=== PATIENT | female | born 1975 | race Hispanic/Latino ===

== ENCOUNTER → 2019-05-01 | Outpatient (CLI) | payer OTHER ==
[~2019-05-01] MED LIST: Farxiga PO; HUMALOG100 UNIT/3 SQ; LEVEMIR100 UNIT/1 SQ; LOSARTAN POTASS25 MG PO; LYRICA75 MG PO; METFORMIN HCL850 MG PO; NOVOLOG MI100 UNIT/1 SQ; TRAMADOL/APAP PO
--- NOTE | 2019-05-10 11:56 | Diagnostic Imaging Report ---
#[id number] - MGSCRBIL #BILATERAL DIGITAL SCREENING MAMMOGRAM WITH CAD: 05/01/2019 CLINICAL: Routine screening. Comparison is made to exam dated: 12/23/2013 mammogram - [facility]. There are scattered fibroglandular elements in both breasts. Current study was also evaluated with a Computer Aided Detection (CAD) system. No significant masses, calcifications, or other findings are seen in either breast. There has been no significant interval change. IMPRESSION: NEGATIVE There is no mammographic evidence of malignancy. A 1 year screening mammogram is recommended. The patient will be notified by letter of the results. MICHELLE brasher/na:05/08/2019 09:29:27 Sales Administration Manager: Stephanie LÓPEZ)(M), [facility] letter sent: Normal Exam Mammogram BI-RADS: 1 Negative
== END ==
LOC: MAMMO 16:43
PROVIDERS: ATTEND Internal Medicine
DX: Z12.31 Encounter for screening mammogram for malignant neoplasm of breast (principal)
CPT/HCPCS: 77067

== ENCOUNTER 2019-05-11 19:49 | Inpatient (IN) | payer OTHER ==
[~2019-05-11] VITALS: Ht 157.5 cm; Wt 109.8 kg
[~2019-05-11 19:49] MED LIST changes: -Farxiga PO; -HUMALOG100 UNIT/3 SQ; -LEVEMIR100 UNIT/1 SQ; -LOSARTAN POTASS25 MG PO; -LYRICA75 MG PO; -METFORMIN HCL850 MG PO; -TRAMADOL/APAP PO
--- OUTSIDE RECORDS SUMMARY | 2019-05-11 19:53 | XMS REPORT | Continuity of Care Document ---
Author Author [employer] Address Unknown Phone Unavailable Care Team Providers Care Work Checker Name Role Phone [employer] Unavailable Unavailable Problems Problem Status Onset Date Classification Date Reported Comments Source Pseudophakia, right eye Active 11/22/2018 03/13/2019 [facility] Age-related nuclear cataract of right eye Active 09/08/2018 03/13/2019 [facility] Pseudophakia of left eye Active 06/14/2018 03/13/2019 [facility] Combined forms of age-related cataract of both eyes Active 04/29/2018 03/13/2019 [facility] 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 associated with type 2 diabetes mellitus Active 07/07/2017 03/13/2019 [facility] Microalbuminuria Active 12/21/2014 03/13/2019 [facility] Obesity (BMI 30.0-34.9) Active 11/26/2011 03/13/2019 [facility] Urinary frequency Active 11/26/2011 03/13/2019 [facility] Screening for cervical cancer Active 08/20/2011 03/13/2019 [facility] Screening for osteoporosis on depo x 13yr Active 08/20/2011 03/13/2019 [facility] Vaginal itching Active 08/20/2011 03/13/2019 [facility] Plantar fasciitis Active 05/03/2007 03/13/2019 [facility] Uncontrolled type 2 diabetes mellitus with hyperosmolarity without coma, with long- term current use of insulin Active 12/21/2006 03/13/2019 [facility] Carpal tunnel syndrome Active 12/21/2006 03/13/2019 [facility] Abdominal wall abscess Active 03/13/2019 [facility] Spasm of muscle Active 03/13/2019 [facility] Acute bronchitis, unspecified organism Active 03/13/2019 [facility] Encounter for diabetic foot exam Active 03/13/2019 [facility] Neuropathy Active 03/13/2019 [facility] Pseudophakia, left eye Active 03/13/2019 [facility] Proliferative diabetic retinopathy of both eyes with macular edema associated with type 2 diabetes mellitus Active 03/13/2019 [facility] Nail thickening Active 03/13/2019 [facility] Pain in both lower extremities Active 03/13/2019 [facility] Open wound Active 03/13/2019 [facility] Follow up Active 03/13/2019 [facility] Abdominal wall cellulitis Active 03/13/2019 [facility] Boil Active 03/13/2019 [facility] Flu-like symptoms Active 03/13/2019 [facility] Acute upper respiratory infection Active 03/13/2019 [facility] Sore throat Active 03/13/2019 [facility] Obstructive sleep apnea syndrome Active 03/13/2019 [facility] Needs flu shot Active 03/13/2019 [facility] Bilateral carpal tunnel syndrome Active 03/13/2019 [facility] Right flank pain Active 03/13/2019 [facility] Viral URI with cough Active 03/13/2019 [facility] Non morbid obesity due to excess calories Active 03/13/2019 [facility] Diabetes mellitus type 2 in obese Active 03/13/2019 [facility] Medications Medication Details Route Status Patient Instructions Ordering Provider Order Date Source metFORMIN (GLUCOPHAGE) 500 mg tablet Take 2 tablets by mouth 2 times daily (with meals). Oral Active 02/04/2019 [facility] cyclobenzaprine (FLEXERIL) 10 mg tablet Take 1 tablet by mouth nightly at bedtime as needed for Muscle Spasms. Oral Active 02/04/2019 [facility] naproxen (NAPROSYN) 500 mg tablet Take 1 tablet by mouth 2 times daily (with meals). Oral Active 02/04/2019 [facility] blood glucose (PRECISION XTRA TEST STRIPS) test strips Check blood glucose 3 times daily Active 01/27/2019 [facility] insulin detemir U-100 (LEVEMIR FLEXTOUCH) 100 unit/mL (3 mL) Pen Inject 45 Units under the skin 2 times daily. Subcutaneous Active 01/11/2019 [facility] prednisoLONE acetate (PRED FORTE) 1 % ophthalmic suspension Instill 1 Drop in right eye 4 times daily for 10 days. No Longer Active 01/02/2019 [facility] ketorolac (ACULAR) 0.5 % ophthalmic drops Instill 1 Drop in right eye 4 times daily for 10 days. No Longer Active 01/02/2019 [facility] amoxicillin-clavulanate (AUGMENTIN) 875-125 mg per tablet Take 1 tablet by mouth 2 times daily for 10 days. Oral Inactive 12/26/2018 [facility] benzonatate (TESSALON PERLES) 100 mg capsule Take 1 to 2 capsules by mouth every 8 hours as needed for cough. Active 12/26/2018 [facility] loratadine (CLARITIN) 10 mg tablet Take 1 tablet by mouth daily. Oral Active 12/26/2018 [facility] pregabalin (LYRICA) 150 mg capsule Take 1 capsule by mouth 2 times daily. Oral Active 12/02/2018 [facility] ofloxacin (OCUFLOX) 0.3 % ophthalmic solution Instill 1 Drop in right eye 4 times daily for 10 days. No Longer Active 11/17/2018 [facility] ketorolac (ACULAR) 0.5 % ophthalmic drops Instill 1 Drop in right eye As directed for 30 days Ketorolac: 4x daily for 1 week,then 3x daily for 1 week,then 2x daily for 1 week,. No Longer Active 11/17/2018 [facility] loteprednol etabonate (LOTEMAX) 0.5 % ophthalmic suspension Instill 1 Drop in right eye 4 times daily. Active 11/17/2018 [facility] ketorolac (ACULAR) 0.5 % ophthalmic drops Instill 1 Drop in left eye 4 times daily. Active 11/03/2018 [facility] prednisoLONE acetate (PRED FORTE) 1 % ophthalmic suspension Instill 1 Drop in left eye 4 times daily for 10 days. No Longer Active 11/03/2018 [facility] insulin lispro (HUMALOG) 100 unit/mL injection Inject 5 Units under the skin 2 times daily Before lunch and dinner. Subcutaneous Active 09/30/2018 [facility] INSULIN SYRINGE 0.5mL 30GX5/16" (ULTRA COMFORT) syringe-needle Use to inject medication 2 times daily. Use a new syringe each time. Subcutaneous Active 09/30/2018 [facility] azithromycin (ZITHROMAX) 250 mg tablet Take 2 tablets by mouth on the first day, then take one tablet every day for the next 4 days. No Longer Active 08/26/2018 [facility] ibuprofen (MOTRIN) 800 mg tablet Take 1 tablet by mouth every 8 hours as needed for Pain Take with food. Oral Active 08/26/2018 [facility] oseltamivir (TAMIFLU) 75 mg capsule Take 1 capsule by mouth 2 times daily for 5 days. Oral No Longer Active 08/26/2018 [facility] doxycycline monohydrate (MONODOX) 100 mg capsule Take 1 capsule by mouth 2 times daily for 10 days. Oral No Longer Active 08/26/2018 [facility] pregabalin (LYRICA) 150 mg capsule Take 1 capsule by mouth 2 times daily. Oral No Longer Active 08/01/2018 [facility] pregabalin (LYRICA) 150 mg capsule Take 1 capsule by mouth 2 times daily. Oral No Longer Active 07/26/2018 [facility] ketorolac (ACULAR) 0.5 % ophthalmic drops Instill 1 Drop in left eye 4 times daily for 30 days. No Longer Active 06/13/2018 [facility] ofloxacin (OCUFLOX) 0.3 % ophthalmic solution Instill 1 Drop in each eye 4 times daily for 10 days. No Longer Active 06/13/2018 [facility] prednisoLONE acetate (PRED FORTE) 1 % ophthalmic suspension Instill 1 Drop in left eye 4 times daily for 30 days. No Longer Active 06/13/2018 [facility] acetaminophen-codeine (TYLENOL/CODEINE #3) 300-30 mg per tablet Take 1 tablet by mouth 2 times daily as needed for Pain. Oral No Longer Active 05/19/2018 [facility] insulin detemir U-100 (LEVEMIR FLEXTOUCH) 100 unit/mL (3 mL) Pen Inject 45 Units under the skin 2 times daily. Subcutaneous No Longer Active 05/17/2018 [facility] loratadine (CLARITIN) 10 mg tablet Take 1 tablet by mouth daily for cough and nasal congestion. Oral No Longer Active 03/15/2018 [facility] ciclesonide (ZETONNA) 37 mcg/actuation nasal HFA inhaler Use 1 Kevil in each nostril daily. No Longer Active 03/15/2018 [facility] acetaminophen-codeine (TYLENOL/CODEINE #3) 300-30 mg per tablet Take 1 tablet by mouth 2 times daily as needed for Pain. Oral No Longer Active 02/08/2018 [facility] cyclobenzaprine (FLEXERIL) 10 mg tablet Take 1 tablet by mouth 3 times daily as needed for Muscle Spasms. Oral No Longer Active 02/08/2018 [facility] ibuprofen (MOTRIN) 800 mg tablet Take 1 tablet by mouth every 8 hours as needed for Pain. Oral No Longer Active 01/19/2018 [facility] losartan (COZAAR) 25 mg tablet Take 0.5 tablets by mouth daily. Oral Active 01/06/2018 [facility] insulin detemir U-100 (LEVEMIR FLEXTOUCH) 100 unit/mL (3 mL) Pen Inject 45 Units under the skin 2 times daily for 184 days. Subcutaneous No Longer Active 12/17/2017 [facility] blood glucose (PRECISION XTRA TEST STRIPS) test strips Check blood glucose 3 times daily No Longer Active 09/29/2017 [facility] lancets 28 gauge Check blood glucose 3 times daily. No Longer Active 09/29/2017 [facility] blood glucose meter (PRECISION XTRA GLUCOMETER) Use as directed.. Active 09/28/2017 [facility] metFORMIN (GLUCOPHAGE) 500 mg tablet Take 1 tablet by mouth 2 times daily (with meals). Oral No Longer Active 09/28/2017 [facility] pen needle, diabetic (NOVOFINE) 30 gauge x 1/3" needles Inject under the skin 2 times daily Use as directed. Subcutaneous Active 09/28/2017 [facility] naproxen (NAPROSYN) 500 mg tablet Take 1 tablet by mouth 2 times daily (with meals) For pain as needed. Oral No Longer Active 09/28/2017 [facility] gabapentin (NEURONTIN) 800 mg tablet Take 1 tablet by mouth 3 times daily. Oral Active 09/28/2017 [facility] ibuprofen (MOTRIN) 800 mg tablet Take 1 tablet by mouth 2 times daily as needed for Pain. Oral No Longer Active 02/12/2017 [facility] pen needle, diabetic (NOVOFINE) 30 gauge x 1/3" needles Inject under the skin daily Use as directed. Subcutaneous No Longer Active 05/25/2016 [facility] blood glucose test strips 3 times daily. No Longer Active 05/25/2016 [facility] lancets 28 gauge 3 times daily. No Longer Active 05/25/2016 [facility] insulin REGULAR (NOVOLIN R, HUMULIN R) 100 unit/mL injection Inject 10 Units under the skin 2 times daily (before meals). Subcutaneous No Longer Active 05/17/2015 [facility] dexlansoprazole (DEXILANT) 60 mg delayed release capsule Take 1 capsule by mouth daily. Oral Active 05/06/2015 [facility] blood glucose test strips Use as directed 2 times daily No Longer Active 04/23/2015 [facility] blood glucose meter Use as directed.. Active 11/19/2014 [facility] lancets 28 gauge Check blood glucose 2 times daily No Longer Active 11/19/2014 [facility] INSULIN SYRINGE 1mL 30GX5/16" syringe-needle Use to inject insulin 2 times daily. Use a new syringe each time. Subcutaneous No Longer Active 11/19/2014 [facility] edroxyprogesterone,Contracep, (DEPO-PROVERA) 150 mg/mL Syrg syringe Inject 1 mL by intramuscular injection every 3 months for Other. Intramuscular No Longer Active 08/20/2011 [facility] Allergies, Adverse Reactions, Alerts No Known Medication Allergies Immunizations Immunization Date Given Site Status Last Updated Comments Source Tdap (Tetanus Toxoid, Reduced Diphtheria Toxoid And Acellular Pertussis, Absorbed) 08/26/2018 Not Given Rashid Deferred: - Pt states she recently received chart shows 2018 administration [facility] Influenza, Vaccine<FLUCELVAX>(Multi-Dose) 07/26/2018 completed [facility] PPV 23 (Pneumococcal Polysaccharide 23 Valent) 10/05/[address] [facility] Tdap (Tetanus Toxoid, Reduced Diphtheria Toxoid And Acellular Pertussis, Absorbed) 10/05/[address] [facility] Influenza Vaccine, Seasonal, Injectable 10/05/[address] [facility] Tropicamide 0.5% Eye[facility]Jacy [facility] <Unspecified[facility] 04/25/2016 completed [facility] Nitrostat 0.4mg Tab 05/06/2015 completed [facility] Asa (aspirin) 81mg Tab 05/06/2015 completed [facility] Depo-provera 150mg Inj 08/26/2012 completed [facility] Depo-provera 150mg Inj 05/19/2012 completed [facility] Depo-provera 150mg Inj 02/22/2012 completed [facility] Depo-provera 150mg Inj 11/26/2011 completed [facility] Depo-provera 150mg Inj 08/20/2011 completed [facility] Influenza Vaccine 05/21/2011 [facility]o-[facility]ver[facility]mg Inj [facility]/19/[facility] 60mg/2ml Syringe 12/24/2007 completed Iram [facility] Triamcinolone 40mg/ml Inj 12/12/2007 completed Mack [facility] Triamcinolone 40mg/ml Inj 04/05/2007 completed Noel [facility] Results Order Name Results Value Reference Range Date Interpretation Comments Source DIABETIC FOOT EXAM <p>Louann Steiner, PRESSING MACHINE OPERATOR 12/26/20186:09 PM</p><p>Diabetic Foot Exam was performed at 12/26/2018 6:06 PM.Right foot </p><p>sensation is reduced (mildly reduced), right foot pulses are normal, right </p><p>foot appearance is normal.Left foot sensation is reduced (mildly </p><p>reduced),left foot pulses are normal,left foot appearance is normal. </p><p> </p><p> </p> Louann Steiner G, PRESSING MACHINE OPERATOR 12/26/20186:09 PMDiabetic Foot Exam was performed at 12/26/2018 6:06 PM.Right foot sensation is reduced (mildly reduced), right foot pulses are normal, right foot appearance is normal.Left foot sensation is reduced (mildly reduced),left foot pulses are normal,left foot appearance is normal. 12/26/2018 [facility] GLUCOSE POC <td ID="[id number]">Glucose POC</td><td><span style="flagData">134</span><span style="flagData"> (H)</span></td><td>74 - 106 mg/dL</td><td>BT MAIN-STATION 1</td><td ID="[id number]"/> 134 74 - 106 11/21/2018 [facility] GLUCOSE POC Lab Interpretation Abnormal 11/21/2018 [facility] POCT URINE DIPSTICK - 11/21/2018 [facility] POCT URINE DIPSTICK - Control Control 11/21/2018 [facility] POCT URINE DIPSTICK - <p>UPT negative</p><p>Control test pass</p> UPT negativeControl test pass 11/21/2018 [facility] POCT URINE DIPSTICK - Lab Interpretation Normal 11/21/2018 [facility] BASIC METABOLIC PANEL <td ID="[id number]">CO2</td><td>23</td><td>21 - 31 mmol/L</td><td>BT MAIN-STATION 1</td><td ID="[id number]"/> 23 21 - 31 11/03/2018 [facility] BASIC METABOLIC PANEL <td ID="[id number]">Chloride</td><td>106</td><td>98 - 107 mmol/L</td><td>BT MAIN-STATION 1</td><td ID="[id number]"/> 106 98 - 107 11/03/2018 [facility] BASIC METABOLIC PANEL <td ID="[id number]">Potassium</td><td>4.9</td><td>3.5 - 5.1 mmol/L</td><td>BT MAIN-STATION 1</td><td ID="[id number]"/> 4.9 3.5 - 5.1 11/03/2018 [facility] BASIC METABOLIC PANEL <td ID="[id number]">Sodium</td><td>140</td><td>136 - 145 mmol/L</td><td>BT MAIN-STATION 1</td><td ID="[id number]"/> 140 136 - 145 11/03/2018 [facility] BASIC METABOLIC PANEL <td ID="[id number]">Glucose</td><td><span style="flagData">396</span><span style="flagData"> (H)</span></td><td>70 - 110 mg/dL</td><td>BT MAIN-STATION 1</td><td ID="[id number]"/> 396 70 - 110 11/03/2018 [facility] BASIC METABOLIC PANEL <td ID="[id number]">BUN</td><td><span style="flagData">26</span><span style="flagData"> (H)</span></td><td>7 - 25 mg/dL</td><td>BT MAIN-STATION 1</td><td ID=&amp ;quot;[id number]"/> 26 7 - 25 11/03/2018 [facility] BASIC METABOLIC PANEL <td ID="[id number]">Creatinine</td><td>0.80</td><td>0.6 - 1.2 mg/dL</td><td>BT MAIN-STATION 1</td><td ID="[id number]"/> 0.80 0.6 - 1.2 11/03/2018 [facility] BASIC METABOLIC PANEL Anion Gap 11 11/03/2018 [facility] BASIC METABOLIC PANEL <td ID="[id number]">Calcium</td><td>9.4</td><td>8.6 - 10.3 mg/dL</td><td>BT MAIN-STATION 1</td><td ID="[id number]"/> 9.4 8.6 - 10.3 11/03/2018 [facility] BASIC METABOLIC PANEL GFR, Estimated >60 mL/min/1.73 m2 11/03/2018 [facility] BASIC METABOLIC PANEL eGFR If Africn Am >60 mL/min/1.73 m2 11/03/2018 [facility] BASIC METABOLIC PANEL Lab Interpretation Abnormal 11/03/2018 [facility] CBC <td ID="[id number]">WBC</td><td>8.7</td><td>4.5 - 11.0 K/uL</td><td>BT MAIN-STATION 2</td><td ID="[id number]"/> 8.7 4.5 - 11 11/03/2018 [facility] CBC <td ID="[id number]">RBC</td><td><span style="flagData">4.10</span><span style="flagData"> (L)</span></td><td>4.20 - 5.40 M/uL</td><td>BT MAIN-STATION 2</td><td ID="[id number]"/> 4.10 4.20 - 5.40 11/03/2018 [facility] CBC <td ID="[id number]">Hemoglobin</td><td>12.2</td><td>12.0 - 16.0 g/dL</td><td> MAIN-STATION 2</td><td ID="[id number]"/> 12.2 12 - 16 11/03/2018 [facility] CBC <td ID="[id number]">Hematocrit</td><td>38.7</td><td>37.0 - 47.0 %</td><td> MAIN-STATION 2</td><td ID="[id number]"/> 38.7 37 - 47 11/03/2018 [facility] CBC <td ID="[id number]">MCV</td><td><span style="flagData">94</span><span style="flagData"> (H)</span></td><td>82 - 92 fL</td><td> MAIN-STATION 2</td><td ID="[id number]"/> 94 82 - 92 11/03/2018 [facility] CBC <td ID="[id number]">MCH</td><td>29.8</td><td>27.0 - 32.0 pg</td><td> MAIN-STATION 2</td><td ID="[id number]"/> 29.8 27 - 32 11/03/2018 [facility] CBC <td ID="[id number]">MCHC</td><td><span style="flagData">31.5</span><span style="flagData"> (L)</span></td><td>32.0 - 36.0 g/dL</td><td> MAIN-STATION 2</td><td ID="[id number]"/> 31.5 32 - 36 11/03/2018 [facility] CBC <td ID="[id number]">RDW</td><td>44.5</td><td>36.4 - 46.3 fL</td><td>BT MAIN-STATION 2</td><td ID="[id number]"/> 44.5 36.4 - 46.3 11/03/2018 [facility] CBC <td ID="[id number]">Platelets</td><td>273</td><td>150 - 400 K/uL</td><td>BT MAIN-STATION 2</td><td ID="[id number]"/> 273 150 - 400 11/03/2018 [facility] CBC <td ID="[id number]">Mean Platelet Volume</td><td>11.9</td><td>9.4 - 12.4 fL</td><td> MAIN-STATION 2</td><td ID="[id number]"/> 11.9 9.4 - 12.4 11/03/2018 [facility] CBC Percent NRBC 0.0 11/03/2018 [facility] CBC Absolute NRBC 0.00 11/03/2018 [facility] CBC Lab Interpretation Abnormal 11/03/2018 [facility] 12 LEAD EKG 12 LEAD EKG FOR [facility] Test Date:2018-11-03 Pat Name: DAMIAN ISABEL Department: [id number] : Gender:Financial Planning Advisor: [id number] :1975 Requested By: LIZZIE Santos Order Number: [id number] MD: Ayden Rowland Measurements IntervalsAxis Rate: 84 P:63 MN: 147QRS:85 QRSD: 88 T:35 QT: 383 QTc:455 Interpretive Statements SINUS RHYTHM Electronically Signed On 11-03-2018 11:15:21 CDT by Ayden Rowland 11/03/2018 [facility] DUPLEX DOPPLER LOWER EXTREMITY VENOUS, BILATERAL DUPLEX DOPPLER LOWER EXTREMITY VENOUS, BILATERAL Lower Extremity Vein Mapping Report DAMIAN ISABEL Age:43 Gender: F :1975 Exam Date: 2018-10-20 14:37 Exam Location:[facility] Ordering Phys: ETELVINA PAULSON Referring Phys: Reading Phys:Alexis Finney Fellow Phys: Fellow Phys: Technologist:Samson Diaz [facility], [facility] Reason For Exam: Indications:b/l LE superficial varicose veins, chronic tingling and pain in the legs, Varicose Vein With Inflammation ICD-9 Codes: I83.10 Exam Type: LE Vein Mapping Procedure CPT: 18491G Additional CPT: Risk Factors:Diabetes History: C/O bilateral LE varicose veins with tingling/pain. Previous Vascular Surgery:NO RIGHT LEG Great Saphenous Vein Small Saphenous Vein DepthCharDiameter Depth CharDiameter (mm) (mm)(mm) (mm) 7.4 SFJ 6.7 UT 2.2 MT 1.5 LT 2.5 Knee PF 1.82 2.0 2.4 UC SPJ 2.7 MC 2.5 LC MC 1.2 Ankle 2.1 Ankle Characteristics SFJ: Saphenofemoral Junction PF: Popliteal Fossa Partial ThrombusUT: Upper Thigh SPJ: Saphenopopliteal Junction Acute ThrombusMT: Mid Thigh MC: Mid Calf Chronic ThrombusLT: Low Thigh Ankle: Ankle Wall Thickening Knee: Knee UC: Upper Calf LC: Low Calf Ankle: Ankle RemovedCompetent Hyperplastic Reflux SclerosedNon Reflux IncompetentNormal PAGEBREAK_ LEFT LEG Small Saphenous Vein Great Saphenous Vein Diameter Depth DiameterDepth (mm) (mm) (mm) (mm) Paola Paola SFJ 7.0 UT 6.8 MT 3.6 LT 2.5 Knee 2.4 1.3 PF UC 2.7 SPJ MC 1.9 1.6 MC LC 2.3 1.4 Ankle Ankle CharacteristicsSFJ: Saphenofemoral Junction PF: Popliteal Fossa Partial Thrombus UT: Upper Thigh SPJ: Saphenopopliteal Junction Acute Thrombus MT: Mid Thigh MC: Mid Calf Chronic Thrombus LT: Low Thigh Ankle: Ankle Wall ThickeningKnee: Knee UC: Upper Calf LC: Low Calf Ankle: Ankle RemovedCompetent Hyperplastic Reflux SclerosedNon Reflux IncompetentNormal EXAM DATA ThrombusCompressible Spontaneous Phasic Augmented Competent R L R LR L R L R L R L C. FemoralN N Y Y Y YY Femoral N N Y Y YY ProfundaN N Y Y YY Popliteal N N Y YY Post. TibialN N Y Y YY PeronealN N Y Y Great SaphN N Y Y Y YY Small SaphN N Y YY N=No; Y=Yes; O=Absent; +=Present; -=Variable or Decreased DVT RightLeft No No The results of this study are: Findings A Venous Doppler exam was performed on the Bilateral lower extremities. The exam is negative for deep and superficial venous thrombosis of the Bilateral lower extremities. The Bilateral deep is competent. The right proximal short saphenous vein is incompetent. See measurement report above. Conclusions 1. No evidence of DVT or superficial thrombophlebitis in either lower extremity. 2. Deep veins in both lower extremities are competent. 3. The right proximal short saphenous vein is incompetent. 4. Measurements as listed above. Alexis Finney Edited by:Alexis Finney (Electronically Signed) Final Date:21 October 2018 16:52 10/21/2018 [facility] HIV-1/HIV-2 ROUTINE SCREENING <td ID="[id number]">HIV-1/HIV-2</td><td>Negative</td><td>NEG</td><td>BT MAIN-STATION 4</td><td ID="[id number]"/> Negative NEG 08/26/2018 [facility] TEST Negative 08/26/2018 [facility] UA CHEMISTRIES <td ID="[id number]">Color</td><td>Yellow</td><td/><td>BT [facility]IN-STATION 3</td><td ID="[id number]"/> Yellow 08/26/2018 [facility] CHEMISTRIES Clarity Clear 08/26/2018 [facility]ES <td ID="[id number]">Specific [place]</td><td>1.032</td><td>1.001 - 1.035</td><td>BT MAIN-STATION 3</td><td ID="[id number]"/> 1.032 1.001 - 1.035 08/26/2018 [facility]MISTRIES <td ID="[id number]">pH</td><td>6.0</td><td>5 - 8</td><td>BT MA[facility]-STATION 3</td><td ID="[id number]"/> 6.0 5 - 8 08/26/2018 [facility] <td ID="[id number]">Protein</td><td><span style="flagData">2+</span><span style="flagData"> (A)</span></td><td>NEG</td><td>BT MAIN-STATION 3</td><td ID=&quot ;[id number]"/> 2+ NEG 08/26/2018 [facility] <td ID="[id number]">Glucose</td><td><span style="flagData">3+</span><span style="flagData"> (A)</span></td><td>NEG</td><td>BT [facility]IN-STATION 3</td><td ID=&quot ;[id number]"/> 3+ NEG 08/26/2018 [facility] <td ID="[id number]">Ketones</td><td>Negative</td><td>NEG</td><td>BT MAIN-STATION 3</td><td ID="Wcfvnf617015069Fthl6Twxakoccv"/> Negative NEG 08/26/2018 [facility] CHEMISTRIES <td ID="Vcqufy148778236Vfrg0Izdi">Bilirubin</td><td>Negative</td><td>NEG</td><td>BT MAIN-STATION 3</td><td ID="[id number]"/> Negative NEG 08/26/2018 [facility] CHEMISTRIES <td ID="[id number]">Nitrate</td><td>Negative</td><td>NEG</td><td>BT MAIN-STATION 3</td><td ID="[id number]"/> Negative NEG 08/26/2018 [facility] CHEMISTRIES <td ID="[id number]">Urobilinogen,Semi- Qn</td><td><1.0</td><td>0.2 - 1.0 EU/dL</td><td>BT [facility]IN-STATION 3</td><td ID="[id number]"/> <1.0 0.2 - 1 08/26/2018 [facility] CHEMISTRIES <td ID="[id number]">Leukocyte</td><td><span style="flagData">Trace</span><span style="flagData"> (A)</span></td><td>NEG</td><td>BT MAIN-STATION 3</td><td ID=&am p;quot;[id number]"/> Trace NEG 08/26/2018 [facility] CHEMISTRIES Occult Blood 1+ NEG 08/26/2018 [facility] CHEMISTRIES RBC 4 0 - 4 08/26/2018 [facility] CHEMISTRIES WBC 4 0 - 5 08/26/2018 [facility] CHEMISTRIES Epithelial Cell 2 /HPF 08/26/2018 [facility] CHEMISTRIES Lab Interpretation Abnormal 08/26/2018 [facility] CBC/DIFF <td ID="[id number]">WBC</td><td><span style="flagData">15.5</span><span style="flagData"> (H)</span></td><td>4.5 - 11.0 K/uL</td><td>BT MAIN-STATION 2</td><td ID="[id number]"/> 15.5 4.5 - 11 08/26/2018 [facility] CBC/DIFF <td ID="[id number]">RBC</td><td><span style="flagData">3.83</span><span style="flagData"> (L)</span></td><td>4.20 - 5.40 M/uL</td><td>BT MAIN-STATION 2</td><td ID="[id number]"/> 3.83 4.20 - 5.40 08/26/2018 [facility] CBC/DIFF <td ID="[id number]">Hemoglobin</td><td><span style="flagData">11.8</span><span style="flagData"> (L)</span></td><td>12.0 - 16.0 g/dL</td><td>BT MAIN-STATION 2</td><td ID="[id number]"/> 11.8 12 - 16 08/26/2018 [facility] CBC/DIFF <td ID="[id number]">Hematocrit</td><td><span style="flagData">35.8</span><span style="flagData"> (L)</span></td><td>37.0 - 47.0 %</td><td>BT MAIN-STATION 2</td><td ID="[id number]"/> 35.8 37 - 47 08/26/2018 [facility] CBC/DIFF <td ID="[id number]">MCV</td><td><span style="flagData">94</span><span style="flagData"> (H)</span></td><td>82 - 92 fL</td><td>BT MAIN-STATION 2</td><td ID="[id number]"/> 94 82 - 92 08/26/2018 [facility] CBC/DIFF <td ID="[id number]">MCH</td><td>30.8</td><td>27.0 - 32.0 pg</td><td>BT MAIN-STATION 2</td><td ID="[id number]"/> 30.8 27 - 32 08/26/2018 [facility] CBC/DIFF <td ID="[id number]">MCHC</td><td>33.0</td><td>32.0 - 36.0 g/dL</td><td>BT MAIN-STATION 2</td><td ID="[id number]"/> 33.0 32 - 36 08/26/2018 [facility] CBC/DIFF <td ID="[id number]">RDW</td><td>42.0</td><td>36.4 - 46.3 fL</td><td>BT MAIN-STATION 2</td><td ID="[id number]"/> 42.0 36.4 - 46.3 08/26/2018 [facility] CBC/DIFF <td ID="[id number]">Platelets</td><td>258</td><td>150 - 400 K/uL</td><td>BT MAIN-STATION 2</td><td ID="[id number]"/> 258 150 - 400 08/26/2018 [facility] CBC/DIFF <td ID="[id number]">Mean Platelet Volume</td><td>12.0</td><td>9.4 - 12.4 fL</td><td>BT MAIN-STATION 2</td><td ID="[id number]"/> 12.0 9.4 - 12.4 08/26/2018 [facility] CBC/DIFF Percent NRBC 0.00 08/26/2018 [facility] CBC/DIFF Absolute NRBC 0.0 08/26/2018 [facility] CBC/DIFF <td ID="[id number]">Neutrophils</td><td><span style="flagData">73.3</span><span style="flagData"> (H)</span></td><td>34.0 - 70.0 %</td><td>BT MAIN-STATION 2</td><td ID="[id number]"/> 73.3 34 - 70 08/26/2018 [facility] CBC/DIFF <td ID="[id number]">Lymphs</td><td><span style="flagData">18.7</span><span style="flagData"> (L)</span></td><td>20.0 - 50.0 %</td><td>BT MAIN-STATION 2</td><td ID="[id number]"/> 18.7 20 - 50 08/26/2018 [facility] CBC/DIFF <td ID="[id number]">Monocytes</td><td>6.6</td><td>5.0 - 12.0 %</td><td>BT MAIN-STATION 2</td><td ID="[id number]"/> 6.6 5 - 12 08/26/2018 [facility] CBC/DIFF <td ID="[id number]">Eos</td><td>0.8</td><td>0.7 - 5.0 %</td><td>BT MAIN-STATION 2</td><td ID="[id number]"/> 0.8 0.7 - 5 08/26/2018 [facility] CBC/DIFF <td ID="[id number]">Basos</td><td>0.2</td><td>0.1 - 1.2 %</td><td>BT MAIN-STATION 2</td><td ID="[id number]"/> 0.2 0.1 - 1.2 08/26/2018 [facility] CBC/DIFF Lab Interpretation Abnormal 08/26/2018 [facility] POC CO2 POC 25 21 - 32 08/26/2018 [facility] POC Chloride POC 101 98 - 107 08/26/2018 [facility] POC Potassium POC 4.4 3.5 - 5.1 08/26/2018 [facility] POC Sodium POC 138 136 - 145 08/26/2018 [facility] POC <td ID="[id number]">Glucose POC</td><td><span style="flagData">412</span><span style="flagData"> (HH)</span></td><td>74 - 106 mg/dL</td><td>BT MAIN-STATION 1</td><td ID="[id number]"/> 412 74 - 106 08/26/2018 [facility] POC Urea Nitrogen POC 24 7 - 18 08/26/2018 [facility] POC Creatinine POC 0.8 0.6 - 1.3 08/26/2018 [facility] POC Calcium Ionized POC 1.17 1.15 - 1.29 08/26/2018 [facility] POC Hemoglobin POC 13.3 12 - 16 08/26/2018 [facility] POC Hematocrit POC 39.0 37 - 47 08/26/2018 [facility] POC GFR, Estimated >60 mL/min/1.73 m2 08/26/2018 [facility] POC GFR, Estim, Afr-Am >60 mL/min/1.73 m2 08/26/2018 [facility] BMP POC Lab Interpretation Abnormal 08/26/2018 [facility] VBG POC pH, Brandon POC 7.36 7.33 - 7.43 08/26/2018 [facility] pCO2, [place] POC 43.4 38.0 - 50.0 08/26/2018 [facility] pO2, [place] POC 23 50 - 75 08/26/2018 [facility] Base Deficit, [place] POC 1 08/26/2018 [facility] HCO3, [place] POC 24.3 22 - 26 08/26/2018 [facility] % Sat, [place] POC 37 60 - 85 08/26/2018 [facility] Lactic Acid, [place] POC 0.73 0.4 - 2 08/26/2018 [facility] Sample Type [place] 08/26/2018 [facility] TCO2, [place] POC 26 21 - 32 08/26/2018 [facility] Lab Interpretation Abnormal 08/26/2018 [facility] HEMOGLOBIN A1C <td ID="[id number]">Hemoglobin A1c</td><td><span style="flagData">12.9</span><span style="flagData"> (H)</span></td><td>4.3 - 6.1 %</td><td>BT DIAGNOSTIC IMMUNOLOGY</td><td ID="[id number]"/> 12.9 4.3 - 6.1 07/27/2018 [facility] HEMOGLOBIN A1C Est Average Gluc 323.5 07/27/2018 [facility] HEMOGLOBIN A1C Lab Interpretation Abnormal 07/27/2018 [facility] COMPREHENSIVE METABOLIC PANEL(DBIL NOT INCLUDED) <td ID="[id number]">Albumin</td><td>3.8</td><td>3.7 - 5.3 g/dL</td><td>BT MAIN-STATION 1</td><td ID="[id number]"/> 3.8 3.7 - 5.3 07/27/2018 [facility] COMPREHENSIVE METABOLIC PANEL(DBIL NOT INCLUDED) <td ID="[id number]">Calcium</td><td>9.7</td><td>8.6 - 10.3 mg/dL</td><td>BT MAIN-STATION 1</td><td ID="[id number]"/> 9.7 8.6 - 10.3 07/27/2018 [facility] COMPREHENSIVE METABOLIC PANEL(DBIL NOT INCLUDED) <td ID="[id number]">CO2</td><td>26</td><td>21 - 31 mmol/L</td><td>BT MAIN-STATION 1</td><td ID="[id number]"/> 26 21 - 31 07/27/2018 [facility] COMPREHENSIVE METABOLIC PANEL(DBIL NOT INCLUDED) <td ID="[id number]">Chloride</td><td>102</td><td>98 - 107 mmol/L</td><td>BT MAIN-STATION 1</td><td ID="[id number]"/> 102 98 - 107 07/27/2018 [facility] COMPREHENSIVE METABOLIC PANEL(DBIL NOT INCLUDED) <td ID="[id number]">Creatinine</td><td>0.70</td><td>0.6 - 1.2 mg/dL</td><td>BT MAIN-STATION 1</td><td ID="[id number]"/> 0.70 0.6 - 1.2 07/27/2018 [facility] COMPREHENSIVE METABOLIC PANEL(DBIL NOT INCLUDED) <td ID="[id number]">Glucose</td><td><span style="flagData">339</span><span style="flagData"> (H)</span></td><td>70 - 110 mg/dL</td><td>BT MAIN-STATION 1</td><td ID="[id number]"/> 339 70 - 110 07/27/2018 [facility] COMPREHENSIVE METABOLIC PANEL(DBIL NOT INCLUDED) <td ID="[id number]">Alkaline Phosphatase, S</td><td>93</td><td>34 - 104 U/L</td><td>BT MAIN-STATION 1</td><td ID="[id number]"/> 93 34 - 104 07/27/2018 [facility] COMPREHENSIVE METABOLIC PANEL(DBIL NOT INCLUDED) <td ID="[id number]">Potassium</td><td>4.7</td><td>3.5 - 5.1 mmol/L</td><td>BT MAIN-STATION 1</td><td ID="[id number]"/> 4.7 3.5 - 5.1 07/27/2018 [facility] COMPREHENSIVE METABOLIC PANEL(DBIL NOT INCLUDED) <td ID="[id number]">Sodium</td><td><span style="flagData">135</span><span style="flagData"> (L)</span></td><td>136 - 145 mmol/L</td><td>BT MAIN-STATION 1</td><td ID="[id number]"/> 135 136 - 145 07/27/2018 [facility] COMPREHENSIVE METABOLIC PANEL(DBIL NOT INCLUDED) <td ID="[id number]">ALT</td><td>24</td><td>7 - 52 U/L</td><td>BT MAIN-STATION 1</td><td ID="[id number]"/> 24 7 - 52 07/27/2018 [facility] COMPREHENSIVE METABOLIC PANEL(DBIL NOT INCLUDED) <td ID="[id number]">AST (SGOT)</td><td>19</td><td>13 - 39 U/L</td><td>BT MAIN-STATION 1</td><td ID="[id number]"/> 19 13 - 39 07/27/2018 [facility] COMPREHENSIVE METABOLIC PANEL(DBIL NOT INCLUDED) <td ID="[id number]">BUN</td><td>22</td><td>7 - 25 mg/dL</td><td>BT MAIN-STATION 1</td><td ID="Djnmwv535846450Cmpl66Uclhaeihi"/> 22 7 - 25 07/27/2018 [facility] COMPREHENSIVE METABOLIC PANEL(DBIL NOT INCLUDED) <td ID="[id number]">Bilirubin, Total</td><td>0.3</td><td>0.2 - 1.2 mg/dL</td><td>BT MAIN-STATION 1</td><td ID="[id number]"/> 0.3 0.2 - 1.2 07/27/2018 [facility] COMPREHENSIVE METABOLIC PANEL(DBIL NOT INCLUDED) <td ID="[id number]">Protein, Total, Serum</td><td>7.2</td><td>6.0 - 8.3 g/dL</td><td>BT MAIN-STATION 1</td><td ID="[id number]"/> 7.2 6 - 8.3 07/27/2018 [facility] COMPREHENSIVE METABOLIC PANEL(DBIL NOT INCLUDED) GFR, Estimated >60 mL/min/1.73 m2 07/27/2018 [facility] COMPREHENSIVE METABOLIC PANEL(DBIL NOT INCLUDED) eGFR If Africn Am >60 mL/min/1.73 m2 07/27/2018 [facility] COMPREHENSIVE METABOLIC PANEL(DBIL NOT INCLUDED) Anion Gap 7 07/27/2018 [facility] COMPREHENSIVE METABOLIC PANEL(DBIL NOT INCLUDED) Lab Interpretation Abnormal 07/27/2018 [facility] Pathology Reports No Data Provided for This Section Diagnostic Reports No Data Provided for This Section Consultation Notes No Data Provided for This Section Discharge Summaries No Data Provided for This Section History and Physicals No Data Provided for This Section Vital Signs Vital Sign Value Date Comments Source Systolic (mm Hg) 102 02/04/2019 [facility] Diastolic (mm Hg) 63 02/04/2019 [facility] Heart Rate 94 02/04/2019 [facility] Temperature Oral (F) 36.72 Jacqueline 02/04/2019 [facility] Respitory Rate 20 02/04/2019 [facility] Height 157.5 cm 02/04/2019 [facility] Weight 106.958 02/04/2019 [facility] Encounters Location Location Details Encounter Type Encounter Number Reason For Visit Attending Provider ADM Date DC Date Status Source Family Practice [facility] [place] [id number] Otoniel Zamarripa MD 03/15/2018 03/15/2018 [facility] Ophthalmology Office Visit [id number] Adina Masterson MD 03/17/2018 03/17/2018 [facility] Ophthalmology Nurse Only [id number] Adina Masterson MD 03/17/2018 03/17/2018 [facility] Ophthalmology Nurse Only [id number] Alyce Wilder MD 04/29/2018 04/29/2018 [facility] Ophthalmology Office Visit [id number] Alyce Wilder MD 04/29/2018 04/29/2018 [facility] [place] Ref[place] [id number] Clover Lucero MD 05/16/2018 [facility] Pre-Anesthesia Consulting & Testing [facility] Encounter [id number] Dn Ophthalmology:General Resident 05/30/2018 05/31/2018 [facility] Ophthalmology Nurse Only [id number] Janet Hodges 06/03/2018 06/03/2018 [facility] Ophthalmology Office Visit [id number] Niurka Joseph MD 06/03/2018 06/03/2018 [facility] 4F Post Anesthesia 1 (PAC1) [facility] Hospital Encounter [id number] Alyce Wilder MD 06/13/2018 06/13/2018 [facility] 4F Post Anesthesia 1 (PAC1) BT Anesthesia Event [id number] Kathryn Villalta 06/13/2018 06/13/2018 [facility] 4F Post Anesthesia 1 (PAC1) BT Surgery [id number] Niurka Joseph MD 06/13/2018 06/13/2018 [facility] Ophthalmology Office Visit [id number] Niurka Joseph MD 06/14/2018 06/14/2018 [facility] Ophthalmology Office Visit [id number] Adina Masterson MD 06/23/2018 06/23/2018 [facility] Ophthalmology Office Visit [id number] Adina Masterson MD 06/23/2018 06/23/2018 [facility] [place] Ref[place] [id number] Ross Massey MD 07/26/2018 [facility] Travel [id number] 07/26/2018 [facility] [place] Office Visit [id number] Ross Massey MD 07/26/2018 07/26/2018 [facility] [place] Clinical Case Mgt [id number] Loly Cehn RN 07/27/2018 [facility] Pharmacy [place] Telephone [id number] Niurka Skinner 07/28/2018 [facility] [place] Ref[place] [id number] Clover Lucero MD 07/29/2018 [facility] [place] Telephone [id number] Loly Chen RN 08/01/2018 [facility] Ophthalmology Office Visit [id number] Niurka Joseph MD 08/11/2018 08/11/2018 [facility] [place] Telephone [id number] Clarisa Blanton 08/12/2018 [facility] Travel [id number] 08/26/2018 [facility] Same Day Same Day [id number] Ivelisse Plascencia MD 08/26/2018 08/26/2018 [facility] Emergency Center [facility] Emergency [id number] Flo Tolentino MD 08/27/2018 08/27/2018 [facility] Ophthalmology Office Visit [id number] Adina Masterson MD 09/08/2018 09/08/2018 [facility] Ophthalmology Nurse Only [id number] Blanca Llanes 09/08/2018 09/08/2018 [facility] Travel [id number] 09/16/2018 [facility] ASK YOUR NURSE PROGRAM Nurse Triage [id number] Ludy Portillo RN 09/16/2018 [facility] ASK YOUR NURSE PROGRAM Nurse Triage [id number] Fatuma Locke RN 09/16/2018 [facility] [place] Orders Only [id number] Etelvina Paulson MD 09/30/2018 [facility] Travel [id number] 09/30/2018 [facility] [place] Office Visit [id number] Etelvina Paulson MD 09/30/2018 10/14/2018 [facility] Ophthalmology Office Visit [id number] Le Young MD 10/04/2018 10/04/2018 [facility] Travel [id number] 10/20/2018 [facility] Vascular Lab (5207) [facility] Hospital Encounter [id number] Clover Lucero MD 10/20/2018 10/21/2018 [facility] Pre-Anesthesia Consulting & Testing [facility] Encounter [id number] Dn Ophthalmology:General Resident 11/03/2018 11/03/2018 [facility] Ophthalmology Office Visit [id number] Le Young MD 11/03/2018 11/03/2018 [facility] LABORATORY [facility] Hospital Encounter [id number] Lizzie Crandall MD 11/03/2018 11/04/2018 [facility] Ophthalmology Nurse Only [id number] Janet Hodges 11/03/2018 11/03/2018 [facility] Travel [id number] 11/17/2018 [facility] Ophthalmology Office Visit [id number] Adina Masterson MD 11/17/2018 11/17/2018 [facility] Travel [id number] 11/21/2018 [facility] 4F Post Anesthesia 1 (PAC1) [facility] Hospital Encounter [id number] Suhas Bedoya MD 11/21/2018 11/21/2018 [facility] 4F Post Anesthesia 1 (PAC1) BT Anesthesia Event [id number] Ash Manley ResidentMD 11/21/2018 11/21/2018 [facility] 4F Post Anesthesia 1 (PAC1) BT Surgery [id number] Nate Batista ResidentMD 11/21/2018 11/21/2018 [facility] Ophthalmology Office Visit [id number] Niurka Joseph MD 11/22/2018 11/22/2018 [facility] [place] Refill [id number] Clover Lucero MD 11/30/2018 [facility] Travel [id number] 12/26/2018 [facility] Same Day Same Day 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 12/26/2018 [facility] Ophthalmology Office Visit [id number] Shahla Veliz MD 01/02/2019 01/02/2019 [facility] [place] Ref[place] [id number] Clover Lucero MD 01/04/2019 [facility] [place] Ref[place] [id number] Clover Lucero MD 01/25/2019 [facility] Travel [id number] 02/04/2019 [facility] Same Day Same Day [id number] Gisselle Ruvalcaba MD 02/04/2019 02/04/2019 [facility] Procedures Procedure Code Date Perfomer Comments Source DIABETIC FOOT EXAM 12/27/2018 [facility] OPHTH - PHACOEMULSIFICATION OF CATARACT -- WITH OR WITHOUT IOL IMPLANT 11/21/2018 [facility] BASIC METABOLIC PANEL 63162 11/03/2018 [facility] CBC (WITHOUT DIFFERENTIAL) 37964 11/03/2018 [facility] 12 LEAD EKG 79452 11/03/2018 [facility] DUPLEX DOPPLER LOWER EXTREMITY VENOUS, BILATERAL 25716 10/21/2018 [facility] I& D OF ABSCESS WITH PACKING (COMPLICATED) [id number] 08/27/2018 [facility] VBG POC 24505 08/27/2018 Unknown [facility] BMP POC 99392 08/27/2018 Unknown [facility] CBC/DIFF 68192 08/27/2018 [facility] HIV-1/HIV-2 ROUTINE SCREENING 86701 08/27/2018 [facility] URINALYSIS 13334 08/27/2018 [facility] TEST 26416 08/27/2018 [facility] HEMOGLOBIN A1C 15569 07/27/2018 [facility] COMPREHENSIVE METABOLIC PANEL 40221 07/27/2018 [facility] POC GLUCOSE - IN LAB (STAT) 64069 06/13/2018 [facility] POCT URINE DIPSTICK - [id number] 06/13/2018 [facility] Assessment and Plan No Data Provided for This Section Plan of Care Plan of Care Date Source Cervical Cancer Scrn (3 Yrs) 10/12/2020 [facility] DM Foot Exam (Yearly) 12/27/2019 [facility] DM Retinal Exam (Yearly) 11/18/2019 [facility] DM HGBA1C (Yearly) 07/26/2019 [facility] Upcoming EncountersDateTypeSpecialtyCare TeamDescription 04/11/2019 Office Visit Family Practice Clover Lucero MD[id number] [facility] ANASTASIA Mariscal [phone] (Fax) WAITLIST PATIENT Health MaintenanceDue DateLast DoneComments Breast Cancer Scrn (Yearly) 10/12/2018 10/12/2017, 07/23/2016 DM HGBA1C (Yearly) 07/26/2019 07/26/2018, 12/21/2017, 07/23/2016, Additional history exists DM Retinal Exam (Yearly) 11/18/2019 11/17/2018, 11/03/2018, 06/03/2018, Additional history exists DM Foot Exam (Yearly) 12/27/2019 12/26/2018, 09/28/2017, 01/21/2012 Cervical Cancer Scrn (3 Yrs) 10/12/2020 10/12/2017, 05/16/2014, 08/20/2011 03/13/2019 [facility] Upcoming EncountersDateTypeSpecialtyCare TeamDescription 04/11/2019 Office Visit Family Practice Clover Lucero MD[id number] [place], [place] [phone] (Fax) WAITLIST PATIENT Health MaintenanceDue DateLast DoneComments Breast Cancer Scrn (Yearly) 10/12/2018 10/12/2017, 07/23/2016 DM HGBA1C (Yearly) 07/26/2019 07/26/2018, 12/21/2017, 07/23/2016, Additional history exists DM Retinal Exam (Yearly) 11/18/2019 11/17/2018, 11/03/2018, 06/03/2018, Additional history exists DM Foot Exam (Yearly) 12/27/2019 12/26/2018, 09/28/2017, 01/21/2012 Cervical Cancer Scrn (3 Yrs) 10/12/2020 10/12/2017, 05/16/2014, 08/20/2011 02/20/2019 [facility] Breast Cancer Scrn (Yearly) 10/12/2018 [facility] Social History Social History Date Source Tobacco UseTypesPacks/DayYears UsedDate Never Smoker Smokeless Tobacco: Never Used Tobacco Cessation: Counseling Given: No Alcohol UseDrinks/Weekoz/WeekComments No Food InsecurityAnswerDate Recorded Within the past 12 months, you worried that your food would run out before you got money to buy more. Never true 02/08/2018 Within the past 12 months, the food you bought just didn't last and you didn't have money to get more. Never true 02/08/2018 Sex Assigned at BirthDate Recorded Not on file Job Start DateOccupationIndustry Not on file Not on file Not on file Travel HistoryTravel StartTravel End No recent travel history available. 02/04/2019 [facility] Family History Value Date Source Medical HistoryRelationNameComments Cancer Maternal Aunt cervical Cancer Maternal Aunt breast Cancer Maternal Grandfather stomach Diabetes Maternal Grandmother Glaucoma Maternal Grandmother RelationNameStatusComments Brother Alive Daughter Alive X2 Father Alive Maternal Aunt Maternal Aunt Maternal Grandfather Maternal Grandmother Mother Paternal Grandfather Paternal Grandmother Son Alive 03/13/2019 [facility] Medical HistoryRelationNameComments Cancer Maternal Aunt cervical Cancer Maternal Aunt breast Cancer Maternal Grandfather stomach Diabetes Maternal Grandmother Glaucoma Maternal Grandmother RelationNameStatusComments Brother Alive Daughter Alive X2 Father Alive Maternal Aunt Maternal Aunt Maternal Grandfather Maternal Grandmother Mother Paternal Grandfather Paternal Grandmother Son Alive 02/20/2019 [facility] Advance Directives No Data Provided for This Section Functional Status No Data Provided for This Section
--- OUTSIDE RECORDS SUMMARY | 2019-05-11 19:54 | XMS REPORT | Clinical Summary ---
Author Author [facility] Organization [facility] Address Unknown Phone Unavailable Care Team Providers Care Culinary Manager Name Role Phone Clover Lucero MD PCP Allergies No Known Allergies Medications End Date Status Medication Sig Dispensed Refills Start Date Active blood glucose Use as 1 Kit 0 meterIndications: Type II directed.. 5 or unspecified type diabetes mellitus without mention of complication, uncontrolled Active dexlansoprazole Take 1 30 capsule 2 (DEXILANT) 60 mg delayed capsule by 5 release mouth daily. capsuleIndications: Gastroesophageal reflux disease without esophagitis Active blood glucose meter Use as 1 Kit 0 (PRECISION XTRA directed.. 8 GLUCOMETER)Indications: Uncontrolled type 2 diabetes mellitus with hyperosmolarity without coma, with long-term current use of insulin Active pen needle, diabetic Inject under 1 Box 1 (NOVOFINE) 30 gauge x the skin 2 8 1/3" needlesIndications: times daily Uncontrolled type 2 Use as diabetes mellitus with directed. hyperosmolarity without coma, with long-term current use of insulin Active gabapentin (NEURONTIN) Take 1 tablet 90 tablet 2 800 mg tabletIndications: by mouth 3 8 Neuropathy times daily. Active losartan (COZAAR) 25 mg Take 0.5 45 tablet 1 tabletIndications: tablets by 8 Microalbuminuria mouth daily. Active ibuprofen (MOTRIN) 800 mg Take 1 tablet 30 tablet 0 tabletIndications: Sore by mouth 9 throat every 8 hours as needed for Pain Take with food. Active insulin lispro (HUMALOG) Inject 5 30 mL 0 100 unit/mL Units under 9 injectionIndications: the skin 2 Uncontrolled type 2 times daily diabetes mellitus with Before lunch hyperosmolarity without and dinner. coma, with long-term current use of insulin Active INSULIN SYRINGE 0.5mL Use to inject 100 Each 0 30GX5/16" (ULTRA COMFORT) medication 2 9 syringe-needleIndications times daily. : Uncontrolled type 2 Use a new diabetes mellitus with syringe each hyperosmolarity without time. coma, with long-term current use of insulin Active ketorolac (ACULAR) 0.5 % Instill 1 10 mL 2 ophthalmic drops Drop in left 9 eye 4 times daily. Active loteprednol etabonate Instill 1 5 mL 2 (LOTEMAX) 0.5 % Drop in right 9 ophthalmic eye 4 times suspensionIndications: daily. Age-related nuclear cataract of right eye Active pregabalin (LYRICA) 150 Take 1 60 capsule 1 mg capsuleIndications: capsule by 9 Neuropathy mouth 2 times daily. Active benzonatate (TESSALON Take 1 to 2 60 capsule 0 PERLES) 100 mg capsules by 9 capsuleIndications: Acute mouth every 8 bronchitis, unspecified hours as organism needed for cough. Active loratadine (CLARITIN) 10 Take 1 tablet 30 tablet 0 mg tabletIndications: by mouth 9 Acute bronchitis, daily. unspecified organism 02/24/2019 Active amoxicillin-clavulanate Take 1 tablet 20 tablet 0 (AUGMENTIN) 875-125 mg by mouth 2 9 per tabletIndications: times daily Acute bronchitis, for 10 days. unspecified organism Active insulin detemir U-100 Inject 45 8 Pen 2 (LEVEMIR FLEXTOUCH) 100 Units under 9 unit/mL (3 mL) the skin 2 PenIndications: times daily. Uncontrolled type 2 diabetes mellitus with hyperosmolarity without coma, with long-term current use of insulin Active blood glucose (PRECISION Check blood 200 Each 5 XTRA TEST STRIPS) test glucose 3 9 stripsIndications: times daily Uncontrolled type 2 diabetes mellitus with hyperosmolarity without coma, with long-term current use of insulin Active metFORMIN (GLUCOPHAGE) Take 2 360 tablet 1 500 mg tabletIndications: tablets by 9 Uncontrolled type 2 mouth 2 times diabetes mellitus with daily (with hyperosmolarity without meals). coma, with long-term current use of insulin Active cyclobenzaprine Take 1 tablet 30 tablet 1 (FLEXERIL) 10 mg by mouth 9 tabletIndications: Spasm nightly at of muscle bedtime as needed for Muscle Spasms. Active naproxen (NAPROSYN) 500 Take 1 tablet 60 tablet 0 mg tabletIndications: by mouth 2 9 Spasm of muscle times daily (with meals). 03/15/2018 Discontinued edroxyprogesterone,Contra Inject 1 mL 1 Syringe 4 cep, (DEPO-PROVERA) 150 by 2 mg/mL Syrg intramuscular syringeIndications: injection Family planning, every 3 Depo-Provera months for contraception Other. monitoring/administration 06/03/2018 Discontinued lancets 28 Check blood 1 Box 11 gaugeIndications: Type II glucose 2 5 or unspecified type times daily diabetes mellitus without mention of complication, uncontrolled 06/03/2018 Discontinued INSULIN SYRINGE 1mL Use to inject 200 Each 5 30GX5/16" insulin 2 5 syringe-needleIndications times daily. : DM (diabetes mellitus), Use a new type 2, uncontrolled syringe each time. 06/03/2018 Discontinued blood glucose test Use as 2 Box 6 stripsIndications: Type directed 2 5 II or unspecified type times daily diabetes mellitus without mention of complication, uncontrolled 09/30/2018 Discontinued insulin REGULAR (NOVOLIN Inject 10 30 mL 4 R, HUMULIN R) 100 unit/mL Units under 5 injectionIndications: DM the skin 2 (diabetes mellitus), type times daily 2, uncontrolled (before meals). 06/03/2018 Discontinued pen needle, diabetic Inject under 1 Box 4 (NOVOFINE) 30 gauge x the skin 6 1/3" needlesIndications: daily Use as Uncontrolled type 2 directed. diabetes mellitus with hyperosmolarity without coma, with long-term current use of insulin 06/03/2018 Discontinued blood glucose test 3 times 100 Each 11 stripsIndications: daily. 6 Uncontrolled type 2 diabetes mellitus with hyperosmolarity without coma, with long-term current use of insulin 06/03/2018 Discontinued lancets 28 3 times 100 Each 11 gaugeIndications: daily. 6 Uncontrolled type 2 diabetes mellitus with hyperosmolarity without coma, with long-term current use of insulin 06/03/2018 Discontinued ibuprofen (MOTRIN) 800 mg Take 1 tablet 20 tablet 1 tabletIndications: by mouth 2 7 Abdominal pain, right times daily upper quadrant as needed for Pain. 02/04/2019 Discontinued metFORMIN (GLUCOPHAGE) Take 1 tablet 180 tablet 1 500 mg tabletIndications: by mouth 2 8 Uncontrolled type 2 times daily diabetes mellitus with (with meals). hyperosmolarity without coma, with long-term current use of insulin 06/03/2018 Discontinued naproxen (NAPROSYN) 500 Take 1 tablet 60 tablet 0 mg tabletIndications: by mouth 2 8 Chest wall pain times daily (with meals) For pain as needed. 01/25/2019 Discontinued blood glucose (PRECISION Check blood 100 Each XTRA TEST STRIPS) test glucose 3 8 stripsIndications: times daily Uncontrolled type 2 diabetes mellitus with hyperosmolarity without coma, with long-term current use of insulin 06/03/2018 Discontinued lancets 28 Check blood 100 Each 11 gaugeIndications: glucose 3 8 Uncontrolled type 2 times daily. diabetes mellitus with hyperosmolarity without coma, with long-term current use of insulin 05/16/2018 Discontinued insulin detemir U-100 Inject 45 5 Pen 3 (LEVEMIR FLEXTOUCH) 100 Units under 8 unit/mL (3 mL) the skin 2 PenIndications: times daily Uncontrolled type 2 for 184 days. diabetes mellitus with hyperosmolarity without coma, with long-term current use of insulin 06/03/2018 Discontinued ibuprofen (MOTRIN) 800 mg Take 1 tablet 10 tablet 0 tabletIndications: by mouth 8 Periodontitis every 8 hours as needed for Pain. 05/16/2018 Discontinued acetaminophen-codeine Take 1 tablet 60 tablet 0 (TYLENOL/CODEINE #3) by mouth 2 8 300-30 mg per times daily tabletIndications: Right as needed for flank pain Pain. 12/26/2018 Discontinued cyclobenzaprine Take 1 tablet 90 tablet 0 (FLEXERIL) 10 mg by mouth 3 8 tabletIndications: Neck times daily pain as needed for Muscle Spasms. 12/26/2018 Discontinued loratadine (CLARITIN) 10 Take 1 tablet 30 tablet 1 mg tabletIndications: by mouth 8 Viral URI with cough daily for cough and nasal congestion. 12/26/2018 Discontinued ciclesonide (ZETONNA) 37 Use 1 Leadore 6.1 g 0 mcg/actuation nasal HFA in each 8 inhalerIndications: Viral nostril URI with cough daily. 01/04/2019 Discontinued insulin detemir U-100 Inject 45 8 Pen 2 (LEVEMIR FLEXTOUCH) 100 Units under 8 unit/mL (3 mL) the skin 2 PenIndications: times daily. Uncontrolled type 2 diabetes mellitus with hyperosmolarity without coma, with long-term current use of insulin 06/03/2018 Discontinued acetaminophen-codeine Take 1 tablet 60 tablet 0 (TYLENOL/CODEINE #3) by mouth 2 8 300-30 mg per times daily tabletIndications: Right as needed for flank pain Pain. 07/13/2018 ketorolac (ACULAR) 0.5 % Instill 1 5 mL 0 ophthalmic Drop in left 8 dropsIndications: eye 4 times Combined forms of daily for 30 age-related cataract of days. both eyes 07/05/2018 ofloxacin (OCUFLOX) 0.3 % Instill 1 5 mL 0 ophthalmic Drop in each 8 solutionIndications: eye 4 times Combined forms of daily for 10 age-related cataract of days. both eyes 07/13/2018 prednisoLONE acetate Instill 1 5 mL 0 (PRED FORTE) 1 % Drop in left 8 ophthalmic eye 4 times suspensionIndications: daily for 30 Combined forms of days. age-related cataract of both eyes 07/29/2018 Discontinued pregabalin (LYRICA) 150 Take 1 60 capsule 1 mg capsuleIndications: capsule by 8 Neuropathy mouth 2 times daily. 11/30/2018 Discontinued pregabalin (LYRICA) 150 Take 1 60 capsule 1 mg capsuleIndications: capsule by 8 Neuropathy mouth 2 times daily. 08/31/2018 azithromycin (ZITHROMAX) Take 2 6 Each 0 250 mg tabletIndications: tablets by 9 Acute upper respiratory mouth on the infection first day, then take one tablet every day for the next 4 days. 08/31/2018 oseltamivir (TAMIFLU) 75 Take 1 10 capsule 0 mg capsuleIndications: capsule by 9 Flu-like symptoms mouth 2 times daily for 5 days. 09/05/2018 doxycycline monohydrate Take 1 20 capsule 0 (MONODOX) 100 mg capsule by 9 capsuleIndications: mouth 2 times Abdominal wall cellulitis daily for 10 days. 11/13/2018 prednisoLONE acetate Instill 1 5 mL 0 (PRED FORTE) 1 % Drop in left 9 ophthalmic suspension eye 4 times daily for 10 days. 11/27/2018 ofloxacin (OCUFLOX) 0.3 % Instill 1 5 mL 0 ophthalmic Drop in right 9 solutionIndications: eye 4 times Age-related nuclear daily for 10 cataract of right eye days. 12/17/2018 ketorolac (ACULAR) 0.5 % Instill 1 5 mL 2 ophthalmic Drop in right 9 dropsIndications: eye As Age-related nuclear directed for cataract of right eye 30 days Ketorolac: 4x daily for 1 week, then 3x daily for 1 week, then 2x daily for 1 week,. 12/26/2018 Discontinued amoxicillin-clavulanate Take 1 tablet 20 tablet 0 (AUGMENTIN) 875-125 mg by mouth 2 9 per tabletIndications: times daily Acute bronchitis, for 10 days. unspecified organism 01/12/2019 prednisoLONE acetate Instill 1 10 mL 0 (PRED FORTE) 1 % Drop in right 9 ophthalmic eye 4 times suspensionIndications: daily for 10 Pseudophakia, right eye days. 01/29/2019 ketorolac (ACULAR) 0.5 % Instill 1 5 mL 0 ophthalmic Drop in right 9 dropsIndications: eye 4 times Pseudophakia, right eye daily for 10 days. 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 07/07/2017 associated with type 2 diabetes mellitus Microalbuminuria 12/21/2014 Obesity (BMI 30.0-34.9) 11/26/2011 Urinary frequency 11/26/2011 Screening for cervical cancer 08/20/2011 Screening for osteoporosis on depo x 13yr 08/20/2011 Vaginal itching 08/20/2011 Plantar fasciitis 05/03/2007 Uncontrolled type 2 diabetes mellitus with hyperosmolarity without coma, 12/21/2006 with long-term current use of insulin Carpal tunnel syndrome 12/21/2006 Abdominal wall abscess Encounters Care Team Description Date Type Specialty Gisselle Ruvalcaba MD Spasm of muscle (Primary Dx); Uncontrolled type 2 diabetes mellitus with hyperosmolarity without coma, with long-term current use of insulin 02/04/2019 Same Day Family Practice 02/04/2019 Travel Clover Lucero MD Uncontrolled type 2 diabetes mellitus with hyperosmolarity without coma, with long-term current use of insulin 01/25/2019 Refill [facility] Clover Lucero MD Uncontrolled type 2 diabetes mellitus with hyperosmolarity without coma, with long-term current use of insulin 01/04/2019 Refill [facility] Shahla Veliz MD 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 associated with type 2 diabetes mellitus (Primary Dx); Pseudophakia, right eye 01/02/2019 Office Visit Ophthalmology Louann Steiner G, FACILITY EXAMINER Acute bronchitis, unspecified organism (Primary Dx); Encounter for diabetic foot exam 12/26/2018 Same Day Family Practice 12/26/2018 Travel Clover Lucero MD Neuropathy 11/30/2018 Refill [facility] Niurka Joseph MD Pseudophakia, right eye (Primary Dx) 11/22/2018 Office Visit Ophthalmology Nate Batista, ResidentMD UTILIZING MICROSCOPE, RIGHT EYE PHACOEMULSIFICATION OF CATARACT WITH INTRAOCULAR LENS IMPLANT 11/21/2018 Surgery Ash Manley, Ambar 11/21/2018 Anesthesia Event Suhas Bedoya MD Age-related nuclear cataract of right eye (Primary Dx) 11/21/2018 Hospital Encounter 11/21/2018 Travel Adina Masterson MD Age-related nuclear cataract of right eye (Primary Dx) 11/17/2018 Office Visit Ophthalmology 11/17/2018 Travel Janet Hodges 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 associated with type 2 diabetes mellitus 11/03/2018 Nurse Only Ophthalmology Lizzie Crandall MD 11/03/2018 Hospital Lab Encounter Le Young MD Pseudophakia, left eye (Primary Dx); Age-related nuclear cataract of right eye; Proliferative diabetic retinopathy of both eyes with macular edema associated with type 2 diabetes mellitus 11/03/2018 Office Visit Ophthalmology Ophthalmology:General, Dn, Resident Lizzie Crandall MD 11/03/2018 Hospital Encounter Clover Lucero MD 10/20/2018 Hospital Vascular Surgery Encounter 10/20/2018 Travel Le Young MD Chu, Yvonne I, MD 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 associated with type 2 diabetes mellitus (Primary Dx) 10/04/2018 Office Visit Ophthalmology Rosa Maria Paulson MD Uncontrolled type 2 diabetes mellitus with hyperosmolarity without coma, with long-term current use of insulin (Primary Dx); Nail thickening; Pain in both lower extremities; Open wound; Follow up 09/30/2018 Office Visit Family Practice Rosa Maria Paulson MD Pain in both lower extremities 09/30/2018 Orders Only Family Practice 09/30/2018 Travel 09/16/2018 Ludy Rubio RN 09/16/2018 Nurse Triage Fatuma Locke RN 09/16/2018 Nurse Triage Blanca Llanes 09/08/2018 Nurse Only Ophthalmology Adina Masterson MD Age-related nuclear cataract of right eye (Primary Dx); Proliferative diabetic retinopathy of both eyes with macular edema associated with type 2 diabetes mellitus; Pseudophakia, left eye 09/08/2018 Office Visit Ophthalmology Flo Tolentino MD Abdominal wall cellulitis (Primary Dx); Abdominal wall abscess 08/26/2018 Emergency Emergency Medicine - 08/27/2018 Ivelisse Plascencia MD Flu-like symptoms (Primary Dx); Boil; Acute upper respiratory infection; Sore throat 08/26/2018 Same Day Family Practice 08/26/2018 Travel Clarisa Blanton Public Transportation Inspector; Pre-clinic Chart Review 08/12/2018 Telephone Social Work Niurka Joseph MD Proliferative diabetic retinopathy of both eyes with macular edema associated with type 2 diabetes mellitus (Primary Dx) 08/11/2018 Office Visit Ophthalmology Loly Chen RN Pre-clinic Chart Review; Durable Medical Equipment (CPAP Machine and Supplies ) 08/01/2018 Telephone Social Work Clover Lucero MD Neuropathy 07/29/2018 Refill [facility] Niurka Skinner Refill Request 07/28/2018 Telephone Loly Chen RN 07/27/2018 Clinical Case Social Work Mgt Ross Massey MD Obstructive sleep apnea syndrome (Primary Dx); Uncontrolled type 2 diabetes mellitus with hyperosmolarity without coma, with long-term current use of insulin; Needs flu shot; Neuropathy 07/26/2018 Office Visit [facility] Ross Massey MD Neuropathy 07/26/2018 Refill [facility] 07/26/2018 Travel Adina Masterson MD 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 associated with type 2 diabetes mellitus (Primary Dx) 06/23/2018 Office Visit Ophthalmology Adina Masterson MD Proliferative diabetic retinopathy of both eyes with macular edema associated with type 2 diabetes mellitus (Primary Dx); Pseudophakia, left eye 06/23/2018 Office Visit Ophthalmology Niurka Joseph MD Pseudophakia of left eye (Primary Dx); 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 associated with type 2 diabetes mellitus 06/14/2018 Office Visit Ophthalmology Niurka Joseph MD Utilizing Microscope Left Eye Phacoemulsification of Cataract with Intraocular Lens Implant 06/13/2018 Surgery Kathryn Joiner ResidentHI 06/13/2018 Anesthesia Event Alyce Wilder MD Combined forms of age-related cataract of both eyes (Primary Dx); Uncontrolled type 2 diabetes mellitus with hyperosmolarity without coma, with long-term current use of insulin; Bilateral carpal tunnel syndrome; Plantar fasciitis; Obesity (BMI 30.0-34.9); 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 associated with type 2 diabetes mellitus 06/13/2018 Hospital Encounter Niurka Joseph MD Combined forms of age-related cataract of both eyes (Primary Dx); 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 associated with type 2 diabetes mellitus; Obesity (BMI 30.0-34.9) 06/03/2018 Office Visit Ophthalmology Janet Hodges 06/03/2018 Nurse Only Ophthalmology Ophthalmology:General, Dn, Resident Karina Hinojosa MD 05/30/2018 Hospital Encounter Clover Lucero MD Uncontrolled type 2 diabetes mellitus with hyperosmolarity without coma, with long-term current use of insulin; Right flank pain 05/16/2018 Refill Family Practice Alyce Wilder MD 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 associated with type 2 diabetes mellitus (Primary Dx); Combined forms of age-related cataract of both eyes 04/29/2018 Office Visit Ophthalmology Alyce Wilder MD Osorio, Daniel Chino No Show 04/29/2018 Nurse Only Ophthalmology Adina Masterson MD Osorio, Daniel Chino 03/17/2018 Nurse Only Ophthalmology Adina Masterson MD Proliferative diabetic retinopathy of both eyes with macular edema associated with type 2 diabetes mellitus (Primary Dx) 03/17/2018 Office Visit Ophthalmology Otoniel Zamarripa MD Viral URI with cough: 2 days: meds given /symptomatic Rx/patient educated /f/u with PCP in 2 wk 03/02 (Primary Dx); Microalbuminuria: on meds///patient educated /f/u with PCP in 2 wk 03/02 ; Non morbid obesity due to excess calories /patient educated /f/u with PCP in 2 wk 03/02 ; Diabetes mellitus type 2 in obese: on meds///patient educated /f/u with PCP in 2 wk 03/0203/15/2018 Same Day Family Practice after 02/19/2018 Immunizations Name Administration Dates Next Due Asa (aspirin) 81mg Tab 05/06/2015 Depo-provera 150mg Inj 08/26/2012, 05/19/2012, 02/22/2012, 11/26/2011, 02/25/2012 08/20/2011, 12/19/2008 Influenza <Unspecified> 04/25/2016 Influenza Vaccine 05/21/2011 Influenza Vaccine, 10/05/2017 Seasonal, Injectable Influenza, 07/26/2018 Vaccine<FLUCELVAX>(Multi- Dose) Nitrostat 0.4mg Tab 05/06/2015 PPV 23 (Pneumococcal 10/05/2017 Polysaccharide 23 Valent) Tdap (Tetanus Toxoid, 08/26/2018 (Deferred: - Pt states she recently Reduced Diphtheria Toxoid received chart shows 2018 administration), And Acellular Pertussis, 10/05/2017 Absorbed) Toradol 60mg/2ml Syringe 12/24/2007 Triamcinolone 40mg/ml Inj 12/12/2007, 04/05/2007 Tropicamide 0.5% Eye-Jacy 07/23/2016 15ml Family History Medical History Relation Name Comments Cancer Maternal Aunt cervical Cancer Maternal Aunt breast Cancer Maternal stomach Grandfather Diabetes Maternal Grandmother Glaucoma Maternal Grandmother Relation Name Status Comments Brother Alive Daughter Alive X2 Father Alive Maternal Aunt Maternal Aunt Maternal Grandfather Maternal Grandmother Mother Paternal Grandfather Paternal Grandmother Son Alive Social History Date Tobacco Use Types Packs/Day Years Used Never Smoker Smokeless Tobacco: Never Used Tobacco Cessation: Counseling Given: No Drinks/Week oz/Week Comments Alcohol Use No Food Insecurity Answer Date Recorded Within the past 12 months, you worried that your Never true 02/08/2018 food would run out before you got money to buy more. Within the past 12 months, the food you bought Never true 02/08/2018 just didn't last and you didn't have money to get more. Sex Assigned at Date Recorded Not on file Industry Job Start Date Occupation Not on file Not on file Not on file Travel End Travel History Travel Start No recent travel history available. Last Filed Vital Signs Reading Time Taken Comments Vital Sign 102/63 02/04/2019 2:08 PM CDT Blood Pressure 94 02/04/2019 2:08 PM CDT Pulse 36.7 C (98.1 F) 02/04/2019 2:08 PM CDT Temperature 20 02/04/2019 2:08 PM CDT Respiratory Rate 97% 02/04/2019 2:08 PM CDT Oxygen Saturation - - Inhaled Oxygen Concentration 107 kg (235 lb 12.8 oz) 02/04/2019 2:08 PM CDT Weight 157.5 cm (5' 2") 02/04/2019 2:08 PM CDT Height 43.13 02/04/2019 2:08 PM CDT Body Mass Index Plan of Treatment Care Team Description Date Type Specialty Clover Lucero MD [address] [place] [address] [phone] WAITLIST PATIENT 04/11/2019 Office Visit [facility] Health Maintenance Due Date Last Done Comments Breast Cancer Scrn 10/12/2018 10/12/2017, 07/23/2016 (Yearly) DM HGBA1C (Yearly) 07/26/2019 07/26/2018, 12/21/2017, 07/23/2016, Additional history exists DM Retinal Exam (Yearly) 11/18/2019 11/17/2018, 11/03/2018, 06/03/2018, Additional history exists DM Foot Exam (Yearly) 12/27/2019 12/26/2018, 09/28/2017, 01/21/2012 Cervical Cancer Scrn (3 10/12/2020 10/12/2017, 05/16/2014, 08/20/2011 Yrs) Goals Goal Patient Associated Recent Progress Patient-Stat Author Goal Type Problems ed? LOWER BLOOD GLUCOSE Lifestyle No Keyla Chao LOWER BLOOD GLUCOSE Lifestyle No Ross Massey MD Exercise Regularly Self No Keyla Chao G Implants Device Identifier Shelf Expiration Date Model / Serial / Lot Implanted Type Area Manufactur er 10/13/2021 [id number] / [id number] / N/A Implant Eye Iol Intraoccular Lens Implant Left: Eye(s) ADVANCED ([id number]-[id number]) - [id number] eye MEDICAL Implanted: Qty: 1 on 06/13/2018 by [employer] Niurka Joseph MD at [facility] 04/21/2022 [id number] / / Implant Eye Iol Technics 1 Piece Implant Right: Eye(s) ADVANCED [id number] 23.5d - [id number] eye MEDICAL Implanted: Qty: 1 on 11/21/2018 by [employer] Nate Batista ResidentMD at [facility] Procedures Comments Procedure Name Priority Date/Time Associated Diagnosis DIABETIC FOOT EXAM Routine 12/26/2018 Encounter for diabetic 5:29 PM CDT foot exam POC GLUCOSE - IN LAB Routine 11/21/2018 (STAT) 12:12 PM CDT OPHTH - 11/21/2018 Age-related nuclear PHACOEMULSIFICATION OF 10:48 AM CDT cataract of right eye CATARACT -- WITH OR WITHOUT IOL IMPLANT Special Needs Dr. Dione danielle time; 9 am-confirm ed with/patie nt @ [phone]. POC GLUCOSE - IN LAB Routine 11/21/2018 (STAT) 10:11 AM CDT POCT URINE DIPSTICK - Routine 11/21/2018 10:00 AM CDT CBC (WITHOUT Routine 11/03/2018 DIFFERENTIAL) 1:33 PM CDT BASIC METABOLIC PANEL Routine 11/03/2018 1:33 PM CDT 12 LEAD EKG Routine 11/03/2018 9:39 AM CDT DUPLEX DOPPLER LOWER Routine 10/20/2018 Pain in both lower EXTREMITY VENOUS, 2:37 PM [employer] extremities BILATERAL I& D OF ABSCESS WITH Routine 08/26/2018 PACKING (COMPLICATED) 9:15 PM [employer] BMP POC Routine 08/26/2018 1:32 PM [employer] VBG POC Routine 08/26/2018 1:32 PM [employer] HIV-1/HIV-2 ROUTINE STAT 08/26/2018 SCREENING 1:31 PM [employer] CBC/DIFF STAT 08/26/2018 1:31 PM [employer] TEST STAT 08/26/2018 1:25 PM [employer] URINALYSIS STAT 08/26/2018 1:25 PM [employer] COMPREHENSIVE METABOLIC Routine 07/26/2018 Uncontrolled type 2 PANEL 12:30 PM [employer] diabetes mellitus with hyperosmolarity without coma, with long-term current use of insulin HEMOGLOBIN A1C Routine 07/26/2018 Uncontrolled type 2 12:30 PM [employer] diabetes mellitus with hyperosmolarity without coma, with long-term current use of insulin POC GLUCOSE - IN LAB Routine 06/13/2018 (STAT) 9:34 AM CDT OPHTH - 06/13/2018 Combined forms of PHACOEMULSIFICATION OF 8:29 AM CDT age-related cataract of CATARACT -- WITH OR both eyes WITHOUT IOL IMPLANT Special Needs 8:30 START!Dr. Contreras time; 6:30 am-confir med with/patie nt @ [phone]. POC GLUCOSE - IN LAB Routine 06/13/2018 (STAT) 8:27 AM CDT POC GLUCOSE - IN LAB Routine 06/13/2018 (STAT) 8:00 AM CDT POC GLUCOSE - IN LAB Routine 06/13/2018 (STAT) 7:17 AM CDT POCT URINE DIPSTICK - Routine 06/13/2018 after 02/19/2018 Results * DIABETIC FOOT EXAM (12/26/2018 5:29 PM CDT) Narrative Performed At Louann Steiner NP 12/26/20186:09 PM Diabetic Foot Exam was performed at 12/26/2018 6:06 PM.Right foot sensation is reduced (mildly reduced), right foot pulses are normal, right foot appearance is normal.Left foot sensation is reduced (mildly reduced),left foot pulses are normal,left foot appearance is normal. * GLUCOSE POC (11/21/2018 12:12 PM CDT) Only the most recent of 6 results within the time period is included. Glucose POC 134 (H) 74 - 106 mg/dL BT MAIN-STATION 1 Specimen Performing Organization Address City/State/Zipcode Phone Number MISYS BT MAIN-STATION 1 * POCT URINE DIPSTICK - (11/21/2018 10:00 AM CDT) Only the most recent of 2 results within the time period is included. Control Specimen Urine Narrative Performed At UPT negative Control test pass * CBC (11/03/2018 1:33 PM CDT) WBC 8.7 4.5 - 11.0 K/uL BT MAIN-STATION 2 RBC 4.10 (L) 4.20 - 5.40 M/uL BT MAIN-STATION 2 Hemoglobin 12.2 12.0 - 16.0 g/dL BT MAIN-STATION 2 Hematocrit 38.7 37.0 - 47.0 % BT MAIN-STATION 2 MCV 94 (H) 82 - 92 fL BT MAIN-STATION 2 MCH 29.8 27.0 - 32.0 pg BT MAIN-STATION 2 MCHC 31.5 (L) 32.0 - 36.0 g/dL BT MAIN-STATION 2 RDW 44.5 36.4 - 46.3 fL BT MAIN-STATION 2 Platelets 273 150 - 400 K/uL BT MAIN-STATION 2 Mean Platelet 11.9 9.4 - 12.4 fL BT MAIN-STATION Volume 2 Percent NRBC 0.0 BT MAIN-STATION 2 Absolute NRBC 0.00 BT MAIN-STATION 2 Specimen Blood Performing Organization Address [facility] Phone Number MISYS BT [facility] 2 * BASIC METABOLIC PANEL (11/03/2018 1:33 PM CDT) CO2 23 21 - 31 mmol/L BT MAIN-STATION 1 Chloride 106 98 - 107 mmol/L BT MAIN-STATION 1 Potassium 4.9 3.5 - 5.1 mmol/L BT MAIN-STATION 1 Sodium 140 136 - 145 mmol/L BT MAIN-STATION 1 Glucose 396 (H) 70 - 110 mg/dL BT MAIN-STATION 1 BUN 26 (H) 7 - 25 mg/dL BT MAIN-STATION 1 Creatinine 0.80 0.6 - 1.2 mg/dL BT MAIN-STATION 1 Anion Gap 11 BT MAIN-STATION 1 Calcium 9.4 8.6 - 10.3 mg/dL BT MAIN-STATION 1 GFR, Estimated >60 mL/min/1.73 m2 BT MAIN-STATION 1 eGFR If Africn >60 mL/min/1.73 m2 BT MAIN-STATION Am 1 Specimen Blood Performing Organization Address City/[facility] Phone Number [facility]YS BT [facility] 1 * 12 LEAD EKG (11/03/2018 9:39 AM CDT) 12 LEAD EKG FOR [facility] Test Date:2018-11-03 Pat Name: ALYSSA ISABEL Department: [id number] Room: Gender: Director Media: [id number] Requested By: LIZZIE Santos Order Number: [id number] Reading MD: Ayden Rowland Measurements Intervals [place] Rate: 84 P:63 [place]: 147 QRS: 85 QRSD: 88 T:35 QT: 383 QTc:455 Interpretive Statements SINUS RHYTHM Electronically Signed On 11-03-2018 11:15:21 CDT by Ayden Rowland Specimen Performing Organization Address City/State/Zipcode Phone Number SMS * DUPLEX DOPPLER LOWER EXTREMITY VENOUS, BILATERAL (10/20/2018 2:37 PM [employer]) DUPLEX DOPPLER Lower Extremity Vein SMS LOWER EXTREMITY Mapping Report VENOUS, ALYSSA ISABEL BILATERAL Age:43 Gender: F :1975 Exam Date: 2018-10-20 14:37 Exam Location:[facility] Ordering Phys: ROSA MARIA PAULSON Referring Phys: Reading Phys:Alexis Finney Fellow Phys: Fellow Phys: Technologist: Samson Diaz RDCS, RVT Reason For Exam: Indications:b /l LE superficial varicose veins, chronic tingling and pain in the legs, Varicose Vein With Inflammation ICD-9 Codes: I83.10 Exam Type: LE Vein Mapping Procedure CPT: 85493V Additional CPT: Risk Factors:Diabetes History: C/O bilateral LE varicose veins with tingling/pain. Previous Vascular Surgery:NO RIGHT LEG Great Saphenous Vein Small Saphenous Vein DepthCharDiame ter Depth CharDiameter (mm) (mm) (mm) (m m) 7.4 SFJ 6.7 UT 2.2 MT 1.5 LT 2.5 Knee PF 1.82 2.0 2.4 UC SPJ 2.7 MC 2.5 LC MC 1.2 Ankle 2.1 Ankle Characteristics SFJ: Saphenofemoral Junction PF: Popliteal Fossa Partial Thrombus UT: Upper Thigh SPJ: Saphenopopliteal Junction Acute Thrombus MT : Mid Thigh MC: Mid Calf Chronic Thrombus LT: Low Thigh Ankle: Ankle Wall Thickening Knee: Knee UC: Upper Calf LC: Low Calf Ankle: Ankle Removed Competent Hyperplastic Reflux Sclerosed Non Reflux Incompetent Normal PAGEBREAK_ LEFT LEG Small Saphenous Vein Great Saphenous Vein Diameter Depth DiameterDe pth (mm) (mm) (mm) (m m) Ch ar [place] SFJ 7.0 UT 6.8 MT 3.6 LT 2.5 Knee 2.4 1.3 PF UC 2.7 SPJ MC 1.9 1.6 MC LC 2.3 1.4 Ankle Ankle Characteristics SFJ : Saphenofemoral Junction PF: Popliteal Fossa Partial Thrombus UT: Upper Thigh SPJ: Saphenopopliteal Junction Acute Thrombus MT: Mid Thigh MC: Mid Calf Chronic Thrombus LT: Low Thigh Ankle: Ankle Wall Thickening Knee: Knee UC: Upper Calf LC: Low Calf Ankle: Ankle Removed Competent Hyperplastic Reflux Sclerosed Non Reflux Incompetent Normal EXAM DATA ThrombusCompre ssible Spontaneous Phasic Augmented Competent R L R LR L R L R L R L C. FemoralN N YY Y Y Y Y Y Y YY Femoral N N Y Y Y Y Y Y Y YY ProfundaN N Y Y Y Y Y Y YY Popliteal N N Y Y Y Y Y Y YY Post. TibialN N Y Y Y Y Y Y Y YY PeronealN N Y Y Y Y Y Y YY Great SaphN N YY Y Y Y Y Y Y YY Small SaphN N Y Y Y Y Y Y Y YY N=No; Y=Yes; O=Absent; +=Present; -=Variable or Decreased DVT Right Left No No The results of this study [...] (Electronically Signed) Final Date:21 October 2018 16:52 Specimen Performing Organization Address City/State/Zipcode Phone Number SMS * VBG POC (08/26/2018 1:32 PM [employer]) pH, Brandon POC 7.36Comment: Physician 7.33 - 7.43 BT MAIN-STATION Notified 1 pCO2, [place] POC 43.4 38.0 - 50.0 mm Hg BT MAIN-STATION 1 pO2, [place] POC 23 (L) 50 - 75 mm Hg BT MAIN-STATION 1 Base Deficit, 1 BT MAIN-STATION [place] POC 1 HCO3, [place] POC 24.3 22.0 - 26.0 mmol/L BT MAIN-STATION 1 % Sat, [place] POC 37 (L) 60 - 85 % BT MAIN-STATION 1 Lactic Acid, 0.73 0.4 - 2.0 mmol/L BT MAIN-STATION [place] POC 1 Sample Type [place] BT MAIN-STATION 1 TCO2, BRANDON POC 26 21 - 32 mmol/L BT MAIN-STATION 1 Specimen Performing Organization Address City/[facility] Phone Number MISYS BT MAIN-STATION 1 * BMP POC (08/26/2018 1:32 PM [employer]) CO2 POC 25 21 - 32 mmol/L BT MAIN-STATION 1 Chloride POC 101 98 - 107 mmol/L BT MAIN-STATION 1 Potassium POC 4.4 3.50 - 5.10 mmol/L BT MAIN-STATION 1 Sodium POC 138 136 - 145 mmol/L BT MAIN-STATION 1 Glucose POC 412 (HH) 74 - 106 mg/dL BT MAIN-STATION 1 Urea Nitrogen 24 (H) 7 - 18 mg/dL BT MAIN-STATION POC 1 Creatinine POC 0.8 0.6 - 1.3 mg/dL BT MAIN-STATION 1 Calcium Ionized 1.17 1.15 - 1.29 mmol/L BT MAIN-STATION POC 1 Hemoglobin POC 13.3 12.0 - 16.0 g/dL BT MAIN-STATION 1 Hematocrit POC 39.0 37.0 - 47.0 % BT MAIN-STATION 1 GFR, Estimated >60 mL/min/1.73 m2 BT MAIN-STATION 1 GFR, Estim, >60 mL/min/1.73 m2 BT MAIN-STATION Afr-Am 1 Specimen Performing Organization Address [facility] Phone Number MISYS BT MAIN-STATION 1 * HIV-1/HIV-2 ROUTINE SCREENING (08/26/2018 1:31 PM [employer]) HIV-1/HIV-2 Negative NEG BT MAIN-STATION 4 Specimen Performing Organization Address [facility] Phone Number MISYS BT MAIN-STATION 4 * CBC/DIFF (08/26/2018 1:31 PM [employer]) WBC 15.5 (H) 4.5 - 11.0 K/uL BT MAIN-STATION 2 RBC 3.83 (L) 4.20 - 5.40 M/uL BT MAIN-STATION 2 Hemoglobin 11.8 (L) 12.0 - 16.0 g/dL BT MAIN-STATION 2 Hematocrit 35.8 (L) 37.0 - 47.0 % BT MAIN-STATION 2 MCV 94 (H) 82 - 92 fL BT MAIN-STATION 2 MCH 30.8 27.0 - 32.0 pg BT MAIN-STATION 2 MCHC 33.0 32.0 - 36.0 g/dL BT MAIN-STATION 2 RDW 42.0 36.4 - 46.3 fL BT MAIN-STATION 2 Platelets 258 150 - 400 K/uL BT MAIN-STATION 2 Mean Platelet 12.0 9.4 - 12.4 fL BT MAIN-STATION Volume 2 Percent NRBC 0.00 BT MAIN-STATION 2 Absolute NRBC 0.0 BT MAIN-STATION 2 Neutrophils 73.3 (H) 34.0 - 70.0 % BT MAIN-STATION 2 Lymphs 18.7 (L) 20.0 - 50.0 % BT MAIN-STATION 2 Monocytes 6.6 5.0 - 12.0 % BT MAIN-STATION 2 Eos 0.8 0.7 - 5.0 % BT MAIN-STATION 2 Basos 0.2 0.1 - 1.2 % BT MAIN-STATION 2 Specimen Blood Performing Organization Address [facility] [place] Number MISYS BT [facility]IN-ST[facility] 2 * UA CHEMISTRIES (08/26/2018 1:25 PM [employer]) Color Yellow BT MAIN-STATION 3 Clarity Clear BT MAIN-STATION 3 Specific 1.032 1.001 - 1.035 BT MAIN-STATION [place] 3 pH 6.0 5 - 8 BT MAIN-STATION 3 Protein 2+ (A) NEG BT MAIN-STATION 3 Glucose 3+ (A) NEG BT MAIN-STATION 3 Ketones Negative NEG BT MAIN-STATION 3 Bilirubin Negative NEG BT MAIN-STATION 3 Nitrate Negative NEG BT MAIN-STATION 3 Urobilinogen,Se <1.0 0.2 - 1.0 EU/dL BT MAIN-STATION mi-Qn 3 Leukocyte Trace (A) NEG BT MAIN-STATION 3 Occult Blood 1+ (A) NEG BT MAIN-STATION 3 RBC 4 0 - 4 /HPF BT MAIN-STATION 3 WBC 4 0 - 5 /HPF BT MAIN-STATION 3 Epithelial Cell 2 /HPF BT MAIN-STATION 3 Specimen Urine Performing Organization Address [facility] [place] MISYS BT MAIN-STATION 3 * TEST (08/26/2018 1:25 PM [employer]) Negative BT MAIN-STATION 3 Specimen Urine Performing Organization Address [facility] [place] MISYS BT MAIN-STATION 3 * HEMOGLOBIN A1C (07/26/2018 12:30 PM [employer]) Hemoglobin A1c 12.9 (H) 4.3 - 6.1 % BT DIAGNOSTIC IMMUNOLOGY Est Average 323.5 mg/dL BT DIAGNOSTIC Gluc IMMUNOLOGY Specimen Blood Performing Organization Address [facility] Phone Number MISYS BT DIAGNOSTIC IMMUNOLOGY * COMPREHENSIVE METABOLIC PANEL(DBIL NOT INCLUDED) (07/26/2018 12:30 PM [employer]) Albumin 3.8 3.7 - 5.3 g/dL BT MAIN-STATION 1 Calcium 9.7 8.6 - 10.3 mg/dL BT MAIN-STATION 1 CO2 26 21 - 31 mmol/L BT MAIN-STATION 1 Chloride 102 98 - 107 mmol/L BT MAIN-STATION 1 Creatinine 0.70 0.6 - 1.2 mg/dL BT MAIN-STATION 1 Glucose 339 (H) 70 - 110 mg/dL BT MAIN-STATION 1 Alkaline 93 34 - 104 U/L BT MAIN-STATION Phosphatase, S 1 Potassium 4.7 3.5 - 5.1 mmol/L BT MAIN-STATION 1 Sodium 135 (L) 136 - 145 mmol/L BT MAIN-STATION 1 ALT 24 7 - 52 U/L BT MAIN-STATION 1 AST (SGOT) 19 13 - 39 U/L BT MAIN-STATION 1 BUN 22 7 - 25 mg/dL BT MAIN-STATION 1 Bilirubin, 0.3 0.2 - 1.2 mg/dL BT MAIN-STATION Total 1 Protein, Total, 7.2 6.0 - 8.3 g/dL BT MAIN-STATION Serum 1 GFR, Estimated >60 mL/min/1.73 m2 BT MAIN-STATION 1 eGFR If Africn >60 mL/min/1.73 m2 BT MAIN-STATION Am 1 Anion Gap 7 BT MAIN-STATION 1 Specimen Blood Performing Organization Address [facility] Phone [facility] MISYS BT MAIN-STATION 1 after 02/19/2018 Insurance Type Payer Benefit Subscriber ID Effective Phone Address Plan / Dates Group MARILYN SANDERS xxxxxxxxxxx 2018- [phone] [id number] [place] [id number]
--- OUTSIDE RECORDS SUMMARY | 2019-05-11 19:55 | XMS REPORT ---
Author [facility] Address Unknown Phone Unavailable Care Team [facility] Sales Name Role Phone Maria Victoria DAVIDSON Unavailable Unavailable Payers Payer Name Policy Type Policy Number Effective Date Expiration Date Problems This patient has no known problems. Allergies, Adverse Reactions, Alerts Allergy Name Allergy Type Status Severity Reaction(s) Onset Date Inactive Date Treating Clinician Comments No Known Allergies DA Active U 2019-05-09 00:00:00 No Known Allergies DA Active U 2018-09-24 00:00:00 No Known Allergies DA Active U 2016-05-09 00:00:00 Medications This patient has no known medications. Encounters Start Date/Time End Date/Time Encounter Type Admission Type Attending Clinicians Care Facility Care Department Encounter ID 2019-03-13 13:19:09 Outpatient [facility] [id number] 2019-04-11 07:07:00 2019-04-11 07:07:00 Outpatient [id number] 2019-04-11 00:00:00 2019-04-11 00:00:00 Outpatient [facility] [id number] 2019-02-13 00:00:00 2019-02-13 00:00:00 Outpatient [facility] [id number] 2019-02-13 00:00:00 2019-02-13 00:00:00 Outpatient [facility] [id number] 2019-02-04 14:07:52 2019-02-04 14:07:52 Outpatient [facility] [id number] 2019-01-23 00:00:00 2019-01-23 00:00:00 Outpatient [facility] [id number] 2019-01-02 10:40:21 2019-01-02 10:40:21 Outpatient [facility] [id number] 2019-01-02 00:00:00 2019-01-02 00:00:00 Outpatient [facility] [id number] 2018-12-26 17:18:05 2018-12-26 17:18:05 Outpatient [facility] [id number] 2018-12-13 00:00:00 2018-12-13 00:00:00 Outpatient [facility] [id number] 2018-12-05 00:00:00 2018-12-05 00:00:00 Outpatient [facility] [id number] 2018-11-25 00:00:00 2018-11-25 00:00:00 Outpatient [facility] [id number] 2018-11-22 14:47:07 2018-11-22 14:47:07 Outpatient [facility] [id number] 2018-11-21 10:00:00 2018-11-21 10:00:00 Outpatient [facility] [id number] 2018-11-21 00:00:00 2018-11-21 00:00:00 Outpatient [facility] [id number] 2018-11-17 09:03:07 2018-11-17 09:03:07 Outpatient [facility] [id number] 2018-11-03 16:17:08 2018-11-03 16:17:08 Outpatient [facility] [id number] 2018-11-03 15:34:58 2018-11-03 15:34:58 Outpatient [facility] [id number] 2018-11-03 11:13:10 2018-11-03 11:13:10 Outpatient [facility] [id number] 2018-11-03 09:28:04 2018-11-03 09:28:04 Outpatient [facility] [id number] 2018-11-03 00:00:00 2018-11-03 00:00:00 Outpatient [facility] [id number] 2018-10-20 14:33:00 2018-10-20 14:33:00 Outpatient [facility] [id number] 2018-10-04 15:14:30 2018-10-04 15:14:30 Outpatient [facility] [id number] 2018-09-30 14:27:40 2018-09-30 14:27:40 Outpatient [facility] [id number] 2018-09-08 15:24:21 2018-09-08 15:24:21 Outpatient [facility] [id number] 2018-09-08 14:09:46 2018-09-08 14:09:46 Outpatient [facility] [id number] 2018-08-26 20:30:42 2018-08-26 20:30:42 Emergency [facility] [id number] Results Test Description Test Time Test Comments Text Results Atomic Results Result Comments - XR FOOT 3 + V RT 2019-05-09 23:56:00 FAX: Clover Lucero MD [phone] [place]: St: REG FAX: Juan Luis Jeronimo DO Name: DAMIAN ISABEL [facility] : 1975 Age/S: 44/F [address] [facility] Unit #: [id number] Loc: [place] [address] Phys: Juan Luis Jeronimo DO Acct: [id number] Dis Date: Status: REG ER PHONE #: [phone] Exam Date: 05/09/2019 2343 FAX #: [phone] Reason: big toe pain EXAMS: CPT CODE: [id number] XR FOOT 3 + [place] [address]65 AFTER HOURS SERVICE ON: 05/09/2019 11:52 PM Right Foot, 3 Views Location Code M12 History: big toe pain Findings: There is a mild soft tissue emphysema in the plantar surface of the great toe. There is a large plantar calcaneal spur. There is normal anatomic alignment. No fracture, dislocation or avulsion fragments are seen. Articular surfaces are within normal limits for patient's age. Impression: Mild soft tissue emphysema in the plantar surface of the great toe. Findings may be posttraumatic or infectious. No osseous erosive changes. Electro nically Signed by Supriya Smith M.D. on 05/09/2019 at 1209 Reported and signed by: Supriya Smith M.D. CC: Clover Lucero MD; Juan Luis Jeronimo DO Technologist: RT WILLIAN Trnscrd Date/Time/By: 05/09/2019 (1845) : By: [email or web address] Orig Print D/T: S: 05/09/2019 (1933) PAGE 1 Signed Report HCG SERUM QUAL 2019-05-09 22:09:00 HCG SERUM QUAL (test code=HCGQL) NEGATIVE NEGATIVE This HCGQL test is NOT applicable for MALE patients.Check with nurse about probable order error.If Tumor Marker Test needed, nurse should order test "HCGTU"(Test #550.08661) BASIC METABOLIC [id number] 22:09:00* Test Item Value Reference Range Comments SODIUM (test code=NA) 137 mmol/L 136-145 POTASSIUM (test code=K) 4.1 mmol/L 3.5-5.1 CHLORIDE (test code=CL) 108.0 mmol/L 98-107 CARBON DIOXIDE (test code=CO2) 22.0 mmol/L 21-32 ANION GAP (test code=GAP) 11.1 10-20 GLUCOSE (test code=GLU) 303 mg/dL 74-106 BLOOD UREA NITROGEN (test code=BUN) 30 mg/dL 7-18 GLOMERULAR FILTRATION RATE (test code=GFR) 60 mL/min >=60 Estimated GFR by using Modified MDRD formula.Chronic kidney disease is defined as either kidney damageor GFR <60 mL/min/1.73 m2 for >3 months. CREATININE (test code=CREAT) 1.00 mg/dL 0.55-1.02 Note change in reference range due to change in reagent. BUN/CREATININE RATIO (test code=BUN/CREA) 30.0 10-20 CALCIUM (test code=CA) 8.5 mg/dL 8.5-10.1 BASIC METABOLIC [id number] 22:03:00* Test Item Value Reference Range Comments SODIUM (test code=NA) 137 mmol/L 136-145 POTASSIUM (test code=K) 4.1 mmol/L 3.5-5.1 CHLORIDE (test code=CL) 108.0 mmol/L 98-107 CARBON DIOXIDE (test code=CO2) mmol/L 21-32 ANION GAP (test code=GAP) 10-20 GLUCOSE (test code=GLU) mg/dL 74-106 BLOOD UREA NITROGEN (test code=BUN) mg/dL 7-18 GLOMERULAR FILTRATION RATE (test code=GFR) mL/min >=60 CREATININE (test code=CREAT) mg/dL 0.55-1.02 BUN/CREATININE RATIO (test code=BUN/CREA) 10-20 CALCIUM (test code=CA) mg/dL 8.5-10.1 CBC W/O [id number] 21:53:00* Test Item Value Reference Range Comments WHITE BLOOD CELL (test code=WBC) 22.4 K/mm3 4.5-12.5 RED BLOOD CELL (test code=RBC) 3.93 mill/mm3 3.7-5.2 HEMOGLOBIN (test code=HGB) 12.2 gram/dL 11.5-15.5 HEMATOCRIT (test code=HCT) 37.5 % 36.0-46.0 MEAN CELL VOLUME (test code=MCV) 95.4 fL 80-98 MEAN CELL HGB (test code=MCH) 31.0 picogram 27.0-33.0 MEAN CELL HGB CONCETRATION (test code=MCHC) 32.5 gram/dL 33.0-36.0 RED CELL DISTRIBUTION WIDTH (test code=RDW) 12.4 % 11.6-16.2 PLATELET COUNT (test code=PLT) 258 K/mm3 150-450 MEAN PLATELET VOLUME (test code=MPV) 11.3 fL 6.7-11.0 CBC W/O [id number] 21:48:00* Test Item Value Reference Range Comments WHITE BLOOD CELL (test code=WBC) K/mm3 4.5-12.5 RED BLOOD CELL (test code=RBC) mill/mm3 3.7-5.2 HEMOGLOBIN (test code=HGB) 12.2 gram/dL 11.5-15.5 HEMATOCRIT (test code=HCT) 37.5 % 36.0-46.0 MEAN CELL VOLUME (test code=MCV) fL 80-98 MEAN CELL HGB (test code=MCH) picogram 27.0-33.0 MEAN CELL HGB CONCETRATION (test code=MCHC) gram/dL 33.0-36.0 RED CELL DISTRIBUTION WIDTH (test code=RDW) % 11.6-16.2 PLATELET COUNT (test code=PLT) K/mm3 150-450 MEAN PLATELET VOLUME (test code=MPV) fL 6.7-11.0 MAMMOGRAPHY DIGITAL SCR [id number] 17:05:00 [place] [address] Patient Name: DAMIAN ISABEL MR #: [id number] : 1975 Age/Sex: 44/F Req #: [id number] Adm Physician: Ordered by: KAMLESH DAVIDSON MD Report #: [id number] Location: MAMMO Room/Bed: Procedure: [id number] M G/MAMMOGRAPHY DIGITAL SCR BILAT Exam Date: 05/01/19 Exam Time: 1700 REPORT STATUS: Sign ed #[id number] - [id number] #BILATERAL DIGITAL SCREENING MAMMOGRAM WITH CAD: 05/01/2019 CLINICAL: Routine screening. Comparison is made to exam dated: 12/23/2013 mammogram - [facility]. There are scattered fibroglandular elements in both breasts. Current study was also e valuated with a Computer Aided Detection (CAD) system. No significant masses , calcifications, or other findings are seen in either breast. There has bee n no significant interval change. IMPRESSION: NEGATIVE There is no mammog raphic evidence of malignancy. A 1 year screening mammogram is recommended. The patient will be notified by letter of the results. MICHELLE brasher/anushkarad:05/08/2019 09:29:27 Sustainability Officer: Stephanie morales RT(R)(M), [facility] letter sent: Normal Exam Mammogram BI-RADS: 1 Negative Dictated By: MICHELLE ALONZO MD Electronically S igned By: MICHELLE ALONZO MD on 05/08/19928 Transcribed By: NEEL on 05/08/19 09 9 COPY TO: KAMLESH DAVIDSON MD [id number] 07:28:00* Test Item Value Reference Range Comments GLUBED (test code=GLUBED) 221 mg/dL 74-106 Performed by certified stretch machine operator at [facility] [id number] 07:28:00* Test Item Value Reference Range Comments GLUBED (test code=GLUBED) 292 mg/dL 74-106 Performed by certified stretch machine operator at [facility] [id number] 07:28:00* Test Item Value Reference Range Comments GLUBED (test code=GLUBED) 268 mg/dL 74-106 Performed by certified stretch machine operator at [facility] [id number] 07:27:00* Test Item Value Reference Range Comments GLUBED (test code=GLUBED) 254 mg/dL 74-106 Performed by certified stretch machine operator at [facility] [id number] 07:27:00* Test Item Value Reference Range Comments GLUBED (test code=GLUBED) 215 mg/dL 74-106 Performed by certified stretch machine operator at [facility] BASIC METABOLIC [id number] 06:32:00* Test Item Value Reference Range Comments SODIUM (test code=NA) 141 mmol/L 136-145 POTASSIUM (test code=K) 4.6 mmol/L 3.5-5.1 CHLORIDE (test code=CL) 112.0 mmol/L 98-107 CARBON DIOXIDE (test code=CO2) 24.0 mmol/L 21-32 ANION GAP (test code=GAP) 9.6 10-20 GLUCOSE (test code=GLU) 227 mg/dL 74-106 BLOOD UREA NITROGEN (test code=BUN) 17 mg/dL 7-18 GLOMERULAR FILTRATION RATE (test code=GFR) > 60 mL/min >=60 Estimated GFR by using Modified MDRD formula.Chronic kidney disease is defined as either kidney damageor GFR <60 mL/min/1.73 m2 for >3 months. CREATININE (test code=CREAT) 0.60 mg/dL 0.55-1.02 Note change in reference range due to change in reagent. BUN/CREATININE RATIO (test code=BUN/CREA) 27.7 10-20 CALCIUM (test code=CA) 8.1 mg/dL 8.5-10.1 BASIC METABOLIC [id number] 06:26:00* Test Item Value Reference Range Comments SODIUM (test code=NA) 141 mmol/L 136-145 POTASSIUM (test code=K) 4.6 mmol/L 3.5-5.1 CHLORIDE (test code=CL) 112.0 mmol/L 98-107 CARBON DIOXIDE (test code=CO2) mmol/L 21-32 ANION GAP (test code=GAP) 10-20 GLUCOSE (test code=GLU) mg/dL 74-106 BLOOD UREA NITROGEN (test code=BUN) mg/dL 7-18 GLOMERULAR FILTRATION RATE (test code=GFR) mL/min >=60 CREATININE (test code=CREAT) mg/dL 0.55-1.02 BUN/CREATININE RATIO (test code=BUN/CREA) 10-20 CALCIUM (test code=CA) mg/dL 8.5-10.1 CBC W/AUTO [id number] 06:20:00* Test Item Value Reference Range Comments WHITE BLOOD CELL (test code=WBC) 9.3 K/mm3 4.5-12.5 RED BLOOD CELL (test code=RBC) 3.06 mill/mm3 3.7-5.2 HEMOGLOBIN (test code=HGB) 9.1 gram/dL 11.5-15.5 HEMATOCRIT (test code=HCT) 29.1 % 36.0-46.0 MEAN CELL VOLUME (test code=MCV) 95.1 fL 80-98 MEAN CELL HGB (test code=MCH) 29.7 picogram 27.0-33.0 MEAN CELL HGB CONCETRATION (test code=MCHC) 31.3 gram/dL 33.0-36.0 RED CELL DISTRIBUTION WIDTH (test code=RDW) 12.5 % 11.6-16.2 RED CELL DISTRIBUTION WIDTH SD (test code=RDW-SD) 43.9 fL 37.0-51.0 PLATELET COUNT (test code=PLT) 236 K/mm3 150-450 MEAN PLATELET VOLUME (test code=MPV) 10.8 fL 6.7-11.0 NEUTROPHIL % (test code=NT%) 54.5 % 39.0-69.0 IMMATURE GRANULOCYTE % (test code=IG%) 0.4 % 0.0-5.0 LYMPHOCYTE % (test code=LY%) 33.4 % 25.0-55.0 MONOCYTE % (test code=MO%) 8.5 % 0.0-10.0 EOSINOPHIL % (test code=EO%) 3.1 % 0.0-5.0 BASOPHIL % (test code=BA%) 0.1 % 0.0-1.0 NUCLEATED RBC % (test code=NRBC%) 0.0 % 0-0 NEUTROPHIL # (test code=NT#) 5.06 K/mm3 1.8-7.7 IMMATURE GRANULOCYTE # (test code=IG#) 0.04 x10 3/uL 0-0.03 LYMPHOCYTE # (test code=LY#) 3.10 K/mm3 1.0-5.0 MONOCYTE # (test code=MO#) 0.79 K/mm3 0-0.8 EOSINOPHIL # (test code=EO#) 0.29 K/mm3 0.0-0.5 BASOPHIL # (test code=BA#) 0.01 K/mm3 0.0-0.2 NUCLEATED RBC # (test code=NRBC#) 0.00 K/mm3 0.0-0.1 [id number] 21:35:00* Test Item Value Reference Range Comments GLUBED (test code=GLUBED) 250 mg/dL 74-106 [facility] BASIC METABOLIC [id number] 07:11:00* Test Item Value Reference Range Comments SODIUM (test code=NA) 143 mmol/L 136-145 POTASSIUM (test code=K) 4.1 mmol/L 3.5-5.1 CHLORIDE (test code=CL) 114.0 mmol/L 98-107 CARBON DIOXIDE (test code=CO2) 20.0 mmol/L 21-32 ANION GAP (test code=GAP) 13.1 10-20 GLUCOSE (test code=GLU) 270 mg/dL 74-106 BLOOD UREA NITROGEN (test code=BUN) 24 mg/dL 7-18 GLOMERULAR FILTRATION RATE (test code=GFR) > 60 mL/min >=60 Estimated GFR by using Modified MDRD formula.Chronic kidney disease is defined as either kidney damageor GFR <60 mL/min/1.73 m2 for >3 months. CREATININE (test code=CREAT) 0.80 mg/dL 0.55-1.02 Note change in reference range due to change in reagent. BUN/CREATININE RATIO (test code=BUN/CREA) 31.3 10-20 CALCIUM (test code=CA) 6.9 mg/dL 8.5-10.1 LIPID PROFILE (CORONARY RISK)2018-09-25 07:11:00* Test Item Value Reference Range Comments TRIGLYCERIDES (test code=TRIG) 110 mg/dL 20-150 CHOLESTEROL (test code=CHOL) 126 mg/dL 0-200 CHOLESTEROL/HDL RATIO (test code=CHOLHDL) 3.0 RATIO 0-4.9 RISK ASSOCIATED WITH CHOL/HDL RATIOS: Risk Male Female1/2 AVERAGE 3.43 3.27AVERAGE 4.97 4.442X AVERAGE 9.55 7.053X AVERAGE 23.39 11.04 REFERENCE VALUE IS RELATED TO RISK LEVELS ASRECOMMENDED BY THE LATA. HEART, LUNG, AND BLOOD INST. HDL CHOLESTEROL (test code=HDL) 39 mg/dL 40-60 LIPOPROTEIN LDL (test code=LDL) 80 mg/dL 100-129 Reference Interval: mg/dL mmol/L Optimal <100 <2.6Near/above optimal 100-129 2.6- 3.3Borderline High 130-159 3.4-4.1High 160-189 4.1-4.9Very High >=190 >=4.9=========This LDL result is a direct measurement.========= BASIC METABOLIC [id number] 07:05:00* Test Item Value Reference Range Comments SODIUM (test code=NA) 143 mmol/L 136-145 POTASSIUM (test code=K) 4.1 mmol/L 3.5-5.1 CHLORIDE (test code=CL) 114.0 mmol/L 98-107 CARBON DIOXIDE (test code=CO2) mmol/L 21-32 ANION GAP (test code=GAP) 10-20 GLUCOSE (test code=GLU) mg/dL 74-106 BLOOD UREA NITROGEN (test code=BUN) mg/dL 7-18 GLOMERULAR FILTRATION RATE (test code=GFR) mL/min >=60 CREATININE (test code=CREAT) mg/dL 0.55-1.02 BUN/CREATININE RATIO (test code=BUN/CREA) 10-20 CALCIUM (test code=CA) mg/dL 8.5-10.1 LIPID PROFILE (CORONARY RISK)2018-09-25 07:05:00* Test Item Value Reference Range Comments TRIGLYCERIDES (test code=TRIG) mg/dL 20-150 CHOLESTEROL (test code=CHOL) mg/dL 0-200 CHOLESTEROL/HDL RATIO (test code=CHOLHDL) RATIO 0-4.9 HDL CHOLESTEROL (test code=HDL) mg/dL 40-60 LIPOPROTEIN LDL (test code=LDL) mg/dL 100-129 CBC W/AUTO [id number] 06:55:00* Test Item Value Reference Range Comments WHITE BLOOD CELL (test code=WBC) 10.9 K/mm3 4.5-12.5 RED BLOOD CELL (test code=RBC) 3.02 mill/mm3 3.7-5.2 HEMOGLOBIN (test code=HGB) 9.0 gram/dL 11.5-15.5 RESULT VERIFIED BY REPEAT ANALYSIS HEMATOCRIT (test code=HCT) 29.4 % 36.0-46.0 MEAN CELL VOLUME (test code=MCV) 97.4 fL 80-98 MEAN CELL HGB (test code=MCH) 29.8 picogram 27.0-33.0 MEAN CELL HGB CONCETRATION (test code=MCHC) 30.6 gram/dL 33.0-36.0 RED CELL DISTRIBUTION WIDTH (test code=RDW) 12.8 % 11.6-16.2 RED CELL DISTRIBUTION WIDTH SD (test code=RDW-SD) 45.9 fL 37.0-51.0 PLATELET COUNT (test code=PLT) 239 K/mm3 150-450 RESULT VERIFIED BY REPEAT ANALYSIS MEAN PLATELET VOLUME (test code=MPV) 10.8 fL 6.7-11.0 NEUTROPHIL % (test code=NT%) 62.0 % 39.0-69.0 IMMATURE GRANULOCYTE % (test code=IG%) 0.5 % 0.0-5.0 LYMPHOCYTE % (test code=LY%) 27.5 % 25.0-55.0 MONOCYTE % (test code=MO%) 8.0 % 0.0-10.0 EOSINOPHIL % (test code=EO%) 1.8 % 0.0-5.0 BASOPHIL % (test code=BA%) 0.2 % 0.0-1.0 NUCLEATED RBC % (test code=NRBC%) 0.0 % 0-0 NEUTROPHIL # (test code=NT#) 6.77 K/mm3 1.8-7.7 IMMATURE GRANULOCYTE # (test code=IG#) 0.05 x10 3/uL 0-0.03 LYMPHOCYTE # (test code=LY#) 3.00 K/mm3 1.0-5.0 MONOCYTE # (test code=MO#) 0.87 K/mm3 0-0.8 EOSINOPHIL # (test code=EO#) 0.20 K/mm3 0.0-0.5 BASOPHIL # (test code=BA#) 0.02 K/mm3 0.0-0.2 NUCLEATED RBC # (test code=NRBC#) 0.00 K/mm3 0.0-0.1 MANUAL DIFF REQUIRED (test code=MDIFF) NO [id number] 17:34:00* Test Item Value Reference Range Comments GLUBED (test code=GLUBED) 114 mg/dL 74-106 [facility] [id number] 09:29:00* Test Item Value Reference Range Comments GLUBED (test code=GLUBED) 189 mg/dL 74-106 Performed by certified stretch machine operator at [facility] [id number] 07:53:00* Test Item Value Reference Range Comments GLYCOSYLATED HEMOGLOBIN (HA1C) (test code=GLYHGB) 13.2 % HbA1 4.8-6.0 ESTIMATED AVERAGE GLUCOSE (test code=EAG) 332 MG/DL [id number] 04:50:00* Test Item Value Reference Range Comments GLUBED (test code=GLUBED) 289 mg/dL 74-106 Performed by certified stretch machine operator at [facility] URINALYSIS [id number] 03:31:00* Test Item Value Reference Range Comments UA COLOR (test code=COLU) STRAW YELLOW UA APPEARANCE (test code=APPU) CLEAR CLEAR UA GLUCOSE DIPSTICK (test code=DGLUU) >=500 mg/dL NEGATIVE UA BILIRUBIN DIPSTICK (test code=BILU) NEGATIVE mg/dL NEGATIVE UA KETONE DIPSTICK (test code=KETU) Negative mg/dL NEGATIVE UA SPECIFIC GRAVITY (test code=SGU) 1.036 1.001-1.035 UA BLOOD DIPSTICK (test code=LAURA) 1+ (Small) NEGATIVE UA PH DIPSTICK (test code=JACKIE) 7.0 5.0-8.0 UA PROTEIN DIPSTICK (test code=PROU) Negative mg/dL NEGATIVE UA UROBILINIOGEN DIPSTICK (test code=URO) NEGATIVE mg/dL NEGATIVE UA NITRITE DIPSTICK (test code=ESPERANZA) NEGATIVE NEGATIVE UA LEUKOCYTE ESTERASE W REFLEX (test code=LEUUR) NEGATIVE NEGATIVE UA WBC (test code=WBCU) 0-5 #/HPF 0-5 UA RBC (test code=RBCU) 0-2 #/HPF 0-5 UA EPITHELIAL CELLS (test code=EPIU) FEW per HPF FEW Urine Source? Clean Catch- CT ABD PELVIS W/[id number] 03:03:00 Name: DAMIAN ISABEL [facility] : 1975 Age[facility]S: 43 / F [address] [facility]: [id number] Loc: [place] [address] Phys: Yehuda oDan MD Acct: [id number] Di s Date: Status: REG ER PHONE #: Exam Date: 09/24/2018 0234 FAX #: Reason: RLQ/R pelvic abscess EXAMS: CPT CODE: [id number] CT ABD PELVIS W/CONT 23535 CT abdomen and pelvis with IV contrast. Indication: Right lower quadrant abscess Location: R16 Comparison: CT performed January 19, 2017 Technique: CT images of the abdomen and pelvis were obtained from the diaphragm to the pubic symphysis after the administration of intravenous c ontrast contrast. Coronal reformats are provided. One or more of t he following dose reduction techniques were used: Automated exposure contr ol, adjustment of the mA and/or kV according to patient size, and/or utili zation of iterative reconstruction technique. Findings: Lungs bases: Unremarkable. Liver: Unremarkable. Ga llbladder: Unremarkable. Pancreas: Unremarkable. Spleen: Unremarkabl e. Adrenal glands: Unremarkable. Kidneys: Unremarkable. Bowel: No bowel obstruction. The appendix is unremarkable.. Peritoneum: No ascit es. Pelvis: An IUD is seen within the uterus Skeletal: No a cute fracture.. Within the soft tissues of the right anterior groin there is approximately 8 cm x 4.6 cm 4.7 cm multiloculated wall enhancing densit y with trace internal free fluid compatible with an phlegmon/abscess IMPRESSION:: Within the soft tissues of the right a nterior groin there is approximately 8 cm x 4.6 cm 4.7 cm multiloculated wall enhancing density with trace internal free fluid compatible with an phlegmon/abscess Additional findings as detailed above P AGE 1 Signed Report (CONTINUED) Name : DAMIAN ISABEL [facility] : 11/1974 Age/S: 43 / F [address] [facility] Unit #: [id number] [place]: [place] [address] Phys: Dioni Doan MD Acct: [id number] Dis Date: Status: REG ER PHONE #: [phone] Exam Date: 09/24/2018 0234 FAX #: [phone] Reason: RLQ/R pelvic abscess EXAMS: CPT CODE: [id number] CT ABD PELVIS W/CONT 78609 <Continued> at 0303 Reported and signed by: Fabienne Lake M.D. CC: Dioni Doan MD Technologist:Jose J Light, RT(R)(CT); MOL CTDI: DLP: Trnscb Date/Time: 09/24/2018 (0303) [id number] PAGE 2 Signed Report HCG SERUM [id number] 23:59:00* Test Item Value Reference Range Comments HCG SERUM QUAL (test code=HCGQL) NEGATIVE NEGATIVE This HCGQL test is NOT applicable for MALE patients.Check with nurse about probable order error.If Tumor Marker Test needed, nurse should order test "HCGTU"(Test #550.61993) LACTIC [id number] 23:55:00* Test Item Value Reference Range Comments LACTIC ACID (test code=LACT) 1.1 mmol/L 0.4-1.9 BASIC METABOLIC [id number] 23:32:00* Test Item Value Reference Range Comments SODIUM (test code=NA) 138 mmol/L 136-145 POTASSIUM (test code=K) 4.4 mmol/L 3.5-5.1 CHLORIDE (test code=CL) 102.0 mmol/L 98-107 CARBON DIOXIDE (test code=CO2) 31.0 mmol/L 21-32 ANION GAP (test code=GAP) 9.4 10-20 GLUCOSE (test code=GLU) 490 mg/dL 74-106 BLOOD UREA NITROGEN (test code=BUN) 23 mg/dL 7-18 GLOMERULAR FILTRATION RATE (test code=GFR) > 60 mL/min >=60 Estimated GFR by using Modified MDRD formula.Chronic kidney disease is defined as either kidney damageor GFR <60 mL/min/1.73 m2 for >3 months. CREATININE (test code=CREAT) 0.90 mg/dL 0.55-1.02 Note change in reference range due to change in reagent. BUN/CREATININE RATIO (test code=BUN/CREA) 26.4 10-20 CALCIUM (test code=CA) 8.8 mg/dL 8.5-10.1 BASIC METABOLIC [id number] 23:25:00* Test Item Value Reference Range Comments SODIUM (test code=NA) 138 mmol/L 136-145 POTASSIUM (test code=K) 4.4 mmol/L 3.5-5.1 CHLORIDE (test code=CL) 102.0 mmol/L 98-107 CARBON DIOXIDE (test code=CO2) mmol/L 21-32 ANION GAP (test code=GAP) 10-20 GLUCOSE (test code=GLU) mg/dL 74-106 BLOOD UREA NITROGEN (test code=BUN) mg/dL 7-18 GLOMERULAR FILTRATION RATE (test code=GFR) mL/min >=60 CREATININE (test code=CREAT) mg/dL 0.55-1.02 BUN/CREATININE RATIO (test code=BUN/CREA) 10-20 CALCIUM (test code=CA) mg/dL 8.5-10.1 CBC W/AUTO [id number] 23:12:00* Test Item Value Reference Range Comments WHITE BLOOD CELL (test code=WBC) 12.1 K/mm3 4.5-12.5 RED BLOOD CELL (test code=RBC) 3.83 mill/mm3 3.7-5.2 HEMOGLOBIN (test code=HGB) 11.3 gram/dL 11.5-15.5 HEMATOCRIT (test code=HCT) 36.3 % 36.0-46.0 MEAN CELL VOLUME (test code=MCV) 94.8 fL 80-98 MEAN CELL HGB (test code=MCH) 29.5 picogram 27.0-33.0 MEAN CELL HGB CONCETRATION (test code=MCHC) 31.1 gram/dL 33.0-36.0 RED CELL DISTRIBUTION WIDTH (test code=RDW) 12.4 % 11.6-16.2 RED CELL DISTRIBUTION WIDTH SD (test code=RDW-SD) 42.7 fL 37.0-51.0 PLATELET COUNT (test code=PLT) 306 K/mm3 150-450 MEAN PLATELET VOLUME (test code=MPV) 10.5 fL 6.7-11.0 NEUTROPHIL % (test code=NT%) 63.4 % 39.0-69.0 IMMATURE GRANULOCYTE % (test code=IG%) 0.4 % 0.0-5.0 LYMPHOCYTE % (test code=LY%) 27.7 % 25.0-55.0 MONOCYTE % (test code=MO%) 6.7 % 0.0-10.0 EOSINOPHIL % (test code=EO%) 1.6 % 0.0-5.0 BASOPHIL % (test code=BA%) 0.2 % 0.0-1.0 NUCLEATED RBC % (test code=NRBC%) 0.0 % 0-0 NEUTROPHIL # (test code=NT#) 7.70 K/mm3 1.8-7.7 IMMATURE GRANULOCYTE # (test code=IG#) 0.05 x10 3/uL 0-0.03 LYMPHOCYTE # (test code=LY#) 3.36 K/mm3 1.0-5.0 MONOCYTE # (test code=MO#) 0.81 K/mm3 0-0.8 EOSINOPHIL # (test code=EO#) 0.19 K/mm3 0.0-0.5 BASOPHIL # (test code=BA#) 0.02 K/mm3 0.0-0.2 NUCLEATED RBC # (test code=NRBC#) 0.00 K/mm3 0.0-0.1 CBC W/AUTO [id number] 23:05:00* Test Item Value Reference Range Comments WHITE BLOOD CELL (test code=WBC) K/mm3 4.5-12.5 RED BLOOD CELL (test code=RBC) mill/mm3 3.7-5.2 HEMOGLOBIN (test code=HGB) gram/dL 11.5-15.5 HEMATOCRIT (test code=HCT) 36.3 % 36.0-46.0 MEAN CELL VOLUME (test code=MCV) fL 80-98 MEAN CELL HGB (test code=MCH) picogram 27.0-33.0 MEAN CELL HGB CONCETRATION (test code=MCHC) gram/dL 33.0-36.0 RED CELL DISTRIBUTION WIDTH (test code=RDW) % 11.6-16.2 RED CELL DISTRIBUTION WIDTH SD (test code=RDW-SD) fL 37.0-51.0 PLATELET COUNT (test code=PLT) K/mm3 150-450 MEAN PLATELET VOLUME (test code=MPV) fL 6.7-11.0 NEUTROPHIL % (test code=NT%) % 39.0-69.0 IMMATURE GRANULOCYTE % (test code=IG%) % 0.0-5.0 LYMPHOCYTE % (test code=LY%) % 25.0-55.0 MONOCYTE % (test code=MO%) % 0.0-10.0 EOSINOPHIL % (test code=EO%) % 0.0-5.0 BASOPHIL % (test code=BA%) % 0.0-1.0 NEUTROPHIL # (test code=NT#) K/mm3 1.8-7.7 LYMPHOCYTE # (test code=LY#) K/mm3 1.0-5.0 MONOCYTE # (test code=MO#) K/mm3 0-0.8 EOSINOPHIL # (test code=EO#) K/mm3 0.0-0.5 BASOPHIL # (test code=BA#) K/mm3 0.0-0.2
--- OUTSIDE RECORDS SUMMARY | 2019-05-11 19:55 | XMS REPORT | Clinical Summary ---
Author Author [facility] Organization [facility] Address Unknown Phone Unavailable Care Team Providers Care Media Production Operator Name Role Phone Clover Lucero MD PCP [...] mouth 9 Acute bronchitis, daily. unspecified organism Active insulin detemir U-100 Inject [...] blood glucose (PRECISION Check blood 100 Each 11 XTRA TEST STRIPS) test glucose 3 8 [...] 12/26/2018 Discontinued ciclesonide (ZETONNA) 37 Use 1 [place] 6.1 g 0 mcg/actuation nasal HFA in [...] Acute bronchitis, for 10 days. unspecified organism 02/24/2019 amoxicillin-clavulanate Take 1 tablet 20 tablet 0 [...] Overview: Added automatically from request for surgery [id number] Pseudophakia of left eye 06/14/2018 Combined forms of age-related cataract of both eyes 04/29/2018 Overview: Added automatically from request for surgery [id number] Proliferative diabetic retinopathy of left eye with [...] long-term current use of insulin 01/25/2019 Refill [facility] Clover Lucero MD Uncontrolled type 2 diabetes mellitus with hyperosmolarity without coma, with long-term current use of insulin 01/04/2019 Refill [facility] Shahla Veliz MD 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 associated with type 2 diabetes mellitus (Primary Dx); Pseudophakia, right eye 01/02/2019 Office Visit Ophthalmology Louann Steiner G, LOCOMOTIVE INSPECTOR Acute bronchitis, unspecified organism (Primary Dx); Encounter for diabetic foot exam 12/26/2018 Same Day Family Practice 12/26/2018 Travel Clover Lucero MD Neuropathy 11/30/2018 Refill [facility] Niurka Joseph MD Pseudophakia, right [...] Orders Only Family Practice 09/30/2018 Travel 09/16/2018 Travel Ludy Portillo RN 09/16/2018 Nurse Triage Fatuma Locke RN [...] Day Family Practice 08/26/2018 Travel Clarisa Blanton Gas Load Dispatcher; Pre-clinic Chart Review 08/12/2018 Telephone Social Work Niurka Joseph MD Proliferative diabetic retinopathy of both eyes with macular edema associated with type 2 diabetes mellitus (Primary Dx) 08/11/2018 Office Visit Ophthalmology Loly Chen RN Pre-clinic Chart Review; Durable Medical Equipment (CPAP Machine and Supplies ) 08/01/2018 Telephone Social Work Clover Lucero MD Neuropathy 07/29/2018 Refill [facility] Niurka Skinner Refill Request 07/28/2018 Telephone Loly Chen RN 07/27/2018 Clinical Case Social Work Mgt Ross Massey MD Obstructive sleep apnea syndrome (Primary Dx); Uncontrolled type 2 diabetes mellitus with hyperosmolarity without coma, with long-term current use of insulin; Needs flu shot; Neuropathy 07/26/2018 Office Visit [facility] Ross Massey MD Neuropathy 07/26/2018 Refill [facility] 07/26/2018 Travel Adina Masterson MD Proliferative diabetic [...] with Intraocular Lens Implant 06/13/2018 Surgery Kathryn Joiner, ResidentFL 06/13/2018 Anesthesia Event Alyce Wilder MD Combined [...] wk 03/0203/15/2018 Same Day Family Practice after 03/12/2018 Immunizations Name Administration Dates Next Due Asa [...] Specialty Clover Lucero MD [address] [place] [address] [phone] WAITLIST PATIENT 04/11/2019 Office Visit [facility] Health Maintenance Due Date Last Done Comments [...] MD Exercise Regularly Self No Keyla Chao management G Implants Device Identifier Shelf Expiration Date Model / Serial / Lot Implanted Type Area Manufactur er 10/13/2021 ZCBOO / [id number] / N/A Implant Eye Iol Intraoccular Lens Implant Left: Eye(s) ADVANCED (Ppk-3000-01) - [id number] eye MEDICAL Implanted: Qty: 1 on 06/13/2018 by [employer] Niurka Joseph MD at [facility] 04/21/2022 [id number] / / Implant Eye Iol Technics 1 Piece Implant Right: Eye(s) ADVANCED [id number] 23.5d - [id number] eye MEDICAL Implanted: Qty: 1 on 11/21/2018 by [employer] Nate Batista, MD at [facility] Procedures Comments Procedure Name Priority Date/Time Associated [...] time; 9 am-confirm ed with/patie nt @ [phone]. POC GLUCOSE - IN LAB Routine 11/21/2018 (STAT) 10:11 AM CDT POCT URINE DIPSTICK - Routine 11/21/2018 10:00 AM CDT CBC (WITHOUT Routine 11/03/2018 DIFFERENTIAL) 1:33 PM CDT BASIC METABOLIC PANEL Routine 11/03/2018 1:33 PM CDT 12 LEAD EKG Routine 11/03/2018 9:39 AM CDT DUPLEX DOPPLER LOWER Routine 10/20/2018 Pain in both lower EXTREMITY VENOUS, 2:37 PM BARKEEPER extremities BILATERAL I& D OF ABSCESS WITH Routine 08/26/2018 PACKING (COMPLICATED) 9:15 PM BARKEEPER BMP POC Routine 08/26/2018 1:32 PM BARKEEPER VBG POC Routine 08/26/2018 1:32 PM BARKEEPER HIV-1/HIV-2 ROUTINE STAT 08/26/2018 SCREENING 1:31 PM BARKEEPER CBC/DIFF STAT 08/26/2018 1:31 PM BARKEEPER TEST STAT 08/26/2018 1:25 PM BARKEEPER URINALYSIS STAT 08/26/2018 1:25 PM BARKEEPER COMPREHENSIVE METABOLIC Routine 07/26/2018 Uncontrolled type 2 PANEL 12:30 PM BARKEEPER diabetes mellitus with hyperosmolarity without coma, with long-term current use of insulin HEMOGLOBIN A1C Routine 07/26/2018 Uncontrolled type 2 12:30 PM BARKEEPER diabetes mellitus with hyperosmolarity without coma, with long-term current use of insulin POC GLUCOSE - IN LAB Routine 06/13/2018 (STAT) 9:34 AM CDT OPHTH - 06/13/2018 Combined forms of PHACOEMULSIFICATION OF 8:29 AM CDT age-related cataract of CATARACT -- WITH OR both eyes WITHOUT IOL IMPLANT Special Needs 8:30 START!Dr. Contreras time; 6:30 am-confir med with/patie nt @ [phone]. POC GLUCOSE - IN LAB Routine 06/13/2018 (STAT) 8:27 AM CDT POC GLUCOSE - IN LAB Routine 06/13/2018 (STAT) 8:00 AM CDT POC GLUCOSE - IN LAB Routine 06/13/2018 (STAT) 7:17 AM CDT POCT URINE DIPSTICK - Routine 06/13/2018 after 03/12/2018 Results * DIABETIC FOOT EXAM (12/26/2018 5:29 [...] MAIN-STATION 2 Specimen Blood Performing Organization Address [facility] Phone Number MISYS BT MAIN-STATION 2 * [...] Am 1 Specimen Blood Performing Organization Address [facility] Phone Number MISYS BT MAIN-STATION 1 * 12 LEAD EKG (11/03/2018 9:39 AM CDT) 12 LEAD EKG FOR [facility] Test Date:2018-11-03 Pat Name: ALYSSA ISABEL Department: [id number] Room: Gender: Waterworks Chief Engineer: [id number] Requested By: LIZZIE Santos Order Number: [id number] Reading MD: Ayden Rowland Measurements Intervals [place] Rate: 84 P:63 DC: 147 QRS: 85 QRSD: 88 T:35 QT: 383 QTc:455 Interpretive Statements SINUS RHYTHM Electronically Signed On 11-03-2018 11:15:21 CDT by Ayden Rowland Specimen Performing Organization Address City/State/Zipcode Phone Number SMS * DUPLEX DOPPLER LOWER EXTREMITY VENOUS, BILATERAL (10/20/2018 2:37 PM BARKEEPER) DUPLEX DOPPLER Lower Extremity Vein SMS LOWER EXTREMITY Mapping Report VENOUS, ALYSSA ISABEL BILATERAL Age:43 Gender: F :1975 Exam Date: 2018-10-20 14:37 Exam Location:[facility] Ordering Phys: ROSA MARIA PAULSON Referring Phys: Reading Phys:Alexis Finney Fellow Phys: Fellow Phys: Technologist: Samson Diaz RDCS, RVT Reason For Exam: Indications:b /l LE superficial varicose veins, chronic tingling and pain in the legs, Varicose Vein With Inflammation ICD-9 Codes: I83.10 Exam Type: LE Vein Mapping Procedure CPT: 08957G Additional CPT: Risk Factors:Diabetes History: C/O bilateral [...] SMS * VBG POC (08/26/2018 1:32 PM BARKEEPER) pH, Brandon POC 7.36Comment: Physician 7.33 - [...] BT MAIN-STATION 1 Specimen Performing Organization Address City/[facility] Phone Number MISYS BT MAIN-STATION 1 * BMP POC (08/26/2018 1:32 PM BARKEEPER) CO2 POC 25 21 - 32 mmol/L [...] MAIN-STATION Afr-Am 1 Specimen Performing Organization Address [facility] Phone Number MISYS BT MAIN-STATION 1 * HIV-1/HIV-2 ROUTINE SCREENING (08/26/2018 1:31 PM BARKEEPER) HIV-1/HIV-2 Negative NEG BT MAIN-STATION 4 Specimen Performing Organization Address [facility] Phone Number MISYS BT MAIN-STATION 4 * CBC/DIFF (08/26/2018 1:31 PM BARKEEPER) WBC 15.5 (H) 4.5 - 11.0 K/uL [...] MAIN-STATION 2 Specimen Blood Performing Organization Address [facility] Phone Number MISYS BT MAIN-STATION 2 * UA CHEMISTRIES (08/26/2018 1:25 PM BARKEEPER) Color Yellow BT MAIN-STATION 3 Clarity Clear BT MAIN-STATION 3 Specific 1.032 1.001 - 1.035 BT MAIN-STATION [place] 3 pH 6.0 5 - 8 BT [...] MAIN-STATION 3 Specimen Urine Performing Organization Address [facility] Phone Number MISYS BT MAIN-STATION 3 * TEST (08/26/2018 1:25 PM BARKEEPER) Negative BT MAIN-STATION 3 Specimen Urine Performing Organization Address [facility] Phone Number MISYS BT MAIN-STATION 3 * HEMOGLOBIN A1C (07/26/2018 12:30 PM BARKEEPER) Hemoglobin A1c 12.9 (H) 4.3 - 6.1 % BT DIAGNOSTIC IMMUNOLOGY Est Average 323.5 mg/dL BT DIAGNOSTIC Gluc IMMUNOLOGY Specimen Blood Performing Organization Address [facility] Phone Number MISYS BT DIAGNOSTIC IMMUNOLOGY * COMPREHENSIVE METABOLIC PANEL(DBIL NOT INCLUDED) (07/26/2018 12:30 PM BARKEEPER) Albumin 3.8 3.7 - 5.3 g/dL BT [...] MAIN-STATION 1 Specimen Blood Performing Organization Address [facility] Phone Number MISYS BT MAIN-STATION 1 after 03/12/2018 Insurance Type Payer Benefit Subscriber ID Effective Phone Address Plan / Dates Group MARILYN SANDERS xxxxxxxxxxx 2018- [phone] [id number] ANJUM LOWE [id number]
[2019-05-11 21:04] LABS: ALBUMIN 2.5 g/dL (3.5-5.0); ALBUMIN/GLOBULIN RATIO 0.6 (0.8-2.0); ANION GAP 11.5 mmol/L (8-16); CALCIUM 8.5 mg/dL (8.4-10.2); CREATININE, SERUM 1.04 mg/dL (0.57-1.11); POTASSIUM 4.5 mmol/L (3.5-5.1)
--- NOTE | 2019-05-11 21:19 | Diagnostic Imaging Report ---
FOOT RIGHT COMPLETE - 3 views HISTORY: Pain COMPARISON: None available. FINDINGS: Bones: No acute displaced fracture. Osseous alignment is within normal limits. Plantar calcaneal enthesophyte. Joints: The joint spaces are well-maintained. Soft tissues: Soft tissue swelling and minimal emphysema of the great toe. IMPRESSION: No acute radiographic abnormality. Signed by: Dr. Sedrick Delgado MD on 05/11/2019 9:16 PM
[2019-05-11] MEDS ORDERED: VANCOMYCIN 1GM/NS 250 ML 250 ML IV STA (21:27)
[2019-05-11 21:30] LABS: BASOPHILS % 0.1 % (0.0-1.0); EOSINOPHILS # (AUTO) 0.1 (0.0-0.4); EOSINOPHILS % 0.9 % (0.0-6.0); HEMOGLOBIN 11.3 g/dL (12.0-16.0); LYMPHOCYTES # (AUTO) 2.4 (1.0-3.2); MEAN CORPUSCULAR HEMOGLOBIN 31.7 pg (28-32); MEAN CORPUSCULAR HGB CONC 33.2 g/dL (31-35); MEAN CORPUSCULAR VOLUME 95.2 fL (81-99); MONOCYTES # (AUTO) 0.7 (0.2-0.8); NEUTROPHILS # (AUTO) 11.5 (2.1-6.9); NEUTROPHILS % 77.4 % (38.7-80.0); PLATELET COUNT 298 x10e3/uL (140-360); RED BLOOD COUNT 3.57 x10e6/uL (3.6-5.1); RED CELL DISTRIBUTION WIDTH 12.9 % (11.7-14.4)
[2019-05-11] MEDS ORDERED: SODIUM CHLORIDE 0.9% 1000ML 1,000 ML IV SCH (21:30)
[2019-05-11] MEDS ORDERED: INSULIN REGULAR, HUMAN 100 UNIT/1 ML 3ML VIAL IV ONE ×2 (21:30→22:00)
--- OUTSIDE RECORDS SUMMARY | 2019-05-11 22:40 | XMS REPORT | Clinical Summary ---
Author Author [facility] Organization [facility] Address Unknown Phone Unavailable Care Team Providers Care Owner Oral Surgeon Name Role Phone Clover Lucero MD PCP [...] Spasm of muscle times daily (with meals). 06/03/2018 Discontinued lancets 28 Check blood 1 [...] (NOVOFINE) 30 gauge x the skin 6 /3" needlesIndications: daily Use as Uncontrolled type 2 [...] Discontinued lancets 28 Check blood 100 Each gaugeIndications: glucose 3 8 Uncontrolled type 2 [...] 12/26/2018 Discontinued ciclesonide (ZETONNA) 37 Use 1 [place] 6.1 g 0 mcg/actuation nasal HFA in each 8 inhalerIndications: Viral nostril URI with cough daily. 01/04/2019 Discontinued insulin detemir U-100 Inject 45 8 Pen 2 10/02/201 (LEVEMIR FLEXTOUCH) 100 Units under 8 unit/mL [...] Overview: Added automatically from request for surgery [id number] Pseudophakia of left eye 06/14/2018 Combined forms of age-related cataract of both eyes 04/29/2018 Overview: Added automatically from request for surgery [id number] Proliferative diabetic retinopathy of left eye with [...] current use of insulin 02/04/2019 Same Day [facility] Clover Lucero MD Uncontrolled type 2 diabetes mellitus with hyperosmolarity without coma, with long-term current use of insulin 01/25/2019 Refill [facility] Clover Lucero MD Uncontrolled type 2 diabetes mellitus with hyperosmolarity without coma, with long-term current use of insulin 01/04/2019 Refill [facility] Shahla Veliz MD 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 associated with type 2 diabetes mellitus (Primary Dx); Pseudophakia, right eye 01/02/2019 Office Visit Ophthalmology Louann Steiner, DIANA Acute bronchitis, unspecified organism (Primary Dx); Encounter for diabetic foot exam 12/26/2018 Same Day [facility] Clover Lucero MD Neuropathy 11/30/2018 Refill [facility] Niurka Joseph MD Pseudophakia, right eye (Primary Dx) 11/22/2018 Office Visit Ophthalmology Nate Batista, ResidentMD UTILIZING MICROSCOPE, RIGHT EYE PHACOEMULSIFICATION OF CATARACT WITH INTRAOCULAR LENS IMPLANT 11/21/2018 Surgery Ash Manley, ResidentMD 11/21/2018 Anesthesia Event Suhas Bedoya MD Age-related nuclear cataract of right eye (Primary Dx) 11/21/2018 Hospital Encounter Adina Masterson MD Age-related nuclear cataract of right eye (Primary Dx) 11/17/2018 Office Visit Ophthalmology Janet Hodges Proliferative diabetic retinopathy of left [...] Lucero MD 10/20/2018 Hospital Vascular Surgery Encounter Le Young MD Chu, Yvonne I, MD 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 associated with type 2 diabetes mellitus (Primary Dx) 10/04/2018 Office Visit Ophthalmology Rosa Maria Paulson MD Uncontrolled type 2 diabetes mellitus with hyperosmolarity without coma, with long-term current use of insulin (Primary Dx); Nail thickening; Pain in both lower extremities; Open wound; Follow up 09/30/2018 Office Visit [facility] Rosa Maria Paulson MD Pain in both lower extremities 09/30/2018 Orders Only [facility] Ludy Portillo RN 09/16/2018 Nurse Triage Fatuma [...] respiratory infection; Sore throat 08/26/2018 Same Day [facility] Niurka Joseph MD Proliferative diabetic retinopathy of both eyes with macular edema associated with type 2 diabetes mellitus (Primary Dx) 08/11/2018 Office Visit Ophthalmology Clover Lucero MD Neuropathy 07/29/2018 Refill [facility] Loly Chen RN 07/27/2018 Clinical Case Social Work Mgt Ross Massey MD Obstructive sleep apnea syndrome (Primary Dx); Uncontrolled type 2 diabetes mellitus with hyperosmolarity without coma, with long-term current use of insulin; Needs flu shot; Neuropathy 07/26/2018 Office Visit Family Practice Ross Massey MD Neuropathy 07/26/2018 Refill [facility] Adina Masterson MD Proliferative diabetic retinopathy of [...] Intraocular Lens Implant 06/13/2018 Surgery Kathryn Joiner ResidentMD 06/13/2018 Anesthesia Event Alyce Wilder MD Combined [...] Right flank pain 05/16/2018 Refill Family Practice after 05/10/2018 Immunizations Name Administration Dates Next Due Asa [...] CDT Body Mass Index Plan of Treatment Health Maintenance Due Date Last Done Comments [...] Type Area Manufactur er 10/13/2021 ZCBOO / [id number] / N/A Implant Eye Iol Intraoccular Lens Implant Left: Eye(s) ADVANCED (Ppk-3000-01) - [id number] eye MEDICAL Implanted: Qty: 1 on 06/13/2018 by [employer] Niurka Joseph MD at [facility] 04/21/2022 ZCB00 / / Implant Eye Iol Technics 1 Piece Implant Right: Eye(s) ADVANCED [id number] - [id number] eye MEDICAL Implanted: Qty: 1 on 11/21/2018 by [employer] Nate Batista ResidentMD at [facility] Procedures Comments Procedure Name Priority [...] time; 9 am-confirm ed with/patie nt @ [phone]. POC GLUCOSE - IN LAB Routine 11/21/2018 (STAT) 10:11 AM CDT POCT URINE DIPSTICK - Routine 11/21/2018 10:00 AM CDT CBC (WITHOUT Routine 11/03/2018 DIFFERENTIAL) 1:33 PM CDT BASIC METABOLIC PANEL Routine 11/03/2018 1:33 PM CDT 12 LEAD EKG Routine 11/03/2018 9:39 AM CDT DUPLEX DOPPLER LOWER Routine 10/20/2018 Pain in both lower EXTREMITY VENOUS, 2:37 PM TIE TAMPER extremities BILATERAL I& D OF ABSCESS WITH Routine 08/26/2018 PACKING (COMPLICATED) 9:15 PM TIE TAMPER BMP POC Routine 08/26/2018 1:32 PM TIE TAMPER VBG POC Routine 08/26/2018 1:32 PM TIE TAMPER HIV-1/HIV-2 ROUTINE STAT 08/26/2018 SCREENING 1:31 PM TIE TAMPER CBC/DIFF STAT 08/26/2018 1:31 PM TIE TAMPER TEST STAT 08/26/2018 1:25 PM TIE TAMPER URINALYSIS STAT 08/26/2018 1:25 PM TIE TAMPER COMPREHENSIVE METABOLIC Routine 07/26/2018 Uncontrolled type 2 PANEL 12:30 PM TIE TAMPER diabetes mellitus with hyperosmolarity without coma, with long-term current use of insulin HEMOGLOBIN A1C Routine 07/26/2018 Uncontrolled type 2 12:30 PM TIE TAMPER diabetes mellitus with hyperosmolarity without coma, with long-term current use of insulin POC GLUCOSE - IN LAB Routine 06/13/2018 (STAT) 9:34 AM CDT OPHTH - 06/13/2018 Combined forms of PHACOEMULSIFICATION OF 8:29 AM CDT age-related cataract of CATARACT -- WITH OR both eyes WITHOUT IOL IMPLANT Special Needs 8:30 START!Dr. Contreras time; 6:30 am-confir med with/patie nt @ [phone]. POC GLUCOSE - IN LAB Routine 06/13/2018 (STAT) 8:27 AM CDT POC GLUCOSE - IN LAB Routine 06/13/2018 (STAT) 8:00 AM CDT POC GLUCOSE - IN LAB Routine 06/13/2018 (STAT) 7:17 AM CDT POCT URINE DIPSTICK - Routine 06/13/2018 after 05/10/2018 Results * DIABETIC FOOT EXAM (12/26/2018 5:29 [...] included. Control Specimen Urine Narrative Performed At T negative Control test pass * CBC (11/03/2018 [...] MAIN-STATION 2 Specimen Blood Performing Organization Address [facility] Phone Number MISYS BT MAIN-STATION 2 * [...] Am 1 Specimen Blood Performing Organization Address City/[facility] Phone Number MISYS BT MAIN-STATION 1 * 12 LEAD EKG (11/03/2018 9:39 AM CDT) [address] [facility] Test Date:2018-11-03 Pat Name: ALYSSA ISABEL Department: [id number] Room: Gender: Motor Teacher: [id number] [id number] [phone]- Requested By: LIZZIE Santos Order Number: [id number] Reading MD: Ayden Rowland Measurements Intervals [place] Rate: 84 P:63 ND: 147 QRS: 85 QRSD: 88 T:35 QT: 383 QTc:455 Interpretive Statements SINUS RHYTHM Electronically Signed On 11-03-2018 11:15:21 CDT by Ayden Rowland Specimen Performing Organization Address City/State/Zipcode Phone Number SMS * DUPLEX DOPPLER LOWER EXTREMITY VENOUS, BILATERAL (10/20/2018 2:37 PM TIE TAMPER) DUPLEX DOPPLER Lower Extremity Vein SMS LOWER EXTREMITY Mapping Report VENOUS, ALYSSA ISABEL BILATERAL Age:43 Gender: F :1975 Exam Date: 2018-10-20 14:37 Exam Location:[facility] Ordering Phys: ROSA MARIA PAULSON Referring Phys: Reading Phys:Alexis Finney Fellow Phys: Fellow Phys: Technologist: Samson Diaz RDCS, RVT Reason For Exam: Indications:b /l LE superficial varicose veins, chronic tingling and pain in the legs, Varicose Vein With Inflammation ICD-9 Codes: I83.10 Exam Type: LE Vein Mapping Procedure CPT: 93693W Additional CPT: Risk Factors:Diabetes History: C/O bilateral [...] L C. FemoralN N Y Y Y Y Y Y YY Femoral N N Y Y Y ProfundaN N Y Y YY Popliteal N N Y YY Post. TibialN N Y YY PeronealN N Y YY Great SaphN N Y Y YY Small SaphN N Y [...] SMS * VBG POC (08/26/2018 1:32 PM TIE TAMPER) pH, Brandon POC 7.36Comment: Physician 7.33 - [...] BT MAIN-STATION 1 Specimen Performing Organization Address City/[facility] Phone Number MISYS BT MAIN-STATION 1 * BMP POC (08/26/2018 1:32 PM TIE TAMPER) CO2 POC 25 21 - 32 mmol/L [...] MAIN-STATION Afr-Am 1 Specimen Performing Organization Address [facility] Phone Number MISYS BT MAIN-STATION 1 * HIV-1/HIV-2 ROUTINE SCREENING (08/26/2018 1:31 PM TIE TAMPER) HIV-1/HIV-2 Negative NEG BT MAIN-STATION 4 Specimen Performing Organization Address [facility] Phone Number MISYS BT MAIN-STATION 4 * CBC/DIFF (08/26/2018 1:31 PM TIE TAMPER) WBC 15.5 (H) 4.5 - 11.0 K/uL [...] MAIN-STATION 2 Specimen Blood Performing Organization Address [facility]/[employer] Phone Number MISYS BT MAIN-STATION 2 * UA CHEMISTRIES (08/26/2018 1:25 PM TIE TAMPER) Color Yellow BT MAIN-STATION 3 Clarity Clear BT MAIN-STATION 3 Specific 1.032 1.001 - 1.035 BT MAIN-STATION [place] 3 pH 6.0 5 - 8 BT [...] MAIN-STATION 3 Specimen Urine Performing Organization Address [facility] Phone Number MISYS BT MAIN-STATION 3 * TEST (08/26/2018 1:25 PM TIE TAMPER) Negative BT MAIN-STATION 3 Specimen Urine Performing Organization Address City/[facility] Phone Number MISYS BT MAIN-STATION 3 * HEMOGLOBIN A1C (07/26/2018 12:30 PM TIE TAMPER) Hemoglobin A1c 12.9 (H) 4.3 - 6.1 % BT DIAGNOSTIC IMMUNOLOGY Est Average 323.5 mg/dL BT DIAGNOSTIC Gluc IMMUNOLOGY Specimen Blood Performing Organization Address [facility] Phone Number MISYS BT DIAGNOSTIC IMMUNOLOGY * COMPREHENSIVE METABOLIC PANEL(DBIL NOT INCLUDED) (07/26/2018 12:30 PM TIE TAMPER) Albumin 3.8 3.7 - 5.3 g/dL BT [...] MAIN-STATION 1 Specimen Blood Performing Organization Address [facility] Phone Number MISYS BT MAIN-STATION 1 after 05/10/2018 Insurance Type Payer Benefit Subscriber ID Effective Phone Address Plan / Dates Group MARILYN SANDERS xxxxxxxxxxx 2018- [phone] [id number] ANJUM LOWE [id number]
--- OUTSIDE RECORDS SUMMARY | 2019-05-11 22:41 | XMS REPORT | Continuity of Care Document ---
Author Author Janeeva Address Unknown Phone Unavailable Care Team Providers Care Accounting Professional Name Role Phone [employer] Unavailable Unavailable Problems Problem Status Onset Date Classification Date Reported Comments Source Pseudophakia, right eye Active 11/22/2018 03/13/2019 [facility] Age-related nuclear cataract of right eye Active 09/08/2018 03/13/2019 [facility] Pseudophakia of left eye Active 06/14/2018 03/13/2019 [facility] Combined forms of age-related cataract of both eyes Active 04/29/2018 03/13/2019 [facility] 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 associated with type 2 diabetes mellitus Active 07/07/2017 03/13/2019 [facility] Microalbuminuria Active 12/21/2014 03/13/2019 [facility] Obesity (BMI 30.0-34.9) Active 11/26/2011 03/13/2019 [facility] Urinary frequency Active 11/26/2011 03/13/2019 [facility] Screening for cervical cancer Active 08/20/2011 03/13/2019 [facility] Screening for osteoporosis on depo x 13yr Active 08/20/2011 03/13/2019 [facility] Vaginal itching Active 08/20/2011 03/13/2019 [facility] Plantar fasciitis Active 05/03/2007 03/13/2019 [facility] Uncontrolled type 2 diabetes mellitus with hyperosmolarity without coma, with long- term current use of insulin Active 12/21/2006 03/13/2019 [facility] Carpal tunnel syndrome Active 12/21/2006 03/13/2019 [facility] Abdominal wall abscess Active 03/13/2019 [facility] Spasm of muscle Active 03/13/2019 [facility] Acute bronchitis, unspecified organism Active 03/13/2019 [facility] Encounter for diabetic foot exam Active 03/13/2019 [facility] Neuropathy Active 03/13/2019 [facility] Pseudophakia, left eye Active 03/13/2019 [facility] Proliferative diabetic retinopathy of both eyes with macular edema associated with type 2 diabetes mellitus Active 03/13/2019 [facility] Nail thickening Active 03/13/2019 [facility] Pain in both lower extremities Active 03/13/2019 [facility] Open wound Active 03/13/2019 [facility] Follow up Active 03/13/2019 [facility] Abdominal wall cellulitis Active 03/13/2019 [facility] Boil Active 03/13/2019 [facility] Flu-like symptoms Active 03/13/2019 [facility] Acute upper respiratory infection Active 03/13/2019 [facility] Sore throat Active 03/13/2019 [facility] Obstructive sleep apnea syndrome Active 03/13/2019 [facility] Needs flu shot Active 03/13/2019 [facility] Bilateral carpal tunnel syndrome Active 03/13/2019 [facility] Right flank pain Active 03/13/2019 [facility] Viral URI with cough Active 03/13/2019 [facility] Non morbid obesity due to excess calories Active 03/13/2019 [facility] Diabetes mellitus type 2 in obese Active 03/13/2019 [facility] Medications Medication Details Route Status Patient Instructions Ordering Provider Order Date Source metFORMIN (GLUCOPHAGE) 500 mg tablet Take 2 tablets by mouth 2 times daily (with meals). Oral Active 02/04/2019 [facility] cyclobenzaprine (FLEXERIL) 10 mg tablet Take 1 tablet by mouth nightly at bedtime as needed for Muscle Spasms. Oral Active 02/04/2019 [facility] naproxen (NAPROSYN) 500 mg tablet Take 1 tablet by mouth 2 times daily (with meals). Oral Active 02/04/2019 [facility] blood glucose (PRECISION XTRA TEST STRIPS) test strips Check blood glucose 3 times daily Active 01/27/2019 [facility] insulin detemir U-100 (LEVEMIR FLEXTOUCH) 100 unit/mL (3 mL) Pen Inject 45 Units under the skin 2 times daily. Subcutaneous Active 01/11/2019 [facility] prednisoLONE acetate (PRED FORTE) 1 % ophthalmic suspension Instill 1 Drop in right eye 4 times daily for 10 days. No Longer Active 01/02/2019 [facility] ketorolac (ACULAR) 0.5 % ophthalmic drops Instill 1 Drop in right eye 4 times daily for 10 days. No Longer Active 01/02/2019 [facility] amoxicillin-clavulanate (AUGMENTIN) 875-125 mg per tablet Take 1 tablet by mouth 2 times daily for 10 days. Oral Inactive 12/26/2018 [facility] benzonatate (TESSALON PERLES) 100 mg capsule Take 1 to 2 capsules by mouth every 8 hours as needed for cough. Active 12/26/2018 [facility] loratadine (CLARITIN) 10 mg tablet Take 1 tablet by mouth daily. Oral Active 12/26/2018 [facility] pregabalin (LYRICA) 150 mg capsule Take 1 capsule by mouth 2 times daily. Oral Active 12/02/2018 [facility] ofloxacin (OCUFLOX) 0.3 % ophthalmic solution Instill 1 Drop in right eye 4 times daily for 10 days. No Longer Active 11/17/2018 [facility] ketorolac (ACULAR) 0.5 % ophthalmic drops Instill 1 Drop in right eye As directed for 30 days Ketorolac: 4x daily for 1 week,then 3x daily for 1 week,then 2x daily for 1 week,. No Longer Active 11/17/2018 [facility] loteprednol etabonate (LOTEMAX) 0.5 % ophthalmic suspension Instill 1 Drop in right eye 4 times daily. Active 11/17/2018 [facility] ketorolac (ACULAR) 0.5 % ophthalmic drops Instill 1 Drop in left eye 4 times daily. Active 11/03/2018 [facility] prednisoLONE acetate (PRED FORTE) 1 % ophthalmic suspension Instill 1 Drop in left eye 4 times daily for 10 days. No Longer Active 11/03/2018 [facility] insulin lispro (HUMALOG) 100 unit/mL injection Inject 5 Units under the skin 2 times daily Before lunch and dinner. Subcutaneous Active 09/30/2018 [facility] INSULIN SYRINGE 0.5mL 30GX5/16" (ULTRA COMFORT) syringe-needle Use to inject medication 2 times daily. Use a new syringe each time. Subcutaneous Active 09/30/2018 [facility] azithromycin (ZITHROMAX) 250 mg tablet Take 2 tablets by mouth on the first day, then take one tablet every day for the next 4 days. No Longer Active 08/26/2018 [facility] ibuprofen (MOTRIN) 800 mg tablet Take 1 tablet by mouth every 8 hours as needed for Pain Take with food. Oral Active 08/26/2018 [facility] oseltamivir (TAMIFLU) 75 mg capsule Take 1 capsule by mouth 2 times daily for 5 days. Oral No Longer Active 08/26/2018 [facility] doxycycline monohydrate (MONODOX) 100 mg capsule Take 1 capsule by mouth 2 times daily for 10 days. Oral No Longer Active 08/26/2018 [facility] pregabalin (LYRICA) 150 mg capsule Take 1 capsule by mouth 2 times daily. Oral No Longer Active 08/01/2018 [facility] pregabalin (LYRICA) 150 mg capsule Take 1 capsule by mouth 2 times daily. Oral No Longer Active 07/26/2018 [facility] ketorolac (ACULAR) 0.5 % ophthalmic drops Instill 1 Drop in left eye 4 times daily for 30 days. No Longer Active 06/13/2018 [facility] ofloxacin (OCUFLOX) 0.3 % ophthalmic solution Instill 1 Drop in each eye 4 times daily for 10 days. No Longer Active 06/13/2018 [facility] prednisoLONE acetate (PRED FORTE) 1 % ophthalmic suspension Instill 1 Drop in left eye 4 times daily for 30 days. No Longer Active 06/13/2018 [facility] acetaminophen-codeine (TYLENOL/CODEINE #3) 300-30 mg per tablet Take 1 tablet by mouth 2 times daily as needed for Pain. Oral No Longer Active 05/19/2018 [facility] insulin detemir U-100 (LEVEMIR FLEXTOUCH) 100 unit/mL (3 mL) Pen Inject 45 Units under the skin 2 times daily. Subcutaneous No Longer Active 05/17/2018 [facility] loratadine (CLARITIN) 10 mg tablet Take 1 tablet by mouth daily for cough and nasal congestion. Oral No Longer Active 03/15/2018 [facility] ciclesonide (ZETONNA) 37 mcg/actuation nasal HFA inhaler Use 1 [place] in each nostril daily. No Longer Active 03/15/2018 [facility] acetaminophen-codeine (TYLENOL/CODEINE #3) 300-30 mg per tablet Take 1 tablet by mouth 2 times daily as needed for Pain. Oral No Longer Active 02/08/2018 [facility] cyclobenzaprine (FLEXERIL) 10 mg tablet Take 1 tablet by mouth 3 times daily as needed for Muscle Spasms. Oral No Longer Active 02/08/2018 [facility] ibuprofen (MOTRIN) 800 mg tablet Take 1 tablet by mouth every 8 hours as needed for Pain. Oral No Longer Active 01/19/2018 [facility] losartan (COZAAR) 25 mg tablet Take 0.5 tablets by mouth daily. Oral Active 01/06/2018 [facility] insulin detemir U-100 (LEVEMIR FLEXTOUCH) 100 unit/mL (3 mL) Pen Inject 45 Units under the skin 2 times daily for 184 days. Subcutaneous No Longer Active 12/17/2017 [facility] blood glucose (PRECISION XTRA TEST STRIPS) test strips Check blood glucose 3 times daily No Longer Active 09/29/2017 [facility] lancets 28 gauge Check blood glucose 3 times daily. No Longer Active 09/29/2017 [facility] blood glucose meter (PRECISION XTRA GLUCOMETER) Use as directed.. Active 09/28/2017 [facility] metFORMIN (GLUCOPHAGE) 500 mg tablet Take 1 tablet by mouth 2 times daily (with meals). Oral No Longer Active 09/28/2017 [facility] pen needle, diabetic (NOVOFINE) 30 gauge x 1/3" needles Inject under the skin 2 times daily Use as directed. Subcutaneous Active 09/28/2017 [facility] naproxen (NAPROSYN) 500 mg tablet Take 1 tablet by mouth 2 times daily (with meals) For pain as needed. Oral No Longer Active 09/28/2017 [facility] gabapentin (NEURONTIN) 800 mg tablet Take 1 tablet by mouth 3 times daily. Oral Active 09/28/2017 [facility] ibuprofen (MOTRIN) 800 mg tablet Take 1 tablet by mouth 2 times daily as needed for Pain. Oral No Longer Active 02/12/2017 [facility] pen needle, diabetic (NOVOFINE) 30 gauge x 1/3" needles Inject under the skin daily Use as directed. Subcutaneous No Longer Active 05/25/2016 [facility] blood glucose test strips 3 times daily. No Longer Active 05/25/2016 [facility] lancets 28 gauge 3 times daily. No Longer Active 05/25/2016 [facility] insulin REGULAR (NOVOLIN R, HUMULIN R) 100 unit/mL injection Inject 10 Units under the skin 2 times daily (before meals). Subcutaneous No Longer Active 05/17/2015 [facility] dexlansoprazole (DEXILANT) 60 mg delayed release capsule Take 1 capsule by mouth daily. Oral Active 05/06/2015 [facility] blood glucose test strips Use as directed 2 times daily No Longer Active 04/23/2015 [facility] blood glucose meter Use as directed.. Active 11/19/2014 [facility] lancets 28 gauge Check blood glucose 2 times daily No Longer Active 11/19/2014 [facility] INSULIN SYRINGE 1mL 30GX5/16" syringe-needle Use to inject insulin 2 times daily. Use a new syringe each time. Subcutaneous No Longer Active 11/19/2014 [facility] edroxyprogesterone,Contracep, (DEPO-PROVERA) 150 mg/mL Syrg syringe Inject 1 mL by intramuscular injection every 3 months for Other. Intramuscular No Longer Active 08/20/2011 [facility] Allergies, Adverse Reactions, Alerts No Known Medication Allergies Immunizations Immunization Date Given Site Status Last Updated Comments Source Tdap (Tetanus Toxoid, Reduced Diphtheria Toxoid And Acellular Pertussis, Absorbed) 08/26/2018 Not Given Rashid Deferred: - Pt states she recently received chart shows 2018 administration [facility] Influenza, Vaccine<FLUCELVAX>(Multi-Dose) 07/26/2018 completed [facility] PPV 23 (Pneumococcal Polysaccharide 23 Valent) 10/05/2017 completed [facility] Tdap (Tetanus Toxoid, Reduced Diphtheria Toxoid And Acellular Pertussis, Absorbed) 10/05/2017 completed [facility] Influenza Vaccine, Seasonal, Injectable 10/05/2017 completed [facility] Tropicamide 0.5% Eye-Jacy 15ml 07/23/2016 [facility] <Unspecified[facility] 04/25/2016 completed [facility] Nitrostat 0.4mg Tab 05/06/2015 completed [facility] Asa (aspirin) 81mg Tab 05/06/2015 completed [facility] Depo-provera 150mg Inj 08/26/2012 completed [facility] Depo-provera 150mg Inj 05/19/2012 completed [facility] Depo-provera 150mg Inj 02/22/2012 completed [facility] Depo-provera 150mg Inj 11/26/2011 completed [facility] Depo-provera 150mg Inj 08/20/2011 completed [facility] Influenza Vaccine 05/21/2011 [facility]/2ml Syringe 12/24/2007 completed Iram [facility] Triamcinolone 40mg/ml Inj 12/12/2007 completed Mack [facility] Triamcinolone 40mg/ml Inj 04/05/2007 completed Noel [facility] Results Order Name Results Value Reference Range Date Interpretation Comments Source DIABETIC FOOT EXAM <p>Louann Steiner, ESTHETICS INSTRUCTOR 12/26/20186:09 PM</p><p>Diabetic Foot Exam was performed at 12/26/2018 6:06 PM.Right foot </p><p>sensation is reduced (mildly reduced), right foot pulses are normal, right </p><p>foot appearance is normal.Left foot sensation is reduced (mildly </p><p>reduced),left foot pulses are normal,left foot appearance is normal. </p><p> </p><p> </p> Louann Steiner G, ESTHETICS INSTRUCTOR 12/26/20186:09 PMDiabetic Foot Exam was performed at 12/26/2018 6:06 PM.Right foot sensation is reduced (mildly reduced), right foot pulses are normal, right foot appearance is normal.Left foot sensation is reduced (mildly reduced),left foot pulses are normal,left foot appearance is normal. 12/26/2018 [facility] GLUCOSE POC <td ID="[id number]">Glucose POC</td><td><span style="flagData">134</span><span style="flagData"> (H)</span></td><td>74 - 106 mg/dL</td><td>BT MAIN-STATION 1</td><td ID="[id number]"/> 134 74 - 106 11/21/2018 [facility] GLUCOSE POC Lab Interpretation Abnormal 11/21/2018 [facility] POCT URINE DIPSTICK - 11/21/2018 [facility] POCT URINE DIPSTICK - Control Control 11/21/2018 [facility] POCT URINE DIPSTICK - <p>UPT negative</p><p>Control test pass</p> UPT negativeControl test pass 11/21/2018 [facility] POCT URINE DIPSTICK - Lab Interpretation Normal 11/21/2018 [facility] BASIC METABOLIC PANEL <td ID="[id number]">CO2</td><td>23</td><td>21 - 31 mmol/L</td><td>BT MAIN-STATION 1</td><td ID="[id number]"/> 23 21 - 31 11/03/2018 [facility] BASIC METABOLIC PANEL <td ID="[id number]">Chloride</td><td>106</td><td>98 - 107 mmol/L</td><td>BT MAIN-STATION 1</td><td ID="[id number]"/> 106 98 - 107 11/03/2018 [facility] BASIC METABOLIC PANEL <td ID="[id number]">Potassium</td><td>4.9</td><td>3.5 - 5.1 mmol/L</td><td>BT MAIN-STATION 1</td><td ID="[id number]"/> 4.9 3.5 - 5.1 11/03/2018 [facility] BASIC METABOLIC PANEL <td ID="[id number]">Sodium</td><td>140</td><td>136 - 145 mmol/L</td><td>BT MAIN-STATION 1</td><td ID="[id number]"/> 140 136 - 145 11/03/2018 [facility] BASIC METABOLIC PANEL <td ID="[id number]">Glucose</td><td><span style="flagData">396</span><span style="flagData"> (H)</span></td><td>70 - 110 mg/dL</td><td>BT MAIN-STATION 1</td><td ID="[id number]"/> 396 70 - 110 11/03/2018 [facility] BASIC METABOLIC PANEL <td ID="[id number]">BUN</td><td><span style="flagData">26</span><span style="flagData"> (H)</span></td><td>7 - 25 mg/dL</td><td>BT MAIN-STATION 1</td><td ID=&amp ;quot;[id number]"/> 26 7 - 25 11/03/2018 [facility] BASIC METABOLIC PANEL <td ID="[id number]">Creatinine</td><td>0.80</td><td>0.6 - 1.2 mg/dL</td><td>BT MAIN-STATION 1</td><td ID="[id number]"/> 0.80 0.6 - 1.2 11/03/2018 [facility] BASIC METABOLIC PANEL Anion Gap 11 11/03/2018 [facility] BASIC METABOLIC PANEL <td ID="[id number]">Calcium</td><td>9.4</td><td>8.6 - 10.3 mg/dL</td><td>BT MAIN-STATION 1</td><td ID="[id number]"/> 9.4 8.6 - 10.3 11/03/2018 [facility] BASIC METABOLIC PANEL GFR, Estimated >60 mL/min/1.73 m2 11/03/2018 [facility] BASIC METABOLIC PANEL eGFR If Africn Am >60 mL/min/1.73 m2 11/03/2018 [facility] BASIC METABOLIC PANEL Lab Interpretation Abnormal 11/03/2018 [facility] CBC <td ID="[id number]">WBC</td><td>8.7</td><td>4.5 - 11.0 K/uL</td><td>BT MAIN-STATION 2</td><td ID="[id number]"/> 8.7 4.5 - 11 11/03/2018 [facility] CBC <td ID="[id number]">RBC</td><td><span style="flagData">4.10</span><span style="flagData"> (L)</span></td><td>4.20 - 5.40 M/uL</td><td>BT MAIN-STATION 2</td><td ID="[id number]"/> 4.10 4.20 - 5.40 11/03/2018 [facility] CBC <td ID="[id number]">Hemoglobin</td><td>12.2</td><td>12.0 - 16.0 g/dL</td><td> MAIN-STATION 2</td><td ID="[id number]"/> 12.2 12 - 16 11/03/2018 [facility] CBC <td ID="[id number]">Hematocrit</td><td>38.7</td><td>37.0 - 47.0 %</td><td> MAIN-STATION 2</td><td ID="[id number]"/> 38.7 37 - 47 11/03/2018 [facility] CBC <td ID="[id number]">MCV</td><td><span style="flagData">94</span><span style="flagData"> (H)</span></td><td>82 - 92 fL</td><td> MAIN-STATION 2</td><td ID="[id number]"/> 94 82 - 92 11/03/2018 [facility] CBC <td ID="[id number]">MCH</td><td>29.8</td><td>27.0 - 32.0 pg</td><td> MAIN-STATION 2</td><td ID="[id number]"/> 29.8 27 - 32 11/03/2018 [facility] CBC <td ID="[id number]">MCHC</td><td><span style="flagData">31.5</span><span style="flagData"> (L)</span></td><td>32.0 - 36.0 g/dL</td><td> MAIN-STATION 2</td><td ID="[id number]"/> 31.5 32 - 36 11/03/2018 [facility] CBC <td ID="[id number]">RDW</td><td>44.5</td><td>36.4 - 46.3 fL</td><td>BT MAIN-STATION 2</td><td ID="[id number]"/> 44.5 36.4 - 46.3 11/03/2018 [facility] CBC <td ID="[id number]">Platelets</td><td>273</td><td>150 - 400 K/uL</td><td>BT MAIN-STATION 2</td><td ID="[id number]"/> 273 150 - 400 11/03/2018 [facility] CBC <td ID="[id number]">Mean Platelet Volume</td><td>11.9</td><td>9.4 - 12.4 fL</td><td> MAIN-STATION 2</td><td ID="[id number]"/> 11.9 9.4 - 12.4 11/03/2018 [facility] CBC Percent NRBC 0.0 11/03/2018 [facility] CBC Absolute NRBC 0.00 11/03/2018 [facility] CBC Lab Interpretation Abnormal 11/03/2018 [facility] 12 LEAD EKG 12 LEAD EKG FOR CHP [facility] Test Date:2018-11-03 Pat Name: DAMIAN ISABEL Department: [id number] : Gender:Census Clerk: [id number] :1975 Requested By: LIZZIE Santos Order Number: [id number] MD: Ayden Rowland Measurements IntervalsAxis Rate: 84 P:63 AK: 147QRS:85 QRSD: 88 T:35 QT: 383 QTc:455 Interpretive Statements SINUS RHYTHM Electronically Signed On 11-03-2018 11:15:21 CDT by Ayden Rowland 11/03/2018 [facility] DUPLEX DOPPLER LOWER EXTREMITY VENOUS, BILATERAL DUPLEX DOPPLER LOWER EXTREMITY VENOUS, BILATERAL Lower Extremity Vein Mapping Report DAMIAN ISABEL Age:43 Gender: F :1975 Exam Date: 2018-10-20 14:37 Exam Location:[facility] Ordering Phys: ETELVINA PAULSON Referring Phys: Reading Phys:Alexis Finney Fellow Phys: Fellow Phys: Technologist:Samson Diaz [facility], T Reason For Exam: Indications:b/l LE superficial varicose veins, chronic tingling and pain in the legs, Varicose Vein With Inflammation ICD-9 Codes: I83.10 Exam Type: LE Vein Mapping Procedure CPT: 00900X Additional CPT: Risk Factors:Diabetes History: C/O bilateral [...] Signed) Final Date:21 October 2018 16:52 10/21/2018 [facility] HIV-1/HIV-2 ROUTINE SCREENING <td ID="[id number]">HIV-1/HIV-2</td><td>Negative</td><td>NEG</td><td>BT MAIN-STATION 4</td><td ID="[id number]"/> Negative NEG 08/26/2018 [facility] TEST Negative 08/26/2018 [facility] UA CHEMISTRIES <td ID="[id number]">Color</td><td>Yellow</td><td/><td>BT MAIN-STATION 3</td><td ID="[id number]"/> Yellow 08/26/2018 [facility] CHEMISTRIES Clarity Clear 08/26/2018 [facility] CHEMISTRIES <td ID="[id number]">Specific [place]</td><td>1.032</td><td>1.001 - 1.035</td><td>BT MAIN-STATION 3</td><td ID="[id number]"/> 1.032 1.001 - 1.035 08/26/2018 [facility] CHEMISTRIES <td ID="[id number]">pH</td><td>6.0</td><td>5 - 8</td><td>BT MAIN-STATION 3</td><td ID="[id number]"/> 6.0 5 - 8 08/26/2018 [facility] CHEMISTRIES <td ID="[id number]">Protein</td><td><span style="flagData">2+</span><span style="flagData"> (A)</span></td><td>NEG</td><td>BT MAIN-STATION 3</td><td ID=&quot ;[id number]"/> 2+ NEG 08/26/2018 [facility] CHEMISTRIES <td ID="[id number]">Glucose</td><td><span style="flagData">3+</span><span style="flagData"> (A)</span></td><td>NEG</td><td>BT MAIN-STATION 3</td><td ID=&quot ;[id number]"/> 3+ NEG 08/26/2018 [facility] CHEMISTRIES <td ID="[id number]">Ketones</td><td>Negative</td><td>NEG</td><td>BT MAIN-STATION 3</td><td ID="[id number]"/> Negative NEG 08/26/2018 [facility] UA CHEMISTRIES <td ID="Kkrwtq159598397Dmsg6Aeig">Bilirubin</td><td>Negative</td><td>NEG</td><td>BT MAIN-STATION 3</td><td ID="[id number]"/> Negative NEG 08/26/2018 [facility] UA CHEMISTRIES <td ID="[id number]">Nitrate</td><td>Negative</td><td>NEG</td><td>BT MAIN-STATION 3</td><td ID="[id number]"/> Negative NEG 08/26/2018 [facility] UA CHEMISTRIES <td ID="[id number]">Urobilinogen,Semi- Qn</td><td><1.0</td><td>0.2 - 1.0 EU/dL</td><td>BT MAIN-STATION 3</td><td ID="[id number]"/> <1.0 0.2 - 1 08/26/2018 [facility] UA CHEMISTRIES <td ID="[id number]">Leukocyte</td><td><span style="flagData">Trace</span><span style="flagData"> (A)</span></td><td>NEG</td><td>BT MAIN-STATION 3</td><td ID=&am p;quot;[id number]"/> Trace NEG 08/26/2018 [facility] UA CHEMISTRIES Occult Blood 1+ NEG 08/26/2018 [facility] UA CHEMISTRIES RBC 4 0 - 4 08/26/2018 [facility] UA CHEMISTRIES WBC 4 0 - 5 08/26/2018 [facility] UA CHEMISTRIES Epithelial Cell 2 /HPF 08/26/2018 [facility] UA CHEMISTRIES Lab Interpretation Abnormal 08/26/2018 [facility] CBC/DIFF <td ID="[id number]">WBC</td><td><span style="flagData">15.5</span><span style="flagData"> (H)</span></td><td>4.5 - 11.0 K/uL</td><td>BT MAIN-STATION 2</td><td ID="[id number]"/> 15.5 4.5 - 11 08/26/2018 [facility] CBC/DIFF <td ID="[id number]">RBC</td><td><span style="flagData">3.83</span><span style="flagData"> (L)</span></td><td>4.20 - 5.40 M/uL</td><td>BT MAIN-STATION 2</td><td ID="[id number]"/> 3.83 4.20 - 5.40 08/26/2018 [facility] CBC/DIFF <td ID="[id number]">Hemoglobin</td><td><span style="flagData">11.8</span><span style="flagData"> (L)</span></td><td>12.0 - 16.0 g/dL</td><td>BT MAIN-STATION 2</td><td ID="[id number]"/> 11.8 12 - 16 08/26/2018 [facility] CBC/DIFF <td ID="[id number]">Hematocrit</td><td><span style="flagData">35.8</span><span style="flagData"> (L)</span></td><td>37.0 - 47.0 %</td><td>BT MAIN-STATION 2</td><td ID="[id number]"/> 35.8 37 - 47 08/26/2018 [facility] CBC/DIFF <td ID="[id number]">MCV</td><td><span style="flagData">94</span><span style="flagData"> (H)</span></td><td>82 - 92 fL</td><td>BT MAIN-STATION 2</td><td ID="[id number]"/> 94 82 - 92 08/26/2018 [facility] CBC/DIFF <td ID="[id number]">MCH</td><td>30.8</td><td>27.0 - 32.0 pg</td><td>BT MAIN-STATION 2</td><td ID="[id number]"/> 30.8 27 - 32 08/26/2018 [facility] CBC/DIFF <td ID="[id number]">MCHC</td><td>33.0</td><td>32.0 - 36.0 g/dL</td><td>BT MAIN-STATION 2</td><td ID="[id number]"/> 33.0 32 - 36 08/26/2018 [facility] CBC/DIFF <td ID="[id number]">RDW</td><td>42.0</td><td>36.4 - 46.3 fL</td><td>BT MAIN-STATION 2</td><td ID="[id number]"/> 42.0 36.4 - 46.3 08/26/2018 [facility] CBC/DIFF <td ID="[id number]">Platelets</td><td>258</td><td>150 - 400 K/uL</td><td>BT MAIN-STATION 2</td><td ID="[id number]"/> 258 150 - 400 08/26/2018 [facility] CBC/DIFF <td ID="[id number]">Mean Platelet Volume</td><td>12.0</td><td>9.4 - 12.4 fL</td><td>BT MAIN-STATION 2</td><td ID="[id number]"/> 12.0 9.4 - 12.4 08/26/2018 [facility] CBC/DIFF Percent NRBC 0.00 08/26/2018 [facility] CBC/DIFF Absolute NRBC 0.0 08/26/2018 [facility] CBC/DIFF <td ID="[id number]">Neutrophils</td><td><span style="flagData">73.3</span><span style="flagData"> (H)</span></td><td>34.0 - 70.0 %</td><td>BT MAIN-STATION 2</td><td ID="[id number]"/> 73.3 34 - 70 08/26/2018 [facility] CBC/DIFF <td ID="[id number]">Lymphs</td><td><span style="flagData">18.7</span><span style="flagData"> (L)</span></td><td>20.0 - 50.0 %</td><td>BT MAIN-STATION 2</td><td ID="[id number]"/> 18.7 20 - 50 08/26/2018 [facility] CBC/DIFF <td ID="[id number]">Monocytes</td><td>6.6</td><td>5.0 - 12.0 %</td><td>BT MAIN-STATION 2</td><td ID="[id number]"/> 6.6 5 - 12 08/26/2018 [facility] CBC/DIFF <td ID="[id number]">Eos</td><td>0.8</td><td>0.7 - 5.0 %</td><td>BT MAIN-STATION 2</td><td ID="[id number]"/> 0.8 0.7 - 5 08/26/2018 [facility] CBC/DIFF <td ID="[id number]">Basos</td><td>0.2</td><td>0.1 - 1.2 %</td><td>BT MAIN-STATION 2</td><td ID="[id number]"/> 0.2 0.1 - 1.2 08/26/2018 [facility] CBC/DIFF Lab Interpretation Abnormal 08/26/2018 [facility] POC CO2 POC 25 21 - 32 08/26/2018 [facility] POC Chloride POC 101 98 - 107 08/26/2018 [facility] POC Potassium POC 4.4 3.5 - 5.1 08/26/2018 [facility] POC Sodium POC 138 136 - 145 08/26/2018 [facility] POC <td ID="[id number]">Glucose POC</td><td><span style="flagData">412</span><span style="flagData"> (HH)</span></td><td>74 - 106 mg/dL</td><td>BT MAIN-STATION 1</td><td ID="[id number]"/> 412 74 - 106 08/26/2018 [facility] POC Urea Nitrogen POC 24 7 - 18 08/26/2018 [facility] POC Creatinine POC 0.8 0.6 - 1.3 08/26/2018 [facility] POC Calcium Ionized POC 1.17 1.15 - 1.29 08/26/2018 [facility] POC Hemoglobin POC 13.3 12 - 16 08/26/2018 [facility] POC Hematocrit POC 39.0 37 - 47 08/26/2018 [facility] POC GFR, Estimated >60 mL/min/1.73 m2 08/26/2018 [facility] POC GFR, Estim, Afr-Am >60 mL/min/1.73 m2 08/26/2018 [facility] BMP POC Lab Interpretation Abnormal 08/26/2018 [facility] VBG POC pH, Brandon POC 7.36 7.33 - 7.43 08/26/[address] [facility] pCO2, [place] POC 43.4 38.0 - 50.0 08/[facility] pO2, [place] POC 23 50 - 75 08/26/[facility] Base Deficit, [place] POC 1 08/[facility] HCO3, [place] POC 24.3 22 - 26 08/26/[facility] % Sat, [place] POC 37 60 - 85 08/26/[facility] Lactic Acid, [place] POC 0.73 0.4 - 2 08/26/[facility] Sample Type [facility] TCO2, BRANDON POC 26 21 - 32 08/26/[facility] Lab Interpretation Abnormal 08/26/2018 [facility] HEMOGLOBIN A1C <td ID="[id number]">Hemoglobin A1c</td><td><span style="flagData">12.9</span><span style="flagData"> (H)</span></td><td>4.3 - 6.1 %</td><td>BT DIAGNOSTIC IMMUNOLOGY</td><td ID="[id number]"/> 12.9 4.3 - 6.1 07/27/2018 [facility] HEMOGLOBIN A1C Est Average Gluc 323.5 07/27/2018 [facility] HEMOGLOBIN A1C Lab Interpretation Abnormal 07/27/2018 [facility] COMPREHENSIVE METABOLIC PANEL(DBIL NOT INCLUDED) <td ID="[id number]">Albumin</td><td>3.8</td><td>3.7 - 5.3 g/dL</td><td>BT MAIN-STATION 1</td><td ID="[id number]"/> 3.8 3.7 - 5.3 07/27/2018 [facility] COMPREHENSIVE METABOLIC PANEL(DBIL NOT INCLUDED) <td ID="[id number]">Calcium</td><td>9.7</td><td>8.6 - 10.3 mg/dL</td><td>BT MAIN-STATION 1</td><td ID="[id number]"/> 9.7 8.6 - 10.3 07/27/2018 [facility] COMPREHENSIVE METABOLIC PANEL(DBIL NOT INCLUDED) <td ID="[id number]">CO2</td><td>26</td><td>21 - 31 mmol/L</td><td>BT MAIN-STATION 1</td><td ID="[id number]"/> 26 21 - 31 07/27/2018 [facility] COMPREHENSIVE METABOLIC PANEL(DBIL NOT INCLUDED) <td ID="[id number]">Chloride</td><td>102</td><td>98 - 107 mmol/L</td><td>BT MAIN-STATION 1</td><td ID="[id number]"/> 102 98 - 107 07/27/2018 [facility] COMPREHENSIVE METABOLIC PANEL(DBIL NOT INCLUDED) <td ID="[id number]">Creatinine</td><td>0.70</td><td>0.6 - 1.2 mg/dL</td><td>BT MAIN-STATION 1</td><td ID="[id number]"/> 0.70 0.6 - 1.2 07/27/2018 [facility] COMPREHENSIVE METABOLIC PANEL(DBIL NOT INCLUDED) <td ID="[id number]">Glucose</td><td><span style="flagData">339</span><span style="flagData"> (H)</span></td><td>70 - 110 mg/dL</td><td>BT MAIN-STATION 1</td><td ID="[id number]"/> 339 70 - 110 07/27/2018 [facility] COMPREHENSIVE METABOLIC PANEL(DBIL NOT INCLUDED) <td ID="[id number]">Alkaline Phosphatase, S</td><td>93</td><td>34 - 104 U/L</td><td>BT MAIN-STATION 1</td><td ID="[id number]"/> 93 34 - 104 07/27/2018 [facility] COMPREHENSIVE METABOLIC PANEL(DBIL NOT INCLUDED) <td ID="[id number]">Potassium</td><td>4.7</td><td>3.5 - 5.1 mmol/L</td><td>BT MAIN-STATION 1</td><td ID="[id number]"/> 4.7 3.5 - 5.1 07/27/2018 [facility] COMPREHENSIVE METABOLIC PANEL(DBIL NOT INCLUDED) <td ID="[id number]">Sodium</td><td><span style="flagData">135</span><span style="flagData"> (L)</span></td><td>136 - 145 mmol/L</td><td>BT MAIN-STATION 1</td><td ID="[id number]"/> 135 136 - 145 07/27/2018 [facility] COMPREHENSIVE METABOLIC PANEL(DBIL NOT INCLUDED) <td ID="[id number]">ALT</td><td>24</td><td>7 - 52 U/L</td><td>BT MAIN-STATION 1</td><td ID="[id number]"/> 24 7 - 52 07/27/2018 [facility] COMPREHENSIVE METABOLIC PANEL(DBIL NOT INCLUDED) <td ID="[id number]">AST (SGOT)</td><td>19</td><td>13 - 39 U/L</td><td>BT MAIN-STATION 1</td><td ID="[id number]"/> 19 13 - 39 07/27/2018 [facility] COMPREHENSIVE METABOLIC PANEL(DBIL NOT INCLUDED) <td ID="[id number]">BUN</td><td>22</td><td>7 - 25 mg/dL</td><td>BT MAIN-STATION 1</td><td ID="[id number]"/> 22 7 - 25 07/27/2018 [facility] COMPREHENSIVE METABOLIC PANEL(DBIL NOT INCLUDED) <td ID="[id number]">Bilirubin, Total</td><td>0.3</td><td>0.2 - 1.2 mg/dL</td><td>BT MAIN-STATION 1</td><td ID="[id number]"/> 0.3 0.2 - 1.2 07/27/2018 [facility] COMPREHENSIVE METABOLIC PANEL(DBIL NOT INCLUDED) <td ID="[id number]">Protein, Total, Serum</td><td>7.2</td><td>6.0 - 8.3 g/dL</td><td>BT MAIN-STATION 1</td><td ID="[id number]"/> 7.2 6 - 8.3 07/27/2018 [facility] COMPREHENSIVE METABOLIC PANEL(DBIL NOT INCLUDED) GFR, Estimated >60 mL/min/1.73 m2 07/27/2018 [facility] COMPREHENSIVE METABOLIC PANEL(DBIL NOT INCLUDED) eGFR If Africn Am >60 mL/min/1.73 m2 07/27/2018 [facility] COMPREHENSIVE METABOLIC PANEL(DBIL NOT INCLUDED) Anion Gap 7 07/27/2018 [facility] COMPREHENSIVE METABOLIC PANEL(DBIL NOT INCLUDED) Lab Interpretation Abnormal 07/27/2018 [facility] Pathology Reports No Data Provided for This Section Diagnostic Reports No Data Provided for This Section Consultation Notes No Data Provided for This Section Discharge Summaries No Data Provided for This Section History and Physicals No Data Provided for This Section Vital Signs Vital Sign Value Date Comments Source Systolic (mm Hg) 102 02/04/2019 [facility] Diastolic (mm Hg) 63 02/04/2019 [facility] Heart Rate 94 02/04/2019 [facility] Temperature Oral (F) 36.72 Jacqueline 02/04/2019 [facility] Respitory Rate 20 02/04/2019 [facility] Height 157.5 cm 02/04/2019 [facility] Weight 106.958 02/04/2019 [facility] Encounters Location Location Details Encounter Type Encounter Number Reason For Visit Attending Provider ADM Date DC Date Status Source [place] [facility] [id number] Otoniel Zamarripa MD 03/15/2018 03/15/2018 [facility] Ophthalmology Office Visit [id number] Adina Masterson MD 03/17/2018 03/17/2018 [facility] Ophthalmology Nurse Only [id number] Adina Masterson MD 03/17/2018 03/17/2018 [facility] Ophthalmology Nurse Only [id number] Alyce Wilder MD 04/29/2018 04/29/2018 [facility] Ophthalmology Office Visit [id number] Alyce Wilder MD 04/29/2018 04/29/2018 [facility] [place] Refill [id number] Clover Lucero MD 05/16/2018 [facility] Pre-Anesthesia Consulting & Testing [facility] Hospital Encounter [id number] Dn Ophthalmology:General Resident 05/30/2018 05/31/2018 [facility] Ophthalmology Nurse Only [id number] Janet Hodges 06/03/2018 06/03/2018 [facility] Ophthalmology Office Visit [id number] Niurka Joseph MD 06/03/2018 06/03/2018 [facility] 4F Post Anesthesia 1 (PAC1) [facility] Hospital Encounter [id number] Alyce Wilder MD 06/13/2018 06/13/2018 [facility] 4F Post Anesthesia 1 (PAC1) BT Anesthesia Event [id number] Kathryn Villalta 06/13/2018 06/13/2018 [facility] 4F Post Anesthesia 1 (PAC1) BT Surgery [id number] Niurka Joseph MD 06/13/2018 06/13/2018 [facility] Ophthalmology Office Visit [id number] Niurka Joseph MD 06/14/2018 06/14/2018 [facility] Ophthalmology Office Visit [id number] Adina Masterson MD 06/23/2018 06/23/2018 [facility] Ophthalmology Office Visit [id number] Adina Masterson MD 06/23/2018 06/23/2018 [facility] [place] Refill [id number] Ross Massey MD 07/26/2018 [facility] Travel [id number] 07/26/2018 [facility] [place] Office Visit [id number] Ross Massey MD 07/26/2018 07/26/2018 [facility] [place] Clinical Case Mgt [id number] Loly Chen RN 07/27/2018 [facility] [place] Telephone [id number] Niurka Skinner 07/28/2018 [facility] [place] Refill [id number] Clover Lucero MD 07/29/2018 [facility] [place] Telephone [id number] Loly Chen RN 08/01/2018 [facility] Ophthalmology Office Visit [id number] Niurka Joseph MD 08/11/2018 08/11/2018 [facility] [place] Telephone [id number] Clarisa Blanton 08/12/2018 [facility] Travel [id number] 08/26/2018 [facility] Same Day Same Day [id number] Ivelisse Plascencia MD 08/26/2018 08/26/2018 [facility] Emergency [facility] Emergency [id number] Flo Tolentino MD 08/27/2018 08/27/2018 [facility] Ophthalmology Office Visit [id number] Adina Masterson MD 09/08/2018 09/08/2018 [facility] Ophthalmology Nurse Only [id number] Blanca Llanes 09/08/2018 09/08/2018 [facility] Travel [id number] 09/16/2018 [facility] ASK YOUR NURSE PROGRAM Nurse Triage [id number] Ludy Portillo RN 09/16/2018 [facility] ASK YOUR NURSE PROGRAM Nurse Triage [id number] Fatuma Locke RN 09/16/2018 [facility] [place] Orders Only [id number] Etelvina Paulson MD 09/30/2018 [facility] Travel [id number] 09/30/2018 [facility] [place] Office Visit [id number] Etelvina Paulson MD 09/30/2018 10/14/2018 [facility] Ophthalmology Office Visit [id number] Le Young MD 10/04/2018 10/04/2018 [facility] Travel [id number] 10/20/2018 [facility] Vascular Lab (5207) [facility] Hospital Encounter [id number] Clover Lucero MD 10/20/2018 10/21/2018 [facility] Pre-Anesthesia Consulting & Testing [facility] Encounter [id number] Dn Ophthalmology:General Resident 11/03/2018 11/03/2018 [facility] Ophthalmology Office Visit [id number] Le Young MD 11/03/2018 11/03/2018 [facility] Hospital Encounter [id number] Lizzie Crandall MD 11/03/2018 11/04/2018 [facility] Ophthalmology Nurse Only [id number] Janet Hodges 11/03/2018 11/03/2018 [facility] Travel [id number] 11/17/2018 [facility] Ophthalmology Office Visit [id number] Adina Masterson MD 11/17/2018 11/17/2018 [facility] Travel [id number] 11/21/2018 [facility] 4F Post Anesthesia 1 (PAC1) [facility] Hospital Encounter [id number] Suhas Bedoya MD 11/21/2018 11/21/2018 [facility] 4F Post Anesthesia 1 (PAC1) BT Anesthesia Event [id number] Ash Manley ResidentMD 11/21/2018 11/21/2018 [facility] 4F Post Anesthesia 1 (PAC1) BT Surgery [id number] Nate Batista ResidentMD 11/21/2018 11/21/2018 [facility] Ophthalmology Office Visit [id number] Niurka Joseph MD 11/22/2018 11/22/2018 [facility] [place] Refill [id number] Clover Lucero MD 11/30/2018 [facility] Travel [id number] 12/26/2018 [facility] Same Day Same Day [id number] [employer] 12/26/2018 12/26/2018 [facility] Ophthalmology Office Visit [id number] Shahla Veliz MD 01/02/2019 01/02/2019 [facility] [place] Refill [id number] Clover Lucero MD 01/04/2019 [facility] [place] Refill [id number] Clover Lucero MD 01/25/2019 [facility] Travel [id number] 02/04/2019 [facility] Same Day Same Day [id number] Gisselle Ruvalcaba MD 02/04/2019 02/04/2019 [facility] Procedures Procedure Code Date Perfomer Comments Source DIABETIC FOOT EXAM 12/27/2018 [facility] OPHTH - PHACOEMULSIFICATION OF CATARACT -- WITH OR WITHOUT IOL IMPLANT 11/21/2018 [facility] BASIC METABOLIC PANEL 99027 11/03/2018 [facility] CBC (WITHOUT DIFFERENTIAL) 14254 11/03/2018 [facility] 12 LEAD EKG 92265 11/03/2018 [facility] DUPLEX DOPPLER LOWER EXTREMITY VENOUS, BILATERAL 61331 10/21/2018 [facility] I& D OF ABSCESS WITH PACKING (COMPLICATED) 622322 08/27/2018 [facility] VBG POC 08423 08/27/2018 Unknown [facility] BMP POC 68344 08/27/2018 Unknown [facility] CBC/DIFF 17801 08/27/2018 [facility] HIV-1/HIV-2 ROUTINE SCREENING 31965 08/27/2018 [facility] URINALYSIS 60429 08/27/2018 [facility] TEST 86340 08/27/2018 [facility] HEMOGLOBIN A1C 35571 07/27/2018 [facility] COMPREHENSIVE METABOLIC PANEL 07521 07/27/2018 [facility] POC GLUCOSE - IN LAB (STAT) 17158 06/13/2018 [facility] POCT URINE DIPSTICK - 532840 06/13/2018 [facility] Assessment and Plan No Data Provided for This Section Plan of Care Plan of Care Date Source Cervical Cancer Scrn (3 Yrs) 10/12/2020 [facility] DM Foot Exam (Yearly) 12/27/2019 [facility] DM Retinal Exam (Yearly) 11/18/2019 [facility] DM HGBA1C (Yearly) 07/26/2019 [facility] Upcoming EncountersDateTypeSpecialtyCare TeamDescription 04/11/2019 Office Visit Family Practice Clover Lucero MD[id number] [facility] ANASTASIA Mariscal [phone] (Fax) WAITLIST PATIENT Health MaintenanceDue DateLast DoneComments Breast Cancer Scrn (Yearly) 10/12/2018 10/12/2017, 07/23/2016 DM HGBA1C (Yearly) 07/26/2019 07/26/2018, 12/21/2017, 07/23/2016, Additional history exists DM Retinal Exam (Yearly) 11/18/2019 11/17/2018, 11/03/2018, 06/03/2018, Additional history exists DM Foot Exam (Yearly) 12/27/2019 12/26/2018, 09/28/2017, 01/21/2012 Cervical Cancer Scrn (3 Yrs) 10/12/2020 10/12/2017, 05/16/2014, 08/20/2011 03/13/2019 [facility] Upcoming EncountersDateTypeSpecialtyCare TeamDescription 04/11/2019 Office Visit Family Practice Clover Lucero MD[id number] [place], [place] [phone] (Fax) WAITLIST PATIENT Health MaintenanceDue DateLast DoneComments Breast Cancer Scrn (Yearly) 10/12/2018 10/12/2017, 07/23/2016 DM HGBA1C (Yearly) 07/26/2019 07/26/2018, 12/21/2017, 07/23/2016, Additional history exists DM Retinal Exam (Yearly) 11/18/2019 11/17/2018, 11/03/2018, 06/03/2018, Additional history exists DM Foot Exam (Yearly) 12/27/2019 12/26/2018, 09/28/2017, 01/21/2012 Cervical Cancer Scrn (3 Yrs) 10/12/2020 10/12/2017, 05/16/2014, 08/20/2011 02/20/2019 [facility] Breast Cancer Scrn (Yearly) 10/12/2018 [facility] Social History Social History Date Source Tobacco [...] End No recent travel history available. 02/04/2019 [facility] Family History Value Date Source Medical HistoryRelationNameComments Cancer Maternal Aunt cervical Cancer Maternal Aunt breast Cancer Maternal Grandfather stomach Diabetes Maternal Grandmother Glaucoma Maternal Grandmother RelationNameStatusComments Brother Alive Daughter Alive X2 Father Alive Maternal Aunt Maternal Aunt Maternal Grandfather Maternal Grandmother Mother Paternal Grandfather Paternal Grandmother Son Alive 03/13/2019 [facility] Medical HistoryRelationNameComments Cancer Maternal Aunt cervical Cancer Maternal Aunt breast Cancer Maternal Grandfather stomach Diabetes Maternal Grandmother Glaucoma Maternal Grandmother RelationNameStatusComments Brother Alive Daughter Alive X2 Father Alive Maternal Aunt Maternal Aunt Maternal Grandfather Maternal Grandmother Mother Paternal Grandfather Paternal Grandmother Son Alive 02/20/2019 [facility] Advance Directives No Data Provided for This Section Functional Status No Data Provided for This Section
[2019-05-11] MEDS ORDERED: KETOROLAC TROMETHAMINE 30 MG/ML VIAL IM PRN (23:45)
[2019-05-12] MEDS ORDERED: KETOROLAC TROMETHAMINE 30 MG/ML VIAL ONE (00:08)
[2019-05-12] MEDS ORDERED: KETOROLAC TROMETHAMINE 30 MG/ML VIAL IV PRN (00:15)
[2019-05-12] MEDS ORDERED: HUMALOG100 UNIT/3 SQ (00:36)
[2019-05-12] MEDS ORDERED: LEVEMIR100 UNIT/1 SQ (00:44)
[2019-05-12] MEDS ORDERED: Farxiga PO (00:44)
[2019-05-12] MEDS ORDERED: TRAMADOL/APAP PO (00:44)
[2019-05-12] MEDS ORDERED: LOSARTAN POTASS25 MG PO (00:44)
[2019-05-12] MEDS ORDERED: LYRICA75 MG PO (00:44)
[2019-05-12] MEDS ORDERED: METFORMIN HCL850 MG PO (00:44)
[2019-05-12] MEDS ORDERED: DEXTROSE 50% SYRINGE 50 ML IV PRN ×2 (04:00→10:00)
[2019-05-12 05:30] LABS: BASOPHILS % 0.2 % (0.0-1.0); EOSINOPHILS # (AUTO) 0.1 (0.0-0.4); EOSINOPHILS % 1.1 % (0.0-6.0); HEMATOCRIT 30.8 % (34.2-44.1); HEMOGLOBIN 10.1 g/dL (12.0-16.0); LYMPHOCYTES # (AUTO) 2.5 (1.0-3.2); LYMPHOCYTES % 20.1 % (18.0-39.1); MEAN CORPUSCULAR HEMOGLOBIN 31.1 pg (28-32); MEAN CORPUSCULAR HGB CONC 32.8 g/dL (31-35); MEAN CORPUSCULAR VOLUME 94.8 fL (81-99); MONOCYTES # (AUTO) 0.7 (0.2-0.8); MONOCYTES % 5.7 % (4.4-11.3); NEUTROPHILS # (AUTO) 9.1 (2.1-6.9); NEUTROPHILS % 72.2 % (38.7-80.0); PLATELET COUNT 265 x10e3/uL (140-360); RED BLOOD COUNT 3.25 x10e6/uL (3.6-5.1); RED CELL DISTRIBUTION WIDTH 12.8 % (11.7-14.4)
[2019-05-12 05:49] LABS: ALANINE AMINOTRANSFERASE 14 IU/L (0-55); ALBUMIN 2.3 g/dL (3.5-5.0); ALBUMIN/GLOBULIN RATIO 0.6 (0.8-2.0); ALKALINE PHOSPHATASE 73 IU/L (40-150); ANION GAP 9.5 mmol/L (8-16); BLOOD UREA NITROGEN 23 mg/dL (7-26); BUN/CREATININE RATIO 30 (6-25); CALCIUM 8.3 mg/dL (8.4-10.2); CARBON DIOXIDE 20 mmol/L (22-29); CHLORIDE 109 mmol/L (98-107); CREATININE, SERUM 0.76 mg/dL (0.57-1.11); EST GLOMERULAR FILTRATION RATE > 60 ML/MIN (60-); GLUCOSE 219 mg/dL (74-118); MAGNESIUM 2.4 MG/DL (1.3-2.1); POTASSIUM 4.5 mmol/L (3.5-5.1); SODIUM 134 mmol/L (136-145)
[2019-05-12 07:15] VITALS: BP 155/81
[2019-05-12] MEDS ORDERED: INSULIN REGULAR, HUMAN 100 UNIT/1 ML 3ML VIAL SQ SCH (07:30)
[2019-05-12] MEDS ORDERED: ACETAMINOPHEN 325 MG TAB PO PRN (09:00)
[2019-05-12] MEDS ORDERED: HYDROCODONE/APAP 5MG-325MG TAB PO PRN (09:00)
[2019-05-12] MEDS ORDERED: HYDRALAZINE HCL 20 MG/ML VIAL IV PRN (09:00)
[2019-05-12 09:35] VITALS: BP 155/81
--- NOTE | 2019-05-12 09:56 | NUR ---
PT STABLE. WOUND TO RT TOE. CONSULTS NOTIFIED.
[2019-05-12] MEDS ORDERED: TETANUS/DIPHTHERIA TOX ADULT 0.5 ML SYR IM ONE (10:00)
[2019-05-12] MEDS: ALBUTEROL/IPRATROPIUM 3 ML NEB NEB SCH ×3 (10:10→19:20)
--- NOTE | 2019-05-12 10:56 | Diagnostic Imaging Report ---
Chest, 1 view, 05/12/2019. History: Cough and congestion. Comparison: None available. Findings: Evaluation is limited due to patient body habitus and motion artifact. The cardiomediastinal silhouette and pulmonary vasculature are within normal limits for a portable exam. There is no gross consolidation or pleural effusion. There are no acute osseous or soft tissue abnormalities. Impression: No acute cardiopulmonary abnormality. Signed by: Alec Salcido on 05/12/2019 10:53 AM
[2019-05-12] MEDS: LORATADINE/PSEUDOEPHEDRINE 24 HR SR TAB PO SCH (12:00)
[2019-05-12] MEDS: INSULIN LISPRO 100 UNIT/1 ML 3ML VIAL SQ SCH ×3 (12:01→20:12)
[2019-05-12] MEDS: HYDROCODONE/APAP 5MG-325MG TAB PO PRN ×2 (12:02→20:30)
[2019-05-12 12:42] VITALS: BP 119/64
--- NOTE | 2019-05-12 12:55 | NUR ---
pt arrived to unit with ER nurse via stretcher, pt awake, alert, oriented, no distress noted, no complaints at this time. will continue to assess.
[2019-05-12] MEDS ORDERED: GADOBENATE DIMEGLUMINE 1 ML IV ONE (13:10)
[2019-05-12] MEDS ORDERED: PIPER-TAZ 3.375 GM 50 ML IV SCH (14:00)
--- NOTE | 2019-05-12 15:05 | Diagnostic Imaging Report ---
MRI of the right ankle with and without contrast. MRI of the right foot with and without contrast. History: Ankle pain. Foot pain. Infection. Diabetic toe ulcer. Great toe infection. Technique: Multiplanar multisequence MRI of the foot with and without intravenous contrast. 20 cc IV gadolinium contrast material was administered. Multiplanar multisequence MRI of the ankle with and without intravenous contrast. 20 cc IV gadolinium contrast material was administered. Comparison: Radiographs 05/11/2019 Findings: Ankle MRI: Achilles tendon and plantar fascia: The Achilles tendon and plantar fascia are normal. Mild nonspecific retrocalcaneal bursal fluid. Small inferior calcaneal bone spur Cartilage and bone: Negative for osteochondral lesion of the tibiotalar and subtalar joints. Negative for fracture, osteonecrosis, or stress related edema. Medial ankle: The deltoid ligament complex is intact. The medial flexor tendons are normal. There is a physiologic amount of fluid within the tendon sheath of FHL. Lateral ankle: The anterior talofibular, calcaneofibular, and posterior talofibular ligaments are intact. The syndesmotic ligaments are intact. The peroneal tendons are normal. Anterior ankle: The anterior extensor tendons are normal. Other findings: Small tibiotalar joint effusion and mild synovitis. No abnormal enhancing masses are seen. Foot MRI: Abnormal skin thickening with skin ulceration at the plantar aspect of the great toe distally with subcutaneous emphysema and abnormal adjacent soft tissue edema. No well-formed drainable fluid collection/abscess is seen. No underlying cortical destruction or focal bone marrow edema is seen to suggest osteomyelitis at this time. The findings are best seen on sagittal image 4 through 6 and axial image 25 through 28. No acute fracture, dislocation or evidence of avascular necrosis about the foot. No ligamentous or tendon tear is seen. The visualized muscles are normal in size, signal intensity and morphology. Dorsal soft tissue edema about the foot could be due to cellulitis. No abnormal enhancing masses are seen. Impression: Abnormal skin thickening with skin ulceration at the plantar aspect of the great toe distally with subcutaneous emphysema and abnormal adjacent soft tissue edema. No well-formed drainable fluid collection/abscess is seen. No underlying cortical destruction or focal bone marrow edema is seen to suggest osteomyelitis at this time. Mild nonspecific retrocalcaneal bursal fluid. Small inferior calcaneal bone spur. Dorsal soft tissue edema about the foot could be due to cellulitis. Signed by: Dr. Carlos Samuels M.D. on 05/12/2019 3:02 PM
[2019-05-12] MEDS: CEFEPIME 1GM/NS 0.9% 50 ML 50 ML IV SCH ×2 (15:17→21:10)
[2019-05-12] MEDS: FAMOTIDINE 20 MG TAB PO SCH (15:20)
[2019-05-12 16:26] VITALS: BP 127/60
[2019-05-12] MEDS ORDERED: VANCOMYCIN 1GM/NS 250 ML 250 ML IV SCH (17:00)
[2019-05-12] MEDS ORDERED: PNEUMOCOCCAL VACCINE POLYVALENT 23 MCG/0.5 ML VIAL IM ONE (19:00)
--- NOTE | 2019-05-12 19:03 | Consultation ---
DATE OF CONSULTATION: 05/12/2019 REASON FOR CONSULTATION: Infection of the foot. HISTORY OF PRESENT ILLNESS: This patient, who is very pleasant 44-year-old female, history of diabetes mellitus, history of obesity, and history of neuropathy. The patient comes in with redness and swelling of her right foot. She denies any history of trauma. This happened over the last few days, getting progressively worse. There is some blackish discoloration noted above the big toe, the 1st toe. The patient is being admitted. I am asked to see her. She is just not feeling well, complaining of pain. She is telling me she has been having tingling sensation of her feet. She has been followed by [facility] most recently since she has been so urgently followed by Dr. Fontanez. The patient came to emergency room here, where she is being admitted because of severe redness and swelling as well as the discoloration of her foot. The patient is being admitted. LABORATORY DATA: White count on admission 14.9 and hemoglobin 11.3. Sodium 133, potassium 4.5, creatinine 1.04, and glucose of 449 on admission. Cultures still pending. Her x-ray was done of her foot, showed no acute abnormality. FAMILY HISTORY: Diabetes. PAST SURGICAL HISTORY: Denies. REVIEW OF SYSTEMS: HEENT: Negative. PULMONARY: Negative. CARDIAC: Negative. PHYSICAL EXAMINATION: GENERAL: She is currently alert and oriented. Does not seem to be in acute distress. VITAL SIGNS: Stable, currently afebrile. HEENT: She is not icteric. NECK: Supple. CHEST: Clear. HEART: S1 and S2. No S3, S4, or murmur. ABDOMEN: Soft. Bowel sounds present. No tenderness. EXTREMITIES: The right foot, there is edema. There is erythema of the whole foot. The pulse is really weak and I could not feel it. The big toe, there is blackish discoloration noted. Her laboratory data reviewed. Chart reviewed. Medication also reviewed. IMPRESSION: Cellulitis of the foot. I am concerned about early gangrene. We need to rule out peripheral vascular disease. Also, rule out osteomyelitis. We will put the patient on vancomycin and cefepime. Discontinue Zosyn since there is a high risk of acute kidney injury with Zosyn and vancomycin. We will get an MRI of the foot as mentioned above to rule out osteo. Would need vascular workup. Consult Cardiology of choice. We will follow with you. Obtain a sedimentation rate and C-reactive protein. Discussed with the patient, discussed with the nurse taking care of the patient. Answered all the question. Thank you for asking me to see this patient. MD MAGGIE Mayorga/KELLEY /[id number]
--- NOTE | 2019-05-12 19:45 | NUR ---
Recieved change of shift report from AM nurse. Walking rounds completed.
[2019-05-12] MEDS: PREGABALIN 75 MG CAP PO SCH (20:08)
[2019-05-12] MEDS: INSULIN GLARGINE 100 UNITS/ML VIAL SQ SCH (20:13)
[2019-05-12 21:02] VITALS: BP 158/75
[2019-05-12] MEDS: MORPHINE SULFATE 2 MG/ML SYR 1ML IV PRN (21:33)
[2019-05-12] MEDS: ONDANSETRON HCL INJ 2MG/ML 2ML 2 MG/ML VIAL IV PRN (21:34)
[2019-05-12] MEDS: VANCOMYCIN 1GM/NS 250 ML 250 ML IV SCH (22:00)
[2019-05-13] VITALS (7 sets, daily range): BP systolic 86–146; BP diastolic 50–80
--- NOTE | 2019-05-13 | NUR ---
Patient c/o pain to foot. Medicated twice before pain subsided. Foot elevated on a pillow. Continue nilesh.
[2019-05-13] MEDS: ALBUTEROL/IPRATROPIUM 3 ML NEB NEB SCH ×4 (00:17→23:41)
[2019-05-13] MEDS: HYDROCODONE/APAP 5MG-325MG TAB PO PRN ×2 (02:21→17:45)
[2019-05-13] MEDS: CEFEPIME 1GM/NS 0.9% 50 ML 50 ML IV SCH ×3 (05:23→22:00)
--- NOTE | 2019-05-13 05:43 | NUR ---
Patient resting quitly at this time.
[2019-05-13] MEDS: INSULIN LISPRO 100 UNIT/1 ML 3ML VIAL SQ SCH ×4 (07:30→20:07)
[2019-05-13 07:51] LABS: BASOPHILS % 0.4 % (0.0-1.0); EOSINOPHILS # (AUTO) 0.1 (0.0-0.4); EOSINOPHILS % 0.7 % (0.0-6.0); HEMATOCRIT 32.6 % (34.2-44.1); HEMOGLOBIN 10.5 g/dL (12.0-16.0); LYMPHOCYTES # (AUTO) 2.4 (1.0-3.2); LYMPHOCYTES % 21.3 % (18.0-39.1); MEAN CORPUSCULAR HEMOGLOBIN 30.9 pg (28-32); MEAN CORPUSCULAR HGB CONC 32.2 g/dL (31-35); MEAN CORPUSCULAR VOLUME 95.9 fL (81-99); MONOCYTES # (AUTO) 0.7 (0.2-0.8); NEUTROPHILS % 71.2 % (38.7-80.0); PLATELET COUNT 289 x10e3/uL (140-360); RED CELL DISTRIBUTION WIDTH 13.1 % (11.7-14.4)
[2019-05-13 08:06] LABS: ANION GAP 12.2 mmol/L (8-16); BLOOD UREA NITROGEN 17 mg/dL (7-26); BUN/CREATININE RATIO 23 (6-25); CALCIUM 8.8 mg/dL (8.4-10.2); CARBON DIOXIDE 24 mmol/L (22-29); CHLORIDE 108 mmol/L (98-107); CREATININE, SERUM 0.73 mg/dL (0.57-1.11); EST GLOMERULAR FILTRATION RATE > 60 ML/MIN (60-); GLUCOSE 171 mg/dL (74-118); POTASSIUM 5.2 mmol/L (3.5-5.1); SODIUM 139 mmol/L (136-145)
[2019-05-13] MEDS ORDERED: PNEUMOCOCCAL VACCINE POLYVALENT 23 MCG/0.5 ML VIAL IM NR (08:15)
[2019-05-13] MEDS: FAMOTIDINE 20 MG TAB PO SCH ×2 (08:52→17:00)
[2019-05-13] MEDS: LORATADINE/PSEUDOEPHEDRINE 24 HR SR TAB PO SCH (08:52)
[2019-05-13] MEDS ORDERED: SOD POLYSTYRENE SULFONATE SUSP 15 GM/60 ML BTL PO NR (09:00)
[2019-05-13] MEDS: INSULIN GLARGINE 100 UNITS/ML VIAL SQ SCH ×2 (09:00→20:08)
[2019-05-13] MEDS: MORPHINE SULFATE 2 MG/ML SYR 1ML IV PRN ×2 (13:09→20:25)
[2019-05-13] MEDS: ONDANSETRON HCL INJ 2MG/ML 2ML 2 MG/ML VIAL IV PRN ×2 (13:10→20:25)
[2019-05-13] MEDS ORDERED: SODIUM CHLORIDE 0.9% 250ML 250 ML ONE (15:36)
--- NOTE | 2019-05-13 15:55 | NUR ---
PATIENT COUGHING UP PURULENT PHLEGM, INCENTIVE SPIROMETRY ORDERED PER PROTOCOL.
--- NOTE | 2019-05-13 19:00 | NUR ---
Received change of shift report from AM nurse. Walking rounds completed.
[2019-05-13] MEDS: PREGABALIN 75 MG CAP PO SCH (20:06)
[2019-05-13] MEDS: VANCOMYCIN 1GM/NS 250 ML 250 ML IV SCH (22:00)
[2019-05-14] VITALS (7 sets, daily range): BP systolic 89–136; BP diastolic 60–76
[2019-05-14] MEDS: CEFEPIME 1GM/NS 0.9% 50 ML 50 ML IV SCH ×3 (06:00→22:00)
[2019-05-14] MEDS: ALBUTEROL/IPRATROPIUM 3 ML NEB NEB SCH ×3 (06:50→19:38)
--- NOTE | 2019-05-14 07:01 | NUR ---
received bedside report from overnight cashier RN, pt awake, alert, receiving breathing treatment at this time, no distress noted, call light within reach, will continue to assess
[2019-05-14] MEDS: INSULIN LISPRO 100 UNIT/1 ML 3ML VIAL SQ SCH ×4 (07:30→20:42)
[2019-05-14 08:35] LABS: BASOPHILS % 0.3 % (0.0-1.0); EOSINOPHILS # (AUTO) 0.2 (0.0-0.4); EOSINOPHILS % 1.3 % (0.0-6.0); HEMATOCRIT 32.9 % (34.2-44.1); HEMOGLOBIN 10.9 g/dL (12.0-16.0); LYMPHOCYTES % 25.2 % (18.0-39.1); MEAN CORPUSCULAR HEMOGLOBIN 31.3 pg (28-32); MEAN CORPUSCULAR HGB CONC 33.1 g/dL (31-35); MEAN CORPUSCULAR VOLUME 94.5 fL (81-99); MONOCYTES # (AUTO) 0.8 (0.2-0.8); NEUTROPHILS # (AUTO) 7.8 (2.1-6.9); NEUTROPHILS % 65.7 % (38.7-80.0); PLATELET COUNT 308 x10e3/uL (140-360); RED BLOOD COUNT 3.48 x10e6/uL (3.6-5.1); RED CELL DISTRIBUTION WIDTH 12.9 % (11.7-14.4)
[2019-05-14] MEDS: FAMOTIDINE 20 MG TAB PO SCH ×2 (09:05→16:36)
[2019-05-14] MEDS: LORATADINE/PSEUDOEPHEDRINE 24 HR SR TAB PO SCH (09:05)
[2019-05-14 09:06] LABS: ANION GAP 12.4 mmol/L (8-16); BLOOD UREA NITROGEN 12 mg/dL (7-26); BUN/CREATININE RATIO 17 (6-25); CALCIUM 8.8 mg/dL (8.4-10.2); CARBON DIOXIDE 27 mmol/L (22-29); CHLORIDE 107 mmol/L (98-107); CREATININE, SERUM 0.69 mg/dL (0.57-1.11); EST GLOMERULAR FILTRATION RATE > 60 ML/MIN (60-); GLUCOSE 105 mg/dL (74-118); POTASSIUM 4.4 mmol/L (3.5-5.1); SODIUM 142 mmol/L (136-145)
[2019-05-14] MEDS: INSULIN GLARGINE 100 UNITS/ML VIAL SQ SCH ×2 (09:52→20:42)
[2019-05-14] MEDS: ONDANSETRON HCL INJ 2MG/ML 2ML 2 MG/ML VIAL IV PRN ×3 (10:02→23:00)
[2019-05-14] MEDS: MORPHINE SULFATE 2 MG/ML SYR 1ML IV PRN ×4 (10:02→23:00)
--- NOTE | 2019-05-14 16:37 | Progress Note ---
DATE: 05/14/2019 SUBJECTIVE: Ms. Garcia continued to deteriorate. Apparently, her leg seemed to be a little bit worse. There is more redness at the present time. A little more pain. She had an MRI of her foot, which showed abnormal skin thickening growth, skin ulceration on plantar aspect of the great toe. There was no fluid. The patient was currently on cefepime and vancomycin. LABORATORY DATA: White count 11.8, hemoglobin 10.9. Her sodium 142, potassium 4.4, creatinine 0.69. PHYSICAL EXAMINATION: GENERAL: She is currently alert, oriented, and does not seem to be in acute distress. VITAL SIGNS: Stable, currently afebrile. HEENT: She is not icteric. NECK: Supple. CHEST: Clear. HEART: S1, S2. No murmur. ABDOMEN: Soft. EXTREMITIES: On the leg, there is erythema. There is edema. IMPRESSIONS: Cellulitis. Necrosis of the skin. Cardiology workup was done. The patient is going for debridement. We will continue with cefepime. We will increase dose of vancomycin. We will follow with you closely. Further recommendations to follow. MD MAGGIE Mayorga/KELLEY /[id number]
[2019-05-14] MEDS: VANCOMYCIN 1GM/NS 250 ML 250 ML IV SCH (18:07)
--- NOTE | 2019-05-14 18:10 | NUR ---
pt was given 1mg more of Morphine at 1810 after speaking with Elisabeth Maharaj NP (for Dr. Cruz) concerning pt was continuing to c/o severe pain after receiving initial 1mg of Morphine at 1645. The order for 1mg Morphine q6H was d/c'd at 1752 and we started new order for 2mg Morphine q6h PRN for pain.
--- NOTE | 2019-05-14 18:59 | NUR ---
bedside walking rounds completed with nurse RN. pt in stable condition.
--- NOTE | 2019-05-14 19:33 | NUR ---
Received changes of shift report from AM nurse. Walking rounds completed.
[2019-05-14] MEDS: PREGABALIN 75 MG CAP PO SCH (20:07)
--- NOTE | 2019-05-14 21:17 | NUR ---
Cardiology Consult Dictation# [id number]
[2019-05-15] VITALS (8 sets, daily range): BP systolic 106–140; BP diastolic 59–77
[2019-05-15] MEDS: ALBUTEROL/IPRATROPIUM 3 ML NEB NEB SCH ×4 (00:50→19:45)
--- NOTE | 2019-05-15 00:59 | NUR ---
Patient c/o pain to right large toe. Pain meds given as ordered by .
[2019-05-15] MEDS: HYDROCODONE/APAP 5MG-325MG TAB PO PRN ×3 (01:33→23:30)
--- NOTE | 2019-05-15 03:50 | Consultation ---
DATE OF CONSULTATION: 05/14/2019 Cardiology Consultation REASON FOR CONSULTATION: Peripheral arterial disease. HISTORY OF PRESENT ILLNESS: The patient is a 44-year-old woman with history of diabetes mellitus, who presents with right foot swelling. She was found to have severe redness and swelling of the foot and was admitted for further evaluation. Cardiology is consulted to evaluate for peripheral artery disease. The patient denies any history of heart disease. She denies any chest pain, palpitations, edema, orthopnea, or PND. She does report shortness of breath and chest congestion for the last 3 weeks. REVIEW OF SYSTEMS: Negative except as per HPI. PAST MEDICAL HISTORY: Diabetes mellitus. PAST SURGICAL HISTORY: sections. ALLERGIES: NO KNOWN DRUG ALLERGIES. MEDICATIONS: Please see medication list. SOCIAL HISTORY: Denies tobacco or illicit drugs. She drinks alcohol socially. FAMILY HISTORY: She denies any family history of heart disease. PHYSICAL EXAMINATION: VITAL SIGNS: Temperature 98.4 degrees, pulse 71, respiratory rate 20, blood pressure 136/76, oxygen saturations 100%. GENERAL: An obese woman, in no acute distress. Awake and alert. HEENT: Normocephalic, atraumatic. Pupils equal. No scleral icterus. NECK: Supple. No thyromegaly or cervical lymphadenopathy. No carotid bruits. LUNGS: Clear to auscultation bilaterally. No wheezes or crackles. CARDIOVASCULAR: Normal rate. Regular rhythm. No murmur. Normal S1, S2. ABDOMEN: Soft, nontender. EXTREMITIES: Dressing on the right. CARDIAC MEDICATIONS: None. LABORATORY DATA: WBC 11. 89, hemoglobin 10.9, hematocrit 32.9, platelets 308. Sodium 130, potassium 4.4, chloride 107, CO2 of 27, BUN 12, creatinine 0.69. IMPRESSION: 1. Right foot ulcer and cellulitis 2. Diabetes mellitus RECOMMENDATIONS: IV antibiotics per Infectious Disease. Continue wound care. Arterial Doppler has been done. We will review the images. Further recommendations pending. The patient is to go for debridement by Podiatry in the morning. Thank you for this consult. We will continue to follow. Pattie Giles MD ABS/MODL /[id number] MANUELA
[2019-05-15] MEDS: VANCOMYCIN 1GM/NS 250 ML 250 ML IV SCH ×2 (04:00→16:01)
[2019-05-15] MEDS: MORPHINE SULFATE 2 MG/ML SYR 1ML IV PRN ×3 (05:07→21:21)
[2019-05-15] MEDS: ONDANSETRON HCL INJ 2MG/ML 2ML 2 MG/ML VIAL IV PRN ×2 (05:08→12:50)
[2019-05-15 06:00] LABS: BASOPHILS % 0.3 % (0.0-1.0); EOSINOPHILS # (AUTO) 0.2 (0.0-0.4); EOSINOPHILS % 1.7 % (0.0-6.0); HEMATOCRIT 30.9 % (34.2-44.1); HEMOGLOBIN 9.9 g/dL (12.0-16.0); LYMPHOCYTES # (AUTO) 3.2 (1.0-3.2); LYMPHOCYTES % 26.5 % (18.0-39.1); MEAN CORPUSCULAR HEMOGLOBIN 30.7 pg (28-32); MEAN CORPUSCULAR VOLUME 95.7 fL (81-99); MONOCYTES # (AUTO) 0.8 (0.2-0.8); NEUTROPHILS # (AUTO) 7.6 (2.1-6.9); PLATELET COUNT 303 x10e3/uL (140-360); RED BLOOD COUNT 3.23 x10e6/uL (3.6-5.1); RED CELL DISTRIBUTION WIDTH 12.8 % (11.7-14.4)
[2019-05-15] MEDS: CEFEPIME 1GM/NS 0.9% 50 ML 50 ML IV SCH ×3 (06:00→21:09)
--- NOTE | 2019-05-15 06:06 | NUR ---
Patient off the floor for procedure.
[2019-05-15] MEDS ORDERED: DEXAMETHASONE SOD PHOS INJ 4 MG/ML VIAL ONE (06:14)
[2019-05-15] MEDS ORDERED: BUPIVACAINE HCL 0.5% INJ 30 ML VIAL INJ ONE (06:15)
[2019-05-15] MEDS ORDERED: BACITRACIN 50,000 UNIT VIAL ONE (06:15)
[2019-05-15 06:18] LABS: ANION GAP 11.1 mmol/L (8-16); BLOOD UREA NITROGEN 15 mg/dL (7-26); BUN/CREATININE RATIO 21 (6-25); CALCIUM 8.9 mg/dL (8.4-10.2); CARBON DIOXIDE 26 mmol/L (22-29); CHLORIDE 106 mmol/L (98-107); CREATININE, SERUM 0.73 mg/dL (0.57-1.11); EST GLOMERULAR FILTRATION RATE > 60 ML/MIN (60-); GLUCOSE 99 mg/dL (74-118); POTASSIUM 4.1 mmol/L (3.5-5.1); SODIUM 139 mmol/L (136-145)
[2019-05-15] MEDS: INSULIN LISPRO 100 UNIT/1 ML 3ML VIAL SQ SCH ×4 (07:30→21:24)
[2019-05-15] MEDS: FAMOTIDINE 20 MG TAB PO SCH ×2 (07:54→16:59)
--- NOTE | 2019-05-15 08:00 | NUR ---
PATIENT BACK TO FLOOR FROM OR. REPORT RECEIVED FROM BOOM GRANADOS. PATIENT HAD I/D OF RIGHT GREAT TOE; PACKING WITH IODOFORM, 4X4, KERLIX, AND JORGE WRAP. ALERT AND VERBALLY RESPONSIVE. DRESSING DRY AND INTACT TO RIGHT FOOT, PATIENT ABLE TO WIGGLE TOES. DENIED PAIN AT THIS TIME. AM MEDICATION GIVEN ORDERED. BED IN LOWER POSITION, CALL LIGHT AT REACH. V/S 96.8-84-18-118/69 AND 98% ON RA.
[2019-05-15] MEDS: INSULIN GLARGINE 100 UNITS/ML VIAL SQ SCH ×2 (09:00→21:25)
[2019-05-15] MEDS: LORATADINE/PSEUDOEPHEDRINE 24 HR SR TAB PO SCH (09:13)
--- NOTE | 2019-05-15 11:29 | NUR ---
PATIENT SITTING UP IN BED TALKING TO FAMILY MEMBER VISITING, NO COMPLAIN VOICED. DRESSING DRY AND INTACT TO RIGHT FOOT. CALL LIGHT AT REACH.
--- NOTE | 2019-05-15 14:13 | Progress Note ---
DATE: 05/15/2019 Cardiology Progress Note SUBJECTIVE: The patient with Podiatry surgery today. No chest pain or shortness of breath. OBJECTIVE: VITAL SIGNS: Temperature 97.8, heart rate is 89, respirations are 18, blood pressure is 140/72, oxygen saturation 98% on room air. GENERAL: Well appearing, well built, no apparent distress. CARDIOVASCULAR: Regular rate and rhythm. LUNGS: Clear to auscultation. ABDOMEN: Soft, nontender, nondistended. NEUROLOGIC: No focal deficits noted. EXTREMITIES: Right foot wound is dressed and wrapped. Diminished pulses. LABORATORY DATA: Reviewed. Hemoglobin is 9.9, creatinine 0.73. Arterial Doppler showed occluded right posterior tibial artery. IMPRESSION: 1. Peripheral arterial disease. 2. Foot wound. RECOMMENDATIONS: Continue her cardiovascular medications. Podiatry surgery has been performed today. The patient has severe peripheral artery disease that will need to be intervened on. We can do this on Wednesday of this week. DO MERLYN Velasco/MODL /[id number]
--- NOTE | 2019-05-15 15:53 | Operative Report ---
DATE OF PROCEDURE: 05/15/2019 SURGEON: Gerson Ren DPM (Charley) PREOPERATIVE DIAGNOSIS: Abscess on the right big toe. POSTOPERATIVE DIAGNOSIS: Abscess on the right big toe. OPERATIVE PROCEDURE: I and D of abscess, right big toe. DESCRIPTION OF PROCEDURE: The patient was placed on the OR table in the supine position. The right lower extremity was prepped and draped in the usual manner. IV sedation was administered and a local anesthetic consisting of 6 mL of 0.5 Marcaine were used. Hemostasis accomplished with an Esmarch bandage. An incision approximately 2.5 cm long was made on the lateral plantar aspect of the left hallux. There was indication of where the nail had punctured and once incision was made, a piece of the sole of the shoe was removed. The plantar aspect of the toe was then probed medially or another abscess was drained, it was also probed distally along the medial aspect of the hallux. Once this was totally open, the wound was then flushed extensively with the Pulsavac with bacitracin antibiotic. The wound was then packed with iodoform gauze and then dressed with a sterile compression-type dressing. At this time, the Esmarch bandage was released and a reflex hyperemia was observed to all digits. The patient tolerated the procedure and anesthesia well, and left the OR to recovery in good condition with vital signs stable. Gerson Ren DPM (Charley) SH/MODL /[id number]
--- NOTE | 2019-05-15 16:25 | NUR ---
MD IN TO SEE PATIENT NEW ORDER RECEIVED.
[2019-05-15] MEDS ORDERED: LIDOCAINE HCL 2% LOCAL INJ 5 ML SDV VIAL INJ ONE (18:01)
[2019-05-15] MEDS ORDERED: PROPOFOL IV EMULSION 10 MG/ML 20 ML VIAL ONE (18:01)
[2019-05-15] MEDS ORDERED: MIDAZOLAM HCL 2 MG/2 ML VIAL ONE (18:10)
[2019-05-15] MEDS ORDERED: FENTANYL CITRATE/PF 100MCG/2 ML INJ ONE (18:10)
--- NOTE | 2019-05-15 20:53 | Diagnostic Imaging Report ---
EXAMINATION: CHEST XRAY LINE PLACEMENT INDICATION: ^PICC ^[id number] ^2006 COMPARISON: None FINDINGS: TUBES and LINES: Left upper extremity PICC with distal tip projected on the cavoatrial junction. LUNGS: Lungs are well inflated. Lungs are clear. There is no evidence of pneumonia or pulmonary edema. PLEURA: No pleural effusion or pneumothorax. HEART AND MEDIASTINUM: The cardiomediastinal silhouette is unremarkable. BONES AND SOFT TISSUES: No acute osseous lesion. Soft tissues are unremarkable. UPPER ABDOMEN: No free air under the diaphragm. IMPRESSION: Left upper extremity PICC with distal tip projected on the cavoatrial junction. Signed by: Dr. Paulie Quinteros M.D. on 05/15/2019 8:49 PM
[2019-05-15] MEDS: PREGABALIN 75 MG CAP PO SCH (21:06)
[2019-05-16] VITALS (7 sets, daily range): BP systolic 105–134; BP diastolic 59–76
--- NOTE | 2019-05-16 00:39 | Progress Note ---
DATE: 05/15/2019 SUBJECTIVE: Mrs. Jose Shah underwent debridement today of an abscess of the right big toe. She continued to have pain. She continued to have redness and swelling. Cultures are still pending. PHYSICAL EXAMINATION: GENERAL: She is currently alert, oriented, does not seem to be in acute distress. VITAL SIGNS: Stable, currently afebrile. HEENT: She is not icteric. NECK: Supple. CHEST: Clear. HEART: S1 and S2. No murmur. ABDOMEN: Soft. IMPRESSION AND PLAN: 1. Cellulitis of her foot, very slow progress. We will get PICC line because she is really not moving as fast as we would like her to be. We will arrange outpatient IV antibiotic. I think there is a component of significant peripheral vascular disease. We will discuss with Cardiology. 2. Await cultures and sensitivity. 3. Diabetes with neuropathy. 4. Continue with vancomycin. Continue with cefepime. We will follow with you. We will follow vancomycin trough. We will follow the culture. MD MAGGIE Mayorga/KELLEY /[id number]
[2019-05-16] MEDS: ALBUTEROL/IPRATROPIUM 3 ML NEB NEB SCH ×4 (01:02→19:48)
[2019-05-16] MEDS: MORPHINE SULFATE 2 MG/ML SYR 1ML IV PRN (03:21)
[2019-05-16 03:51] LABS: BASOPHILS % 0.1 % (0.0-1.0); EOSINOPHILS # (AUTO) 0.2 (0.0-0.4); EOSINOPHILS % 1.2 % (0.0-6.0); HEMATOCRIT 29.9 % (34.2-44.1); HEMOGLOBIN 9.8 g/dL (12.0-16.0); LYMPHOCYTES # (AUTO) 2.8 (1.0-3.2); LYMPHOCYTES % 18.9 % (18.0-39.1); MEAN CORPUSCULAR HEMOGLOBIN 31.4 pg (28-32); MEAN CORPUSCULAR HGB CONC 32.8 g/dL (31-35); MEAN CORPUSCULAR VOLUME 95.8 fL (81-99); MONOCYTES % 6.8 % (4.4-11.3); NEUTROPHILS # (AUTO) 10.6 (2.1-6.9); NEUTROPHILS % 72.3 % (38.7-80.0); PLATELET COUNT 272 x10e3/uL (140-360); RED BLOOD COUNT 3.12 x10e6/uL (3.6-5.1); RED CELL DISTRIBUTION WIDTH 12.6 % (11.7-14.4)
[2019-05-16 04:12] LABS: ANION GAP 11.1 mmol/L (8-16); BLOOD UREA NITROGEN 14 mg/dL (7-26); BUN/CREATININE RATIO 19 (6-25); CALCIUM 8.6 mg/dL (8.4-10.2); CARBON DIOXIDE 24 mmol/L (22-29); CHLORIDE 105 mmol/L (98-107); CREATININE, SERUM 0.74 mg/dL (0.57-1.11); EST GLOMERULAR FILTRATION RATE > 60 ML/MIN (60-); GLUCOSE 161 mg/dL (74-118); POTASSIUM 4.1 mmol/L (3.5-5.1); SODIUM 136 mmol/L (136-145)
[2019-05-16] MEDS: VANCOMYCIN 1GM/NS 250 ML 250 ML IV SCH ×2 (04:19→16:14)
[2019-05-16] MEDS: HYDROCODONE/APAP 5MG-325MG TAB PO PRN ×3 (05:55→22:53)
[2019-05-16] MEDS: CEFEPIME 1GM/NS 0.9% 50 ML 50 ML IV SCH ×3 (06:04→22:00)
--- NOTE | 2019-05-16 07:00 | NUR ---
BEDSIDE SHIFT REPORT RECEIVED FROM THE FINISH SANDER RN. PT DENIES NEEDS AT THIS TIME.
[2019-05-16] MEDS: HYDROMORPHONE 1MG/1ML INJ IV PRN ×3 (07:31→19:39)
[2019-05-16] MEDS: FAMOTIDINE 20 MG TAB PO SCH ×2 (08:09→16:14)
[2019-05-16] MEDS: LORATADINE/PSEUDOEPHEDRINE 24 HR SR TAB PO SCH (08:10)
[2019-05-16] MEDS: INSULIN LISPRO 100 UNIT/1 ML 3ML VIAL SQ SCH ×4 (08:30→20:17)
[2019-05-16] MEDS: INSULIN GLARGINE 100 UNITS/ML VIAL SQ SCH ×2 (09:00→20:19)
--- NOTE | 2019-05-16 10:52 | Progress Note ---
DATE: 05/16/2019 SUBJECTIVE: This is a 44-year-old female with past medical history of type 2 diabetes, peripheral neuropathy, who was admitted through the emergency room approximately 5 days ago after worsening redness and swelling to her right foot. Apparently, there was an incident where she stepped on a nail and was taken to the emergency room at [place], was given antibiotics and sent home and had a 2nd injury, where she stepped on the nail to the right foot. She was admitted here with a white blood cell count of 14.9 on admission. X-rays and MRIs are performed. She underwent an incision and drainage on 05/15/2019, by Dr. Ren. She continues to relate to pain. Currently, denies nausea, vomiting, fever, chills, chest pain, or shortness of breath. PHYSICAL EXAMINATION: GENERAL: Alert and oriented x3. Does not appear to be in any acute distress. VASCULAR: Dorsalis pedis and posterior tibial pulses are nonpalpable. Capillary refill time is delayed to the right hallux. Dark discoloration is noted to the plantar medial aspect of the patient's right hallux, extending all the way to the distal aspect of the digit. There is zero capillary refill time. The right hallux is cool to the touch. NEUROLOGIC: Sensation is diminished to light touch bilateral. However, pain on palpation is noted to the patient's right foot. MUSCULOSKELETAL: Pain on palpation to the right hallux. DERMATOLOGIC: An incision site is noted to the plantar lateral aspect of the patient's right hallux with sutures in place and intact and packing material is noted. The entire periphery of the incision site is dark and necrotic. The right hallux from the level of the interphalangeal joint to the level of the distal tip is dark cyanotic and cool to the touch. Erythema with blister formation is noted along the lateral aspect of the 1st metatarsal head, likely ischemic blisters. LABORATORY DATA: White blood cell count is 14.5, hemoglobin 9.8, hematocrit 29.9, and platelet count 272. Sodium 136, potassium 4.1, chloride 105, CO2 of 24, BUN 14, creatinine 0.74, and glucose 161. Hemoglobin A1c is 9.8. IMAGING: Arterial Dopplers reveal occlusion in the right lower extremity. ASSESSMENT: 1. Right hallux puncture wound abscess, cellulitis with early signs of gangrene. 2. Postoperative day #1, right foot incision and drainage procedure. 3. Peripheral vascular disease. 4. Type 2 diabetes with peripheral neuropathy. PLAN: The patient was seen and evaluated. Discussed condition and treatment options with the patient in detail. The right hallux dressing was then changed today with Betadine wet-to-dry packing was removed. Discussed with the patient the appearance of the toe is darker and there is no warmth and capillary refill time to the right hallux. Cardiology has been consulted and the plans for intervention tomorrow. Infectious Disease has been consulted and a PICC line has been ordered for long-term IV antibiotics. I had a lengthy discussion with the patient today about possible amputation to the patient's right hallux if no improvement is noted after vascular intervention, IV antibiotics, and local wound care. We will continue to monitor at this time. The Podiatry Service will continue to monitor as inpatient. MARIO Garcia/KELLEY /[id number]
--- NOTE | 2019-05-16 14:45 | NUR ---
Nutrition Screen Note RD Recommendation for Physician: -Continue current diet per MD. -Recommend Gluerna once per day if BS remain WNL. -Recommend bowel management per MD. Plan of Care: RD following, monitoring for tolerance and adequacy. Pt denied education. Nutrition reason for involvement: LOS Primary Diagnose(s): Diabetic foot ulcer PMH: diabetes mellitus, history of obesity, and history of neuropathy. Ht: in Wt:lb BMI: kg/m2 IBW:lb RD Assessment: (05/16) 44 YOF admitted for diabetic foot ulcer with PMH listed above. Pt was seen resting in her chair with friends at her bedside. Pt denied N/V/D/Chewing or swallowing issues as well as any food allergies. Pt reported that she has not had a BM since last Wednesday. Pt denied education regarding DM. Pt was found to have early gangrene per MD note, on 05/15 pt has I/D of her right great toe. PICC line will be placed, per progress note- possible amputation may occur. Chart reviewed. Labs and meds reviewed. POC GM: 105-211. Will continue to monitor. Current Diet: renal 1999 ADA diet Malnutrition Evaluation (05/16) The patient does not meet criteria for a specified degree of malnutrition at this time. Will re-evaluate at follow-up as appropriate. Diet Education Needs Assessment: Diet education indicated, pt denied education. Nutrition Care Level: low Signed: Norma London RD, LD
--- NOTE | 2019-05-16 19:35 | NUR ---
Received change of shift report from AM nurse. Walking rounds completed.
[2019-05-16] MEDS: ONDANSETRON HCL INJ 2MG/ML 2ML 2 MG/ML VIAL IV PRN (19:39)
--- NOTE | 2019-05-16 19:45 | Progress Note ---
DATE: 05/16/2019 Cardiology Progress Note SUBJECTIVE: The patient is feeling better. Reports mild pain in the right foot. OBJECTIVE: VITAL SIGNS: Temperature is 98.4, heart rate is 109, respirations are 17, blood pressure is 128/76, and oxygen saturation is 96% on room air. GENERAL: Well appearing, well built, in no apparent distress. CARDIOVASCULAR: Regular rhythm, tachycardia. LUNGS: Clear to auscultation. ABDOMEN: Soft, nontender, and nondistended. EXTREMITIES: Right foot wound is wrapped and dressed. CARDIOVASCULAR MEDICATIONS: Reviewed. LABORATORY DATA: Reviewed. IMPRESSION: 1. Peripheral arterial disease. 2. Sinus tachycardia. 3. Diabetes mellitus. 4. Diabetic foot wound. RECOMMENDATIONS: The patient will require peripheral angiography with possible intervention tomorrow. Start aspirin and statin. Further recommendations to follow angiography. DO MERLYN Velasco/MODL /[id number]
[2019-05-16] MEDS: ATORVASTATIN 40 MG TAB PO SCH (20:16)
[2019-05-16] MEDS: PREGABALIN 75 MG CAP PO SCH (20:17)
[2019-05-17] VITALS (7 sets, daily range): BP systolic 116–135; BP diastolic 57–90
--- NOTE | 2019-05-17 | NUR ---
Patient AAOx3. C/O of pain 6-10. Medicated continuously. Right toe dressed. toe necrotic and cool to touch. Continue monitor pain level and treat as ordered by .
[2019-05-17] MEDS: ALBUTEROL/IPRATROPIUM 3 ML NEB NEB SCH ×4 (00:45→20:17)
[2019-05-17] MEDS: ONDANSETRON HCL INJ 2MG/ML 2ML 2 MG/ML VIAL IV PRN ×2 (03:00→19:36)
[2019-05-17] MEDS: HYDROMORPHONE 1MG/1ML INJ IV PRN ×2 (03:00→19:37)
[2019-05-17 03:17] LABS: BASOPHILS % 0.2 % (0.0-1.0); EOSINOPHILS # (AUTO) 0.2 (0.0-0.4); EOSINOPHILS % 1.7 % (0.0-6.0); HEMATOCRIT 29.8 % (34.2-44.1); HEMOGLOBIN 9.5 g/dL (12.0-16.0); LYMPHOCYTES # (AUTO) 2.8 (1.0-3.2); LYMPHOCYTES % 21.9 % (18.0-39.1); MEAN CORPUSCULAR HEMOGLOBIN 30.6 pg (28-32); MEAN CORPUSCULAR HGB CONC 31.9 g/dL (31-35); MEAN CORPUSCULAR VOLUME 96.1 fL (81-99); MONOCYTES # (AUTO) 0.8 (0.2-0.8); MONOCYTES % 6.4 % (4.4-11.3); NEUTROPHILS # (AUTO) 8.8 (2.1-6.9); NEUTROPHILS % 69.3 % (38.7-80.0); PLATELET COUNT 310 x10e3/uL (140-360); RED CELL DISTRIBUTION WIDTH 12.5 % (11.7-14.4)
[2019-05-17 03:34] LABS: ANION GAP 12.5 mmol/L (8-16); BLOOD UREA NITROGEN 16 mg/dL (7-26); BUN/CREATININE RATIO 20 (6-25); CARBON DIOXIDE 24 mmol/L (22-29); CHLORIDE 106 mmol/L (98-107); CREATININE, SERUM 0.81 mg/dL (0.57-1.11); EST GLOMERULAR FILTRATION RATE > 60 ML/MIN (60-); GLUCOSE 86 mg/dL (74-118); POTASSIUM 4.5 mmol/L (3.5-5.1); SODIUM 138 mmol/L (136-145)
[2019-05-17] MEDS: VANCOMYCIN 1GM/NS 250 ML 250 ML IV SCH ×2 (03:34→16:09)
[2019-05-17] MEDS: HYDROCODONE/APAP 5MG-325MG TAB PO PRN ×2 (04:53→22:21)
[2019-05-17] MEDS: CEFEPIME 1GM/NS 0.9% 50 ML 50 ML IV SCH ×3 (05:36→22:13)
--- NOTE | 2019-05-17 06:16 | NUR ---
Patient resting quitly at this time. Continue monitor.
--- NOTE | 2019-05-17 07:00 | NUR ---
BEDSIDE SHIFT REPORT RECEIVED FROM THE LIQUOR BRIDGE OPERATOR RN. PT IS ON NPO. PT DENIES NEEDS AT THIS TIME.
[2019-05-17] MEDS: INSULIN LISPRO 100 UNIT/1 ML 3ML VIAL SQ SCH ×4 (07:30→21:00)
--- NOTE | 2019-05-17 08:30 | NUR ---
DR. GARCIA AT BEDSIDE. RIGHT FOOT DRESSING CHANGE COMPLETED.
[2019-05-17] MEDS: ASPIRIN 81 MG ENTERIC COATED PO SCH (09:00)
[2019-05-17] MEDS: INSULIN GLARGINE 100 UNITS/ML VIAL SQ SCH ×2 (09:00→22:15)
[2019-05-17] MEDS ORDERED: LIDOCAINE HCL 2% LOCAL 20 ML VIAL ONE (10:28)
[2019-05-17] MEDS ORDERED: HEPARIN SOD/SOD CHLORIDE 2,000 ML ONE (10:28)
[2019-05-17] MEDS ORDERED: MIDAZOLAM HCL 2 MG/2 ML VIAL ONE ×3 (10:28→12:54)
[2019-05-17] MEDS ORDERED: FENTANYL CITRATE/PF 100MCG/2 ML INJ ONE ×2 (10:28→12:30)
[2019-05-17] MEDS ORDERED: IOPAMIDOL 300MG/ML 100 ML INFUS..BTL IV ONE ×2 (10:29→12:36)
[2019-05-17] MEDS ORDERED: SODIUM CHLORIDE 0.9% 1000ML 1,000 ML ONE ×2 (10:29→12:08)
--- NOTE | 2019-05-17 11:02 | NUR ---
PT OFF UNIT FOR PROCEDURE IN SAFE CONDITION.
--- NOTE | 2019-05-17 11:18 | Progress Note ---
DATE: 05/17/2019 SUBJECTIVE: This is a 44-year-old female with past medical history of type 2 diabetes and peripheral neuropathy, who was seen at bedside this morning. She is postoperative day #2, right foot incision and drainage procedure. The patient currently relates to moderate pain to the right foot. Denies nausea, vomiting, fever, chills, chest pain, or shortness of breath. PHYSICAL EXAMINATION: GENERAL: Alert and oriented x3, in no apparent distress. VITAL SIGNS: Today, temperature is 98.8, heart rate 88, respiratory rate 20, blood pressure 135/90, and pulse ox 98% on room air. PROBLEM FOCUSED LOWER EXTREMITY PHYSICAL EXAM: Vascular, dorsalis pedis pulse is faintly palpable. Posterior pulses is nonpalpable. Capillary refill time is absent to the distal tip of the patient's right hallux. Capillary refill time is noted on the dorsal surface proximal to the interphalangeal joint. Dark discoloration is noted to the patient's right hallux extending to the distal aspect of the patient's digit. The right hallux is cool to the touch. NEUROLOGICAL: Sensation is diminished to light touch, however, pain on palpation is noted to the patient's right foot. MUSCULOSKELETAL: Again, pain on palpation of the right hallux. DERMATOLOGICAL: Incision site is noted to the plantar aspect of the patient's right foot. Dark discoloration is noted to the periphery of the wound extending distally to the entire hallux distal to the interphalangeal joint. It is dark and necrotic. Erythema with blister formation is noted along the 1st metatarsal interspace and new blisters noted over the 4th and 5th interspace. Erythema appears to be worsened since the previous visit. LABORATORY DATA: White blood cell count is 12.7, hemoglobin 9.5, hematocrit 29.8, neutrophil percentage is 8.8. Sodium 138, potassium 4.5, chloride 106, CO2 of 24, BUN 16, creatinine 0.81. ASSESSMENT: 1. Right hallux puncture wound cellulitis, gangrene. Postoperative day #2, right foot incision and drainage procedure. 2. Peripheral vascular disease. 3. Type 2 diabetes. 4. Peripheral neuropathy. PLAN: The patient was seen and evaluated. Discussed condition and treatment options with the patient in detail. Wound appears to be worsening since previous visit with dark discoloration to the right hallux extending to the distal tip with zero capillary refill time and being cool to the touch. Ischemic blisters are noted along the 1st interspace and a new blister was noted between the 4th and 5th metatarsal. Erythema appears to have increased since previous visit. Cardiology has been consulted and there is plan for peripheral angiography to be performed today. The patient is getting IV antibiotics per Infectious Disease and dry sterile dressing change was performed today with Betadine wet-to-dry. Again discussed with patient we will wait for peripheral angiography to determine if improvement is noted to the patient's right foot after angiography. Discussed with patient there is a guarded prognosis and the patient will possibly need amputation of the right hallux if not more of the right foot. The Podiatry Service will continue to monitor as an inpatient. MARIO Garcia/KELLEY /[id number]
[2019-05-17] MEDS ORDERED: HEPARIN SOD (PORCINE) 1000 UNIT/ML 30ML ONE (11:41)
[2019-05-17] MEDS ORDERED: NITROGLYCERIN/D5W 200 MCG/ML 250 ML ONE (12:08)
[2019-05-17] MEDS ORDERED: VERAPAMIL HCL 2.5 MG/ML 2 ML VIAL ONE (12:08)
[2019-05-17] MEDS ORDERED: CLOPIDOGREL BISULFATE 75 MG TAB ONE (13:12)
[2019-05-17] MEDS ORDERED: ASPIRIN 325 MG TAB ONE (13:12)
--- NOTE | 2019-05-17 13:35 | NUR ---
PT RECEIVED FROM ER. [id number]. BED ALARM IS ON. INSTRUCTED PT TO USE CALL LIGHT FOR ANY NEEDS. BACK TO RENAL DIABETIC DIET PER CAKE KNOCKER REPORT. PT DENIES NEEDS AT THIS TIME.
[2019-05-17] MEDS: FAMOTIDINE 20 MG TAB PO SCH ×2 (14:00→16:09)
[2019-05-17] MEDS: LORATADINE/PSEUDOEPHEDRINE 24 HR SR TAB PO SCH (14:00)
--- NOTE | 2019-05-17 18:41 | Progress Note ---
DATE: 05/17/2019 Cardiology Progress Note SUBJECTIVE: The patient is feeling better. Denies any chest pain or shortness of breath. Reports mild pain at the right foot. OBJECTIVE: VITAL SIGNS: Temperature is 98.8, heart rate is 88, respirations are 18, blood pressure is 130/76, ox saturation 100% on room air. GENERAL: Well appearing, well built, no apparent distress. CARDIOVASCULAR: Regular rate and rhythm. LUNGS: Clear to auscultation. ABDOMEN: Soft, nontender, nondistended. VASCULAR: Diminished pulses. EXTREMITIES: Right foot wound is dressed and wrapped. CARDIOVASCULAR MEDICATIONS: Reviewed. LABORATORY DATA: Reviewed. IMPRESSION: 1. Right foot wound. 2. Peripheral artery disease, status post percutaneous atherectomy and angioplasty of the right peroneal and dorsalis pedis arteries. 3. Sinus tachycardia. 4. Diabetes mellitus. 5. Obesity. 6. Hyperlipidemia. RECOMMENDATIONS: The patient underwent successful treatment of her peroneal and dorsalis pedis arteries. 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 The patient has two vessel runoff. Continue current cardiovascular medications. Itz Rizvi DO BM/MODL /[id number]
--- NOTE | 2019-05-17 19:00 | NUR ---
BEDSIDE SHIFT REPORT GIVEN TO THE WET FINISHER WOOL RN. PT DENIED FURTHER NEEDS.
--- NOTE | 2019-05-17 19:05 | NUR ---
received report from day nurse. patient is resting comfortably in bed. bed is in lowest position and call mathew is within reach. will continue to monitor patient.
[2019-05-17] MEDS: ATORVASTATIN 40 MG TAB PO SCH (22:12)
[2019-05-17] MEDS: PREGABALIN 75 MG CAP PO SCH (22:13)
[2019-05-18] VITALS (7 sets, daily range): BP systolic 123–150; BP diastolic 76–87
[2019-05-18] MEDS: ALBUTEROL/IPRATROPIUM 3 ML NEB NEB SCH ×5 (00:41→20:05)
[2019-05-18] MEDS: HYDROMORPHONE 1MG/1ML INJ IV PRN ×4 (01:37→21:43)
[2019-05-18] MEDS: ONDANSETRON HCL INJ 2MG/ML 2ML 2 MG/ML VIAL IV PRN ×4 (02:57→21:43)
[2019-05-18 03:52] LABS: BASOPHILS % 0.2 % (0.0-1.0); EOSINOPHILS # (AUTO) 0.3 (0.0-0.4); EOSINOPHILS % 2.4 % (0.0-6.0); HEMATOCRIT 28.4 % (34.2-44.1); HEMOGLOBIN 9.2 g/dL (12.0-16.0); LYMPHOCYTES # (AUTO) 2.3 (1.0-3.2); LYMPHOCYTES % 20.8 % (18.0-39.1); MEAN CORPUSCULAR HEMOGLOBIN 31.1 pg (28-32); MEAN CORPUSCULAR HGB CONC 32.4 g/dL (31-35); MEAN CORPUSCULAR VOLUME 95.9 fL (81-99); MONOCYTES # (AUTO) 0.7 (0.2-0.8); MONOCYTES % 6.5 % (4.4-11.3); NEUTROPHILS # (AUTO) 7.6 (2.1-6.9); NEUTROPHILS % 69.5 % (38.7-80.0); PLATELET COUNT 186 x10e3/uL (140-360); RED BLOOD COUNT 2.96 x10e6/uL (3.6-5.1); RED CELL DISTRIBUTION WIDTH 12.4 % (11.7-14.4)
[2019-05-18] MEDS: VANCOMYCIN 1GM/NS 250 ML 250 ML IV SCH ×2 (03:58→16:46)
[2019-05-18 04:13] LABS: ANION GAP 11.5 mmol/L (8-16); BLOOD UREA NITROGEN 19 mg/dL (7-26); BUN/CREATININE RATIO 27 (6-25); CALCIUM 8.8 mg/dL (8.4-10.2); CARBON DIOXIDE 25 mmol/L (22-29); CHLORIDE 103 mmol/L (98-107); EST GLOMERULAR FILTRATION RATE > 60 ML/MIN (60-); GLUCOSE 94 mg/dL (74-118); POTASSIUM 4.5 mmol/L (3.5-5.1); SODIUM 135 mmol/L (136-145)
[2019-05-18] MEDS: HYDROCODONE/APAP 5MG-325MG TAB PO PRN ×3 (04:22→16:47)
--- NOTE | 2019-05-18 06:56 | NUR ---
report given to day nurse. patient is resting comfortably in bed. bed is in lowest position and call light is within reach.
[2019-05-18] MEDS: INSULIN LISPRO 100 UNIT/1 ML 3ML VIAL SQ SCH ×4 (07:30→20:53)
[2019-05-18] MEDS: LORATADINE/PSEUDOEPHEDRINE 24 HR SR TAB PO SCH (08:37)
[2019-05-18] MEDS: FAMOTIDINE 20 MG TAB PO SCH ×2 (08:37→16:46)
[2019-05-18] MEDS: ASPIRIN 81 MG ENTERIC COATED PO SCH (08:37)
[2019-05-18] MEDS: INSULIN GLARGINE 100 UNITS/ML VIAL SQ SCH ×2 (09:00→21:00)
--- NOTE | 2019-05-18 11:30 | Progress Note ---
DATE: 05/18/2019 SUBJECTIVE: This is a 44-year-old female with past medical history of type 2 diabetes, peripheral neuropathy, was seen at bedside this morning. She is postoperative day #3 right foot incision and drainage procedure by Dr. Ren. She is postoperative day #1 right peripheral angiography. She relates to improvement in pain. Currently denies nausea, vomiting, fever, chills, chest pain, or shortness of breath. PHYSICAL EXAMINATION: GENERAL: Alert and oriented x3, in no apparent distress. VITAL SIGNS: Today, temperature 98.1, heart rate 94, respiratory rate 16, blood pressure 123/79, pulse ox is 95% on room air. PROBLEM FOCUSED LOWER EXTREMITY PHYSICAL EXAM:Vascular, dorsalis pedis pulse is palpable. Posterior tibial pulse is nonpalpable. The right hallux remains dry and necrotic from the level of the distal tip to the level of the 1st metatarsophalangeal joint. There is 0 capillary refill time. The right hallux is cold to the touch. Ischemic blister formation is noted along the 1st interspace along the dorsal aspect of 4th interspace as well. Erythema continues to be present to the dorsal aspect of the right foot. NEUROLOGICAL: Sensation is diminished to light touch, however, pain on palpation is felt to the right foot. MUSCULOSKELETAL: Pain on palpation to the right hallux. Dermatological incision sites noted to the plantar aspect of the right foot. The right hallux is gangrenous from the distal tip to the level of the metatarsophalangeal joint with ischemic blister formation noted to the 1st interspace as well as the dorsal aspect of the 4th interspace. Erythema is still noted to the dorsal aspect of the patient's right foot. The right hallux continues to be dark and necrotic. LABORATORY DATA: White blood cell count is 10.8, hemoglobin 9.2, hematocrit 28.4, and platelet count is 186. Sodium 135, potassium 4.5, chloride 103, CO2 25, BUN 19, creatinine 0.7, glucose 137. Hemoglobin A1c is 9.8. ASSESSMENT: 1. Right hallux puncture wound cellulitis gangrene. Postoperative day #3 right foot incision and drainage procedure. 2. Peripheral vascular disease postop peripheral angiography. 3. Type 2 diabetes with peripheral neuropathy. PLAN: The patient was seen and evaluated. Discussed condition and treatment options with the patient in detail. The gangrenous changes to the right hallux continue to be worsening and is dry and necrotic. Zero capillary refill time and cool to the touch. Ischemic blisters are noted along the 1st interspace and the 4th metatarsal head. Erythema continues to be present to the right foot. The patient is postoperative day #1 peripheral angiography and is currently getting IV antibiotics per Infectious Disease. Wound cultures from the right hallux grew out enterococcus faecalis. Again, had a lengthy discussion with the patient about amputation, partial amputation of the patient's right foot. The patient is refusing amputation at this time and would like to wait to see how the right foot improves after peripheral angiography. Dry sterile dressing change was performed with Betadine wet-to-dry. Discussed with patient the prognosis is guarded and the patient will likely need an amputation of the right hallux if not more. The patient understands. Podiatry Service will continue to monitor as an inpatient. MARIO Garcia/KELLEY /[id number]
[2019-05-18] MEDS: PREGABALIN 75 MG CAP PO SCH (21:00)
[2019-05-18] MEDS: ATORVASTATIN 40 MG TAB PO SCH (21:00)
[2019-05-19] VITALS (8 sets, daily range): BP systolic 92–138; BP diastolic 59–84
[2019-05-19] MEDS: ALBUTEROL/IPRATROPIUM 3 ML NEB NEB SCH ×4 (00:29→19:40)
[2019-05-19] MEDS: VANCOMYCIN 1GM/NS 250 ML 250 ML IV SCH ×2 (04:03→16:35)
[2019-05-19] MEDS: ONDANSETRON HCL INJ 2MG/ML 2ML 2 MG/ML VIAL IV PRN ×3 (04:04→20:22)
[2019-05-19] MEDS: HYDROMORPHONE 1MG/1ML INJ IV PRN ×3 (04:04→20:22)
[2019-05-19 04:06] LABS: BASOPHILS % 0.3 % (0.0-1.0); EOSINOPHILS # (AUTO) 0.4 (0.0-0.4); EOSINOPHILS % 3.4 % (0.0-6.0); HEMATOCRIT 31.1 % (34.2-44.1); HEMOGLOBIN 9.9 g/dL (12.0-16.0); LYMPHOCYTES # (AUTO) 2.3 (1.0-3.2); LYMPHOCYTES % 20.4 % (18.0-39.1); MEAN CORPUSCULAR HGB CONC 31.8 g/dL (31-35); MEAN CORPUSCULAR VOLUME 97.5 fL (81-99); MONOCYTES # (AUTO) 0.8 (0.2-0.8); NEUTROPHILS # (AUTO) 7.7 (2.1-6.9); NEUTROPHILS % 68.5 % (38.7-80.0); PLATELET COUNT 236 x10e3/uL (140-360); RED BLOOD COUNT 3.19 x10e6/uL (3.6-5.1); RED CELL DISTRIBUTION WIDTH 12.1 % (11.7-14.4)
[2019-05-19 04:23] LABS: ANION GAP 12.7 mmol/L (8-16); BLOOD UREA NITROGEN 15 mg/dL (7-26); BUN/CREATININE RATIO 21 (6-25); CALCIUM 9.4 mg/dL (8.4-10.2); CARBON DIOXIDE 25 mmol/L (22-29); CHLORIDE 101 mmol/L (98-107); CREATININE, SERUM 0.73 mg/dL (0.57-1.11); EST GLOMERULAR FILTRATION RATE > 60 ML/MIN (60-); GLUCOSE 72 mg/dL (74-118); POTASSIUM 4.7 mmol/L (3.5-5.1); SODIUM 134 mmol/L (136-145)
[2019-05-19] MEDS ORDERED: Atorvastatin PO (06:08)
[2019-05-19] MEDS ORDERED: TYLENOL WITH C1 EACH PO (06:08)
[2019-05-19] MEDS ORDERED: ASPIRIN EC81 MG PO (06:08)
[2019-05-19] MEDS: HYDROCODONE/APAP 5MG-325MG TAB PO PRN ×3 (06:34→22:50)
--- NOTE | 2019-05-19 06:42 | NUR ---
Dr Arzate's answering service notified of new consult. Message will be passed on to physician. Awaiting call back from physician.
--- NOTE | 2019-05-19 07:15 | NUR ---
PATIENT IN BED RESTING WITH NO RESPIRATORY DISTRESS. DRESSING DRY AND INTACT TI RIGHT FOOT, RIGHT GREAT TOE BLACK. BED IN LOWER POSITION, CALL LIGHT AT REACH.
--- NOTE | 2019-05-19 07:21 | NUR ---
report given to day nurse. patient is resting comfortably in bed. bed is in lowest position and call light is within reach.
[2019-05-19] MEDS: INSULIN LISPRO 100 UNIT/1 ML 3ML VIAL SQ SCH ×4 (07:30→20:06)
[2019-05-19] MEDS: FAMOTIDINE 20 MG TAB PO SCH ×2 (07:56→16:35)
[2019-05-19] MEDS: INSULIN GLARGINE 100 UNITS/ML VIAL SQ SCH ×2 (09:00→20:10)
[2019-05-19] MEDS: ASPIRIN 81 MG ENTERIC COATED PO SCH (09:00)
[2019-05-19] MEDS: LORATADINE/PSEUDOEPHEDRINE 24 HR SR TAB PO SCH (09:00)
--- NOTE | 2019-05-19 10:40 | Progress Note ---
DATE: 05/19/2019 SUBJECTIVE: This is a 44-year-old female with past medical history of type 2 diabetes, peripheral neuropathy, peripheral vascular disease, who is seen at bedside this morning. She is postoperative day #4 right foot incision and drainage procedure by Dr. Ren. She is postoperative day #2 right peripheral angiography with intervention per Dr. Rizvi. She relates improvement in pain. Currently denies nausea, vomiting, fever, chills, chest pain, or shortness of breath. PHYSICAL EXAMINATION: GENERAL: Alert and oriented x3, in no apparent distress. VITAL SIGNS: Today; temperature is 98.6, heart rate 91, respiratory rate 20, blood pressure is 112/62, and pulse ox is 95% on room air. PROBLEM FOCUSED LOWER EXTREMITY: Vascular, dorsalis pedis pulses palpable. Posterior tibial pulses nonpalpable. Right hallux remains dry and necrotic from the distal tip to the level of the metatarsophalangeal joint, 0 capillary refill time. The right hallux is cool to the touch and has a leathery appearance. Ischemic blister formation is noted along the first interspace, the dorsal aspect as well as the fourth interspace. Erythema continues to be present to the dorsal aspect of the foot. NEUROLOGICAL: Sensation is diminished to light touch, however, some pain on palpation is noted to the right foot. MUSCULOSKELETAL: Pain on palpation to the right hallux. DERMATOLOGICAL: Incision site is noted to the plantar aspect of the right foot. The right hallux remains gangrenous from the distal tip to the level of approximately the metatarsophalangeal joint with ischemic blister formation noted to the first interspace and the fourth interspace. Erythema still noted to the dorsal aspect of the patient's right foot. The right hallux continues to remain dark and necrotic with a leathery appearance. LABORATORY DATA: White blood cell count is 11.20, hemoglobin 9.9, hematocrit 31.1, and platelet count is 236. Sodium 134, potassium 4.7, chloride 101, CO2 of 25, BUN 15, creatinine 0.73, and hemoglobin A1c is 9.8. ASSESSMENT: 1. Right hallux puncture wound, cellulitis, gangrene. Postoperative day #4 right foot incision and drainage procedure. 2. Peripheral vascular disease, status post peripheral angiography. 3. Type 2 diabetes with peripheral neuropathy. PLAN: The patient was seen and evaluated. Discussed condition and treatment options with the patient in detail. Gangrenous changes to the right hallux remain and appeared to be worsening. The area remains to be dry, necrotic, 0 capillary refill time is noted and the right hallux is cool to the touch. Ischemic blisters are noted along the first interspace and fourth metatarsal head. Erythema continues to be present to the right foot. The patient is postoperative day right #2 peripheral angiography and currently getting IV antibiotics per Infectious Disease. Wound cultures of the right hallux grew out E faecalis. Again, lengthy discussion with the patient about amputation. The patient relates that she would like a second opinion from a different liquefied petroleum gasfitter, who has been consulted. Dressing was changed at this time with a Betadine wet-to-dry fashion. We will be signing off on this patient. MARIO Garcia/KELLEY /[id number]
--- NOTE | 2019-05-19 12:09 | NUR ---
PATIENT C/O RIGHT FOOT PAIN. MEDICATED ORDERED. WILL CONTINUE TO MONITOR.
--- NOTE | 2019-05-19 14:04 | NUR ---
WOUND CARE CONSULTATION: THIS IS A 44 YEAR OLD FEMALE PATIENT ADMITTED TO [facility] FOR RIGHT DIABETIC FOOT ULCER. PATIENT HAS HISTORY OF PVD AND DM TYPE 2. PATIENT IS POST OP DAY 4 FROM RIGHT GREAT TOE I & D OF RIGHT HALLUX ABSCESS BY DR. MENDEZ AND POST OP DAY 2 FROM RIGHT PERIPHERAL ANGIOPLASTY OF RIGHT EXTREMITY WITH INTERVENTION. PATIENT STATED THAT ON , SHE FOUND THAT SHE HAD STEPPED ON A NAIL AND IT HAD GONE THROUGH HER SHOE CAUSING A PUNCTURE WOUND TO THE RIGHT GREAT TOE THAT STARTED WORSENING DAILY. PATIENT HAS RECEIVED TETANUS SHOT. HEAD TO TOE SKIN ASSESSMENT PERFORMED. PATIENT HAS GENERALIZED DARK NECROTIC TISSUE TO RIGHT GREAT TOE PAST THE DISTAL NAIL BASE, WITH RED, WARM AND CELLULITIC SXS TO RIGHT FOOT. PATIENT HAS A BLISTER TO THE RIGHT DORSAL FOOT MEASURING 2X2.7CM. PATIENT HAS A WOUND TO THE RIGHT MEDIAL GREAT TOE MEASURING 0.7X0.4X0.5CM, NECROTIC DARK DISCOLORATION NOTED TO PERIWOUND. PATIENT HAS STRONG PALPABLE PULSES TO RIGHT DP AND NONPALPABLE PULSES TO RIGHT PT. ACCORDING, TO NOTES AND PATIENT, PATIENT IS WANTING A SECOND PODIATRY OPINION REGARDING POSSIBLE AMPUTATION OF THE RIGHT GREAT TOE DUE TO NECROSIS. PATIENT HAS REPORTED DECREASE IN PAIN IN THE RIGHT FOOT SINCE ANGIOPLASTY. DR. PONCE HAS BEEN CONSULTED FOR SECOND OPINION FOR PODIATRY, PER PATIENT. LABS: WBC11.20 HGB9.9 HCT31.1 WOUND CULTURE = POSITIVE ENTEROCOCCUS FAECALIS XRAY OF RIGHT FOOT = NEG FRACTURE, NEG OSTEO MEDICATIONS: VANCOMYCIN RECOMMENDATION: -CONTINUE ALTERNATING PRESSURE RELIEF MATTRESS. -APPLY BILATERAL HEEL PROTECTORS WITH PILLOW SUSPENSION. -ENCOURAGE PATIENT TO TURN EVERY 2 HOURS AND PRN. -NURSING TO CLEAN RIGHT MEDIAL GREAT TOE WOUND WITH NORMAL SALINE, PAT DRY, APPLY BETADINE WET TO DRY DRESSING; KERLIX; CHANGE DAILY AND PRN. THANK YOU FOR THIS WOUND CARE CONSULT. Addendum: 05/19/19 at 1504 by Rissa Contreras RN Amended: Links added.
--- NOTE | 2019-05-19 15:02 | Progress Note ---
DATE: 05/19/2019 Cardiology Progress Note SUBJECTIVE: The patient reports pain on the right foot. No chest pain or shortness of breath. OBJECTIVE: VITAL SIGNS: Temperature is 97.8, heart rate is 98, respirations 22, blood pressure is 122/75, and ox saturation 97% on room air. GENERAL: Well appearing, well built, in no apparent distress. CARDIOVASCULAR: Regular rate and rhythm. LUNGS: Clear to auscultation. ABDOMEN: Soft, nontender, nondistended. EXTREMITIES: Right great toe gangrenous. IMPRESSION: 1. Right foot wound. 2. Gangrenous great toe. 3. Peripheral artery disease, status post percutaneous transluminal angioplasty and atherectomy of the right peroneal and dorsalis pedis arteries. 4. Sinus tachycardia. 5. Diabetes mellitus. 6. Obesity. 7. Hyperlipidemia. RECOMMENDATIONS: The patient is now status post successful revascularization. She has a long segment of her right posterior tibial artery, which is chronically occluded, which cannot be intervened on by percutaneous approach. The patient is two-vessel runoff. Continue wound care and possible amputation per Podiatry teams. Continue current cardiovascular medications including antiplatelet and statin therapy. Itz Rizvi DO BM/MODL /[id number]
--- NOTE | 2019-05-19 19:15 | NUR ---
patient received awake, alert, lying quietly in bed. dressing to right foot c,d,i. no c/o pain noted. Dr. Arzate here to see patient re: second opinion for amputation. new orders noted. pm assessment complete. family noted at the bedside. patient instructed to call for assistance when needed.
--- NOTE | 2019-05-19 20:05 | Diagnostic Imaging Report ---
FOOT RIGHT COMPLETE - 3 views HISTORY: Diabetic foot ulcer. COMPARISON: 05/11/2019. FINDINGS: Bones: No acute displaced fracture. Osseous alignment is within normal limits. Plantar calcaneal enthesophyte. Os navicularis incidentally noted. Joints: The joint spaces are well-maintained. Soft tissues: Increased density and irregularity of the soft tissues of the distal hallux with possible mild soft tissue gas.. IMPRESSION: Findings suggestive of soft tissue infection cellulitis with ulceration involving the distal hallux without underlying bony abnormality. Signed by: Dr. Paulie Quinteros M.D. on 05/19/2019 8:02 PM
[2019-05-19] MEDS: PREGABALIN 75 MG CAP PO SCH (20:09)
[2019-05-19] MEDS: ATORVASTATIN 40 MG TAB PO SCH (20:09)
--- NOTE | 2019-05-19 20:22 | NUR ---
patient medicated with dilaudid 1mg and zofran 4mg ivp for c/o right foot pain 02/22 per patients request. right foot remains elevated on pillows at this time.
--- NOTE | 2019-05-19 22:50 | NUR ---
patient medicated with norco 5/325mg po for c/o right foot pain 5/10 at this time per request.
[2019-05-20] VITALS (7 sets, daily range): BP systolic 92–138; BP diastolic 53–68
[2019-05-20] MEDS: ALBUTEROL/IPRATROPIUM 3 ML NEB NEB SCH ×4 (01:25→19:10)
--- NOTE | 2019-05-20 02:00 | Consultation ---
DATE OF CONSULTATION: 05/19/2019 REASON FOR CONSULTATION: Second opinion for gangrenous changes to the right lower extremity. HISTORY OF PRESENT ILLNESS: This is a pleasant 44-year-old female, who was seen at bedside, relates that she may have punctured her right great toe with a nail several times 2 weeks ago while she was in an event wearing boots for 6-7 hours. The patient started noticing having pain and redness radiating up the leg and was then admitted for IV antibiotics. The patient underwent an I and D of the right great toe per Dr. Ren 4 days ago. Two days ago, the patient underwent a FELLMONGERING MACHINE OPERATOR and atherectomy of the right peroneal and dorsalis pedis arteries and was found to have an occluded posterior tibial artery of the right lower extremity per Dr. Rizvi. The patient currently having decreased pain to the right lower extremity. She is denying any history of fever, chills, nausea, or vomiting. PAST MEDICAL HISTORY: Remarkable for insulin-dependent diabetes x16 years. PAST SURGICAL HISTORY: Remarkable for recent I and D and recent angio atherectomy and FELLMONGERING MACHINE OPERATOR to the right lower extremity with two C-sections. ALLERGIES: THE PATIENT DENIES. SOCIAL HISTORY: Drinks socially and does not smoke except recreational drug use. Has two kids. Lives alone at this point. FAMILY HISTORY: Noncontributory. CURRENT MEDICATIONS: Listed in chart including IV vancomycin. REVIEW OF SYSTEMS: CARDIAC: She is denying any palpitations or arrhythmias. RESPIRATORY: Denies any shortness of breath or productive cough. GASTROINTESTINAL: Denies any diarrhea or constipation. GENITOURINARY: Denies hematuria or problems voiding. VITAL SIGNS: Afebrile, pulse rate 105, respiration 19, blood pressure 119/69, O2 saturation 93%. LABORATORY DATA: Labs show white blood cell count of 11.2 with a max of 14.5, hemoglobin 9.9 with a platelet count of 236. Has a blood glucose of 163. Podiatric physical examination is the following. VASCULATURE: Pedal pulses to both the DP of both lower extremities are palpable and the PT of the left lower extremity palpable barely to nonpalpable to the right lower extremity. Skin temperature warm to touch up to the mid foot aspect of both lower extremities. Has gangrenous changes noted to the right great toe with erythema surrounding the first metatarsal with pain upon palpation. NEUROLOGICAL: Reveals some loss of protective sensation when utilizing [place] 5% monofilament wire. MUSCULOSKELETAL: Muscle mass to be symmetrical. Muscle strength to be 4/5 to all muscle groups. DERMATOLOGICAL: As described above with erythema surrounding the first MPJ and gangrenous changes noted to the right great toe. PLAN: We will reorder x-rays three views right foot compared to previous x-rays taken. We will continue local wound care with diluted wet-to-dry Betadine. Continue IV antibiotics. The patient informed that I do agree with Dr. Cunha's decision and the patient stated that she would like for me to go ahead with the surgical intervention. We will do an INR, PT, and PTT in the morning and we will let the foot demarcate a little bit further before any definitive procedure is done. Tentatively, patient will be scheduled for surgical intervention on Wednesday. MARIO Alan/KELLEY /[id number]
[2019-05-20] MEDS: ONDANSETRON HCL INJ 2MG/ML 2ML 2 MG/ML VIAL IV PRN ×4 (02:50→23:00)
[2019-05-20] MEDS: HYDROMORPHONE 1MG/1ML INJ IV PRN ×4 (02:50→23:00)
--- NOTE | 2019-05-20 02:50 | NUR ---
patient medicated with dilaudid 1mg and zofran 4mg ivp for c/o right foot pain 7/10 at this time. 0300 labs drawn from left arm picc line without difficulty.
[2019-05-20] MEDS: VANCOMYCIN 1GM/NS 250 ML 250 ML IV SCH ×2 (03:12→16:00)
[2019-05-20 03:54] LABS: BASOPHILS % 0.2 % (0.0-1.0); EOSINOPHILS # (AUTO) 0.3 (0.0-0.4); EOSINOPHILS % 3.3 % (0.0-6.0); HEMATOCRIT 29.5 % (34.2-44.1); HEMOGLOBIN 9.5 g/dL (12.0-16.0); LYMPHOCYTES # (AUTO) 2.3 (1.0-3.2); LYMPHOCYTES % 23.6 % (18.0-39.1); MEAN CORPUSCULAR HEMOGLOBIN 30.8 pg (28-32); MEAN CORPUSCULAR HGB CONC 32.2 g/dL (31-35); MEAN CORPUSCULAR VOLUME 95.8 fL (81-99); MONOCYTES # (AUTO) 0.7 (0.2-0.8); MONOCYTES % 6.8 % (4.4-11.3); NEUTROPHILS # (AUTO) 6.4 (2.1-6.9); NEUTROPHILS % 65.7 % (38.7-80.0); PLATELET COUNT 307 x10e3/uL (140-360); RED BLOOD COUNT 3.08 x10e6/uL (3.6-5.1); RED CELL DISTRIBUTION WIDTH 12.1 % (11.7-14.4)
[2019-05-20 04:05] LABS: ANION GAP 12.7 mmol/L (8-16); BLOOD UREA NITROGEN 19 mg/dL (7-26); BUN/CREATININE RATIO 25 (6-25); CALCIUM 8.9 mg/dL (8.4-10.2); CARBON DIOXIDE 26 mmol/L (22-29); CHLORIDE 104 mmol/L (98-107); CREATININE, SERUM 0.75 mg/dL (0.57-1.11); EST GLOMERULAR FILTRATION RATE > 60 ML/MIN (60-); GLUCOSE 82 mg/dL (74-118); POTASSIUM 4.7 mmol/L (3.5-5.1); SODIUM 138 mmol/L (136-145)
[2019-05-20 04:34] LABS: INR 0.98; PROTHROMBIN TIME 13.5 seconds (11.9-14.5)
[2019-05-20 04:35] LABS: PARTIAL THROMBOPLASTIN TIME 39.7 seconds (23.8-35.5)
--- NOTE | 2019-05-20 07:10 | NUR ---
PATIENT IN BED RESTING WITH NO RESPIRATORY DISTRESS. DRESSING DRY AND INTACT TO RIGHT FOOT, ELEVATED ON PILLOW. BED IN LOWER POSITION, CALL LIGHT AT REACH.
[2019-05-20] MEDS ORDERED: BISACODYL 5 MG TAB EC PO ONE (07:15)
[2019-05-20] MEDS: INSULIN LISPRO 100 UNIT/1 ML 3ML VIAL SQ SCH ×4 (07:30→20:13)
[2019-05-20] MEDS: FAMOTIDINE 20 MG TAB PO SCH ×2 (07:52→16:48)
[2019-05-20] MEDS: INSULIN GLARGINE 100 UNITS/ML VIAL SQ SCH ×2 (09:00→20:13)
--- NOTE | 2019-05-20 09:30 | NUR ---
SPOKE WITH PT ABOUT LTAC ORDER, PROVIDED CHOICE. PT CHOSE [facility], SIGNED CHOICE LETTER, FILED IN CHART
[2019-05-20] MEDS: POLYETHYLENE GLYCOL 3350 17 GM PACK PO SCH ×2 (09:53→17:19)
[2019-05-20] MEDS: ASPIRIN 81 MG ENTERIC COATED PO SCH (09:53)
[2019-05-20] MEDS: DOCUSATE SODIUM 100 MG CAP PO SCH ×2 (09:53→17:19)
[2019-05-20] MEDS: LORATADINE/PSEUDOEPHEDRINE 24 HR SR TAB PO SCH (09:53)
--- NOTE | 2019-05-20 10:45 | NUR ---
PATIENT C/O CONSTIPATION. MD NOTIFIED, NEW ORDERS RECEIVED AND IMPLEMENTED.
--- NOTE | 2019-05-20 12:59 | NUR ---
SPOKE WITH RACHEL FROM [facility] LIST NOT IN PACKET, FAXED TO [phone]
--- NOTE | 2019-05-20 14:42 | Progress Note ---
DATE: 05/20/2019 SUBJECTIVE: The patient is seen at bedside, having some discomfort to the right lower extremity. Denies any history of fever, chills, nausea, or vomiting. OBJECTIVE: VITAL SIGNS: Afebrile, pulse rate 100, respirations 20, blood pressure 111/68, and O2 saturation 97%. EXTREMITIES: The patient is having pain to the medial aspect of the 1st metatarsophalangeal joint and distal aspect of the right great toe. Gangrenous changes noted to the right great toe. Pedal pulses are palpable to the DP, barely to nonpalpable PT. Skin temperature warm to touch. Foot continues to demarcate, some discoloration noted and seems to be getting better to the dorsal aspect of the right lower extremity. Has pain on the 1st MPJ. LABORATORY DATA: Labs noted, white blood cell count dropping down to 9.6 and hemoglobin 9.5. INR of 0.98. ASSESSMENT: Gangrene, right great toe with capsulitis/hallux valgus deformity, right foot. PLAN: We will continue to let the foot demarcate. The patient will be scheduled tentatively for Wednesday. We will continue IV antibiotics, local wound care with diluted wet-to-dry Betadine and very light dry dressing. Proposed surgical procedure will be I and D of the right foot, amputation right great toe, partial resection of 1st metatarsal head with both a flap closure. MARIO Alan/KELLEY /[id number]
--- NOTE | 2019-05-20 14:50 | NUR ---
DRESSING CHANGED TO RIGHT FOOT ORDERED. CENTRAL LINE DRESSING CHANGED. PATIENT TOLERATED PROCEDURE WELL. IN BED WITH CALL LIGHT AT REACH.
--- NOTE | 2019-05-20 19:15 | NUR ---
patient received awake, alert, lying quietly in bed. no c/o pain noted. dressing to right foot c,d,i. pm assessment complete. patient instructed to call for assistance when needed.
[2019-05-20] MEDS: HYDROCODONE/APAP 5MG-325MG TAB PO PRN (20:13)
[2019-05-20] MEDS: ATORVASTATIN 40 MG TAB PO SCH (20:13)
--- NOTE | 2019-05-20 20:13 | NUR ---
patient medicated with norco 5/325mg po for c/o right foot pain 5/10 at this time per patients request.
--- NOTE | 2019-05-20 23:00 | NUR ---
patient medicated with dilaudid 1mg and zofran 4mg ivp for c/o right foot pain 02/22 at this time per patients request.
[2019-05-21] VITALS (9 sets, daily range): BP systolic 108–151; BP diastolic 58–81
--- NOTE | 2019-05-21 01:09 | Progress Note ---
DATE: 05/20/2019 Cardiology Progress Note SUBJECTIVE: No major events overnight. OBJECTIVE: VITAL SIGNS: Temperature afebrile, pulse 95, respiratory rate 20, blood pressure 138/68, saturating 97% on room air. GENERAL: Well developed, well nourished, no acute distress. CARDIOVASCULAR: Regular rate and rhythm, tachycardic. LUNGS: Clear to auscultation bilaterally. ABDOMEN: Soft, nontender, nondistended. NEURO AND PSYCH: Alert and oriented to person, place, and time. Normal affect. EXTREMITIES: Right great toe gangrene. ASSESSMENT AND PLAN: 1. Right foot wound. 2. Right great toe vein gangrene. 3. Peripheral arterial disease, status post PCI and arthrectomy of right peroneal and dorsalis pedis arteries. 4. Sinus tachycardia. 5. Diabetes. 6. Obesity. 7. Hyperlipidemia. RECOMMENDATIONS: She is status post revascularization. Continue dual antiplatelet therapy. Wound care per Primary Team and Podiatry. Thank you for this consult. We will continue to follow. MD JUAN M Levy/KELLEY /[id number]
[2019-05-21] MEDS: ALBUTEROL/IPRATROPIUM 3 ML NEB NEB SCH ×4 (02:05→19:30)
--- NOTE | 2019-05-21 03:00 | NUR ---
0300 labs drawn at this time per orders.
[2019-05-21] MEDS: VANCOMYCIN 1GM/NS 250 ML 250 ML IV SCH ×2 (03:11→16:23)
[2019-05-21] MEDS: HYDROCODONE/APAP 5MG-325MG TAB PO PRN ×2 (03:16→22:02)
--- NOTE | 2019-05-21 03:16 | NUR ---
patient medicated with norco 5/325mg po for c/o right foot pain 01/23 at this time per patients request.
[2019-05-21 03:41] LABS: BASOPHILS % 0.2 % (0.0-1.0); EOSINOPHILS # (AUTO) 0.3 (0.0-0.4); EOSINOPHILS % 2.3 % (0.0-6.0); HEMATOCRIT 30.7 % (34.2-44.1); HEMOGLOBIN 9.9 g/dL (12.0-16.0); LYMPHOCYTES # (AUTO) 2.7 (1.0-3.2); LYMPHOCYTES % 21.5 % (18.0-39.1); MEAN CORPUSCULAR HEMOGLOBIN 30.9 pg (28-32); MEAN CORPUSCULAR HGB CONC 32.2 g/dL (31-35); MEAN CORPUSCULAR VOLUME 95.9 fL (81-99); MONOCYTES # (AUTO) 0.8 (0.2-0.8); MONOCYTES % 6.4 % (4.4-11.3); NEUTROPHILS # (AUTO) 8.8 (2.1-6.9); NEUTROPHILS % 69.2 % (38.7-80.0); PLATELET COUNT 334 x10e3/uL (140-360); RED CELL DISTRIBUTION WIDTH 11.9 % (11.7-14.4)
[2019-05-21 04:05] LABS: ANION GAP 12.8 mmol/L (8-16); BLOOD UREA NITROGEN 21 mg/dL (7-26); BUN/CREATININE RATIO 24 (6-25); CALCIUM 9.2 mg/dL (8.4-10.2); CARBON DIOXIDE 26 mmol/L (22-29); CHLORIDE 104 mmol/L (98-107); CREATININE, SERUM 0.86 mg/dL (0.57-1.11); EST GLOMERULAR FILTRATION RATE > 60 ML/MIN (60-); GLUCOSE 105 mg/dL (74-118); POTASSIUM 4.8 mmol/L (3.5-5.1); SODIUM 138 mmol/L (136-145)
--- NOTE | 2019-05-21 07:05 | NUR ---
PATIENT IN BED RESTING WITH EYES CLOSED, NO RESPIRATORY DISTRESS OBSERVED. DRESSING DRY AND INTACT TO RIGHT FOOT. BED IN LOWER POSITION, CALL LIGHT AT REACH.
[2019-05-21] MEDS: INSULIN LISPRO 100 UNIT/1 ML 3ML VIAL SQ SCH ×4 (07:30→20:45)
[2019-05-21] MEDS: FAMOTIDINE 20 MG TAB PO SCH ×2 (08:05→16:47)
[2019-05-21] MEDS: POLYETHYLENE GLYCOL 3350 17 GM PACK PO SCH ×2 (09:04→17:07)
[2019-05-21] MEDS: ASPIRIN 81 MG ENTERIC COATED PO SCH (09:04)
[2019-05-21] MEDS: DOCUSATE SODIUM 100 MG CAP PO SCH ×2 (09:04→17:07)
[2019-05-21] MEDS: LORATADINE/PSEUDOEPHEDRINE 24 HR SR TAB PO SCH (09:04)
[2019-05-21] MEDS: INSULIN GLARGINE 100 UNITS/ML VIAL SQ SCH ×2 (09:30→20:45)
--- NOTE | 2019-05-21 11:55 | NUR ---
PATIENT ASSISTED WITH SHOWER AND BACK TO CHAIR. LINENS CHANGED. CALL LIGHT AT REACH.
--- NOTE | 2019-05-21 15:05 | NUR ---
PATIENT AMBULATING IN HALLWAY WITH WALKER, NO COMPLAIN VOICED. WILL CONTINUE TO MONITOR.
[2019-05-21] MEDS: HYDROMORPHONE 1MG/1ML INJ IV PRN (17:45)
--- NOTE | 2019-05-21 17:48 | Progress Note ---
DATE: 05/21/2019 SUBJECTIVE: The patient at bedside, doing better. Denies any history of fever, chills, nausea, or vomiting. Decreased pain to the right lower extremity. Still having pain along the first MPJ plantar aspect of the right great toe and mid arch region of both lower extremities, right worse than left. OBJECTIVE: VITAL SIGNS: Afebrile, pulse rate 90, respirations 18, blood pressure 109/58, and O2 saturation 96%. LABORATORY DATA: Labs noted has a blood glucose of 105. White blood cell count now jumping to 12.7. Positive cellulitis noted to the right foot with distal abscess formation. Erythema surrounding the first MPJ with pain overlying the medial aspect of the right first metatarsophalangeal joint. There is some necrosis noted distally to the right great toe crossing the metatarsophalangeal joint, getting close to the MPJ area. ASSESSMENT: Cellulitis, abscess, gangrene with capsulitis, hallux valgus deformity, right foot. PLAN: We will continue to let the foot demarcate. Definitive procedure will be done sometime on Wednesday. We will continue local wound care. Continue IV antibiotics. We will continue to follow. MARIO Alan/KELLEY /[id number]
[2019-05-21] MEDS: ATORVASTATIN 40 MG TAB PO SCH (20:45)
--- NOTE | 2019-05-21 20:45 | NUR ---
PATIENT AOX3 NO SIGNS OF DISTRESS NOTED. FAMILY MEMBER PRESENT AT BED SIDE AND WOUND ON RIGHT FOOT IS DRY CLEAN AND INTACT. BED IS LOCKED AND IN LOWEST POSITION POSSIBLE, BED RAILS ARE UP, CALL LIGHT WITHIN EASY REACH, WILL CONTINUE TO MONITOR.
[2019-05-22] MEDS: HYDROMORPHONE 1MG/1ML INJ IV PRN ×4 (00:14→20:36)
[2019-05-22] MEDS: ONDANSETRON HCL INJ 2MG/ML 2ML 2 MG/ML VIAL IV PRN ×3 (00:14→11:45)
[2019-05-22] MEDS: ALBUTEROL/IPRATROPIUM 3 ML NEB NEB SCH ×4 (01:00→19:00)
[2019-05-22 03:24] LABS: BASOPHILS % 0.2 % (0.0-1.0); EOSINOPHILS # (AUTO) 0.4 (0.0-0.4); EOSINOPHILS % 3.6 % (0.0-6.0); HEMATOCRIT 30.8 % (34.2-44.1); HEMOGLOBIN 9.9 g/dL (12.0-16.0); LYMPHOCYTES # (AUTO) 3.2 (1.0-3.2); LYMPHOCYTES % 27.9 % (18.0-39.1); MEAN CORPUSCULAR HEMOGLOBIN 30.8 pg (28-32); MEAN CORPUSCULAR HGB CONC 32.1 g/dL (31-35); MONOCYTES # (AUTO) 0.8 (0.2-0.8); MONOCYTES % 6.8 % (4.4-11.3); NEUTROPHILS # (AUTO) 7.1 (2.1-6.9); NEUTROPHILS % 61.2 % (38.7-80.0); PLATELET COUNT 383 x10e3/uL (140-360); RED BLOOD COUNT 3.21 x10e6/uL (3.6-5.1)
[2019-05-22 03:50] VITALS: BP 103/58
[2019-05-22] MEDS: HYDROCODONE/APAP 5MG-325MG TAB PO PRN ×2 (04:00→18:05)
[2019-05-22] MEDS: VANCOMYCIN 1GM/NS 250 ML 250 ML IV SCH ×2 (04:00→17:50)
[2019-05-22] MEDS: INSULIN LISPRO 100 UNIT/1 ML 3ML VIAL SQ SCH ×4 (07:30→20:55)
[2019-05-22 07:33] VITALS: BP 116/60
[2019-05-22] MEDS: FAMOTIDINE 20 MG TAB PO SCH ×2 (08:02→17:50)
[2019-05-22] MEDS: DOCUSATE SODIUM 100 MG CAP PO SCH ×2 (08:14→17:50)
[2019-05-22] MEDS: ASPIRIN 81 MG ENTERIC COATED PO SCH (08:14)
[2019-05-22] MEDS: POLYETHYLENE GLYCOL 3350 17 GM PACK PO SCH ×2 (08:14→17:50)
[2019-05-22] MEDS: LORATADINE/PSEUDOEPHEDRINE 24 HR SR TAB PO SCH (08:14)
[2019-05-22] MEDS: INSULIN GLARGINE 100 UNITS/ML VIAL SQ SCH ×2 (08:46→20:36)
--- NOTE | 2019-05-22 11:31 | Progress Note ---
DATE: 05/22/2019 SUBJECTIVE: The patient seen at bedside. Denies any history of fever, chills, nausea, vomiting with decreased pain to the right lower extremity. OBJECTIVE: VITAL SIGNS: Afebrile, pulse rate 83, respirations 18, blood pressure 116/60, O2 saturation 94%. EXTREMITIES: Right lower extremity shows distal abscess formation with cellulitis. Necrotic toe noted up to the metatarsophalangeal joint area. Has pain along the medial aspect of the 1st MPJ with cellulitis up to the mid foot aspect. Also has contracted toes. Her toe occasionally overlaps the right great toe. She was instructed that toe will not be corrected in this type of surgery that will be a 2nd phase surgery. She is ready for surgical intervention. LABORATORY DATA: Show a white blood cell count of 11.5, hemoglobin 9.9, hematocrit 30.8 with a platelet count of 383. INR of 0.98. ASSESSMENT: Abscess gangrene, hallux valgus deformity, capsulitis with cellulitis, right foot. PLAN: The proposed surgical procedures plus risks and complications reviewed. The patient is willing to take the risk. Proposed surgery would be I and D of the right foot abscess, amputation of right great toe, partial resection 1st metatarsal with the rotational flap closure. The patient understands no warrantees or guarantees can be given. If not responsive, may need a more proximal amputation. The patient will be kept n.p.o. after midnight. MARIO Alan/KELLEY /[id number]
[2019-05-22 11:50] VITALS: BP 114/76
[2019-05-22 15:43] VITALS: BP 104/62
--- NOTE | 2019-05-22 16:58 | NUR ---
Nutrition Screen Note RD Recommendation for Physician: -Continue current diet per MD. -Recommend bowel management per MD. Plan of Care: RD following, monitoring for tolerance and adequacy. Pt denied ONS, accepted education. Nutrition reason for involvement: f/u Primary Diagnose(s): Diabetic foot ulcer PMH: diabetes mellitus, history of obesity, and history of neuropathy. Ht:62 in Wt: 242 lb BMI: 44.3 kg/m2 IBW: [address] Assessment: 05/22: Follow up: Pt was seen resting in bed, she reported her appetite has been good. Pt denied ONS but stated she was open to receiving education regarding T2DM. Per progress note: Proposed surgery would be I and D of the right foot abscess, amputation of right great toe, partial resection 1st metatarsal with the rotational flap closure-this procedure will happen tmrw, pt will be NPO after midnight. POC GM: 142. Will continue to monitor. (05/16) 44 YOF admitted for diabetic foot ulcer with PMH listed above. Pt was seen resting in her chair with friends at her bedside. Pt denied N/V/D/Chewing or swallowing issues as well as any food allergies. Pt reported that she has not had a BM since last Wednesday. Pt denied education regarding DM. Pt was found to have early gangrene per MD note, on 05/15 pt has I/D of her right great toe. PICC line will be placed, per progress note- possible amputation may occur. Chart reviewed. Labs and meds reviewed. POC GM: 105-211. Will continue to monitor. Current Diet: renal 2000 ADA diet Malnutrition Evaluation (05/16) The patient does not meet criteria for a specified degree of malnutrition at this time. Will re-evaluate at follow-up as appropriate. Diet Education Needs Assessment: Diet education indicated, pt accepted education. Nutrition Education Learner(s): pt Barriers: No barriers identified. Cultural/Language Modifications: No cultural/language modifications noted. Readiness: acceptance. Method: Discussion, handout Topics:DM Diet Understanding/Compliance: Expect good understanding/compliance from pt. Will benefit from reinforcement. All questions have been answered. Nutrition Care Level: low Signed: Norma London, RD, LD
--- NOTE | 2019-05-22 19:37 | NUR ---
Received bedside report from day nurse. Patient resting in bed, no s/s of distress or c/o pain at this time. All safety measures in place. Will continue to monitor.
[2019-05-22 20:00] VITALS: BP 134/74
[2019-05-22] MEDS: ATORVASTATIN 40 MG TAB PO SCH (20:36)
[2019-05-22 21:28] VITALS: BP 134/74
[2019-05-23] VITALS: BP 134/62
[2019-05-23] MEDS: ALBUTEROL/IPRATROPIUM 3 ML NEB NEB SCH ×4 (01:00→19:29)
[2019-05-23] MEDS: VANCOMYCIN 1GM/NS 250 ML 250 ML IV SCH ×2 (04:53→17:44)
[2019-05-23] MEDS: HYDROMORPHONE 1MG/1ML INJ IV PRN ×3 (05:04→22:30)
[2019-05-23 05:54] LABS: BASOPHILS % 0.2 % (0.0-1.0); EOSINOPHILS # (AUTO) 0.4 (0.0-0.4); EOSINOPHILS % 4.1 % (0.0-6.0); HEMATOCRIT 29.7 % (34.2-44.1); HEMOGLOBIN 9.6 g/dL (12.0-16.0); LYMPHOCYTES # (AUTO) 2.5 (1.0-3.2); MEAN CORPUSCULAR HEMOGLOBIN 31.2 pg (28-32); MEAN CORPUSCULAR HGB CONC 32.3 g/dL (31-35); MEAN CORPUSCULAR VOLUME 96.4 fL (81-99); MONOCYTES # (AUTO) 0.8 (0.2-0.8); MONOCYTES % 8.1 % (4.4-11.3); NEUTROPHILS # (AUTO) 5.6 (2.1-6.9); NEUTROPHILS % 60.4 % (38.7-80.0); PLATELET COUNT 377 x10e3/uL (140-360); RED BLOOD COUNT 3.08 x10e6/uL (3.6-5.1); RED CELL DISTRIBUTION WIDTH 12.1 % (11.7-14.4)
[2019-05-23 06:08] LABS: ANION GAP 13.5 mmol/L (8-16); BLOOD UREA NITROGEN 22 mg/dL (7-26); BUN/CREATININE RATIO 27 (6-25); CALCIUM 8.8 mg/dL (8.4-10.2); CARBON DIOXIDE 24 mmol/L (22-29); CHLORIDE 106 mmol/L (98-107); CREATININE, SERUM 0.83 mg/dL (0.57-1.11); EST GLOMERULAR FILTRATION RATE > 60 ML/MIN (60-); GLUCOSE 96 mg/dL (74-118); POTASSIUM 4.5 mmol/L (3.5-5.1); SODIUM 139 mmol/L (136-145)
[2019-05-23 06:45] VITALS: BP 146/63
--- NOTE | 2019-05-23 06:56 | NUR ---
Patient currently leaving unit for procedure. In stable condition, no s/s of distress or c/o pain at this time. Report given to night nurse.
[2019-05-23] MEDS ORDERED: BACITRACIN 50,000 UNIT VIAL ONE (07:02)
[2019-05-23] MEDS ORDERED: BUPIVACAINE HCL 0.5% INJ 30 ML VIAL INJ ONE (07:02)
[2019-05-23] MEDS ORDERED: LIDOCAINE HCL 1% LOCAL INJ 20 ML VIAL ONE (07:02)
[2019-05-23] MEDS ORDERED: BETAMETHASONE DISODIUM PHOS 6 MG/ML VIAL ONE (07:02)
[2019-05-23] MEDS: INSULIN LISPRO 100 UNIT/1 ML 3ML VIAL SQ SCH ×4 (07:30→20:46)
[2019-05-23] MEDS: FAMOTIDINE 20 MG TAB PO SCH ×2 (07:30→17:44)
[2019-05-23] MEDS ORDERED: FENTANYL CITRATE/PF 100MCG/2 ML INJ ONE ×2 (08:59→18:50)
[2019-05-23] MEDS: POLYETHYLENE GLYCOL 3350 17 GM PACK PO SCH ×2 (09:00→17:45)
[2019-05-23] MEDS: DOCUSATE SODIUM 100 MG CAP PO SCH ×2 (09:00→17:45)
[2019-05-23] MEDS: LORATADINE/PSEUDOEPHEDRINE 24 HR SR TAB PO SCH (09:00)
[2019-05-23] MEDS: INSULIN GLARGINE 100 UNITS/ML VIAL SQ SCH ×2 (09:00→20:46)
[2019-05-23] MEDS: ASPIRIN 81 MG ENTERIC COATED PO SCH (09:00)
--- NOTE | 2019-05-23 09:30 | NUR ---
Recvd patient from surgery , Alert with no distress, rt foot dressing is intact, no bleeding , elevated rt foot with 2 pillows, not in any distress, keep monitoring
--- NOTE | 2019-05-23 09:41 | Diagnostic Imaging Report ---
Exam: Right foot 2 views Clinical history: Status post surgery Comparison: May 19, 2019 Findings: The patient is status post partial dictation of the right first digit with postoperative changes. The visualized osseous structures demonstrate no evidence of acute fracture or malalignment. The soft tissue is unremarkable. Impression: 1. Status post partial amputation of the first toe to the level of the metatarsal head. Otherwise, unremarkable right foot radiographs. Signed by: Dr. Jose J Varner MD on 05/23/2019 9:38 AM
[2019-05-23 11:32] VITALS: BP 132/77
[2019-05-23 11:47] VITALS: BP 132/63
--- NOTE | 2019-05-23 15:25 | NUR ---
assisted patient to use bed side commode, dressing intact rt foot. not in any distress
[2019-05-23 15:48] VITALS: BP 131/61
[2019-05-23] MEDS: ONDANSETRON HCL INJ 2MG/ML 2ML 2 MG/ML VIAL IV PRN (15:48)
--- NOTE | 2019-05-23 16:11 | Operative Report ---
DATE OF PROCEDURE: 05/23/2019 SURGEON: Roman Arzate DPM PREOPERATIVE DIAGNOSES: 1. Abscess of right foot. 2. Gangrene of right foot. 3. Hallux valgus deformity, right foot. POSTOPERATIVE DIAGNOSES: Confirmed. OPERATIVE PROCEDURES: 1. Incision and drainage of abscess right foot down to bone. 2. Amputation of right great toe. 3. Partial resection of 1st metatarsal/silver bunionectomy. 4. Rotational flap closure. ANESTHESIA: General. HEMOSTASIS: Esmarch bandage. PROCEDURE IN DETAIL: The patient was taken to the operating room, placed on the operating table in supine position. Following induction of general anesthesia by the anesthesiologist, the right lower extremity was then prepped and draped in the usual aseptic manner. Following procedures then performed. An Esmarch bandage was applied up to the ankle joint to achieve hemostasis. Procedure #1 is performed. I and D of abscess, right foot. Attention was directed to the distal aspect of the right great toe plantarly and dorsally where incision was made down to bone. Abscess was encountered and cultured for aerobic and anaerobic growth. Secondary to the necrosis and the gangrenous changes up to the metatarsophalangeal joint. Procedure #2 was then performed which is an amputation down at the metatarsophalangeal joint area. The toe was then disarticulated and sent for pathological analysis. More cellulitis and necrotic tissue were visualized and utilizing sharp and blunt dissection, the necrotic tissue was excised from the operation site in toto. Esmarch bandage was then released and all ligators or pumpers were ligated or bovied as necessary. The first metatarsal head was then protruding medially. Procedure #3 was then performed. A silver bunionectomy was then performed. Utilizing an oscillating saw, the medial one-half of the 1st metatarsal was then resected from the operation site in toto and all rough and bony edges were rasped smooth via the use of a rotating bur. Procedure #4: Rotational flap closure. More extensive debridement was performed until good viable bleeding tissue was achieved. Skin was then remodeled. The incision was then carried dorsolaterally and a plantar medial flap was then created to allow for closure with minimal skin tension. The full-thickness flap was then dorsally displaced and utilizing 3-0 nylon the skin margins were then reapproximated in a horizontal mattress-type fashion with minimal skin tension after properly and copiously flushing the areas with sterile antibiotic solution. Approximately 10 mL of 0.5% plain Marcaine plus 2 mL of 1% Xylocaine plain were used to achieve local anesthesia of above-mentioned surgical area and a sterile dressing was applied. The patient was then transferred from the OR to recovery room with vital signs stable and neurovascular status intact. No intraoperative complications were encountered with the exception of minimal bleeding. The patient will remain in the hospital. We will continue IV antibiotics and local wound care. I understands, a more proximal amputation may need to be done if not responsive. Blood loss from the surgery was less than 10 mL. MARIO Alan/KELLEY /[id number]
--- NOTE | 2019-05-23 17:35 | NUR ---
Reinforced dressing , no active bleeding, rt foot elevated with 2 pillows
[2019-05-23] MEDS ORDERED: ACETAMINOPHEN 1000 MG/100 ML IV ONE (18:33)
[2019-05-23] MEDS ORDERED: DEXAMETHASONE SOD PHOS INJ 4 MG/ML VIAL ONE (18:33)
[2019-05-23] MEDS ORDERED: SEVOFLURANE INHAL SOLN 250 ML PEN BTL ONE (18:33)
[2019-05-23] MEDS ORDERED: PROPOFOL IV EMULSION 10 MG/ML 20 ML VIAL ONE (18:33)
[2019-05-23] MEDS ORDERED: EPHEDRINE SULFATE INJ 50 MG/10 ML SYR ONE (18:33)
[2019-05-23] MEDS ORDERED: KETOROLAC TROMETHAMINE 30 MG/ML VIAL ONE (18:33)
[2019-05-23] MEDS ORDERED: ONDANSETRON HCL INJ 2MG/ML 2ML 2 MG/ML VIAL ONE (18:33)
[2019-05-23] MEDS ORDERED: LIDOCAINE HCL 2% LOCAL INJ 5 ML SDV VIAL INJ ONE (18:33)
[2019-05-23] MEDS ORDERED: MIDAZOLAM HCL 2 MG/2 ML VIAL ONE (18:50)
[2019-05-23 20:15] VITALS: BP 120/54
[2019-05-23] MEDS: HYDROCODONE/APAP 5MG-325MG TAB PO PRN (20:47)
[2019-05-23] MEDS: ATORVASTATIN 40 MG TAB PO SCH (20:47)
--- NOTE | 2019-05-23 23:00 | NUR ---
called Betty,GERENTOLOGICAL PHYSIOTHERAPIST, pt requesting more pain medication, no new order for pain medicine
--- NOTE | 2019-05-23 23:10 | NUR ---
educated patient on taking norco 5/325 in between doses of dilaudid 1mg so that she will be getting pain medicine every 3 hours to better manage her pain, pt stated "i try to wait as long as i can before i ask" informed pt not to do that to call before it gets to bad, patient not satisfied with not being able to receive more pain medicine, informed pt that Dr. Cruz was called and DIANA Hernández answered and i was not able to get an order for more pain medicine, informed pt of time next dose of medication is due and call light in reach
[2019-05-24 00:43] VITALS: BP 107/55
[2019-05-24] MEDS: ALBUTEROL/IPRATROPIUM 3 ML NEB NEB SCH ×3 (01:00→13:20)
--- NOTE | 2019-05-24 01:39 | Progress Note ---
DATE: 05/23/2019 Cardiology Progress Note SUBJECTIVE: The patient denies chest pain or shortness of breath. She was seen after right great toe amputation. OBJECTIVE: VITAL SIGNS: Temperature 98.8 Degrees, pulse 88, respiratory rate 17, blood pressure 130/72, and oxygen saturation 97% on room air. GENERAL: Awake and alert, in no acute distress. LUNGS: Clear to auscultation bilaterally. No wheezes or crackles. CARDIOVASCULAR: Normal rate and regular rhythm. No murmur. Normal S1 and S2. ABDOMEN: Soft, nontender. EXTREMITIES: Surgical dressing on the right foot. CARDIAC MEDICATIONS: Atorvastatin 40 mg p.o. at bedtime and aspirin 81 mg p.o. daily. LABORATORY DATA: WBC 9.33, hemoglobin 9.6, hematocrit 29.7, and platelets 337. Sodium 139, potassium 4.5, chloride 106, CO2 of 24, BUN 22, creatinine 0.83. IMPRESSION: 1. Right great toe gangrene. 2. Right foot wound. 3. Peripheral arterial disease, status post PCI and atherectomy of the right peroneal and dorsalis pedis arteries. 4. Diabetes mellitus. 5. Hyperlipidemia. 6. Sinus tachycardia. 7. Obesity. RECOMMENDATIONS: The patient is status post revascularization. Continue dual antiplatelet therapy. Recommend resuming Plavix if bleeding is controlled. Wound care per Podiatry. Antibiotics per Primary Service. Continue current cardiac medications. Thank you for this consult. We will continue to follow. Pattie Giles MD ABS/MODL /[id number]
[2019-05-24] MEDS: VANCOMYCIN 1GM/NS 250 ML 250 ML IV SCH (04:00)
[2019-05-24 04:14] LABS: BASOPHILS % 0.2 % (0.0-1.0); EOSINOPHILS # (AUTO) 0.1 (0.0-0.4); EOSINOPHILS % 0.6 % (0.0-6.0); HEMATOCRIT 29.2 % (34.2-44.1); HEMOGLOBIN 9.5 g/dL (12.0-16.0); LYMPHOCYTES # (AUTO) 2.4 (1.0-3.2); LYMPHOCYTES % 22.2 % (18.0-39.1); MEAN CORPUSCULAR HEMOGLOBIN 30.9 pg (28-32); MEAN CORPUSCULAR HGB CONC 32.5 g/dL (31-35); MEAN CORPUSCULAR VOLUME 95.1 fL (81-99); MONOCYTES # (AUTO) 0.7 (0.2-0.8); MONOCYTES % 6.7 % (4.4-11.3); NEUTROPHILS # (AUTO) 7.4 (2.1-6.9); NEUTROPHILS % 69.9 % (38.7-80.0); PLATELET COUNT 409 x10e3/uL (140-360); RED BLOOD COUNT 3.07 x10e6/uL (3.6-5.1)
[2019-05-24] MEDS: HYDROMORPHONE 1MG/1ML INJ IV PRN ×2 (04:30→09:24)
[2019-05-24 04:39] LABS: ALANINE AMINOTRANSFERASE 22 IU/L (0-55); ALBUMIN 2.3 g/dL (3.5-5.0); ALBUMIN/GLOBULIN RATIO 0.5 (0.8-2.0); ALKALINE PHOSPHATASE 68 IU/L (40-150); ANION GAP 12.3 mmol/L (8-16); BLOOD UREA NITROGEN 17 mg/dL (7-26); BUN/CREATININE RATIO 22 (6-25); CARBON DIOXIDE 25 mmol/L (22-29); CHLORIDE 106 mmol/L (98-107); CREATININE, SERUM 0.76 mg/dL (0.57-1.11); EST GLOMERULAR FILTRATION RATE > 60 ML/MIN (60-); GLUCOSE 129 mg/dL (74-118); POTASSIUM 4.3 mmol/L (3.5-5.1); SODIUM 139 mmol/L (136-145)
[2019-05-24 04:59] VITALS: BP 113/54
--- NOTE | 2019-05-24 06:40 | NUR ---
PT C/O PAIN AT RT LEG AND GIVEN ORDERED PAIN MEDICATION .FAMILY AT THE BEDSIDE .BEDSIDE REPORT GIVEN TO THE ONCOMING NURS
--- NOTE | 2019-05-24 06:56 | NUR ---
RECEIVED REPORT FROM ONCOMING NURSE. WALKING ROUNDS DONE. PATIENT IS RESTING IN BED. NO ACUTE DISTRESS NOTED. CALL LIGHT WITHIN REACH. BED IN THE LOWEST POSITION.
[2019-05-24 07:18] VITALS: BP 125/72
[2019-05-24] MEDS: INSULIN LISPRO 100 UNIT/1 ML 3ML VIAL SQ SCH ×2 (07:30→11:30)
[2019-05-24] MEDS: HYDROCODONE/APAP 5MG-325MG TAB PO PRN (09:16)
[2019-05-24] MEDS: ONDANSETRON HCL INJ 2MG/ML 2ML 2 MG/ML VIAL IV PRN (09:24)
[2019-05-24] MEDS: ASPIRIN 81 MG ENTERIC COATED PO SCH (09:27)
[2019-05-24] MEDS: POLYETHYLENE GLYCOL 3350 17 GM PACK PO SCH (09:27)
[2019-05-24] MEDS: LORATADINE/PSEUDOEPHEDRINE 24 HR SR TAB PO SCH (09:27)
[2019-05-24] MEDS: DOCUSATE SODIUM 100 MG CAP PO SCH (09:27)
[2019-05-24] MEDS: FAMOTIDINE 20 MG TAB PO SCH (09:27)
[2019-05-24] MEDS ORDERED: HYDROMORPHONE 1MG/1ML INJ IV PRN (09:30)
[2019-05-24] MEDS: INSULIN GLARGINE 100 UNITS/ML VIAL SQ SCH (09:48)
[2019-05-24 11:09] VITALS: BP 125/72
[2019-05-24 11:14] VITALS: BP 120/61
--- NOTE | 2019-05-24 13:07 | NUR ---
LONG-TERM ACUTE CARE DISCHARGE INFORMATION PATIENT HAS BEEN ACCEPTED TO: NAME: [facility] ADDRESS: [address] [place] [address] ACCEPTING SYSTEM CONFIGURATION SPECIALIST: ADM KRISTINA ACCEPTING MD: KASIA WINTERS ROOM: 205 NURSE CALL REPORT TO: [phone] THE FOLLOWING DOCUMENTS MUST ACCOMPANY PATIENT FOR TRANSFER: COPIED CHART: [employer] MACHINE MECH[employer]IC MOT INFO RECEIVED FROM: [facility] ORDER/RECONCILED MED LIST: BEDSIDE RN / COLLEEN [id number] DNR: N/A
--- NOTE | 2019-05-24 14:42 | Progress Note ---
DATE: 05/24/2019 SUBJECTIVE: The patient is seen at bedside, feeling somewhat better. Denying history of fever, chills, nausea, or vomiting. OBJECTIVE: VITAL SIGNS: Afebrile, pulse rate 80, respirations 18, blood pressure 125/70, and O2 saturation 96%. EXTREMITIES: Has some bloody strike through to the left foot. The patient does relate feeling better since the surgery. LABORATORY DATA: Labs show a white blood cell count dropping to 10.2 and hemoglobin 9.5. ASSESSMENT: Status post left foot surgery, multiple procedures including I and D of abscess, amputation of the left great toe, partial resection 1st met with rotational flap closure. PLAN: We will continue IV antibiotics. Continue offloading. We will continue to monitor. The patient may be transferred to LTAC for continue IV antibiotics secondary to the deep space infection. The patient aware if not responsive, may need a more proximal amputation. We will let the foot demarcate for at least 3 to 4 weeks before any further surgical accommodations will be done. MARIO Alan/KELLEY /[id number]
--- NOTE | 2019-05-24 14:55 | NUR ---
RECEIVED DC ORDER FROM WATER CHEMIST FOR PATIENT TO TRANSFER TO [facility]. PATIENT IS IN STABLE CONDITION. PICC LINE TO LEFT UPPER ARM IS INTACT, SALINE FLUSH. REPORT CALLED IN TO [facility] @ [phone]. ALL PERSONAL ITEMS ON HAND. TRANSFER PAPERWORK GIVEN TO EMS PERSONNEL.
--- NOTE | 2019-05-25 04:21 | Progress Note ---
DATE: 05/22/2019 Cardiology Progress Note SUBJECTIVE: The patient denies chest pain or shortness of breath. She reports occasional left arm numbness, which is positional. OBJECTIVE: VITAL SIGNS: Temperature 97.8 degrees, pulse 83, respiratory rate 18, blood pressure 116/60, oxygen saturation 94%. GENERAL: Awake, alert, in no acute distress. LUNGS: Clear to auscultation bilaterally. No wheezes or crackles. CARDIOVASCULAR: Normal rate, regular rhythm. No murmur. Normal S1, S2. ABDOMEN: Soft and nontender. EXTREMITIES: No edema. Right great toe is gangrenous. CARDIAC MEDICATIONS: Atorvastatin 40 mg p.o. at bedtime, aspirin 81 mg p.o. daily. LABORATORY DATA: WBC 11.54, hemoglobin 9.9, hematocrit 30.8, platelets 383. Sodium 138, potassium 4.8, chloride 104, CO2 of 26, BUN 21, creatinine 0.86. IMPRESSION: 1. Right great toe gangrene, right foot abscess. 2. Peripheral arterial disease, status post atherectomy of the right peroneal and dorsalis pedis arteries. 3. Sinus tachycardia. 4. Diabetes mellitus. 5. Hyperlipidemia. 6. Obesity. RECOMMENDATIONS: Continue current cardiac medications including dual anti-platelet therapy. Recommend resuming Plavix as soon as possible. Note plan for amputation of the right great toe by Podiatry. We will monitor wound healing as she has been revascularized. Thank you for this consult. We will continue to follow. Pattie Giles MD ABS/MODL /[id number] MTDD
--- NOTE | 2019-05-25 23:13 | Discharge Summary ---
ADMISSION DIAGNOSES: Right great toe wound, status post stepping on a nail with cellulitis, failed outpatient treatment; type 2 diabetes; obesity with a BMI of 39. DISCHARGE DIAGNOSES: Right great toe wound, status post stepping on a nail with cellulitis, failed outpatient treatment; type 2 diabetes; obesity with a BMI of 39; peripheral arterial disease, status post revascularization, status post right great toe amputation. HISTORY: The patient has a history of type 2 diabetes. SURGICAL HISTORY: . FAMILY HISTORY: The patient's father has diabetes. The patient's aunt has cancer. SOCIAL HISTORY: Occasional alcohol use. HOSPITAL COURSE: A 44-year-old female, admits with right great toe wound that she noticed Wednesday. By Wednesday, she had a fever of 101, so she went to [place] and got a prescription for clindamycin and was sent home. The wound continued to worsen, so she came to [facility] ER. She saw a nail going through her sandal several days later, so she thinks she stepped on a nail. On admission, foot x-ray was negative. Chest x-ray was negative. MRI of the foot showed no evidence of osteomyelitis. Podiatry was consulted, who did an I and D of the right great toe on 05/15. Arterial Doppler was done, which showed evidence of arterial disease. Cardiology was consulted. The patient had a left upper arm PICC placed for long-term antibiotics. Wound culture came back positive for Enterococcus with no VRE. Cardiology did an angiogram, but the wound continued to worsen. The patient then asked for second podiatry opinion. The second best worker also agreed with amputation. So, the patient had a right great toe amputation performed. The patient will discharge to [facility] for long-term antibiotics, close physician monitoring, and wound care. The patient will discharge with IV vancomycin per wound culture sensitivity. The patient understands discharge instructions and agrees to plan. Vital signs stable, the patient afebrile. Dictated by Elisabeth Maharaj NP MD VALERIA Cook/KELLEY /[id number]
--- NOTE | 2019-06-15 21:10 | Operative Report ---
DATE OF PROCEDURE: 05/17/2019 SURGEON: Itz Rizvi DO PROCEDURES PERFORMED: 1. Conscious sedation, 45 minutes. 2. Abdominal aortography. 3. Third-order peripheral angiography of the right lower extremity. 4. Orbital atherectomy and percutaneous transluminal angioplasty to the right peroneal and dorsalis pedis arteries. PRE-PROCEDURE DIAGNOSIS: Foot wound. POST-PROCEDURE DIAGNOSIS: Peripheral artery disease. ESTIMATED BLOOD LOSS: Less than 10 mL. SPECIMENS REMOVED: None. PROCEDURE IN DETAIL: After informed consent was obtained, the patient was brought to the cardiac catheterization laboratory in a fasting and nonsedated state. Her left groin was prepped and draped in usual sterile fashion. A 2% lidocaine was used to infiltrate the left groin for local anesthesia. Using micropuncture needle, the left common femoral artery was accessed via modified Seldinger technique and a 6-Ukrainian sheath was placed. Next, abdominal aortography was performed. Next, I crossed up and over and placed a 6-Ukrainian sheath and diagnostic imaging revealed significant lesions in the dorsalis pedis and peroneal arteries. The patient received systemic heparin for therapeutic anticoagulation. Next, I crossed a wire into the dorsalis pedis and performed orbital atherectomy and balloon angioplasty with a 2 x 40 mm balloon. Next, I performed orbital atherectomy and percutaneous transluminal angioplasty of the peroneal artery. A 3 x 150 Ultraverse balloon was used for this artery. The patient tolerated the procedure well. No immediate complications and transferred back to her room in stable condition. PROCEDURAL FINDINGS: The iliac and femoral vessels are all patent. The popliteal is patent. The anterior tibial is patent throughout its course and has a 70% dorsalis pedis stenosis. The peroneal vessel has two 70% lesions. The posterior tibial vessel is chronically occluded. IMPRESSION: Peripheral artery disease, status post orbital atherectomy, percutaneous transluminal angioplasty of the peroneal and dorsalis pedis arteries. RECOMMENDATIONS: Continue dual antiplatelet therapy and guideline-directed medical therapy for peripheral artery disease. Itz Rizvi DO BM/MODL /[id number]
== END 2019-05-24 14:53 | DRG 271 ==
LOC: ER 19:49 → ERHOLD 22:30 → MED/SURG3 05-12 12:41
PROVIDERS: ADMIT Internal Medicine; ATTEND Internal Medicine
PROC: 02HV33Z Insertion of Infusion Device into Superior Vena Cava, Percutaneous Approach (ICD-10-PCS; 2019-05-15)
PROC: 0Y9M0ZZ Drainage of Right Foot, Open Approach (ICD-10-PCS; principal; 2019-05-15 06:30)
PROC: 04CT3ZZ Extirpation of Matter from Right Peroneal Artery, Percutaneous Approach (ICD-10-PCS; 2019-05-17)
PROC: 047T3Z1 Dilation of Right Peroneal Artery using Drug-Coated Balloon, Percutaneous Approach (ICD-10-PCS; 2019-05-17)
PROC: 3E05317 Introduction of Other Thrombolytic into Peripheral Artery, Percutaneous Approach (ICD-10-PCS; 2019-05-17)
PROC: B41D1ZZ Fluoroscopy of Aorta and Bilateral Lower Extremity Arteries using Low Osmolar Contrast (ICD-10-PCS; 2019-05-17)
PROC: 0Y6P0Z0 Detachment at Right 1st Toe, Complete, Open Approach (ICD-10-PCS; 2019-05-23)
PROC: 0JRQ07Z Replacement of Right Foot Subcutaneous Tissue and Fascia with Autologous Tissue Substitute, Open Approach (ICD-10-PCS; 2019-05-23)
PROC: 0HBMXZZ Excision of Right Foot Skin, External Approach (ICD-10-PCS; 2019-05-23)
DX: E11.52 Type 2 diabetes mellitus with diabetic peripheral angiopathy with gangrene (principal); L02.611 Cutaneous abscess of right foot; Z68.41 Body mass index [BMI] 40.0-44.9, adult; I96 Gangrene, not elsewhere classified; E66.9 Obesity, unspecified; Z68.39 Body mass index [BMI] 39.0-39.9, adult; Z79.4 Long term (current) use of insulin; E11.40 Type 2 diabetes mellitus with diabetic neuropathy, unspecified; E87.5 Hyperkalemia; E66.01 Morbid (severe) obesity due to excess calories; B95.2 Enterococcus as the cause of diseases classified elsewhere; E11.65 Type 2 diabetes mellitus with hyperglycemia; L98.499 Non-pressure chronic ulcer of skin of other sites with unspecified severity; I70.25 Atherosclerosis of native arteries of other extremities with ulceration
CPT/HCPCS: 36247; 36415; 36569; 37186; 37229; 37233; 71045; 74470; 75625; 75710; 80048; 80053; 80202; 81025; 82948; 83036; 83605; 83735; 85025; 85610; 85730; 87040; 87071; 87075; 87186; 87205; 88304; 88305; 88311; 90714; 90732; 93005; 93926; 93971; 94640; 96374; 99284; C1724; C1725; C1760; C1769; C1887; J0692; J0720; J1100; J1170; J1644; J1815; J1817; J1885; J2001; J2250; J2270; J2405; J3010; J3370; J7030; J7050; Q9967

== ENCOUNTER 2019-11-20 20:04 | Inpatient (IN) | payer OTHER ==
[~2019-11-20] VITALS: Ht 160 cm; Wt 111.6 kg
[~2019-11-20 20:04] MED LIST changes: +ASPIRIN EC81 MG PO; +Atorvastatin PO; +Farxiga PO; +HUMALOG100 UNIT/3 SQ; +LEVEMIR100 UNIT/1 SQ; +LOSARTAN POTASS25 MG PO; +LYRICA75 MG PO; +METFORMIN HCL850 MG PO; +TRAMADOL/APAP PO; +TYLENOL WITH C1 EACH PO
[2019-11-20] MEDS ORDERED: MORPHINE SULFATE 2 MG/ML SYR 1ML IV PRN (20:45)
[2019-11-20] MEDS ORDERED: DEXTROSE 50% SYRINGE 50 ML IV PRN (20:45)
[2019-11-20 20:56] LABS: BASOPHILS % 0.2 % (0.0-1.0); EOSINOPHILS # (AUTO) 0.2 (0.0-0.4); EOSINOPHILS % 1.9 % (0.0-6.0); HEMATOCRIT 31.7 % (34.2-44.1); HEMOGLOBIN 10.3 g/dL (12.0-16.0); LYMPHOCYTES % 24.7 % (18.0-39.1); MEAN CORPUSCULAR HEMOGLOBIN 30.6 pg (28-32); MEAN CORPUSCULAR HGB CONC 32.5 g/dL (31-35); MEAN CORPUSCULAR VOLUME 94.1 fL (81-99); MONOCYTES # (AUTO) 0.7 (0.2-0.8); MONOCYTES % 5.7 % (4.4-11.3); NEUTROPHILS # (AUTO) 8.3 (2.1-6.9); NEUTROPHILS % 67.2 % (38.7-80.0); PLATELET COUNT 293 x10e3/uL (140-360); RED BLOOD COUNT 3.37 x10e6/uL (3.6-5.1); RED CELL DISTRIBUTION WIDTH 12.6 % (11.7-14.4)
[2019-11-20 21:15] LABS: ALANINE AMINOTRANSFERASE 15 IU/L (0-55); ALBUMIN 3.2 g/dL (3.5-5.0); ALBUMIN/GLOBULIN RATIO 0.9 (0.8-2.0); ALKALINE PHOSPHATASE 74 IU/L (40-150); ANION GAP 11.7 mmol/L (8-16); BLOOD UREA NITROGEN 30 mg/dL (7-26); BUN/CREATININE RATIO 33 (6-25); CALCIUM 8.8 mg/dL (8.4-10.2); CARBON DIOXIDE 22 mmol/L (22-29); CHLORIDE 111 mmol/L (98-107); CREATININE, SERUM 0.92 mg/dL (0.57-1.11); EST GLOMERULAR FILTRATION RATE > 60 ML/MIN (60-); GLUCOSE 131 mg/dL (74-118); POTASSIUM 4.7 mmol/L (3.5-5.1); SODIUM 140 mmol/L (136-145)
[2019-11-20] MEDS: PIPER-TAZ 3.375 GM 50 ML IV SCH (21:24)
[2019-11-20] MEDS: INSULIN REGULAR, HUMAN 100 UNIT/1 ML 3ML VIAL SQ SCH (21:37)
[2019-11-20] MEDS ORDERED: BASAGLAR K100 UNIT/1 SC (21:42)
[2019-11-20] MEDS ORDERED: HUMALOG100 UNIT/1 SC (21:42)
[2019-11-20] MEDS ORDERED: DOXYCYCLINE HY100 MG PO (21:42)
[2019-11-20] MEDS ORDERED: NORCO 10-325 T1 EACH PO (21:42)
[2019-11-20] MEDS: MORPHINE SULFATE INJ 4 MG/ML INJ 1ML IV PRN (22:12)
[2019-11-20] MEDS: VANCOMYCIN 1GM/NS 250 ML 250 ML IV SCH (22:12)
[2019-11-20] MEDS: ONDANSETRON HCL INJ 2MG/ML 2ML 2 MG/ML VIAL IV PRN (22:13)
--- NOTE | 2019-11-20 22:56 | NUR ---
Received patient via stretcher. Alert and oriented. Assisted to bed. Discoloration to 2nd toe of the right foot noted. Call light within reached.
[2019-11-20] MEDS ORDERED: SODIUM CHLORIDE 0.9% 250ML 250 ML ONE (23:51)
[2019-11-21] VITALS (9 sets, daily range): BP systolic 80–125; BP diastolic 58–80
[2019-11-21] MEDS ORDERED: PLAVIX75 MG PO (00:41)
[2019-11-21] MEDS ORDERED: FERROUS SULFAT325 MG PO (00:43)
[2019-11-21] MEDS: MORPHINE SULFATE INJ 4 MG/ML INJ 1ML IV PRN ×2 (02:40→07:15)
[2019-11-21] MEDS: PIPER-TAZ 3.375 GM 50 ML IV SCH ×3 (04:50→22:53)
--- NOTE | 2019-11-21 07:15 | NUR ---
PATIENT IN BED WITH HEAD OF BED ELEVATED, NO DISTRESS NOTED. C/O PAIN TO RIGHT FOOT, MEDICATED ORDERED. BED IN LOWER POSITION, CALL LIGHT AT REACH, INSTRUCTED TO CALL FOR ASSISTANCE NEEDED.
[2019-11-21] MEDS: INSULIN REGULAR, HUMAN 100 UNIT/1 ML 3ML VIAL SQ SCH ×4 (07:30→22:56)
[2019-11-21 07:42] LABS: BASOPHILS % 0.1 % (0.0-1.0); EOSINOPHILS # (AUTO) 0.3 (0.0-0.4); EOSINOPHILS % 3.6 % (0.0-6.0); HEMATOCRIT 30.8 % (34.2-44.1); HEMOGLOBIN 9.8 g/dL (12.0-16.0); LYMPHOCYTES % 35.1 % (18.0-39.1); MEAN CORPUSCULAR HEMOGLOBIN 30.4 pg (28-32); MEAN CORPUSCULAR HGB CONC 31.8 g/dL (31-35); MEAN CORPUSCULAR VOLUME 95.7 fL (81-99); MONOCYTES # (AUTO) 0.7 (0.2-0.8); MONOCYTES % 7.9 % (4.4-11.3); NEUTROPHILS # (AUTO) 4.6 (2.1-6.9); NEUTROPHILS % 53.2 % (38.7-80.0); PLATELET COUNT 270 x10e3/uL (140-360); RED BLOOD COUNT 3.22 x10e6/uL (3.6-5.1); RED CELL DISTRIBUTION WIDTH 12.6 % (11.7-14.4)
[2019-11-21 08:03] LABS: ALANINE AMINOTRANSFERASE 14 IU/L (0-55); ALBUMIN 2.9 g/dL (3.5-5.0); ALKALINE PHOSPHATASE 74 IU/L (40-150); ANION GAP 10.7 mmol/L (8-16); BLOOD UREA NITROGEN 29 mg/dL (7-26); BUN/CREATININE RATIO 39 (6-25); CALCIUM 8.5 mg/dL (8.4-10.2); CARBON DIOXIDE 23 mmol/L (22-29); CHLORIDE 112 mmol/L (98-107); CREATININE, SERUM 0.75 mg/dL (0.57-1.11); EST GLOMERULAR FILTRATION RATE > 60 ML/MIN (60-); GLUCOSE 123 mg/dL (74-118); POTASSIUM 4.7 mmol/L (3.5-5.1); SODIUM 141 mmol/L (136-145)
[2019-11-21] MEDS: VANCOMYCIN 1GM/NS 250 ML 250 ML IV SCH ×2 (09:37→23:38)
--- NOTE | 2019-11-21 10:46 | Diagnostic Imaging Report ---
EXAMINATION: FOOT RIGHT COMPLETE INDICATION: Foot gangrene COMPARISON: None FINDINGS: Status post first transmetatarsal amputation. Diffuse soft tissue swelling of the second toe. Mild underlying periosteal reaction may indicate underlying osteomyelitis. No acute fracture or dislocation. Diffuse atherosclerotic arterial calcifications. IMPRESSION: Diffuse soft tissue swelling of the second toe. Mild underlying periosteal reaction of the second hospital phalanx could indicate underlying osteomyelitis. Signed by: Tiffany Chakraborty MD on 11/21/2019 10:43 AM
[2019-11-21] MEDS: MUPIROCIN 2% OINT 22 GM TUBE TOP SCH ×2 (11:00→21:00)
--- NOTE | 2019-11-21 11:29 | NUR ---
CALL RECEIVED FROM DR PONCE, NEW ORDERS RECEIVED AND IMPLEMENTED.
[2019-11-21] MEDS ORDERED: MORPHINE SULFATE INJ 4 MG/ML INJ 1ML IV PRN (11:45)
[2019-11-21] MEDS ORDERED: HYDRALAZINE HCL 20 MG/ML VIAL IV PRN (11:45)
[2019-11-21] MEDS ORDERED: INSULIN GLARGINE 100 UNITS/ML VIAL SQ SCH (12:15)
--- NOTE | 2019-11-21 14:03 | NUR ---
PATIENT OFF UNIT TO RADIOLOGY.
--- NOTE | 2019-11-21 14:59 | Diagnostic Imaging Report ---
TECHNIQUE: Magnetic resonance imaging of the RIGHT foot was performed WITHOUT injected contrast. HISTORY: Pain COMPARISON: None available. DISCUSSION: Prior amputation across the first metatarsal with expected postsurgical change. Soft tissue ulceration of the second toe with osteomyelitis involving the proximal and middle phalanx of the second toe. The remainder of the bone marrow signal is normal. Soft tissue edema and swelling of the foot. IMPRESSION: Soft tissue ulceration of the second toe with osteomyelitis involving the proximal and middle phalanx. Signed by: Dr. Sal Walden M.D. on 11/21/2019 2:55 PM
[2019-11-21] MEDS: PREGABALIN 75 MG CAP PO SCH ×2 (15:14→22:54)
[2019-11-21] MEDS: MORPHINE SULFATE 2 MG/ML SYR 1ML IV PRN ×2 (15:15→22:55)
--- NOTE | 2019-11-21 15:20 | NUR ---
PATIENT BACK TO UNIT FROM RADIOLOGY. C/O PAIN, MEDICATED ORDERED. WILL CONTINUE TO MONITOR.
--- NOTE | 2019-11-21 15:25 | Diagnostic Imaging Report ---
EXAMINATION: ELBOW LEFT COMPLETE, SHOULDER LEFT COMPLETE INDICATION: Arm pain/shoulder pain COMPARISON: None FINDINGS: Left shoulder: No acute fracture or dislocation. Alignment appears anatomic. Soft tissues appear unremarkable. No substantial degenerative change. Left elbow: No acute fracture or dislocation. Alignment is anatomic. No elbow joint effusion. Soft tissues appear unremarkable. IMPRESSION: No acute osseous injury of the left shoulder or elbow. Signed by: Tiffany Chakraborty MD on 11/21/2019 3:22 PM
[2019-11-21] MEDS ORDERED: [UNRECOGNIZED DRUG - OTHER] SC SCH (17:00)
[2019-11-21] MEDS ORDERED: INSULIN GLARGINE HUM REC ANLOG 45 UNIT SC SCH (17:00)
--- NOTE | 2019-11-21 19:22 | Consultation ---
DATE OF CONSULTATION: 11/21/2019 REASON FOR CONSULTATION: Nonhealing ulceration with pregangrenous changes noted to the 2nd toe, right foot with bone exposed. HISTORY OF PRESENT ILLNESS: This is a pleasant 44-year-old female, who is well known to me, who has been treated for ulceration to the dorsal aspect of the 2nd toe, right foot, which has gotten significantly worse within the last for 4 to 6 weeks started with a corn secondary to contracted toe. The patient is denying history of fever, chills, nausea, or vomiting. PAST MEDICAL HISTORY: Remarkable for insulin-dependent diabetes times 20+ years plus peripheral arterial disease. PAST SURGICAL HISTORY: Remarkable for right foot surgery and right vascular intervention. Did not recall the name of the doctor. ALLERGIES: THE PATIENT DENIES. CURRENT MEDICATIONS: Note listed in chart including IV Zosyn and vancomycin. SOCIAL HISTORY: Denies any smoking, drinking, or recreational drug use. FAMILY HISTORY: Remarkable for diabetes. REVIEW OF SYSTEMS: CARDIAC: Denies any palpitations or arrhythmias. RESPIRATORY: Denies any shortness of breath or productive cough. GASTROINTESTINAL: Denies any diarrhea or constipation. GENITOURINARY: Denies any hematuria or problems voiding. LABORATORY DATA: Noted. White blood cell count dropping from 12.3 to 8.6, hemoglobin 9.8, platelet count of 270. PHYSICAL EXAMINATION: VITAL SIGNS: Afebrile, pulse rate 82, respiration 19, blood pressure 125/71, O2 saturation 100%. Podiatric physical examination reveals the following: VASCULATURE: Pedal pulses of both the DP and PT are palpable, but diminished. Skin temperature is warm and cold to touch from the midfoot distally. Right foot compared to the left. NEUROLOGICAL: Reveals complete loss of protective sensation when utilizing [place] 5.07 monofilament wire. MUSCULOSKELETAL: Reveals muscle mass to be asymmetrical some swelling noted to the right lower extremity compared to the left. Muscle strength to be 4 to 5/5 to all muscle groups. DERMATOLOGIC: Reveals contracted toe with bone exposed with pregangrenous changes noted with the toe showing discoloration ulcer measuring more than 1.5 cm in diameter, getting worse since she was last seen with some mottled appearance to the 2nd toe right foot. ASSESSMENT: Grade 4 ulcer, osteomyelitis, abscess formation with peripheral arterial disease. PLAN: Awaiting MRI results. Ulceration will be debrided at bedside tomorrow. Cultures were taken on this day for aerobic and anaerobic growth. Continue IV antibiotics. The patient relates she would like to try to salvage toe. The patient was instructed no guarantees can be given. We will give her IV antibiotics and treat her with local wound care and debridement until sometime next week or definitive procedure will need to be done. MARIO Alan/KELLEY /[id number]
[2019-11-21] MEDS: HYDROCODONE/APAP 5MG-325MG TAB PO PRN (19:59)
[2019-11-21] MEDS ORDERED: NON-FORMULARY MEDICATION ([Atorvastatin] 40 MG) PO SCH (21:00)
[2019-11-21] MEDS: ATORVASTATIN 40 MG TAB PO SCH (22:53)
[2019-11-21] MEDS: INSULIN GLARGINE 100 UNITS/ML VIAL SQ SCH (22:56)
[2019-11-22] VITALS (7 sets, daily range): BP systolic 99–112; BP diastolic 52–59
[2019-11-22] MEDS: MORPHINE SULFATE 2 MG/ML SYR 1ML IV PRN ×3 (05:30→18:40)
[2019-11-22] MEDS: PIPER-TAZ 3.375 GM 50 ML IV SCH ×3 (06:06→22:00)
[2019-11-22 06:28] LABS: BASOPHILS % 0.3 % (0.0-1.0); EOSINOPHILS # (AUTO) 0.3 (0.0-0.4); EOSINOPHILS % 3.5 % (0.0-6.0); HEMATOCRIT 29.8 % (34.2-44.1); HEMOGLOBIN 9.4 g/dL (12.0-16.0); LYMPHOCYTES # (AUTO) 2.6 (1.0-3.2); MEAN CORPUSCULAR HEMOGLOBIN 30.6 pg (28-32); MEAN CORPUSCULAR HGB CONC 31.5 g/dL (31-35); MEAN CORPUSCULAR VOLUME 97.1 fL (81-99); MONOCYTES # (AUTO) 0.7 (0.2-0.8); MONOCYTES % 8.7 % (4.4-11.3); NEUTROPHILS # (AUTO) 4.3 (2.1-6.9); NEUTROPHILS % 54.2 % (38.7-80.0); PLATELET COUNT 255 x10e3/uL (140-360); RED BLOOD COUNT 3.07 x10e6/uL (3.6-5.1); RED CELL DISTRIBUTION WIDTH 12.6 % (11.7-14.4)
[2019-11-22 06:55] LABS: ALANINE AMINOTRANSFERASE 13 IU/L (0-55); ALBUMIN 2.8 g/dL (3.5-5.0); ALBUMIN/GLOBULIN RATIO 0.9 (0.8-2.0); ALKALINE PHOSPHATASE 73 IU/L (40-150); ANION GAP 8.8 mmol/L (8-16); BLOOD UREA NITROGEN 34 mg/dL (7-26); BUN/CREATININE RATIO 39 (6-25); CALCIUM 8.5 mg/dL (8.4-10.2); CARBON DIOXIDE 24 mmol/L (22-29); CHLORIDE 111 mmol/L (98-107); CREATININE, SERUM 0.88 mg/dL (0.57-1.11); EST GLOMERULAR FILTRATION RATE > 60 ML/MIN (60-); GLUCOSE 112 mg/dL (74-118); MAGNESIUM 1.9 MG/DL (1.3-2.1); POTASSIUM 4.8 mmol/L (3.5-5.1); SODIUM 139 mmol/L (136-145)
[2019-11-22 07:15] LABS: THYROID STIMULATING HORMONE 2.364 uIU/mL (0.350-4.940)
[2019-11-22] MEDS: INSULIN REGULAR, HUMAN 100 UNIT/1 ML 3ML VIAL SQ SCH ×4 (07:30→22:00)
[2019-11-22] MEDS: HYDROCODONE/APAP 5MG-325MG TAB PO PRN ×2 (08:17→22:15)
[2019-11-22] MEDS: PREGABALIN 75 MG CAP PO SCH ×3 (09:18→22:00)
[2019-11-22] MEDS: VANCOMYCIN 1GM/NS 250 ML 250 ML IV SCH ×2 (09:20→23:30)
[2019-11-22] MEDS: INSULIN GLARGINE 100 UNITS/ML VIAL SQ SCH ×2 (09:20→22:00)
[2019-11-22] MEDS: MUPIROCIN 2% OINT 22 GM TUBE TOP SCH ×2 (09:57→22:00)
--- NOTE | 2019-11-22 13:24 | Progress Note ---
DATE: 11/22/2019 SUBJECTIVE: The patient at bedside having decreased pain to the right lower extremity. Denies any history of fever, chills, nausea, or vomiting. OBJECTIVE: VITAL SIGNS: Afebrile, pulse rate 78, respirations 19, blood pressure 104/59, and O2 saturation 98%. EXTREMITIES : Ulceration to the 2nd toe left foot a little bit better, more stable. There has bone exposed, some necrosis noted down to bone, measuring more than 1.5 to 2 cm in diameter head of the proximal phalanx of the toes. ASSESSMENT: Osteomyelitis with cellulitis, grade 4 ulcer and an abscess. PLAN: Sharp excisional debridement of the ulcer was performed under no anesthesia secondary to her neuropathy. The sharp debridement was carried down to bone, bone was scraped. Devitalized tissue sharply excised until good viable bleeding tissue was achieved. Instructed, we will let the foot demarcate a little bit longer, but she will end up needing an amputation level to be determined. We will continue to treat conservatively for now. The patient relates she would like to wait before any definitive procedures done. MARIO Alan/KELLEY /[id number]
[2019-11-22] MEDS ORDERED: ACETAMIN/BUTALBITAL/CAFFEINE TAB PO PRN (14:00)
--- NOTE | 2019-11-22 19:15 | NUR ---
Patient visited in room during nursing rounds. Patient alert and oriented x3. Ambulatory in room prn. Wound noted on right 2nd toe S/P I&D done today by Dr. Arzate. Dressing on right 2nd toe cleand and dry. Patient complaining of chronic pain on left elbow and requested for COORDINATOR SKILL TRAINING PROGRAM to be called for possible increase in dose of Morpine. Pt claims MS 2mg IV does not help much with the pain. Call mathew within reach.
--- NOTE | 2019-11-22 20:48 | NUR ---
Called and spoke with Nawaf Arnold (SOLUTION MANAGER for Dr. Cruz) and informed pt requested if possible to increase Morphine dose. Nawaf Arnold aware but informed he will not change the order at this time. Patient was then informed and aware of decision made by SOLUTION MANAGER.
--- NOTE | 2019-11-22 21:00 | NUR ---
Patient taking a shower bath at this time. IV site and right foot covered with plastic to protect from getting wet.
[2019-11-22] MEDS: ATORVASTATIN 40 MG TAB PO SCH (22:00)
--- NOTE | 2019-11-22 22:00 | NUR ---
Report given to Anayeli (manufacturing supervisor 2nd shift RN) who will take over care for patient tonight.
--- NOTE | 2019-11-22 22:00 | NUR ---
RECEIVED REPORT FROM 7PM NURSE.
--- NOTE | 2019-11-22 22:05 | NUR ---
Wound care (Bactroban application with betadine soaked gauze) performed on wound (right 2nd toe). Dressing clean and dry.
[2019-11-23] VITALS (9 sets, daily range): BP systolic 88–134; BP diastolic 46–73
--- NOTE | 2019-11-23 | NUR ---
PATIENT RESTING IN BED, DRESSING TO HER RIGHT FOOT REMAIN INTACT. CALL LIGHT IN REACH. WILL CONTINUE TO MONITOR.
[2019-11-23] MEDS: MORPHINE SULFATE 2 MG/ML SYR 1ML IV PRN ×3 (01:04→13:23)
[2019-11-23] MEDS: ONDANSETRON HCL INJ 2MG/ML 2ML 2 MG/ML VIAL IV PRN ×2 (01:04→06:27)
[2019-11-23] MEDS: HYDROCODONE/APAP 5MG-325MG TAB PO PRN ×2 (04:21→15:30)
[2019-11-23 06:12] LABS: BASOPHILS % 0.4 % (0.0-1.0); EOSINOPHILS # (AUTO) 0.3 (0.0-0.4); EOSINOPHILS % 4.2 % (0.0-6.0); HEMATOCRIT 30.9 % (34.2-44.1); HEMOGLOBIN 9.6 g/dL (12.0-16.0); LYMPHOCYTES # (AUTO) 2.6 (1.0-3.2); LYMPHOCYTES % 33.4 % (18.0-39.1); MEAN CORPUSCULAR HEMOGLOBIN 29.9 pg (28-32); MEAN CORPUSCULAR HGB CONC 31.1 g/dL (31-35); MEAN CORPUSCULAR VOLUME 96.3 fL (81-99); MONOCYTES # (AUTO) 0.7 (0.2-0.8); MONOCYTES % 9.2 % (4.4-11.3); NEUTROPHILS % 52.4 % (38.7-80.0); PLATELET COUNT 247 x10e3/uL (140-360); RED BLOOD COUNT 3.21 x10e6/uL (3.6-5.1); RED CELL DISTRIBUTION WIDTH 12.4 % (11.7-14.4)
[2019-11-23] MEDS: PIPER-TAZ 3.375 GM 50 ML IV SCH ×3 (06:24→21:45)
[2019-11-23 06:35] LABS: ANION GAP 9.8 mmol/L (8-16); BLOOD UREA NITROGEN 27 mg/dL (7-26); BUN/CREATININE RATIO 36 (6-25); CALCIUM 8.6 mg/dL (8.4-10.2); CARBON DIOXIDE 25 mmol/L (22-29); CHLORIDE 110 mmol/L (98-107); CREATININE, SERUM 0.76 mg/dL (0.57-1.11); EST GLOMERULAR FILTRATION RATE > 60 ML/MIN (60-); GLUCOSE 98 mg/dL (74-118); POTASSIUM 4.8 mmol/L (3.5-5.1); SODIUM 140 mmol/L (136-145)
--- NOTE | 2019-11-23 07:22 | NUR ---
REPORT GIVEN TO AM NURSE.
[2019-11-23] MEDS: INSULIN REGULAR, HUMAN 100 UNIT/1 ML 3ML VIAL SQ SCH ×4 (07:30→21:46)
--- NOTE | 2019-11-23 07:55 | Progress Note ---
DATE: 11/23/2019 SUBJECTIVE: The patient was seen at bedside, having left arm and forearm pain. Decreased pain to the right lower extremity. Denies any history of fever, chills, nausea, or vomiting. OBJECTIVE: VITAL SIGNS: Afebrile, pulse rate 77, respirations 17, blood pressure 119/60, and O2 saturation 98%. LABORATORY DATA: Show white blood cell count of 7.6, hemoglobin 9.6 with a platelet count of 247. Gangrenous changes to the 2nd toe right foot stabilizing, found to become dry with decreased periwound cellulitis. There is bone exposed. ASSESSMENT: Osteomyelitis gangrene with cellulitis and peripheral arterial disease. PLAN: We will continue let the foot demarcate. The patient is aware, she will need an amputation sometime next week. She relates that she will like to continue waiting. The patient understands that this toe will not get any better. MARIO Alan/KELLEY /[id number]
[2019-11-23] MEDS: PREGABALIN 75 MG CAP PO SCH ×3 (09:15→21:45)
[2019-11-23] MEDS: MUPIROCIN 2% OINT 22 GM TUBE TOP SCH ×2 (09:16→21:00)
[2019-11-23] MEDS: INSULIN GLARGINE 100 UNITS/ML VIAL SQ SCH ×2 (09:16→21:47)
--- NOTE | 2019-11-23 09:24 | NUR ---
PATIENT STATES THAT SHE HAS HER HOME MEDICATION OF HYDROCODONE WITH ON HER. B/P ALARMINGLY LOW 80/53. PATIENT ASYMPTOMATIC. RESTING IN BED. AAOX3. ACYANOTIC. INSTRUCTED TO CALL FOR ASSISTANCE BEFORE GETTING OUT OF BED TO PREVENT FALLS. VERBALIZED UNDERSTANDING. BED LOW. SIDE RAILS UP X2. CALL LIGHT IN REACH. BED ALARM SET. PROVIDED PATIENT EDUCATION ON HYDROCODONE DOSE ROUTE FREQUENCY SIDE EFFECTS. RE-INFORCEMENT NEEDED.
[2019-11-23] MEDS: VANCOMYCIN 1GM/NS 250 ML 250 ML IV SCH ×2 (09:54→22:00)
[2019-11-23] MEDS ORDERED: SODIUM CHLORIDE 0.9% 1000ML 1,000 ML IV SCH (10:15)
--- NOTE | 2019-11-23 10:50 | NUR ---
Pt unavailable at this time. Staff performing procedure bedside. I will follow up as able. PRICILA GONZALES Call Or Contact [facility] O: [phone]
--- NOTE | 2019-11-23 14:16 | Consultation ---
DATE OF CONSULTATION: 11/23/2019 CHIEF COMPLAINT: Left shoulder pain. HISTORY OF PRESENT ILLNESS: The patient is a 44-year-old lady, who reports 1-year history of left shoulder pain. She attributes the shoulder pain onset to an incident when she was lifting something heavy with her child. She states that since that time she had diffuse left shoulder pain. She was seen in our office initially in April,. Clinic exam and x-rays taken at that time were consistent with impingement syndrome. She was given a subacromial injection and referred to physical therapy. She subsequently developed a toe infection and was not able to go to physical therapy. She returned to our office roughly two months after initial visit. She stated the injection had improved her shoulder pain by about 95%. She was taking narcotics due to the recent toe amputation. We stressed the importance of physical therapy. She notified us by phone that she could not afford the copay for her physical therapy. We provided a pamphlet of home exercise that she could perform. She called and requested that we obtain an MRI. An MRI was obtained back in July. This showed a partial-thickness tear of the rotator cuff. Once again, the treatment options were discussed. Conservative management was recommended. She requested an injection and, even though it was a little early to do so, we provided a second injection. Modification of activities explained. We did not see her back. She was also given an anti-inflammatory. She is currently admitted to the hospital due to a recurrent toe infection. She continues to complain of left shoulder pain. Orthopedic consultation was requested. PAST MEDICAL HISTORY: Insulin-dependent diabetes. PREVIOUS SURGERIES: Amputation of her right great toe and a . SOCIAL HISTORY: She drinks alcohol socially. She is currently not and is . She is a previous smoker. MEDICATIONS: 1. Insulin Levemir. 2. Metformin. 3. Hydrocodone. ALLERGIES: NONE. PHYSICAL EXAMINATION: She is in no obvious distress, but is quite vocal about her level of symptoms. Her general body habitus is consistent with a BMI of roughly 45. Gross inspection of the left shoulder reveals diminished landmarks due to body habitus. There is generalized muscle weakness. Active elevation appears quite fluid to 160 degrees, abduction to 150 degrees. Her elbow has full passive and active range of motion. Strength testing is compromised secondary to complaints of pain. She has positive impingement signs. DIAGNOSTIC DATA: A repeat MRI and x-rays done of the left shoulder once again did not show anything catastrophic. There is no evidence of a full-thickness rotator cuff tear or bone abnormality. IMPRESSION: Intractable impingement syndrome, left shoulder. The findings were extensively discussed with the patient. She is wanting and somewhat expecting some sort of an immediate resolution of her symptoms. I explained that it is not quite that easy. On occasion, if someone fails extensive conservative management, we would consider an elective left shoulder arthroscopy with subacromial decompression, bursectomy and debridement of a partial-thickness rotator cuff tear. At present, there is a severe viral pandemic throughout the country. All elective cases were on hold. I explained that we would be happy to see the patient in the clinic and discuss elective surgical intervention once the viral pandemic has settled. She expressed anger and dissatisfaction that we are not doing anything for her. She expressed that nobody is listening to her. I attempted to placate her complaints and provide further treatment recommendations. She became quite abusive and I explained that we would be happy to see her on an elective basis in the clinic at her request. For now, there is no acute orthopedic intervention necessary. She has been instructed in home physical therapy. She has been given two previous corticosteroid injections. She will continue on anti-inflammatories as needed. She is welcome to see us after discharge on an elective basis. Alexandro Ashraf MD DR/KELLEY /[id number]
[2019-11-23] MEDS ORDERED: SODIUM CHLORIDE 0.9% 250ML 250 ML ONE (14:32)
--- NOTE | 2019-11-23 15:26 | Diagnostic Imaging Report ---
MRI OF THE LEFT ELBOW History: Left elbow pain Comparison: No comparison left elbow imaging Technique: Multiplanar multisequence MRI of the left elbow was performed without contrast. Several sequences were interpreted by patient motion artifact, particularly the coronal sequences. Findings: Common extensor tendon: No tendinopathy or tear. Lateral collateral ligament complex: The radial collateral ligament and lateral ulnar collateral ligament appear intact. Common flexor/pronator tendon: No tendinopathy or tear. Medial collateral ligament complex: The ulnar collateral ligament complex is intact. Triceps tendon: No tendinopathy or tear. Biceps and brachialis tendons: No tendinopathy or tear. Muscles: No muscle atrophy. No muscle edema. Cubital tunnel: Mild enlargement of and increased T2 signal in the ulnar nerve at and just proximal to the cubital tunnel. This finding can be a sign of ulnar neuritis. No structural abnormality is identified in the cubital tunnel. Bones/ Cartilage: No fracture or bone contusion are identified. No erosive changes.. No high-grade cartilage loss is visualized. Articular cartilage detail is degraded by motion artifact.. Fluid: Joint fluid volume appears physiologic. No significant bursal fluid collections. IMPRESSION: 1. Mildly increased T2 signal in and enlargement of the ulnar nerve at and just proximal to the cubital tunnel, which can be a sign of ulnar neuritis. 2. Otherwise unremarkable MRI examination of the left elbow. Signed by: Alexandro Ventura MD on 11/23/2019 3:22 PM
--- NOTE | 2019-11-23 16:01 | Diagnostic Imaging Report ---
MRI of the left shoulder without contrast. History: Arm pain. Decreased range of motion. Shoulder pain pain not responding to conservative management. Comparison: None Technique: Coronal PD FS, sagital PD FS, and axial PD and PD FS. Findings: Rotator cuff: Rotator cuff tendinosis without tear, muscle atrophy or retraction. Osseous acromion complex: Type II acromion with mild lateral downsloping. Mild degenerative arthrosis at the acromioclavicular joint with undersurface spurring and narrowing of the supraspinatus tendon outlet. Glenohumeral joint: Degeneration and fraying of the labrum. The articular cartilage surfaces are thin. The humeral head is well-seated in the glenoid fossa. Small effusion and mild synovitis in the rotator interval and subcoracoid space. Biceps tendon: Intra-articular biceps tendinosis with fraying of the biceps anchor. Other findings: Negative for muscle denervation or osseous fracture. Mild bone marrow edema at the anterior humeral head likely stress related best seen on sagittal image 8. Impression: 1. Rotator cuff tendinosis without tear, muscle atrophy or retraction. 2. Small effusion and mild synovitis in the rotator interval and subcoracoid space. 3. Mild bone marrow edema at the anterior humeral head likely stress related. 4. Intra-articular biceps tendinosis with fraying of the biceps anchor. Signed by: Dr. Carlos Samuels M.D. on 11/23/2019 3:57 PM
--- NOTE | 2019-11-23 19:30 | NUR ---
RECEIVED REPORT FROM 7AM NURSE, PATIENT RESTING IN THE CHAIR WITH HER RIGHT LEG ELEVATED ON THE SOFA, NO DISTRESS NOTED. CALL LIGHT REMAIN IN REACH. WILL CONTINUE TO MONITOR.
[2019-11-23] MEDS: ATORVASTATIN 40 MG TAB PO SCH (21:45)
[2019-11-24] VITALS (7 sets, daily range): BP systolic 102–126; BP diastolic 53–73
[2019-11-24] MEDS: HYDROCODONE/APAP 5MG-325MG TAB PO PRN ×3 (02:14→20:15)
--- NOTE | 2019-11-24 03:19 | NUR ---
PATIENT CONTINUE RESTING, UPON ENTERING THE ROOM PATIENT RESTING, I GET CLOSER TO HER BED SHE STARTS MOVING HER LEFT ELBOW COMPLAINING OF PAIN, PATIENT HAS DONE THIS SEVERAL TIMES THROUGHOUT THE SHIFT. MEDICATE ORDERED. CALL LIGHT REMAIN IN REACH. WILL CONTINUE TO MONITOR.
--- NOTE | 2019-11-24 03:27 | NUR ---
PATIENT DID HER OWN DRESSING CHANGE TO HER RIGHT FOOT, PATIENT STATED, " I'VE BEEN DOING IT SO WHY NOT CONTINUE".
[2019-11-24] MEDS: ONDANSETRON HCL INJ 2MG/ML 2ML 2 MG/ML VIAL IV PRN ×2 (04:13→04:45)
[2019-11-24] MEDS: MORPHINE SULFATE 2 MG/ML SYR 1ML IV PRN ×3 (04:13→16:47)
[2019-11-24] MEDS: PIPER-TAZ 3.375 GM 50 ML IV SCH ×3 (05:00→20:42)
[2019-11-24 06:17] LABS: BASOPHILS % 0.3 % (0.0-1.0); EOSINOPHILS # (AUTO) 0.3 (0.0-0.4); EOSINOPHILS % 3.8 % (0.0-6.0); HEMATOCRIT 29.8 % (34.2-44.1); HEMOGLOBIN 9.1 g/dL (12.0-16.0); LYMPHOCYTES # (AUTO) 1.8 (1.0-3.2); LYMPHOCYTES % 23.1 % (18.0-39.1); MEAN CORPUSCULAR HEMOGLOBIN 29.5 pg (28-32); MEAN CORPUSCULAR HGB CONC 30.5 g/dL (31-35); MEAN CORPUSCULAR VOLUME 96.8 fL (81-99); MONOCYTES # (AUTO) 0.7 (0.2-0.8); MONOCYTES % 8.8 % (4.4-11.3); NEUTROPHILS % 63.7 % (38.7-80.0); PLATELET COUNT 228 x10e3/uL (140-360); RED BLOOD COUNT 3.08 x10e6/uL (3.6-5.1); RED CELL DISTRIBUTION WIDTH 12.6 % (11.7-14.4)
[2019-11-24 06:37] LABS: ANION GAP 7.7 mmol/L (8-16); BLOOD UREA NITROGEN 21 mg/dL (7-26); BUN/CREATININE RATIO 26 (6-25); CALCIUM 8.4 mg/dL (8.4-10.2); CARBON DIOXIDE 26 mmol/L (22-29); CHLORIDE 110 mmol/L (98-107); CREATININE, SERUM 0.82 mg/dL (0.57-1.11); EST GLOMERULAR FILTRATION RATE > 60 ML/MIN (60-); GLUCOSE 167 mg/dL (74-118); POTASSIUM 4.7 mmol/L (3.5-5.1); SODIUM 139 mmol/L (136-145)
--- NOTE | 2019-11-24 07:00 | NUR ---
REPORT GIVEN TO AM NURSE, PATIENT CONTINUE RESTING, NO DISTRESS NOTED. CALL LIGHT IN REACH.
[2019-11-24] MEDS: INSULIN REGULAR, HUMAN 100 UNIT/1 ML 3ML VIAL SQ SCH ×4 (07:30→20:43)
[2019-11-24] MEDS: INSULIN GLARGINE 100 UNITS/ML VIAL SQ SCH ×2 (09:00→20:43)
[2019-11-24] MEDS ORDERED: FENTANYL 25 MCG/HR PATCH TOP SCH (09:30)
[2019-11-24] MEDS: PREGABALIN 75 MG CAP PO SCH ×3 (09:54→20:42)
[2019-11-24] MEDS: LIDOCAINE 4% PATCH TP SCH (09:54)
[2019-11-24] MEDS: MUPIROCIN 2% OINT 22 GM TUBE TOP SCH ×2 (09:54→20:43)
[2019-11-24] MEDS: VANCOMYCIN 1GM/NS 250 ML 250 ML IV SCH (10:02)
[2019-11-24] MEDS: ZOLPIDEM TARTRATE 5 MG TAB PO PRN (11:58)
--- NOTE | 2019-11-24 15:50 | Consultation ---
DATE OF CONSULTATION: 11/24/2019 SUBJECTIVE: The patient at bedside, doing better, decreased pain to the right lower extremity, having pain to the left arm and shoulder. Denies any history of fever, chills, nausea, or vomiting. OBJECTIVE: VITAL SIGNS: Afebrile. Pulse rate 82, respirations 16, blood pressure 113/53, O2 saturation 95%. LABORATORY DATA: Labs show a white blood cell count of 7.8, hemoglobin 9.1 with a platelet count of 228,000. Blood glucose of 147. The 2nd toe started to demarcate and has dry eschar noted to the dorsal aspect with an ulceration down to bone measuring more than 2 cm in diameter. Plantar aspect of the right great toe of the 2nd toe right foot less cyanotic. Skin temperature warm to touch. ASSESSMENT: Microvascular disease diabetic neuropathy, osteomyelitis with a grade 4 ulcer and pre gangrene. PLAN: The patient would like to continue waiting before definitive procedure is done, was instructed that toe will definitely need to be amputated. The patient relates she will like hold off till next week. Will continue local wound care IV antibiotics until then definitive procedure will be done. The patient instructed if she waits too long, infection can progress more proximally where she may end up needing a transmetatarsal amputation. MARIO Alan/KELLEY /[id number]
--- NOTE | 2019-11-24 19:24 | NUR ---
Received report from day shift nurse at this time; Pt. appears to be in stable condition; A & 0 x 3 with bandage to right foot C/D/I; Will continue to monitor.
[2019-11-24] MEDS: ATORVASTATIN 40 MG TAB PO SCH (20:42)
[2019-11-25] VITALS (10 sets, daily range): BP systolic 101–119; BP diastolic 52–70
--- NOTE | 2019-11-25 01:14 | NUR ---
Pt. remains in stable condition; pt. appears to be resting at this time; left a message with Dr. Tejada about pt. wanting more pain medication due to pain in left arm; waiting for return call. VSS; Will continue to monitor.
[2019-11-25] MEDS: MORPHINE SULFATE 2 MG/ML SYR 1ML IV PRN ×2 (04:10→21:15)
[2019-11-25] MEDS: ONDANSETRON HCL INJ 2MG/ML 2ML 2 MG/ML VIAL IV PRN (04:10)
[2019-11-25] MEDS: PIPER-TAZ 3.375 GM 50 ML IV SCH ×3 (05:00→21:24)
[2019-11-25] MEDS ORDERED: HYDROCODONE/APAP 10MG-325MG TAB PO PRN ×2 (06:45→21:00)
[2019-11-25] MEDS ORDERED: MORPHINE SULFATE INJ 4 MG/ML INJ 1ML IV PRN ×2 (06:45→12:15)
--- NOTE | 2019-11-25 07:15 | NUR ---
Received bedside shift report. Patient awake at this time, no visible signs of distress. Call light within reach.
--- NOTE | 2019-11-25 07:15 | NUR ---
New pain medication orders received from Dr. Mosley; Pt. in stable condition; Report given to
[2019-11-25] MEDS: LIDOCAINE 4% PATCH TP SCH (08:59)
[2019-11-25] MEDS: MUPIROCIN 2% OINT 22 GM TUBE TOP SCH ×2 (08:59→21:59)
[2019-11-25] MEDS: INSULIN REGULAR, HUMAN 100 UNIT/1 ML 3ML VIAL SQ SCH ×4 (08:59→21:30)
[2019-11-25] MEDS: PREGABALIN 75 MG CAP PO SCH ×3 (08:59→21:45)
[2019-11-25] MEDS: INSULIN GLARGINE 100 UNITS/ML VIAL SQ SCH ×2 (09:00→21:40)
--- NOTE | 2019-11-25 09:00 | NUR ---
Per patient, she completed her own wound care today and applied medications as ordered. Educated on need for Nurse assessment, instructed to call nurse prior to care/dressing change, verbalized understanding. Addendum: 11/25/19 at 1122 by JAMES KRAUSE RN Refused assessment at this time due to complaints of pain. PRN morphine 4mg IV given for pain.
--- NOTE | 2019-11-25 09:00 | NUR ---
Done by patient, refer to note 11/25/19 at 0900 Addendum: 11/25/19 at 1123 by JAMES KRAUSE RN Amended: Links added.
--- NOTE | 2019-11-25 13:34 | Consultation ---
DATE OF CONSULTATION: 11/25/2019 SUBJECTIVE: The patient at bedside, still wanting to not do any type of amputation at this point. OBJECTIVE: VITAL SIGNS: Afebrile, pulse rate 77, respirations 16, blood pressure 114/60, O2 saturation 97%. Cellulitis of the right foot, getting better. Periwound cellulitis surrounding the grade 4 ulceration of osteomyelitic changes noted to the 2nd toe right foot. ASSESSMENT: 1. Microvascular disease. 2. Diabetes. 3. Osteomyelitis. 4. Gangrene with cellulitis. PLAN: Continue IV antibiotics, local wound care. The patient informed no later than Wednesday of next week, a definitive procedure will have to be done to hopefully for any type of further migration of the infection. MARIO Alan/KELLEY /[id number]
[2019-11-25] MEDS ORDERED: MORPHINE SULFATE 2 MG/ML SYR 1ML IV PRN (13:45)
--- NOTE | 2019-11-25 16:10 | NUR ---
Nutrition Screen Note RD Recommendation for Physician: - Continue current diet order Plan of Care: RD following, monitoring for tolerance and adequacy, diet education Nutrition reason for involvement: LOS Primary Diagnose(s): 1. Microvascular disease. 2. Diabetes. 3. Osteomyelitis. 4. Gangrene with cellulitis. PMH: insulin-dependent diabetes times 20+ years plus peripheral arterial disease Ht: 63in Wt: 246lb BMI: 43.6kg/m2 IBW: 115lb +/- 10% RD Assessment: (11/24) Chart reviewed. Labs and meds reviewed. 44yo F, who was admitted for R foot gangrene. HbA1c at 10%. Visited pt in the room. Pt reports good appetite. Pt denies any nausea or vomiting. No chewing or swallowing difficulty noted. Pt reports recent weight gain due to amputation. Pt has received diet education on 05/2019 and like to learn more today. Pt receives handouts. All questions have been answered. Will revisit if consulted. Current Diet: ADA diet Malnutrition Evaluation (11/24) The patient does not meet criteria for a specified degree of malnutrition at this time. Will re-evaluate at follow-up as appropriate. Diet Education Needs Assessment: Diet education indicated, pt is agreeable. Learner(s): pt Time spent: 30minutes Barriers: Financial, lack of family support, physical inactivity due to recent amputation Cultural/Language Modifications: No cultural/language modifications noted. Pt speaks Grenadian. Readiness: Pt eager to learn. Method: Explanation, handouts, visual aid Topics:Reading the nutrition label, meal planning tips, exercise tips, servings/portion sizes, 1800 calorie meal plan Understanding/Compliance: Expect fair understanding/compliance from pt. Will benefit from reinforcement. All questions have been answered. Nutrition Care Level: low Signed: Lisa Cali, MS, RD, LD
--- NOTE | 2019-11-25 19:30 | NUR ---
Bedside shift report given to night nurse. Patient is visibly upset and crying at this time. Refused PRN Morphine 2mg and states, "I don't understand why my pain in not being managed. Why would Dr. Cruz consult a pain doctor when his nurse can come and discontinue the orders." Patient offered support and reassurance. Requested to speak to nursing job training supervisor because "I am not happy about this, and I want Dr. Cruz off my case. Im not going to wait for another primary care doctor." Offered PRN morphine 2mg IV again and patient refused and removed fentanyl patch that was placed on upper right chest. Nurse job training supervisor Ghada notified of situation. Call light within reach.
--- NOTE | 2019-11-25 19:45 | NUR ---
supervisor felling bucking was in the patient room and discussing.notified to regarding condition and concern of patient.Md recommended to contact leadership program internship Elisabeth as changed pain medication dose.call placed to gaudencio office, answered to change back pain medication as prescribed earlier.implemented.keep monitor the patient.
[2019-11-25] MEDS: ATORVASTATIN 40 MG TAB PO SCH (21:45)
[2019-11-25] MEDS: ZOLPIDEM TARTRATE 5 MG TAB PO PRN (22:05)
[2019-11-26] VITALS: BP 110/62
[2019-11-26] MEDS: MORPHINE SULFATE 2 MG/ML SYR 1ML IV PRN ×2 (00:45→05:15)
[2019-11-26 04:00] VITALS: BP 108/61
[2019-11-26] MEDS: PIPER-TAZ 3.375 GM 50 ML IV SCH ×3 (05:19→21:21)
[2019-11-26 06:33] LABS: BASOPHILS % 0.3 % (0.0-1.0); EOSINOPHILS # (AUTO) 0.3 (0.0-0.4); HEMATOCRIT 31.3 % (34.2-44.1); HEMOGLOBIN 9.7 g/dL (12.0-16.0); LYMPHOCYTES # (AUTO) 3.6 (1.0-3.2); LYMPHOCYTES % 38.1 % (18.0-39.1); MEAN CORPUSCULAR HEMOGLOBIN 29.9 pg (28-32); MEAN CORPUSCULAR VOLUME 96.6 fL (81-99); MONOCYTES # (AUTO) 0.9 (0.2-0.8); MONOCYTES % 9.2 % (4.4-11.3); NEUTROPHILS # (AUTO) 4.7 (2.1-6.9); NEUTROPHILS % 49.1 % (38.7-80.0); PLATELET COUNT 262 x10e3/uL (140-360); RED BLOOD COUNT 3.24 x10e6/uL (3.6-5.1); RED CELL DISTRIBUTION WIDTH 12.3 % (11.7-14.4)
[2019-11-26 06:57] LABS: ANION GAP 11.9 mmol/L (8-16); CALCIUM 8.5 mg/dL (8.4-10.2); CREATININE, SERUM 1.3 mg/dL (0.57-1.11); POTASSIUM 4.9 mmol/L (3.5-5.1)
--- NOTE | 2019-11-26 07:00 | NUR ---
REPORT GIVEN TO ONCOMING RN.STABLE CONDITION.
[2019-11-26] MEDS: INSULIN REGULAR, HUMAN 100 UNIT/1 ML 3ML VIAL SQ SCH ×4 (07:30→21:00)
--- NOTE | 2019-11-26 08:00 | NUR ---
PT SITTING UP IN RECLINER. AAO X 3. VOICES NO C/O DISCOMFORT. RIGHT FOOT ELEVATED. DRSG TO THE RIGHT FOOT IS C/D/I.
[2019-11-26 08:58] VITALS: BP 90/51
[2019-11-26] MEDS: PREGABALIN 75 MG CAP PO SCH ×3 (09:47→21:21)
[2019-11-26] MEDS: LIDOCAINE 4% PATCH TP SCH (09:54)
[2019-11-26] MEDS: INSULIN GLARGINE 100 UNITS/ML VIAL SQ SCH ×2 (09:54→21:00)
--- NOTE | 2019-11-26 10:30 | NUR ---
DIANA WESTON FROM DR. WINTERS OFFICE AT BEDSIDE. NEW ORDERS NOTED.
[2019-11-26] MEDS ORDERED: HYDROCODONE/APAP 10MG-325MG TAB PO PRN ×2 (11:45→20:15)
[2019-11-26] MEDS ORDERED: MORPHINE SULFATE INJ 4 MG/ML INJ 1ML IV PRN ×2 (11:45→12:00)
[2019-11-26 12:10] VITALS: BP 108/52
[2019-11-26] MEDS: SODIUM CHLORIDE 0.9% 1000ML 1,000 ML IV SCH ×2 (12:25→12:37)
--- NOTE | 2019-11-26 12:30 | NUR ---
PT UP TO SHOWER. DRSG CHANGE DONE TO THE RIGHT TOE.
[2019-11-26] MEDS: MUPIROCIN 2% OINT 22 GM TUBE TOP SCH ×2 (12:54→21:22)
[2019-11-26 16:00] VITALS: BP 105/66
--- NOTE | 2019-11-26 16:02 | Progress Note ---
DATE: 11/26/2019 SUBJECTIVE: The patient at bedside, still having some discomfort to the left lower extremity. Denies any history of fever, chills, nausea, or vomiting. OBJECTIVE: VITAL SIGNS: Afebrile, pulse rate 82, respirations 20, blood pressure 106/52, and O2 saturation 98%. LABORATORY DATA: Labs show white blood cell count of 9.56. Gangrenous changes noted to the dorsal aspect of the 2nd toe, right foot. Bone exposed with a grade 4 ulceration, cellulitis surrounding the ulceration, but significantly better since she has been getting her IV antibiotics. ASSESSMENT: Microvascular disease, gangrene, osteomyelitis, right 2nd toe. PLAN: We will continue to treat conservatively. The patient relates she would like to decide on surgery for possible Wednesday. The patient understands that no guarantees can be given. We will continue to treat conservatively for now. MARIO Alan/KELLEY /[id number]
--- NOTE | 2019-11-26 19:15 | NUR ---
Bedside report and rounds completed with off going nurse. Patient in bed with call light within reach. Patient upset regarding PRN pain medications and wanting to speak to powerhouse operator. supervisor sleeping bag department notified patient requesting to speak to her. Updated patient powerhouse operator to come to room to speak to patient. Will continue to monitor.
--- NOTE | 2019-11-26 19:30 | NUR ---
AOS to room to speak to patient
--- NOTE | 2019-11-26 19:50 | NUR ---
AOS states to call Dr Cruz regarding patient pain medication.
[2019-11-26 20:00] VITALS: BP 100/50
--- NOTE | 2019-11-26 20:01 | NUR ---
Spoke with Dr Cruz regarding patient PRN pain medication. Patient requesting choice of morphine or norco every 4 hrs for pain. Orders are currently Morphine 4 mg IVP Q 4 hrs PRN or [place] 10/325 mg po Q 4 hrs PRN but can only have one or other.
[2019-11-26] MEDS: ATORVASTATIN 40 MG TAB PO SCH (21:21)
[2019-11-26] MEDS: MORPHINE SULFATE INJ 4 MG/ML INJ 1ML IV PRN (21:24)
[2019-11-26] MEDS: ZOLPIDEM TARTRATE 5 MG TAB PO PRN (22:37)
[2019-11-27] VITALS (7 sets, daily range): BP systolic 97–125; BP diastolic 53–62
[2019-11-27] MEDS: MORPHINE SULFATE INJ 4 MG/ML INJ 1ML IV PRN ×5 (01:45→22:15)
[2019-11-27] MEDS: PIPER-TAZ 3.375 GM 50 ML IV SCH (06:01)
[2019-11-27] MEDS: ACETAMINOPHEN 325 MG TAB PO PRN (06:02)
[2019-11-27 06:08] LABS: BASOPHILS % 0.2 % (0.0-1.0); EOSINOPHILS # (AUTO) 0.3 (0.0-0.4); EOSINOPHILS % 3.1 % (0.0-6.0); HEMOGLOBIN 9.1 g/dL (12.0-16.0); LYMPHOCYTES # (AUTO) 3.5 (1.0-3.2); LYMPHOCYTES % 38.2 % (18.0-39.1); MEAN CORPUSCULAR HEMOGLOBIN 30.1 pg (28-32); MEAN CORPUSCULAR HGB CONC 31.4 g/dL (31-35); MONOCYTES # (AUTO) 0.8 (0.2-0.8); MONOCYTES % 8.9 % (4.4-11.3); NEUTROPHILS # (AUTO) 4.5 (2.1-6.9); NEUTROPHILS % 49.4 % (38.7-80.0); PLATELET COUNT 252 x10e3/uL (140-360); RED BLOOD COUNT 3.02 x10e6/uL (3.6-5.1); RED CELL DISTRIBUTION WIDTH 12.5 % (11.7-14.4)
[2019-11-27 06:30] LABS: ANION GAP 14.2 mmol/L (8-16); BLOOD UREA NITROGEN 26 mg/dL (7-26); BUN/CREATININE RATIO 27 (6-25); CALCIUM 8.3 mg/dL (8.4-10.2); CARBON DIOXIDE 28 mmol/L (22-29); CHLORIDE 108 mmol/L (98-107); CREATININE, SERUM 0.97 mg/dL (0.57-1.11); EST GLOMERULAR FILTRATION RATE > 60 ML/MIN (60-); GLUCOSE 104 mg/dL (74-118); POTASSIUM 5.2 mmol/L (3.5-5.1); SODIUM 145 mmol/L (136-145)
--- NOTE | 2019-11-27 07:20 | NUR ---
Bedside report and rounds completed with oncoming nurse. Patient in bed with call light within reach. No issues or concerns noted.
[2019-11-27] MEDS: INSULIN REGULAR, HUMAN 100 UNIT/1 ML 3ML VIAL SQ SCH ×4 (07:30→21:42)
[2019-11-27] MEDS: LIDOCAINE 4% PATCH TP SCH (09:00)
--- NOTE | 2019-11-27 10:00 | NUR ---
DR. ASHRAF AT BEDSIDE. NO NEW ORDERS NOTED.
[2019-11-27] MEDS: PREGABALIN 75 MG CAP PO SCH ×3 (10:20→21:30)
[2019-11-27] MEDS: INSULIN GLARGINE 100 UNITS/ML VIAL SQ SCH ×2 (10:27→21:42)
--- NOTE | 2019-11-27 12:00 | NUR ---
DIANA WESTON AT BEDSIDE. REMOVED DRSG TO THE LEFT FOOT. WOUND CARE DONE BY NURSE.
[2019-11-27] MEDS: CEFTRIAXONE SOD 1 GM/NS 50 ML 50 ML IV SCH (12:02)
[2019-11-27] MEDS: MUPIROCIN 2% OINT 22 GM TUBE TOP SCH ×2 (12:02→21:31)
--- NOTE | 2019-11-27 18:22 | Progress Note ---
DATE: 11/27/2019 SUBJECTIVE: The patient is seen at bedside. Decreased discomfort to the right lower extremity. Has some discomfort to the left shoulder. Denies any history of fever, chills, nausea, or vomiting. OBJECTIVE: VITAL SIGNS: Afebrile, pulse rate 86, respirations 16, blood pressure 100/53, O2 saturation 96%. LABORATORY DATA: Noted. White blood cell count of 9.17, hemoglobin 9.1 with a platelet count of 252. Blood glucose of 125. Gangrenous changes to the right 2nd toe still stabilizing. Cellulitis surrounding the ulcer with minimal foul smell with a grade 4 ulcer measuring more than 1.5 to 2 cm in diameter down to bone. ASSESSMENT: Pregangrene, peripheral arterial disease, microvascular disease with cellulitis. PLAN: Definitive procedure will be done on Wednesday. The patient understands no guarantees or warranties can be given. We will continue local wound care and IV antibiotics and definitive procedure will be decided tomorrow once the foot is examined. MARIO Alan/KELLEY /[id number]
--- NOTE | 2019-11-27 19:32 | NUR ---
Bedside report and walking rounds completed. Patient call light within reach. No issues or concerns noted. Will continue to monitor.
[2019-11-27] MEDS: ATORVASTATIN 40 MG TAB PO SCH (21:30)
--- NOTE | 2019-11-27 21:39 | NUR ---
Patient requesting wound care consult.
--- NOTE | 2019-11-27 22:00 | NUR ---
Patient refused nurse to change dressing change to right foot. States " I will do dressing change in a little bit." Supplies left at bedside. Educated that nurse can change dressing. Patent stated she would do dressing change. Will continue to monitor.
[2019-11-28] VITALS (8 sets, daily range): BP systolic 118–141; BP diastolic 58–67
[2019-11-28] MEDS ORDERED: SODIUM CHLORIDE 0.9% 250ML 250 ML ONE (02:22)
[2019-11-28] MEDS: MORPHINE SULFATE INJ 4 MG/ML INJ 1ML IV PRN ×3 (02:25→18:26)
[2019-11-28 06:48] LABS: BASOPHILS % 0.2 % (0.0-1.0); EOSINOPHILS # (AUTO) 0.2 (0.0-0.4); HEMATOCRIT 29.3 % (34.2-44.1); HEMOGLOBIN 9.3 g/dL (12.0-16.0); LYMPHOCYTES # (AUTO) 2.7 (1.0-3.2); LYMPHOCYTES % 27.4 % (18.0-39.1); MEAN CORPUSCULAR HEMOGLOBIN 30.6 pg (28-32); MEAN CORPUSCULAR HGB CONC 31.7 g/dL (31-35); MEAN CORPUSCULAR VOLUME 96.4 fL (81-99); MONOCYTES # (AUTO) 0.9 (0.2-0.8); MONOCYTES % 8.8 % (4.4-11.3); NEUTROPHILS % 61.3 % (38.7-80.0); PLATELET COUNT 242 x10e3/uL (140-360); RED BLOOD COUNT 3.04 x10e6/uL (3.6-5.1); RED CELL DISTRIBUTION WIDTH 12.3 % (11.7-14.4)
[2019-11-28] MEDS: ONDANSETRON HCL 4 MG ORAL DISINTEGRATING TAB PO PRN (06:50)
[2019-11-28] MEDS: ACETAMINOPHEN 325 MG TAB PO PRN ×2 (06:50→14:00)
[2019-11-28 07:06] LABS: BLOOD UREA NITROGEN 18 mg/dL (7-26); BUN/CREATININE RATIO 22 (6-25); CALCIUM 8.4 mg/dL (8.4-10.2); CARBON DIOXIDE 28 mmol/L (22-29); CHLORIDE 111 mmol/L (98-107); CREATININE, SERUM 0.83 mg/dL (0.57-1.11); EST GLOMERULAR FILTRATION RATE > 60 ML/MIN (60-); GLUCOSE 148 mg/dL (74-118); POTASSIUM 4.6 mmol/L (3.5-5.1); SODIUM 140 mmol/L (136-145)
[2019-11-28 07:07] LABS: ANION GAP 5.6 mmol/L (8-16)
--- NOTE | 2019-11-28 07:15 | NUR ---
Bedside report and walking rounds completed with oncoming nurse. Patient in bed, call light within reach. No concern noted.
[2019-11-28] MEDS: INSULIN REGULAR, HUMAN 100 UNIT/1 ML 3ML VIAL SQ SCH ×4 (07:30→20:50)
[2019-11-28] MEDS: INSULIN GLARGINE 100 UNITS/ML VIAL SQ SCH ×2 (09:00→20:50)
[2019-11-28] MEDS: LIDOCAINE 4% PATCH TP SCH (09:27)
[2019-11-28] MEDS: PREGABALIN 75 MG CAP PO SCH (09:27)
[2019-11-28] MEDS: MUPIROCIN 2% OINT 22 GM TUBE TOP SCH (09:33)
--- NOTE | 2019-11-28 11:00 | NUR ---
Elisabeth OFFSET PROOF PRESS OPERATOR with Dr. Cruz here to see pt.
[2019-11-28] MEDS: CEFTRIAXONE SOD 1 GM/NS 50 ML 50 ML IV SCH (13:29)
[2019-11-28] MEDS: CLINDAMYCIN 600MG / 50ML 50 ML IV SCH (18:26)
--- NOTE | 2019-11-28 18:51 | Consultation ---
DATE OF CONSULTATION: REASON FOR CONSULTATION: Osteomyelitis of the foot. HISTORY OF PRESENT ILLNESS: This patient who is known to me from for 44-year-old female, history of diabetes mellitus, history of neuropathy, peripheral vascular disease, obesity, had multiple right foot surgeries, and multiple amputations before, comes in with redness and swelling of the second toe on the right foot. The patient had a fissure on her first toe. The patient is being admitted. I am asked to see her. The patient was admitted back on November 19. I was asked to see her today. The toe seems to be husky with early discoloration. When she first came, she had an MRI of the foot, which showed soft tissue ulcer in 2nd toe. PAST MEDICAL HISTORY: Diabetes mellitus and neuropathy. PAST SURGICAL HISTORY: As above. ALLERGIES: NKA. SOCIAL HISTORY: There is no smoking, drug abuse, or alcohol abuse. FAMILY HISTORY: Otherwise hypertension and diabetes. REVIEW OF SYSTEMS: HEENT: Negative. PULMONARY: Negative. CARDIAC: Negative. PHYSICAL EXAMINATION: GENERAL: She is currently alert, oriented, does not seem to be in acute distress. VITAL SIGNS: Her vitals are stable, currently afebrile. HEENT: Normocephalic, not icteric. NECK: Supple. No JVD. No carotid bruits. No thyromegaly. CHEST: Clear bilaterally. HEART: S1, S2. No S3, S4, or murmur. ABDOMEN: Soft. Bowel sounds present. No tenderness. No hepatosplenomegaly. EXTREMITIES: No edema. Second toe, there is husky discoloration. It is red and swollen. IMPRESSION: Infection of the toe on the patient with diabetes mellitus and peripheral vascular disease. By examination, the toes are turning into gangrenous. Recommend amputation. Post amputation can probably treat with oral antibiotic. We will continue with IV antibiotic. She is currently on Rocephin 1 g daily. We will add clindamycin. We will follow. MD MAGGIE Mayorga/MODL /[id number]
--- NOTE | 2019-11-28 19:15 | NUR ---
patient received awake, alert, lying quietly in bed. no c/o pain noted. pm assessment complete. dressing remains off right foot per patient. call placed to re: surgery tomorrow. waiting for return call.
--- NOTE | 2019-11-28 19:40 | NUR ---
report given to oncoming nurse ,walking rounds complete.
--- NOTE | 2019-11-28 20:37 | Progress Note ---
DATE: 11/28/2019 SUBJECTIVE: The patient is seen at bedside, ready for to have surgical intervention. Denies any history of fever, chills, nausea, or vomiting. OBJECTIVE: VITAL SIGNS: Afebrile, pulse rate 82, respirations 20, blood pressure 123/64, O2 saturation 97%. LABORATORY DATA: Labs show white blood cell count of 9.4, hemoglobin 9.3 with a platelet count of 242. Has a blood glucose of 217. Has gangrenous changes with a grade 4 ulcer, 2nd toe, right foot. Bone exposed with cellulitis surrounding the ulceration with some foul smell present. ASSESSMENT: Grade 4 ulcer, gangrene, osteomyelitis. PLAN: The patient will be kept n.p.o. after midnight. The proposed surgery plus risks of complications reviewed in great detail. Approximately 20 to 25 minutes was spent with the patient with written consent. Instructed that no guarantees can be given. Proposed surgery is I and D of right foot, amputation 2nd toe, possible partial resection, 2nd met with rotational flap closure. MARIO Alan/KELLEY /[id number]
[2019-11-28] MEDS: ATORVASTATIN 40 MG TAB PO SCH (21:00)
--- NOTE | 2019-11-28 22:30 | NUR ---
consent obtained for surgery tomorrow. consent place on patients chart. patient to remain npo after mn and patient verbalizes understanding of this.
[2019-11-29] VITALS (7 sets, daily range): BP systolic 82–172; BP diastolic 49–77
[2019-11-29] MEDS: MORPHINE SULFATE INJ 4 MG/ML INJ 1ML IV PRN ×3 (00:05→18:00)
--- NOTE | 2019-11-29 04:30 | NUR ---
patient medicated with morphine 4mg ivp for c/o left shoulder pain 03/25 at this time.
[2019-11-29] MEDS: CLINDAMYCIN 600MG / 50ML 50 ML IV SCH ×4 (05:45→17:41)
[2019-11-29] MEDS: INSULIN REGULAR, HUMAN 100 UNIT/1 ML 3ML VIAL SQ SCH ×4 (07:30→21:00)
[2019-11-29] MEDS ORDERED: TRIAMCINOLONE ACET 40 MG/ML VIAL IM ONE (08:00)
--- NOTE | 2019-11-29 08:00 | NUR ---
The pt. is out of the room for surgery
[2019-11-29] MEDS: MUPIROCIN 2% OINT 22 GM TUBE TOP SCH (09:00)
[2019-11-29] MEDS: INSULIN GLARGINE 100 UNITS/ML VIAL SQ SCH ×2 (09:00→21:00)
[2019-11-29] MEDS: LIDOCAINE 4% PATCH TP SCH (09:00)
[2019-11-29] MEDS ORDERED: BUPIVACAINE HCL 0.5% INJ 30 ML VIAL INJ ONE (09:34)
[2019-11-29] MEDS ORDERED: BETAMETHASONE DISODIUM PHOS 6 MG/ML VIAL ONE (09:34)
[2019-11-29] MEDS ORDERED: LIDOCAINE HCL 1% LOCAL INJ 20 ML VIAL ONE (09:34)
[2019-11-29] MEDS ORDERED: MUPIROCIN 2% OINT 22 GM TUBE ONE (09:34)
[2019-11-29] MEDS ORDERED: BACITRACIN 50,000 UNIT VIAL ONE (09:34)
[2019-11-29] MEDS: CEFTRIAXONE SOD 1 GM/NS 50 ML 50 ML IV SCH (10:00)
--- NOTE | 2019-11-29 11:43 | NUR ---
CALLED INSURANCE CM: Chiquis Dodge AT P: [phone] [phone] TO SEE IF SNF BENEFITS ARE IN THIS PATIENTS POLICY. LEFT MESSAGE AND WILL UPDATE WHEN ABLE.
--- NOTE | 2019-11-29 11:46 | NUR ---
[phone] SPOKE WITH ROBERT, SHE STATES SHE CANNOT GIVE INFORMATION ABOUT SNF AND TO CALL [facility] AT [phone]. SPOKE WITH THANG AT [facility], HAS SNF AT 100 DAYS AT 100%
--- NOTE | 2019-11-29 12:14 | Operative Report ---
DATE OF PROCEDURE: 11/29/2019 SURGEON: Roman Arzate DPM PREOPERATIVE DIAGNOSES: 1. Gangrene, 2nd toe, right foot. 2. Abscess, right foot. 3. Osteomyelitis, right foot. POSTOPERATIVE DIAGNOSES: Confirmed. OPERATIVE PROCEDURES: 1. I and D of right foot. 2. Amputation 2nd toe, right foot. 3. Rotational flap closure. 4. Application of posterior splint. ANESTHESIA: General. HEMOSTASIS: None. PROCEDURE IN DETAIL: The patient was taken into the operating, placed on the operative room table in supine position following induction of general anesthesia by the anesthesiologist. The right lower extremity was then prepped and draped in the usual aseptic manner following procedures then performed: 1. I and D, right foot. Attention was directed to the dorsal aspect of the 2nd toe overlying the proximal interphalangeal joint, where a stab incision was performed down to bone. Abscess was encountered to both the medial and lateral aspect with some purulent drainage and cultured for aerobic and anaerobic growth secondary to the infection. 2. Amputation of the 2nd toe right foot was then initiated. Racquet shaped incision was performed overlying the 2nd metatarsophalangeal joint. The toe was then completely disarticulated at that joint and sent for pathological analysis. Secondary to the infection, further debridement of the infected tissue was removed via sharp and blunt dissection until good viable bleeding tissue was achieved secondary to the amount of tissue that had to be removed. A rotational flap was created. An incision was deep was then lengthened both dorsally, laterally and plantar medially to create a plantar flap to allow for proper closure with minimal skin tension. The flap was then transverse and dorsally displaced utilizing 3-0 Vicryl and 4-0 nylon. The flap was then reapproximated utilizing minimal skin tension. 3. Rotational flap closure. A sterile dressing was applied after approximately 5 mL of 0.5% plain Marcaine plus 5 mL of 1% Xylocaine plain were injected to achieve local anesthesia of above-mentioned surgical area. Sterile dressing was applied. 4. Application of posterior splint. A properly placed posterior splint was then applied keeping the foot at 90 degrees with respect to the leg to try for any type of postop complications. The patient was then transferred from the OR to recovery room with vital signs stable and neurovascular status intact. No intraoperative complications were encountered. Blood loss from the surgery was minimal. The patient to remain in the hospital for at least a day for IV antibiotics. No guarantees or warrantees were given. MARIO Alan/KELLEY /[id number]
--- NOTE | 2019-11-29 12:43 | NUR ---
The pt returned from surgery wake and alert. Morning med pass was given and the pt. bp 88 and no insulin coverage needed.
--- NOTE | 2019-11-29 13:33 | NUR ---
SPOKE WITH PT AND GAVE LIST OF FACILITIES IN NETWORK WITH INSURANCE, LET HER KNOW THE OPTIONS, SHE WILL SPEAK WITH DR PONCE ABOUT IT, STATES HAS HAD HOME IV ABX PRIOR SO KNOWS HOW TO CHANGE OUT. STATES WILL THINK ABOUT IT. SW OR CM TO FOLLOW UP.
[2019-11-29] MEDS ORDERED: KETOROLAC TROMETHAMINE 30 MG/ML VIAL ONE (17:23)
[2019-11-29] MEDS ORDERED: ONDANSETRON HCL INJ 2MG/ML 2ML 2 MG/ML VIAL ONE (17:23)
[2019-11-29] MEDS ORDERED: DEXAMETHASONE SOD PHOS INJ 4 MG/ML VIAL ONE (17:23)
[2019-11-29] MEDS ORDERED: PROPOFOL IV EMULSION 10 MG/ML 20 ML VIAL ONE (17:23)
[2019-11-29] MEDS ORDERED: SEVOFLURANE INHAL SOLN 250 ML PEN BTL ONE (17:23)
--- NOTE | 2019-11-29 20:00 | NUR ---
Received change of shift report from AM nurse. Walking rounds completed.
[2019-11-29] MEDS: ATORVASTATIN 40 MG TAB PO SCH (21:00)
[2019-11-30] VITALS (8 sets, daily range): BP systolic 95–172; BP diastolic 51–77
[2019-11-30] MEDS: MORPHINE SULFATE INJ 4 MG/ML INJ 1ML IV PRN ×4 (00:30→22:08)
[2019-11-30] MEDS: ONDANSETRON HCL 4 MG ORAL DISINTEGRATING TAB PO PRN (00:30)
--- NOTE | 2019-11-30 00:30 | NUR ---
Patient c/o pain. Meds given as ordered by MD. Also given nausea tab. Patient changed position for comfort. Continue monitor.
[2019-11-30] MEDS: CLINDAMYCIN 600MG / 50ML 50 ML IV SCH ×4 (05:06→17:02)
[2019-11-30 06:03] LABS: BASOPHILS % 0.1 % (0.0-1.0); EOSINOPHILS % 0.2 % (0.0-6.0); HEMATOCRIT 30.5 % (34.2-44.1); LYMPHOCYTES # (AUTO) 2.1 (1.0-3.2); LYMPHOCYTES % 22.2 % (18.0-39.1); MEAN CORPUSCULAR HEMOGLOBIN 29.9 pg (28-32); MEAN CORPUSCULAR HGB CONC 32.8 g/dL (31-35); MEAN CORPUSCULAR VOLUME 91.3 fL (81-99); MONOCYTES # (AUTO) 0.8 (0.2-0.8); MONOCYTES % 8.2 % (4.4-11.3); NEUTROPHILS # (AUTO) 6.4 (2.1-6.9); NEUTROPHILS % 68.8 % (38.7-80.0); PLATELET COUNT 278 x10e3/uL (140-360); RED BLOOD COUNT 3.34 x10e6/uL (3.6-5.1); RED CELL DISTRIBUTION WIDTH 11.9 % (11.7-14.4)
[2019-11-30 06:06] LABS: ANION GAP 9.5 mmol/L (8-16); BLOOD UREA NITROGEN 17 mg/dL (7-26); BUN/CREATININE RATIO 23 (6-25); CALCIUM 9.3 mg/dL (8.4-10.2); CARBON DIOXIDE 28 mmol/L (22-29); CHLORIDE 103 mmol/L (98-107); CREATININE, SERUM 0.73 mg/dL (0.57-1.11); EST GLOMERULAR FILTRATION RATE > 60 ML/MIN (60-); GLUCOSE 215 mg/dL (74-118); POTASSIUM 4.5 mmol/L (3.5-5.1); SODIUM 136 mmol/L (136-145)
--- NOTE | 2019-11-30 06:31 | NUR ---
Patient resting quitly at this time. Continue monitor.
[2019-11-30] MEDS: INSULIN REGULAR, HUMAN 100 UNIT/1 ML 3ML VIAL SQ SCH ×4 (08:33→21:00)
[2019-11-30] MEDS: LIDOCAINE 4% PATCH TP SCH (08:34)
[2019-11-30] MEDS: INSULIN GLARGINE 100 UNITS/ML VIAL SQ SCH ×2 (08:34→21:00)
[2019-11-30] MEDS: MUPIROCIN 2% OINT 22 GM TUBE TOP SCH (09:00)
--- NOTE | 2019-11-30 09:30 | NUR ---
DR. ASHRAF AT BEDSIDE.
[2019-11-30] MEDS: CEFTRIAXONE SOD 1 GM/NS 50 ML 50 ML IV SCH (09:56)
--- NOTE | 2019-11-30 10:57 | NUR ---
SPOKE WITH PT AGAIN ABUT SNF ORDER, SHE STATES SHE WANTS TO SPEAK WITH DR PONCE PRIOR TO ME SENDING RECORDS BUT WANTS COURTYARDS OF JAVED. SPOKE WITH [employer] WHOM WILL GET ME A PACKET BY END OF DAY TO SUBMIT FOR REVIEW.
--- NOTE | 2019-11-30 11:18 | Progress Note ---
DATE: SUBJECTIVE: Ms. Shah admitted to the hospital complaining of right foot 2nd toe necrotic wound. REVIEW OF SYSTEMS: No nausea, vomiting, fever, chills, chest pain, or shortness of breath. MEDICATIONS: Medication list reviewed, as far as Infectious Disease point of view she is on clindamycin on an Rocephin. ALLERGIES: NO KNOWN ALLERGIES. LABORATORY STUDIES: Hemoglobin 10, white blood cells 9.26, platelet 278,0. Sodium 136, potassium 4.5, creatinine 0.73. Microbiology studies, blood cultures negative. Urine culture showed E coli on 11/21/2019. Wound culture from surgical/operating room showed gram-positive cocci on Gram stain, however, the cultures still pending. RADIOLOGY STUDIES: No new Radiology studies available. She had a venous Doppler done, which was negative for DVT on left lower extremity, also arterial Doppler done showing possible evidence for significant arterial stenosis, had SUPERVISOR GRAPHITE section of the right lower extremity. PHYSICAL EXAMINATION: VITAL SIGNS: Temperature is 98.1, pulse 78, respiration 19, blood pressure 125/56. GENERAL: Comfortable in bed, alert and oriented in no acute distress. CVS: S1 and S2. CHEST: Equal expansion. Clear to auscultation. No acute distress. ABDOMEN: Soft and nontender. No distention. HEENT: Moist. No pallor. No JVD. EXTREMITIES: Right foot with surgical dressing. ASSESSMENT AND PLAN: A 44-year-old female with history of diabetes, hyperlipidemia, peripheral arterial disease by arterial Doppler as mentioned above, morbid obesity, chronic pain, and anemia. The patient is now status post amputation of the second toe on the right , also received incision and drainage of the right foot with rotational flap closure and application of posterior splint held, antibiotics reviewed, please refer to the chart for more information, antibiotics are listed above. Continue with wound care, tight glucose control and monitor the patient clinically, follow with the labs. Discussed with Dr. Dee in details. MD MAGGIE Mayorga/MODL /[id number]
--- NOTE | 2019-11-30 11:30 | NUR ---
PHYSICAL THERAPY AT BEDSIDE.
--- NOTE | 2019-11-30 17:00 | NUR ---
called Dr. Roman Arzate office. MD will see patient tomorrow.
--- NOTE | 2019-11-30 20:00 | NUR ---
Received change of shift report from AM nurse. Walking rounds completed.
[2019-11-30] MEDS: ATORVASTATIN 40 MG TAB PO SCH (21:00)
[2019-12-01] VITALS: BP 118/57
--- NOTE | 2019-12-01 | NUR ---
Patient c/o pain. Treated for pain x2 to foot. Continue monitor. Nawaf is on the floor and s/w patient. Teaching done with patient r/t pain to shoulder. Written materials given.
[2019-12-01] MEDS: MORPHINE SULFATE INJ 4 MG/ML INJ 1ML IV PRN (02:35)
[2019-12-01 04:00] VITALS: BP 98/58
--- NOTE | 2019-12-01 04:10 | NUR ---
Patient resting quitly at this time. Continue monitor for changes in patient condition.
[2019-12-01 05:39] LABS: BASOPHILS % 0.3 % (0.0-1.0); EOSINOPHILS # (AUTO) 0.2 (0.0-0.4); EOSINOPHILS % 1.7 % (0.0-6.0); HEMATOCRIT 30.2 % (34.2-44.1); HEMOGLOBIN 9.6 g/dL (12.0-16.0); LYMPHOCYTES # (AUTO) 3.9 (1.0-3.2); LYMPHOCYTES % 37.6 % (18.0-39.1); MEAN CORPUSCULAR HEMOGLOBIN 29.5 pg (28-32); MEAN CORPUSCULAR HGB CONC 31.8 g/dL (31-35); MEAN CORPUSCULAR VOLUME 92.9 fL (81-99); MONOCYTES # (AUTO) 0.8 (0.2-0.8); NEUTROPHILS # (AUTO) 5.4 (2.1-6.9); PLATELET COUNT 287 x10e3/uL (140-360); RED BLOOD COUNT 3.25 x10e6/uL (3.6-5.1); RED CELL DISTRIBUTION WIDTH 12.1 % (11.7-14.4)
[2019-12-01] MEDS: CLINDAMYCIN 600MG / 50ML 50 ML IV SCH ×3 (06:00→12:38)
[2019-12-01 06:15] LABS: ANION GAP 8.5 mmol/L (8-16); BLOOD UREA NITROGEN 25 mg/dL (7-26); BUN/CREATININE RATIO 29 (6-25); CALCIUM 8.8 mg/dL (8.4-10.2); CARBON DIOXIDE 26 mmol/L (22-29); CHLORIDE 108 mmol/L (98-107); CREATININE, SERUM 0.85 mg/dL (0.57-1.11); EST GLOMERULAR FILTRATION RATE > 60 ML/MIN (60-); GLUCOSE 97 mg/dL (74-118); MAGNESIUM 1.9 MG/DL (1.3-2.1); PHOSPHORUS 4.9 MG/DL (2.3-4.7); POTASSIUM 4.5 mmol/L (3.5-5.1); SODIUM 138 mmol/L (136-145)
[2019-12-01] MEDS ORDERED: LIDOCAINE HCL 1% LOCAL INJ 20 ML VIAL IM ONE (07:00)
[2019-12-01] MEDS ORDERED: TRIAMCINOLONE ACET 40 MG/ML VIAL IM ONE (07:00)
--- NOTE | 2019-12-01 07:20 | NUR ---
PATIENT IS AWAKE, ALERT, AND IN STABLE CONDITION WITH NO S/S OF RESPIRATORY DISTRESS. PATIENT C/O RIGHT FOOT AND LEFT UPPER ARM PAIN 03/25- BLOOD PRESSURE IS TOO LOW AT THIS TIME TO ADMINISTER PAIN MEDICATION BUT DR. ASHRAF WILL BE ON THE UNIT TO ADMINISTER PAIN MEDICATION TO THE PATIENT THIS MORNING. DRESSING APPLIED TO THE RIGHT FOOT- POST SECOND TOE AMPUTATION ON 11/29/19. CALL LIGHT IS WITHIN REACH, PATIENT INSTRUCTED TO CALL FOR ASSISTANCE NEEDED.
[2019-12-01] MEDS ORDERED: FAMOTIDINE 20 MG TAB PO SCH (07:30)
[2019-12-01] MEDS: INSULIN REGULAR, HUMAN 100 UNIT/1 ML 3ML VIAL SQ SCH ×2 (07:30→11:30)
[2019-12-01 07:55] VITALS: BP 89/54
[2019-12-01] MEDS: INSULIN GLARGINE 100 UNITS/ML VIAL SQ SCH (08:31)
[2019-12-01] MEDS: LIDOCAINE 4% PATCH TP SCH (08:31)
--- NOTE | 2019-12-01 08:34 | NUR ---
SPOKE WITH PT, SHE CHANGED HER MIND AND STATES SHE WANTS FOCUSED CARE OF [place], OBTAINED NEW COVID FORM SIGNATURES AND FAXED CLINICALS, UPDATED RTF AND PUT WITH PACKET FOR COMPLETION OF TRANSFER.
[2019-12-01] MEDS: MUPIROCIN 2% OINT 22 GM TUBE TOP SCH (09:00)
[2019-12-01] MEDS: CEFTRIAXONE SOD 1 GM/NS 50 ML 50 ML IV SCH (09:10)
--- NOTE | 2019-12-01 09:16 | Progress Note ---
DATE: 12/01/2019 SUBJECTIVE: The patient at bedside, in good spirits. Denies any history of fever, chills, nausea, or vomiting. OBJECTIVE: VITAL SIGNS: Afebrile. Vital signs stable. White blood cell count is 10.27. Incision site is looks really good, flap is viable. No signs of infection. Minimal cellulitis. ASSESSMENT: Moderate amount of swelling with minimal cellulitis, status post amputation, I and D with flap closure. PLAN: Okay to be discharged with oral antibiotics such as doxycycline 100 mg to remain nonweightbearing with the aid of crutches or walker. Follow up in the office by Wednesday. MARIO Alan/KELLEY /[id number]
--- NOTE | 2019-12-01 09:40 | NUR ---
DR. ASHRAF ON THE UNIT- DR. ASHRAF ADMINISTERED IM LIDOCAINE AND IM KENALOG AT BEDSIDE TO PATIENT'S LEFT UPPER ARM.
[2019-12-01 10:04] VITALS: BP 89/54
[2019-12-01] MEDS ORDERED: MUPIROCIN22 GM TOP (10:21)
[2019-12-01] MEDS ORDERED: TYLENOL WITH C1 EACH PO (10:21)
[2019-12-01] MEDS ORDERED: CEFUROXIME500 MG PO (10:23)
--- NOTE | 2019-12-01 10:26 | Progress Note ---
DATE: SUBJECTIVE: Ms. Shah is a pleasant 44-year-old female, complicated past medical history including diabetes and morbid obesity. She was admitted with infected right 2nd toe, seen by multiple specialties including Podiatry. REVIEW OF SYSTEMS: No nausea, no vomiting, no fever, no chills. No chest pain or shortness of breath. No headache. No dysuria. No polyuria. ALLERGIES: NO KNOWN ALLERGIES. MEDICATIONS: Medication list is reviewed. As far as Infectious Disease point of view, the patient is on Rocephin and clindamycin. LABORATORY STUDIES: White blood cells 10.27, hemoglobin 9.6, platelet 287. Sodium 138, potassium 4.5, creatinine 0.85. Toxicology; vancomycin trough was 12.4 on 11/22/2019, but however, patient is not on vancomycin right now. Wound culture showed E coli and Streptococcus. IMAGING: No new radiology studies available. PHYSICAL EXAMINATION: GENERAL: Alert and oriented, no acute distress. CV: S1, S2. CHEST: Equal expansion, clear to auscultation, no acute distress. HEENT: Moist. No pallor. No JVD. EXTREMITIES: Right foot dressed, status post amputation of the gangrene right 2nd toe wound on local care. ASSESSMENT AND PLAN: A 44-year-old female, gangrene right 2nd toe-status post amputated. 1. Diabetes. 2. Obesity. 3. Chronic pain. 4. Hyperlipidemia. 5. Culture sensitivity noted, wound showed E coli and Streptococcus, sensitivity reviewed. Discussed with Dr. Dee. Okay to discharge from ID point of view with Ceftin 500 mg p.o. twice a day. Creatinine is 0.85 and the patient has no allergies. Dictated by Cortez Copeland PA-C (Al) Attila Dee MD /KELLEY /[id number]
--- NOTE | 2019-12-01 10:35 | NUR ---
PER DR ORDER PT WILL CHANGE TO ORAL ABX AND GO HOME. PROVIDED WALKER PER ORDER OBTAINED SIGNATURES FOR GREEN SHEET AND FILED IN PACU FOR PROCESSING.
--- NOTE | 2019-12-01 10:42 | Operative Report ---
DATE OF PROCEDURE: 12/01/2019 SURGEON: Mariama Tejada MD PREOPERATIVE DIAGNOSES: 1. Intractable left shoulder pain. 2. Intractable left elbow pain. MRI shows left ulnar neuritis, possible bursitis cannot be ruled out. POSTOPERATIVE DIAGNOSES: 1. Intractable left shoulder pain. 2. Intractable left elbow pain. MRI shows left ulnar neuritis, possible bursitis cannot be ruled out. PROCEDURES: 1. Left shoulder joint steroid injection. 2. Left elbow joint injection. ANESTHESIA: Local. PROCEDURE IN DETAIL: This is a 44-year-old [place] female with extreme morbid obesity, having issue with pain in the left shoulder and the left elbow area. MRI suggestive of ulnar neuritis on the left side. She was placed in a comfortable sitting position. The shoulder joint and elbow joint on the left side were prepped with DuraPrep and drapes were applied and the first shoulder joint was injected with 1% local lidocaine, . After finding the most tender point causing the severe pain, a 25-gauge needle was advanced after using 1% lidocaine wheal and then injected with 10 mL of lidocaine 1% with 40 mg of Triamcinolone/Kenalog. Needle flushed, withdrawn, and this was done. Left elbow joint steroid injection, left elbow was prepped with DuraPrep and drapes applied 1% local lidocaine . The most painful tender area was find out by the anatomical landmark and by palpation method. Findings, painful spot seems to be left ulnar groove. A 25-gauge needle was introduced and after negative aspiration for the blood or any paresthesia, 10 mL of 1% lidocaine along with 40 mg of Triamcinolone/Kenalog was injected. Needle flushed, withdrawn, Band-Aid applied. The patient placed in supine position. Keep monitor for 30 minute. Her pain which was 10/10 before procedure was almost 0/10. We will continue supportive care. We will follow her. She also has some foot injury and foot problem with gangrene of the toe of the right foot, being under care by podiatry, we will follow her. I have discussed in detail with primary care physician and we will follow her as an outpatient. Mariama Tejada MD /EVINL /[id number]
[2019-12-01 11:48] VITALS: BP 101/64
--- NOTE | 2019-12-01 13:38 | NUR ---
PATIENT DISCHARGE HOME- PATIENT OFF THE UNIT AT 1333 PER WHEELCHAIR ACCOMPANIED BY PCT'S TO THE FRONT LOBBY. PATIENT IN STABLE CONDITION WITH NO S/S OF RESPIRATORY DISTRESS. IV REMOVED WITH TIP INTACT. PATIENT DISCHARGE WITH WALKER AND IS AWARE THAT SHE IS NON-WEIGHT BEARING TO THE RIGHT FOOT. DISCHARGE TEACHING, INSTRUCTIONS, AND MEDICATIONS GIVEN TO THE PATIENT. ALL PERSONAL ITEMS TAKEN WITH THE PATIENT.
--- NOTE | 2019-12-01 20:24 | Discharge Summary ---
PERTINENT HISTORY AND PHYSICAL FINDINGS/CHIEF COMPLAINT: Right 2nd toe wound. HISTORY OF PRESENT ILLNESS: Ms. Garcia is a 44-year-old female, who admitted with complaints of right 2nd toe wound and had a dry wound in September, which Podiatry had debrided in October. Since then, the patient had the wound debrided again without improvement. The patient had stated that the wound is one that she got intermittently, which dries up and then goes away on its own. PAST MEDICAL HISTORY: Type 2 diabetes mellitus. PAST SURGICAL HISTORY: , right great toe amputation. FAMILY HISTORY: Father has diabetes and has cancer. SOCIAL HISTORY: Occasional alcohol use. ALLERGIES: NO KNOWN ALLERGIES. ADMITTING DIAGNOSES: 1. Right 2nd toe wound with gangrene. 2. Type 2 diabetes mellitus. 3. Morbid obesity with BMI 43.6. 4. Left arm pain. DISCHARGE DIAGNOSES: 1. Right 2nd toe wound with gangrene and osteomyelitis, status post right 2nd toe amputation on 11/29/2019. 2. Uncontrolled type 2 diabetes mellitus with hemoglobin A1c of 10%. 3. Chronic left arm pain. 4. Morbid obesity with BMI of 43.57. On admission; WBCs 12.31, hemoglobin 10.3, hematocrit 31.7, and platelets 293. Sodium 140, potassium 4.7, chloride 111, CO2 of 22, BUN 30, creatinine 0.92, estimated GFR greater than 60, glucose 131, calcium 8.8, total bilirubin 0.2, AST 12, ALT 15, alkaline phosphatase 74, total protein 6.7, albumin 3.2. Blood cultures collected on November 19, showed no growth after 5 days. Wound culture collected on November 20, showed history acute Escherichia coli, multidrug resistant organism. On November 21, the patient underwent bedside debridement by Dr. Arzate. Additional consulting physicians included Dr. Attila Dee with Infectious Disease, Dr. Tejada with Pain Management, Dr. Alexandro Ashraf with Orthopedics. A wound culture was obtained from the right foot during surgery, which showed both multidrug resistance, E. coli, as well as Streptococcus viridans. The E. coli is resistant to Levaquin, Cipro, ampicillin, and Bactrim. Right foot x-ray done on November 20, showed diffuse soft tissue swelling of the 2nd toe, mild underlying periosteal reaction of the could possibly indicate underlying osteomyelitis. MRI of the right foot done on November 20, showed soft tissue ulceration of the 2nd toe with osteomyelitis involving the proximal and middle phalanx. Right lower extremity arterial Doppler ultrasound showed possible evidence of significant arterial stenosis at REELER OPERATOR with absent flow. Arterial Doppler showed triphasic waveforms at the right femoral artery and popliteal artery at the left common femoral artery. There were biphasic waveforms with nonsevere focal stenosis less than 50% at the right anterior tibial artery. The right posterior tibial artery showed absence of flow of venous Doppler ultrasound was done, which was negative for deep venous thrombosis. During her stay, the patient underwent physical therapy and occupational therapy. The patient lives alone in a one-story house with one-step to enter. She owns a wheelchair and a bedside commode. She will be provided a rolling walker upon discharge. Per documentation, the patient's left shoulder has been hurting more than her foot with the patient stating that she could hardly use it. The patient should well bearing full weight on the left leg. Minimal unsteadiness during transfer, but no loss of balance. She requires extra time to shuffle her feet and unable to fully elevate her left leg due to inability to bear full weight to the left shoulder for support. She had undergone a rotational flap closure and application of a posterior splint. At that time, she had her right foot 2nd toe amputation. The patient demonstrates impaired strength, activity tolerance, gait, balance, and transfers. Dr. Ashraf had already been consulted and suggested extensive conservative treatment prior to elective surgery. The patient is unable ambulate at this time due to the lacking upper body strength to support herself on a walker in the left arm and shoulder pain. This is per documentation on 11/30/2019, by the physical therapy assistant instructor. The patient was transferred from the bed to recliner chair for out of bed goals. She was able to safely perform three small hops using rolling walker and nonweightbearing on the right lower extremity. She was offered to work on longer gait training, but the patient declined due to complaints of increased left shoulder pain during upper extremity weightbearing on a rolling walker. The patient was able to follow nonweightbearing restrictions and take small hops using the rolling walker for bed to chair transfer. Regarding her persistent chronic left arm pain which has been going on for about a year, she had a left upper extremity venous Doppler ultrasound, which was negative for deep venous thrombosis that was done on November 22. There was no evidence of vein thrombosis. She had an MRI of the left shoulder without contrast, which showed rotator cuff tendinosis without tear or muscle atrophy or retraction. Small effusion and mild synovitis in the rotator interval and subcoracoid space. Mild bone marrow edema at the anterior humeral head, likely stress related. Intra-articular biceps tendinosis with fraying of the biceps anchor. MRI of the left elbow without contrast done on November 22, showed mildly increased T2 signal and enlargement of the ulnar nerve and just proximal to the cubital tunnel, which can be a sign of ulnar neuritis, otherwise this was unremarkable MRI exam of the left elbow. On x-ray that was done on November 20 of the left shoulder and left elbow complete showed no acute osseous injury of the left shoulder or elbow. Dr. Tejada with Pain Management, we will follow the patient. During her stay, she has been taking [place] 10 mg one tablet every 4 hours as needed for pain. Today, on the day of discharge November 30, the patient received Kenalog and lidocaine injection into the left arm. The patient reports that the left arm feels numb afterwards. Yesterday, when I had seen the patient, she complained of pain 9/10 in the left arm. The patient is encouraged to follow up with the Dr. Tejada with Pain Management as well as Dr. Ashraf with orthopedics within the next two weeks. The patient will continue to use her [place] at home when Dr. Tejada also wrote a prescription for Tylenol No.3. with codeine one tablet t.i.d. p.r.n. She currently has a dressing covering the right foot. Dr. Arzate seen and evaluated the patient this morning with Infectious Disease. Vital signs are temperature 98.2, heart rate 76, blood pressure 98/58, respirations 18, and oxygen saturation 95%. Labs from today, sodium 138, potassium 4.5, chloride 108, CO2 of 26, BUN 25, creatinine 0.86, estimated GFR greater than 60. Glucose 97. WBCs 10.27, hemoglobin 9.6, hematocrit 10.2, and platelets 287. Fingerstick blood glucose 111, calcium 8.8, phosphorus 4.9, magnesium 1.9. The patient is to follow up with Dr. Arzate is an in 1 to 2 weeks. Follow up with Dr. Dee in 2 weeks. Follow up with Dr. Cruz in 1 to 2 weeks. Continue ADA diet. The patient will be provided a prescription for Ceftin 500 mg p.o. every 12 hours for two weeks. Dictated by Nawaf Arnold, DIANA MD APOLLO Cook/KELLEY /[id number]
== END 2019-12-01 13:33 | disposition home or self-care (01) | DRG 617 ==
LOC: ER 20:04 → ERHOLD 21:50 → MED/SURG3 23:34
PROVIDERS: ADMIT Internal Medicine; ATTEND Internal Medicine
PROC: 0QBQ0ZZ Excision of Right Toe Phalanx, Open Approach (ICD-10-PCS; principal; 2019-11-22)
PROC: 0Y6R0Z0 Detachment at Right 2nd Toe, Complete, Open Approach (ICD-10-PCS; 2019-11-29)
PROC: 0K9 Muscles, Drainage (ICD-10-PCS; 2019-11-29)
PROC: 0HXMXZZ Transfer Right Foot Skin, External Approach (ICD-10-PCS; 2019-11-29)
PROC: 3E0U33Z Introduction of Anti-inflammatory into Joints, Percutaneous Approach (ICD-10-PCS; 2019-12-01)
PROC: 3E0U3BZ Introduction of Anesthetic Agent into Joints, Percutaneous Approach (ICD-10-PCS; 2019-12-01)
DX: E11.69 Type 2 diabetes mellitus with other specified complication (principal); E11.52 Type 2 diabetes mellitus with diabetic peripheral angiopathy with gangrene; I96 Gangrene, not elsewhere classified; L03.115 Cellulitis of right lower limb; M86.171 Other acute osteomyelitis, right ankle and foot; Z68.41 Body mass index [BMI] 40.0-44.9, adult; N17.9 Acute kidney failure, unspecified; E66.01 Morbid (severe) obesity due to excess calories; Z83.3 Family history of diabetes mellitus; Z82.49 Family history of ischemic heart disease and other diseases of the circulatory system; Z89.411 Acquired absence of right great toe; Z79.4 Long term (current) use of insulin; E11.621 Type 2 diabetes mellitus with foot ulcer; M75.42 Impingement syndrome of left shoulder; L97.513 Non-pressure chronic ulcer of other part of right foot with necrosis of muscle; Z76.5 Malingerer [conscious simulation]; E87.5 Hyperkalemia; B96.20 Unspecified Escherichia coli [E. coli] as the cause of diseases classified elsewhere; R53.81 Other malaise; E78.5 Hyperlipidemia, unspecified; B95.4 Other streptococcus as the cause of diseases classified elsewhere; D64.9 Anemia, unspecified; M70.32 Other bursitis of elbow, left elbow
CPT/HCPCS: 36415; 80048; 80053; 80202; 82948; 83036; 83735; 84100; 84443; 84702; 85025; 87040; 87071; 87075; 87186; 87205; 88304; 88305; 88311; 93926; 93971; 96360; 96372; 97139; 99251; 99284; J0696; J0720; J1100; J1815; J1817; J1885; J2001; J2270; J2405; J2543; J3301; J3370; J7030; J7050; Q0162

== ENCOUNTER → 2020-08-26 | Day surgery (SDC) | payer OTHER ==
[2020-08-22 16:54] LABS: ANION GAP 12.4 mmol/L (8-16); CALCIUM 8.7 mg/dL (8.4-10.2); CREATININE, SERUM 1.02 mg/dL (0.57-1.11); POTASSIUM 4.4 mmol/L (3.5-5.1)
[~2020-08-26] MED LIST changes: +BASAGLAR K100 UNIT/1 SC; +CEFAZOLIN SOD 1 GM/NS 50ML 100 ML IV ONE; +CEFUROXIME500 MG PO; +DEXAMETHASONE SOD PHOS INJ 4 MG/ML VIAL ONE; +DOXYCYCLINE HY100 MG PO; +FENTANYL CITRATE/PF 100MCG/2 ML INJ ONE; +FERROUS SULFAT325 MG PO; +HUMALOG100 UNIT/1 SC; +KETOROLAC TROMETHAMINE 30 MG/ML VIAL ONE; +LIDOCAINE HCL 2% LOCAL INJ 5 ML SDV VIAL INJ ONE; +MIDAZOLAM HCL 2 MG/2 ML VIAL ONE; +MUPIROCIN22 GM TOP; +NORCO 10-325 T1 EACH PO; +ONDANSETRON HCL INJ 2MG/ML 2ML 2 MG/ML VIAL ONE; +PLAVIX75 MG PO; +PROPOFOL IV EMULSION 10 MG/ML 20 ML VIAL ONE; +SEVOFLURANE INHAL SOLN 250 ML PEN BTL ONE
[2020-08-26 09:34] VITALS: BP 168/77
== END | disposition home or self-care (01) ==
LOC: OR 05:53
PROVIDERS: ATTEND Specialist
DX: G56.03 Carpal tunnel syndrome, bilateral upper limbs (principal); M75.42 Impingement syndrome of left shoulder; G47.33 Obstructive sleep apnea (adult) (pediatric); E11.9 Type 2 diabetes mellitus without complications; E78.00 Pure hypercholesterolemia, unspecified; Z01.810 Encounter for preprocedural cardiovascular examination; Z01.812 Encounter for preprocedural laboratory examination; Z20.822 Contact with and (suspected) exposure to COVID-19; Z79.4 Long term (current) use of insulin; Z68.42 Body mass index [BMI] 45.0-49.9, adult; Z87.891 Personal history of nicotine dependence
CPT/HCPCS: 29848; 36415 ×2; 80048; 81025; 82948; 93005; J0690; J3010; U0002

== ENCOUNTER 2020-09-26 21:00 | Emergency (ER) | payer OTHER ==
[~2020-09-26] VITALS: Ht 160 cm; Wt 111.6 kg
[~2020-09-26 21:00] MED LIST changes: -CEFAZOLIN SOD 1 GM/NS 50ML 100 ML IV ONE; -DEXAMETHASONE SOD PHOS INJ 4 MG/ML VIAL ONE; -FENTANYL CITRATE/PF 100MCG/2 ML INJ ONE; -KETOROLAC TROMETHAMINE 30 MG/ML VIAL ONE; -LIDOCAINE HCL 2% LOCAL INJ 5 ML SDV VIAL INJ ONE; -MIDAZOLAM HCL 2 MG/2 ML VIAL ONE; -ONDANSETRON HCL INJ 2MG/ML 2ML 2 MG/ML VIAL ONE; -PROPOFOL IV EMULSION 10 MG/ML 20 ML VIAL ONE; -SEVOFLURANE INHAL SOLN 250 ML PEN BTL ONE
[2020-09-26] MEDS ORDERED: DOXYCYCLINE MO100 MG PO (21:49)
[2020-09-26] MEDS ORDERED: TYLENOL # 31 EA PO (21:49)
[2020-09-26] MEDS: DOXYCYCLINE HYCLATE TABLET 100 MG TAB PO ONE (22:15)
== END 2020-09-26 22:22 | disposition home or self-care (01) ==
LOC: ER 21:12
DX: L03.114 Cellulitis of left upper limb (principal); E11.9 Type 2 diabetes mellitus without complications
CPT/HCPCS: 99283

== ENCOUNTER 2020-10-04 18:32 | Emergency (ER) | payer OTHER ==
[~2020-10-04] VITALS: Ht 160 cm; Wt 111.6 kg
[~2020-10-04 18:32] MED LIST changes: +DOXYCYCLINE MO100 MG PO; +TYLENOL # 31 EA PO
[2020-10-04] MEDS ORDERED: SODIUM CHLORIDE 0.9% 1000ML 1,000 ML IV STA (18:52)
[2020-10-04 19:21] LABS: BASOPHILS % 0.2 % (0.0-1.0); EOSINOPHILS # (AUTO) 0.1 (0.0-0.4); EOSINOPHILS % 1.1 % (0.0-6.0); HEMATOCRIT 33.4 % (34.2-44.1); HEMOGLOBIN 10.7 g/dL (12.0-16.0); LYMPHOCYTES # (AUTO) 2.6 (1.0-3.2); LYMPHOCYTES % 29.4 % (18.0-39.1); MEAN CORPUSCULAR HEMOGLOBIN 30.4 pg (28-32); MEAN CORPUSCULAR VOLUME 94.9 fL (81-99); MONOCYTES # (AUTO) 0.6 (0.2-0.8); MONOCYTES % 7.2 % (4.4-11.3); NEUTROPHILS # (AUTO) 5.4 (2.1-6.9); NEUTROPHILS % 61.8 % (38.7-80.0); PLATELET COUNT 300 x10e3/uL (140-360); RED BLOOD COUNT 3.52 x10e6/uL (3.6-5.1); RED CELL DISTRIBUTION WIDTH 13.9 % (11.7-14.4)
[2020-10-04 19:44] LABS: ALBUMIN 3.5 g/dL (3.5-5.0); ANION GAP 14.2 mmol/L (8-16); CALCIUM 8.8 mg/dL (8.4-10.2); CREATININE, SERUM 1.01 mg/dL (0.57-1.11); POTASSIUM 4.2 mmol/L (3.5-5.1)
[2020-10-04] MEDS ORDERED: MORPHINE SULFATE INJ 4 MG/ML INJ 1ML IV STA (20:52)
[2020-10-04] MEDS ORDERED: ONDANSETRON HCL INJ 2MG/ML 2ML 2 MG/ML VIAL IV STA (20:52)
[2020-10-04] MEDS ORDERED: ONDANSETRON HCL INJ 2MG/ML 2ML 2 MG/ML VIAL ONE (21:05)
[2020-10-04] MEDS ORDERED: MORPHINE SULFATE INJ 4 MG/ML INJ 1ML ONE (21:05)
[2020-10-04] MEDS ORDERED: PIPERACILLIN/TAZOBAC 3.375 GM in SODIUM CHLORIDE 0.9% 50ML 50 ML IV STA (22:28)
[2020-10-04 23:22] VITALS: BP 114/68
== END 2020-10-04 23:24 | disposition home or self-care (01) ==
LOC: ER 18:53
DX: T81.40XA Infection following a procedure, unspecified, initial encounter (principal); E11.65 Type 2 diabetes mellitus with hyperglycemia
CPT/HCPCS: 36415; 73110; 73130; 80053; 85025; 99284; J2270; J2405; J2543; 87071; 87205

== ENCOUNTER 2020-12-21 07:21 | Inpatient (IN) | payer OTHER ==
[~2020-12-21] VITALS: Ht 160 cm; Wt 83.9 kg
[2020-12-21] MEDS ORDERED: SODIUM CHLORIDE 0.9% 1000ML 1,000 ML IV STA (08:07)
[2020-12-21] MEDS ORDERED: PIPER-TAZ 3.375 GM 50 ML IV ONE (08:15)
[2020-12-21] MEDS ORDERED: VANCOMYCIN 1GM/NS 250 ML 250 ML IV ONE (08:15)
[2020-12-21] MEDS ORDERED: PIPERACILLIN/TAZOBACTAM 3.375 GM in SODIUM CHLORIDE 0.9% 50ML 50 ML IV ONE (08:30)
[2020-12-21 09:29] LABS: CLARITY,URINE CLEAR (CLEAR); COLOR,URINE YELLOW (YELLOW); KETONES,URINE 1+ (NEGATIVE); LEUKOCYTE ESTERASE ,URINE NEGATIVE (NEGATIVE); NITRITE,URINE NEGATIVE (NEGATIVE); PROTEIN,URINE DIPSTICK NEGATIVE (NEGATIVE); URINE UROBILINOGEN 0.2 mg/dL (0.2 - 1)
[2020-12-21 09:30] LABS: BACTERIA,URINE FEW /HPF; EPITHELIAL CELLS,URINE FEW /LPF; RBC,URINE 0-5 /HPF (0-5); WBC,URINE (MAN) 0-5 /HPF (0-5)
[2020-12-21 09:54] LABS: BASOPHILS % 0.1 % (0.0-1.0); EOSINOPHILS # (AUTO) 0.1 (0.0-0.4); HEMATOCRIT 31.9 % (34.2-44.1); HEMOGLOBIN 10.3 g/dL (12.0-16.0); LYMPHOCYTES # (AUTO) 1.1 (1.0-3.2); LYMPHOCYTES % 11.7 % (18.0-39.1); MEAN CORPUSCULAR HEMOGLOBIN 31.3 pg (28-32); MEAN CORPUSCULAR HGB CONC 32.3 g/dL (31-35); MONOCYTES # (AUTO) 0.7 (0.2-0.8); MONOCYTES % 7.6 % (4.4-11.3); NEUTROPHILS # (AUTO) 7.5 (2.1-6.9); NEUTROPHILS % 79.3 % (38.7-80.0); PLATELET COUNT 267 x10e3/uL (140-360); RED BLOOD COUNT 3.29 x10e6/uL (3.6-5.1); RED CELL DISTRIBUTION WIDTH 13.5 % (11.7-14.4)
[2020-12-21] MEDS ORDERED: ONDANSETRON HCL INJ 2MG/ML 2ML 2 MG/ML VIAL IV STA (10:04)
[2020-12-21] MEDS ORDERED: MORPHINE SULFATE INJ 4 MG/ML INJ 1ML IV STA (10:04)
[2020-12-21 10:09] LABS: INR 0.94; PROTHROMBIN TIME 13.2 seconds (11.9-14.5)
[2020-12-21 10:13] LABS: ALANINE AMINOTRANSFERASE 21 IU/L (0-55); ALBUMIN 3.2 g/dL (3.5-5.0); ALBUMIN/GLOBULIN RATIO 0.8 (0.8-2.0); ALKALINE PHOSPHATASE 110 IU/L (40-150); ANION GAP 17.2 mmol/L (8-16); BLOOD UREA NITROGEN 24 mg/dL (7-26); BUN/CREATININE RATIO 30 (6-25); CALCIUM 8.9 mg/dL (8.4-10.2); CARBON DIOXIDE 22 mmol/L (22-29); CHLORIDE 108 mmol/L (98-107); EST GLOMERULAR FILTRATION RATE > 60 ML/MIN (60-); GLUCOSE 118 mg/dL (74-118); POTASSIUM 4.2 mmol/L (3.5-5.1); SODIUM 143 mmol/L (136-145)
[2020-12-21] MEDS ORDERED: MORPHINE SULFATE INJ 2 MG/ML SYR IV PRN (11:00)
[2020-12-21] MEDS: SODIUM CHLORIDE 0.9% 1000ML 1,000 ML IV SCH (12:09)
[2020-12-21] MEDS ORDERED: VANCOMYCIN 1GM/NS 250 ML 250 ML ONE (12:11)
[2020-12-21] MEDS: ONDANSETRON HCL INJ 2MG/ML 2ML 2 MG/ML VIAL IV PRN ×3 (15:41→23:57)
[2020-12-21] MEDS ORDERED: ACETAMINOPHEN 325 MG TAB PO PRN (16:45)
[2020-12-21 17:09] VITALS: BP 147/85
[2020-12-21 17:13] VITALS: BP 147/85
[2020-12-21] MEDS: CEFEPIME 1 GM in SODIUM CHLORIDE 0.9% 50ML 50 ML IV SCH (18:32)
[2020-12-21] MEDS: HYDROMORPHONE 1MG/1ML INJ IV PRN ×2 (18:40→23:56)
[2020-12-21] MEDS: HYDROCODONE/APAP 10MG-325MG TAB PO PRN (19:40)
[2020-12-21 20:00] VITALS: BP 101/55
[2020-12-21 20:43] VITALS: BP 101/55
[2020-12-21] MEDS ORDERED: VANCOMYCIN 1GM/NS 250 ML 250 ML IV SCH (22:00)
[2020-12-21] MEDS ORDERED: GADOBENATE DIMEGLUMINE 1 ML IV ONE (22:08)
[2020-12-21] MEDS: VANCOMYCIN HCL 1.25 GM in SODIUM CHLORIDE 0.9% 250ML 250 ML IV SCH (23:00)
[2020-12-22] VITALS (9 sets, daily range): BP systolic 92–138; BP diastolic 54–90
[2020-12-22] MEDS: CEFEPIME 1 GM in SODIUM CHLORIDE 0.9% 50ML 50 ML IV SCH ×3 (01:04→16:57)
[2020-12-22] MEDS: HYDROCODONE/APAP 10MG-325MG TAB PO PRN ×4 (02:12→22:37)
[2020-12-22] MEDS: SODIUM CHLORIDE 0.9% 1000ML 1,000 ML IV SCH ×3 (04:15→15:29)
[2020-12-22 06:49] LABS: BASOPHILS % 0.2 % (0.0-1.0); EOSINOPHILS # (AUTO) 0.2 (0.0-0.4); EOSINOPHILS % 2.4 % (0.0-6.0); HEMATOCRIT 30.5 % (34.2-44.1); HEMOGLOBIN 9.8 g/dL (12.0-16.0); LYMPHOCYTES # (AUTO) 2.2 (1.0-3.2); LYMPHOCYTES % 25.5 % (18.0-39.1); MEAN CORPUSCULAR HEMOGLOBIN 31.2 pg (28-32); MEAN CORPUSCULAR HGB CONC 32.1 g/dL (31-35); MEAN CORPUSCULAR VOLUME 97.1 fL (81-99); MONOCYTES % 10.9 % (4.4-11.3); NEUTROPHILS # (AUTO) 5.3 (2.1-6.9); NEUTROPHILS % 60.8 % (38.7-80.0); PLATELET COUNT 243 x10e3/uL (140-360); RED BLOOD COUNT 3.14 x10e6/uL (3.6-5.1); RED CELL DISTRIBUTION WIDTH 13.3 % (11.7-14.4)
[2020-12-22 07:10] LABS: ALANINE AMINOTRANSFERASE 18 IU/L (0-55); ALBUMIN 2.5 g/dL (3.5-5.0); ALBUMIN/GLOBULIN RATIO 0.7 (0.8-2.0); ALKALINE PHOSPHATASE 88 IU/L (40-150); ANION GAP 10.1 mmol/L (8-16); BLOOD UREA NITROGEN 20 mg/dL (7-26); BUN/CREATININE RATIO 27 (6-25); CALCIUM 8.3 mg/dL (8.4-10.2); CARBON DIOXIDE 23 mmol/L (22-29); CHLORIDE 112 mmol/L (98-107); CREATININE, SERUM 0.75 mg/dL (0.57-1.11); EST GLOMERULAR FILTRATION RATE > 60 ML/MIN (60-); GLUCOSE 144 mg/dL (74-118); POTASSIUM 4.1 mmol/L (3.5-5.1); SODIUM 141 mmol/L (136-145)
[2020-12-22] MEDS: HYDROMORPHONE 1MG/1ML INJ IV PRN ×2 (08:45→20:12)
[2020-12-22] MEDS: ONDANSETRON HCL INJ 2MG/ML 2ML 2 MG/ML VIAL IV PRN (08:45)
[2020-12-22] MEDS: VANCOMYCIN HCL 1.25 GM in SODIUM CHLORIDE 0.9% 250ML 250 ML IV SCH ×2 (11:54→22:52)
[2020-12-23] VITALS (9 sets, daily range): BP systolic 116–139; BP diastolic 56–87
[2020-12-23] MEDS: HYDROMORPHONE 1MG/1ML INJ IV PRN ×5 (00:57→23:10)
[2020-12-23] MEDS: CEFEPIME 1 GM in SODIUM CHLORIDE 0.9% 50ML 50 ML IV SCH ×2 (01:55→08:40)
[2020-12-23] MEDS: ONDANSETRON HCL INJ 2MG/ML 2ML 2 MG/ML VIAL IV PRN ×2 (09:29→23:10)
[2020-12-23] MEDS: VANCOMYCIN HCL 1.25 GM in SODIUM CHLORIDE 0.9% 250ML 250 ML IV SCH ×2 (11:00→23:10)
[2020-12-23] MEDS ORDERED: ACETAMINOPHEN 650 MG SUPP PR PRN (11:30)
[2020-12-23] MEDS ORDERED: DOCUSATE SODIUM 100 MG CAP PO PRN (11:30)
[2020-12-23] MEDS: SODIUM CHLORIDE 0.9% 1000ML 1,000 ML IV SCH ×2 (11:30→18:54)
[2020-12-23] MEDS ORDERED: HYDROCODONE/APAP 5MG-325MG TAB PO PRN (11:30)
[2020-12-23] MEDS ORDERED: ZOLPIDEM TARTRATE 5 MG TAB PO PRN (11:30)
[2020-12-23] MEDS ORDERED: DIPHENHYDRAMINE HCL INJ 50 MG/ML VIAL IV PRN (11:30)
[2020-12-23] MEDS ORDERED: FENTANYL CITRATE/PF 100MCG/2 ML INJ ONE ×2 (12:24→12:49)
[2020-12-23] MEDS ORDERED: MIDAZOLAM HCL 2 MG/2 ML VIAL ONE (12:49)
[2020-12-23] MEDS: KETOROLAC TROMETHAMINE 30 MG/ML VIAL IV PRN ×2 (13:14→13:47)
[2020-12-23] MEDS: HYDROCODONE/APAP 10MG-325MG TAB PO PRN ×2 (15:28→21:20)
[2020-12-23] MEDS ORDERED: LIDOCAINE HCL 2% LOCAL INJ 5 ML SDV VIAL INJ ONE (16:41)
[2020-12-23] MEDS ORDERED: PROPOFOL IV EMULSION 10 MG/ML 20 ML VIAL ONE (16:41)
[2020-12-23] MEDS ORDERED: SEVOFLURANE INHAL SOLN 250 ML PEN BTL ONE (16:41)
[2020-12-23] MEDS ORDERED: POVIDONE IODINE 0.05% 0.05 % ML PO ONE (16:41)
[2020-12-23] MEDS: CELECOXIB 200 MG CAP PO SCH (18:03)
[2020-12-23] MEDS ORDERED: VANCOMYCIN 1GM/NS 250 ML 250 ML IV SCH (21:00)
[2020-12-23] MEDS ORDERED: DIPHENHYDRAMINE HCL 25 MG CAP PO PRN (21:30)
[2020-12-24] VITALS (8 sets, daily range): BP systolic 117–147; BP diastolic 66–97
[2020-12-24] MEDS: ONDANSETRON HCL INJ 2MG/ML 2ML 2 MG/ML VIAL IV PRN ×4 (03:40→20:35)
[2020-12-24] MEDS: HYDROMORPHONE 1MG/1ML INJ IV PRN ×4 (03:40→20:35)
[2020-12-24 05:04] LABS: BASOPHILS % 0.1 % (0.0-1.0); EOSINOPHILS # (AUTO) 0.3 (0.0-0.4); EOSINOPHILS % 3.4 % (0.0-6.0); HEMATOCRIT 28.2 % (34.2-44.1); LYMPHOCYTES # (AUTO) 2.6 (1.0-3.2); LYMPHOCYTES % 32.6 % (18.0-39.1); MEAN CORPUSCULAR HEMOGLOBIN 30.8 pg (28-32); MEAN CORPUSCULAR HGB CONC 31.9 g/dL (31-35); MEAN CORPUSCULAR VOLUME 96.6 fL (81-99); MONOCYTES # (AUTO) 0.8 (0.2-0.8); MONOCYTES % 9.9 % (4.4-11.3); NEUTROPHILS # (AUTO) 4.2 (2.1-6.9); NEUTROPHILS % 53.6 % (38.7-80.0); PLATELET COUNT 257 x10e3/uL (140-360); RED BLOOD COUNT 2.92 x10e6/uL (3.6-5.1); RED CELL DISTRIBUTION WIDTH 13.2 % (11.7-14.4)
[2020-12-24 05:23] LABS: ANION GAP 14.1 mmol/L (8-16); BLOOD UREA NITROGEN 15 mg/dL (7-26); BUN/CREATININE RATIO 21 (6-25); CALCIUM 8.4 mg/dL (8.4-10.2); CARBON DIOXIDE 21 mmol/L (22-29); CHLORIDE 112 mmol/L (98-107); CREATININE, SERUM 0.71 mg/dL (0.57-1.11); EST GLOMERULAR FILTRATION RATE > 60 ML/MIN (60-); GLUCOSE 104 mg/dL (74-118); POTASSIUM 4.1 mmol/L (3.5-5.1); SODIUM 143 mmol/L (136-145)
[2020-12-24] MEDS: SODIUM CHLORIDE 0.9% 1000ML 1,000 ML IV SCH (08:05)
[2020-12-24] MEDS: CELECOXIB 200 MG CAP PO SCH ×2 (08:59→18:25)
[2020-12-24] MEDS ORDERED: LACTULOSE SYRUP 20 GM/30 ML UDC PO PRN (11:00)
[2020-12-24] MEDS ORDERED: ACETAMINOPHEN 1000 MG/100 ML IV PRN (11:30)
[2020-12-24] MEDS: HYDROCODONE/APAP 7.5MG-325MG 1 EA TAB PO PRN ×3 (11:41→23:22)
[2020-12-24] MEDS: VANCOMYCIN HCL 1.25 GM in SODIUM CHLORIDE 0.9% 250ML 250 ML IV SCH ×2 (11:43→23:08)
[2020-12-24] MEDS: OXYMETAZOLINE HCL 0.05% NAS 1 SPRAY BTL SCH (18:25)
[2020-12-24] MEDS ORDERED: SODIUM CHLORIDE 0.9% 250ML 250 ML ONE (20:15)
[2020-12-25] VITALS: BP 152/83
[2020-12-25] MEDS: ONDANSETRON HCL INJ 2MG/ML 2ML 2 MG/ML VIAL IV PRN ×2 (01:00→06:50)
[2020-12-25] MEDS: HYDROMORPHONE 1MG/1ML INJ IV PRN ×2 (01:00→06:50)
[2020-12-25 04:00] VITALS: BP 136/82
[2020-12-25 08:16] VITALS: BP 126/68
[2020-12-25 08:46] VITALS: BP 126/68
[2020-12-25] MEDS: CELECOXIB 200 MG CAP PO SCH (09:00)
[2020-12-25] MEDS: OXYMETAZOLINE HCL 0.05% NAS 1 SPRAY BTL SCH (09:00)
[2020-12-25] MEDS ORDERED: VANCOMYCIN 1GM/NS 250 ML 250 ML IV SCH (11:00)
[2020-12-25] MEDS: HYDROCODONE/APAP 7.5MG-325MG 1 EA TAB PO PRN ×2 (11:09→15:47)
[2020-12-25] MEDS ORDERED: HYDROMORPHONE 1MG/1ML INJ IV PRN (12:45)
[2020-12-25] MEDS ORDERED: HYDROCODON-ACE1 EA11 PO (13:37)
[2020-12-25] MEDS ORDERED: KEFLEX125 MG/5 M PO (13:40)
== END 2020-12-25 17:15 | disposition home or self-care (01) | DRG 857 ==
LOC: ER 08:14 → ERHOLD 10:56 → MED/SURG 16:10
PROVIDERS: ADMIT Internal Medicine; ATTEND Internal Medicine
PROC: 0J9H0ZZ Drainage of Left Lower Arm Subcutaneous Tissue and Fascia, Open Approach (ICD-10-PCS; principal; 2020-12-21)
DX: T81.41XA Infection following a procedure, superficial incisional surgical site, initial encounter (principal); L03.114 Cellulitis of left upper limb; L02.414 Cutaneous abscess of left upper limb; E11.9 Type 2 diabetes mellitus without complications; Z89.411 Acquired absence of right great toe; Z98.84 Bariatric surgery status; E66.9 Obesity, unspecified; Z68.32 Body mass index [BMI] 32.0-32.9, adult; B95.61 Methicillin susceptible Staphylococcus aureus infection as the cause of diseases classified elsewhere
CPT/HCPCS: 36415; 80048; 80053; 80202; 81001; 81025; 85025; 85610; 85730; 87071; 87075; 87086; 87186; 87205; 99284; J0692; J1170; J1885; J2001; J2250; J2270; J2405; J2543; J3010; J3370; J7030; J7050; U0002

== ENCOUNTER 2021-06-24 20:43 | Emergency (ER) | payer OTHER ==
[~2021-06-24] VITALS: Ht 312.4 cm; Wt 83.9 kg
[~2021-06-24 20:43] MED LIST changes: +HYDROCODON-ACE1 EA11 PO; +KEFLEX125 MG/5 M PO
[2021-06-24] MEDS ORDERED: AMOXICILLIN/CLAVULANATE K 875 MG TAB PO STA (21:58)
[2021-06-24] MEDS ORDERED: TRIMETHOPRIM/SULFAMETHOXAZOLE 160-800 MG TAB PO ONE (22:00)
[2021-06-24] MEDS ORDERED: KETOROLAC TROMETHAMINE 60 MG/2 ML VIAL IM ONE (22:00)
[2021-06-24] MEDS ORDERED: Morphine 4mg Syringe 4 MG/ML INJ IM ONE (22:30)
[2021-06-24] MEDS ORDERED: AUGMENTIN 875-1 EACH PO (23:19)
[2021-06-24] MEDS ORDERED: BACTRIM DS TAB1 EACH PO (23:19)
[2021-06-24] MEDS ORDERED: IBUPROFEN600 MG PO (23:19)
[2021-06-24 23:43] VITALS: BP 129/84
== END 2021-06-24 23:33 | disposition home or self-care (01) ==
LOC: ER 20:58
DX: E11.621 Type 2 diabetes mellitus with foot ulcer (principal); L97.529 Non-pressure chronic ulcer of other part of left foot with unspecified severity; M25.512 Pain in left shoulder; Z98.84 Bariatric surgery status
CPT/HCPCS: 99284; J1885; J2270

== ENCOUNTER 2024-05-24 18:50 | Emergency (ER) | payer OTHER ==
[~2024-05-24] VITALS: Ht 157.5 cm; Wt 77.1 kg
[~2024-05-24 18:50] MED LIST changes: +AUGMENTIN 875-1 EACH PO; +BACTRIM DS TAB1 EACH PO; +DICLOFENAC SODI75 MG PO; +IBUPROFEN600 MG PO; +NEURONTIN300 MG PO; +TIZANIDINE HCL4 M1 PO
[2024-05-24 19:50] VITALS: PULSE 86; RESP 18; TEMP 98.6; O2SAT 100
[2024-05-24 20:36] LABS: INFLUENZAE A&B ANTIGEN (RAPID) NEGATIVE (NEGATIVE); RESPIRATORY SYNC. VIRUS NEGATIVE (NEGATIVE)
[2024-05-24] MEDS ORDERED: ACETAMINOPHEN-1 EAC4 PO (21:11)
== END 2024-05-24 21:20 | disposition home or self-care (01) ==
LOC: ER 19:02
DX: R05.9 Cough, unspecified (principal); J06.9 Acute upper respiratory infection, unspecified; S92.352A Displaced fracture of fifth metatarsal bone, left foot, initial encounter for closed fracture; X58.XXXA Exposure to other specified factors, initial encounter; E11.40 Type 2 diabetes mellitus with diabetic neuropathy, unspecified; E03.9 Hypothyroidism, unspecified; Z11.52 Encounter for screening for COVID-19; Z98.84 Bariatric surgery status
CPT/HCPCS: 71045; 73630; 87400; 87420; 99282; U0002